=== PATIENT | male | born 1960 | race Caucasian/White ===

== ENCOUNTER 2017-02-04 16:56 | Emergency (ER) | payer MEDICARE ==
[~2017-02-04] VITALS: Ht 180.3 cm; Wt 122.5 kg
[~2017-02-04 16:56] MED LIST: ASPIRIN325 MG PO; AZITHROMYCIN250 MG PO; BENTYL10 MG PO; LISINOPRIL20 MG PO; LORAZEPAM0.5 MG PO; METOPROLOL TART50 MG PO; NORCO 5-325 TA1 EACH PO; TRAMADOL HCL50 MG PO
[2017-02-04] MEDS ORDERED: DICYCLOMINE HCL10 MG PO (17:18)
[2017-02-04] MEDS ORDERED: CIPRO500 MG PO (21:27)
--- NOTE | 2017-02-05 13:02 | EKG ---
[facility] [address] [facility] [place] [address] Signed Normal sinus rhythm Possible Left atrial enlargement Left axis deviation Abnormal QRS-T angle, consider primary T wave abnormality Abnormal ECG When compared with ECG of 05-OCT-2016 12:50, No significant change was found Confirmed by IRLANDA SALINAS MD ([id number]) on 02/05/2017 1:02:06 PM Electronically Signed By: IRLANDA SALINAS MD 02/05/17 1302 PATIENT NAME: JENNADARIO CHOI Electrocardiogram DATE OF : 64 PHYSICIAN: IRLANDA SALINAS MD REPORT #: [id number] REPORT IS CONFIDENTIAL AND NOT TO BE RELEASED WITHOUT AUTHORIZATION
== END 2017-02-04 21:41 | disposition home or self-care (01) ==
LOC: ED 16:56
DX: N39.0 Urinary tract infection, site not specified (principal); H53.9 Unspecified visual disturbance; I10 Essential (primary) hypertension; I25.2 Old myocardial infarction; F17.200 Nicotine dependence, unspecified, uncomplicated; Z88.0 Allergy status to penicillin; Z79.899 Other long term (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 therapy; Z87.01 Personal history of pneumonia (recurrent); Z79.82 Long term (current) use of aspirin; Z79.891 Long term (current) use of opiate analgesic
CPT/HCPCS: 80053; 81001; 84484; 85025; 87088; 93005; 93010; 99284

== ENCOUNTER 2017-02-16 05:55 | Emergency (ER) | payer MEDICARE ==
[~2017-02-16] VITALS: Ht 180.3 cm; Wt 122.5 kg
[~2017-02-16 05:55] MED LIST changes: +CIPRO500 MG PO; +DICYCLOMINE HCL10 MG PO
[2017-02-16] MEDS ORDERED: OMEPRAZOLE20 MG PO (10:27)
--- NOTE | 2017-02-16 17:17 | EKG ---
[facility] [address] [facility] [place] [address] Signed Normal sinus rhythm Possible Left atrial enlargement Left ventricular hypertrophy T wave abnormality, consider lateral ischemia Abnormal ECG When compared with ECG of 04-FEB-2017 17:10, No significant change was found Confirmed by IRLANDA SALINAS MD ([id number]) on 02/16/2017 5:17:03 PM Electronically Signed By: IRLANDA SALINAS MD 02/16/17 1717 PATIENT NAME: JENNADARIO CHOI Electrocardiogram DATE OF : 64 PHYSICIAN: IRLANDA SALINAS MD REPORT #: [id number] REPORT IS CONFIDENTIAL AND NOT TO BE RELEASED WITHOUT AUTHORIZATION
== END 2017-02-16 10:40 | disposition home or self-care (01) ==
LOC: ED 05:55
DX: R07.2 Precordial pain (principal); R10.13 Epigastric pain; I10 Essential (primary) hypertension; I25.2 Old myocardial infarction; F17.200 Nicotine dependence, unspecified, uncomplicated; Z88.0 Allergy status to penicillin; Z79.2 Long term (current) use of antibiotics; Z79.82 Long term (current) use of aspirin; Z79.891 Long term (current) use of opiate analgesic; Z79.899 Other long term (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 therapy
CPT/HCPCS: 36415; 71010; 80053; 83690; 84484; 85025; 93005; 93010; 96374; 96375; 99284; J2270; J2405

== ENCOUNTER 2017-02-17 21:09 | Emergency (ER) | payer MEDICARE ==
[~2017-02-17] VITALS: Ht 180.3 cm; Wt 122.5 kg
[~2017-02-17 21:09] MED LIST changes: +OMEPRAZOLE20 MG PO
== END 2017-02-18 01:38 | disposition home or self-care (01) ==
LOC: ED 21:09
DX: R10.13 Epigastric pain (principal); I25.2 Old myocardial infarction; I10 Essential (primary) hypertension; G62.9 Polyneuropathy, unspecified; F17.200 Nicotine dependence, unspecified, uncomplicated; M79.7 Fibromyalgia; Z88.0 Allergy status to penicillin; Z79.899 Other long term (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 therapy; Z79.82 Long term (current) use of aspirin
CPT/HCPCS: 80053; 83690; 84484; 85025; 96361; 96374; 96375; 99284; J1170; J2405; J7030

== ENCOUNTER 2017-02-21 17:29 | Inpatient (IN) | payer MEDICARE ==
[~2017-02-21] VITALS: Ht 180.3 cm; Wt 119.0 kg
--- NOTE | 2017-02-21 21:00 | NUR ---
PT ARRIVED TO THE FLOOR VIA STRETCHER, ABLE TO AMBULATE INDEPENDANLTY FROM STRETCHER TO BED, APPEARS STABLE OF FEET. PT ALERT AND ORIENTED X4, PLEASENT, VERY TALKATIVE.
--- NOTE | 2017-02-21 21:26 | NUR ---
DR SALINAS IN ROOM WITH PT.
--- NOTE | 2017-02-21 22:40 | NUR ---
PT COMPLAINED OF 6/10 PAIN IN HIS "UPPER" ABD, GAVE MORPHINE FOR PAIN. PT DENIES NAUSEA. ALL DR FLOOD'S ORDERS IN PLACE. ORIENTED PT TO ROOM AND CALL LIGHT. PT SITTING UP IN BED, WATCHING TV. LIGHTS ON, ROOM DOOR OPEN AND CURTAINS OPEN, PER PT REQUEST. CALL LIGHT IN REACH. PT HAS NO FURTHER NEEDS.
--- NOTE | 2017-02-22 00:08 | NUR ---
pt complained of 6/10 pain in abd and nausea, gave morphine for pain. no emesis so far. pt is laying in bed, watching tv, lights on in room, no apparent distress. pleasent and talkative. call light in reach. no further needs.
--- NOTE | 2017-02-22 01:26 | NUR ---
pt appears to be sleeping. rr wnl and unlabored.
--- NOTE | 2017-02-22 02:32 | NUR ---
HAND SLITTER WOKE PT WHEN TAKING 0200 VITALS. PT CALLED RN AND REQUESTED "SOMETHING FOR PAIN," PT RATES PAIN AT 6/10, GAVE MORPHINE IV FOR PAIN. PT UP TO BATHROOM TO VOID. TOLERATED STANDBY ASSIST WELL TO AND FROM BATHROOM. URINE IS DARK KAVITA IN COLOR. CALL LIGHT IN REACH. NO FURTHER NEEDS.
--- NOTE | 2017-02-22 03:24 | NUR ---
pt appears to be sleeping. rr wnl and unlabored.
--- NOTE | 2017-02-22 05:31 | NUR ---
ADMITTED LAST NIGHT EARLY IN SHIFT. PT ALERT AND ORIENTED X4. PAIN WELL CONTROLLED WITH MORPHINE IV. NAUSEA WELL CONTROLLED WITH ZOFRAN IV. IV ANTIBIOTICS. PT USES CALL LIGHT APPROPRIATLY. STANDBY ASSIST.
--- NOTE | 2017-02-22 06:10 | NUR ---
PT COMPLAINS OF 6/10 PAIN, GAVE MORPHINE IV. PT COMPLAINS OF NAUSEA, GAVE ZOFRAN. PT SITTING UP IN BED, WATCHING TV. NO APPARENT DISTRESS. CALL LIGHT IN REACH. NO FURTHER NEEDS.
--- NOTE | 2017-02-22 07:20 | NUR ---
BEDSIDE HANDOFF REPORT RECIEVED FROM STRAWBERRY GROWER RN. PT RESTING IN BED. PT NPO. PT DENIES NEEDS AT THIS TIME.
--- NOTE | 2017-02-22 08:07 | NUR ---
PT RESTING IN BED. PT COMPLAINT OF PAIN, REQUESTING PAIN MEDICATION, RATING PAIN 6-7/10, GIVEN 5 MG IV MORPHINE. PT BLOOD PRESSURE 114/76, HR 66, LISINOPRIL AND HYDRAZALINE HELD PER ORDER. PT DENIES SOB, ON 2L NC, LUNG SOUNDS CLEAR. PT BOWEL TONES HYPOACTIVE, DENIES NAUSEA. PT PULSES PALPABLE, HX NEUROPATHY. PT NPO AT THIS TIME. SALINE LOCKED FOR SHOWER, PROVIDED HEBICLEANSE. PT DENIES OTHER NEEDS AT THIS TIME.
--- NOTE | 2017-02-22 09:45 | NUR ---
MD TO BEDSIDE, DISCUSSED PLAN OF CARE. TO GIVE FLUID BOLUS AND CONTINUE TO MONITOR, REEVALUATE THIS AFTERNOON.
--- NOTE | 2017-02-22 10:34 | NUR ---
PT REQUESTING ANTIEMETIC AND PAIN MEDICATION. PT GIVEN 12.5 MG PROMETHAZINE AND 5 MG IV MORPHINE. PT ACCEPTING FLU VACCINE, ADMINISTERED TO RIGHT SHOULDER. PT DENIES OTHER NEEDS AT THIS TIME.
--- NOTE | 2017-02-22 10:53 | NUR ---
PATIENT RESTING IN BED WITH EYES CLOSED SNORING. CALL BUTTON IN REACH.
--- NOTE | 2017-02-22 12:53 | NUR ---
PT RESTING IN PAIN. PT RATING PAIN AT 5/10. PT LUNG SOUNDS CLEAR. PT DENIES NAUSEA, BOWEL TONES HYPOACTIVE. NO ACUTE CHANGES. PT DENIES NEEDS AT THIS TIME.
--- NOTE | 2017-02-22 13:59 | NUR ---
PATIENT LAYING IN BED RESTIN WITH EYES CLOSED. REPORTED JULIO BP TO NURSE. NO OTHER NEEDS AT THIS TIME.
--- NOTE | 2017-02-22 14:10 | NUR ---
PT RESTING IN BED. PT DENIES NAUSEA. IV ABX INFUSING. PT DENIES NEEDS AT THIS TIME.
--- NOTE | 2017-02-22 16:43 | NUR ---
PT RESTING IN BED, SLEEPING.
--- NOTE | 2017-02-22 16:58 | NUR ---
MD TO BEDSIDE. PLAN FOR OR TOMORROW. PT ALLOWED CLEAR LIQUID UNTIL MIDNIGHT, PROVIDED JUICE, WATER AND JELLO. PT DENIES OTHER NEEDS AT THIS TIME.
[2017-02-22] MEDS ORDERED: CHLORTHALIDONE25 MG PO (18:13)
[2017-02-22] MEDS ORDERED: VITAMIN E400 UNI1 PO (18:14)
[2017-02-22] MEDS ORDERED: VITAMIN B-121000 MCG PO (18:14)
[2017-02-22] MEDS ORDERED: VITAMIN D2000 UNI1 PO (18:14)
[2017-02-22] MEDS ORDERED: PRENATAL PLUS1 EAC4 PO (18:18)
--- NOTE | 2017-02-22 18:19 | NUR ---
MED REC COMPLETE
--- NOTE | 2017-02-22 18:26 | NUR ---
PT ALERT/ORIETNED, SLEEPY AFTER PHENERGAN. PT ON 2L NC, LUNG SOUNDS CLEAR. PAIN WELL CONTROLLED WITH 5MG IV MORPHINE. IV FLUIDS INFUSING D5LR AT 125 ML/HR. BOWEL TONES HYPOACTIVE, TOLERATING CLEAR LIQUID DIET, NPO AT MIDNIGHT FOR SURGERY. CONSENT SIGNED. PT INDEPENDENT IN ROOM. VOIDING QS.
--- NOTE | 2017-02-22 19:28 | NUR ---
RECEIVED REPORT FROM RN. PATIENT HAS NO NEEDS AT THIS TIME.
--- NOTE | 2017-02-22 22:13 | NUR ---
PATIENT REPORTS 5/10 EPIGASTRIC PAIN. NOT REQUESTING MORE PAIN MEDICATION AT THIS TIME.
--- NOTE | 2017-02-23 01:31 | NUR ---
PATIENT REPORTED 6/10 EPIGASTRIC PAIN. PAIN MEDICATION ADMINISTERED PER EMAR. NO OTHER NEEDS AT THIS TIME.
--- NOTE | 2017-02-23 02:23 | NUR ---
PATIENT IS IN BED SLEEPING.
--- NOTE | 2017-02-23 03:40 | NUR ---
PATIENT REPORTS 4/10 EPIGASTRIC PAIN AND DENIES NEED FOR PAIN MEDICATION. ASSESSMENT DONE. PATIENT HAS NO NEEDS AT THIS TIME.
--- NOTE | 2017-02-23 05:15 | NUR ---
PATIENT HAS BEEN SLEEPING THROUGHOUT SHIFT. VSS, NO COMPALINTS OF NAUSEA. PAIN HAS BEEN WELL CONTROLLED WITH PRN MORPHINE. NO ACUTE CHANGES FROM BEGINNING OF SHIFT ASSESSMENT. INTENTIONAL ROUNDING DONE WITH ALL PATIENT'S NEEDS MET.
--- NOTE | 2017-02-23 06:14 | NUR ---
pt up and ambulated in [place] with standby assist. tolerated one time around nurses station well. pt back in bed, watching tv. pleasent and talkative. complained of 6/10 pain, gave morphine iv for pain. complained of feeling nauseous, "i can feel it coming on now." gave zofran iv for nausea. call light in reach. no further needs.
--- NOTE | 2017-02-23 06:33 | NUR ---
PATIENT IS SITTING UP IN BED WATCHING TV. PATIENT HAS NO NEEDS AT THIS TIME.
--- NOTE | 2017-02-23 07:10 | NUR ---
BEDSIDE HANDOFF REPORT RECEIVED FROM BUILDING PRINCIPAL RN. PT RESTING IN BED. PT DENIES NEEDS AT THIS TIME. NPO. IV FLUIDS INFUSING D5LR AT 125 ML/HR.
--- NOTE | 2017-02-23 08:00 | NUR ---
PT RESTING IN BED. PT STATES PAIN TOLERABLE AT THIS TIME, RATING PAIN 5/10. PT ON 2L NC, LUNG SOUNDS CLEAR. PT NPO FOR SURGERY, BOWEL TONES HYPOACTIVE, COMPLAINT OF MILD NAUSEA, DENIES NEED FOR MEDICATION. PT INDEPENDENT IN ROOM. PT DENIES NEEDS AT THIS TIME. IV FLUIDS INFUSING AT 125 ML/HR.
--- NOTE | 2017-02-23 10:51 | NUR ---
PT TO OR WITH DAYSURGERY NURSE.
--- NOTE | 2017-02-23 11:08 | EKG ---
[facility] [address] [facility] [place] [address] Signed Normal sinus rhythm Nonspecific T wave abnormality Abnormal ECG When compared with ECG of 16-FEB-2017 06:01, No significant change was found Confirmed by IRLANDA SALINAS MD ([id number]) on 02/23/2017 11:08:07 AM Electronically Signed By: IRLANDA SALINAS MD 02/23/17 1108 PATIENT NAME: DARIO WEST Electrocardiogram DATE OF : 64 PHYSICIAN: IRLANDA SALINAS MD REPORT #: [id number] REPORT IS CONFIDENTIAL AND NOT TO BE RELEASED WITHOUT AUTHORIZATION
--- NOTE | 2017-02-23 11:50 | NUR ---
PT OFF FLOOR, AT OR.
--- NOTE | 2017-02-23 14:31 | NUR ---
PT CONTINUES TO BE OFF THE FLOOR, AT OR.
--- NOTE | 2017-02-23 14:40 | NUR ---
02/23/17 1440 Stephanie Pinon 1426-PATIENT ARRIVED TO PACU ON 8L MASK PATIENT REACHING FOR FACE AND REMOVING MASK. RA O2 SAT DECREASES TO 90% HAS SLEEP APNEA NONCOMPLIANT WITH AT HOME. PATIENT REPOSITIONING SELF IN BED LAYING ON SIDE. 1434-RT AT BEDSIDE FOR 12 LEAD EKG SR WITH T WAVE INVERSION NOTED. ORDER RECEIVED FROM KAVITA CAMERON. 5 LAP SITES TO ABDOMEN RIGHT SIDE WITH ROSCOE DRAIN SATURATED 4X4'S SEROUSANGUINOUS DRAINAGE. ROSCOE TO BE EMPTIED. DRESSING REINFORCED TO RIGHT SIDE WITH 4X4 FLUFFS TO ROSCOE DRAIN SITE. 1438-O2 SAT DECREASED TO 75% PATIENT ENCOURAGED TO TAKE DEEP BREATHES. MASK PLACED 12L O2 SAT INCREASED TO LOW 90'S.
--- NOTE | 2017-02-23 16:00 | NUR ---
DR. FLOOD CALLED FOR HYPERTENSION, VERBAL ORDER FOR 5 MG IV HYDRALAZINE TO BE GIVEN ONCE, GIVEN.
--- NOTE | 2017-02-23 17:56 | HP ---
[facility] [address] [place], [place] [address] Signed DATE AND TIME OF ADMISSION: 02/21/17 at 2035 PROBLEM: Acute cholecystitis with gallstones. HISTORY This 56-year-old white man is in the [place] area for the past 1 year [place], [place] originally. He is accompanied today by his daughter and her 2 children. Yesterday, he began having upper abdominal pain, which was rather significant and severe and worsening. This included some back pain and some nausea and vomiting. He presented to the emergency room where he has been evaluated and found on ultrasound to have gallstones, a tender gallbladder and findings consistent with acute cholecystitis. He is admitted on that basis. He does have a significant past medical history, which includes recurrent bouts of Legionella pneumonia. He said he was afflicted with this while working on oil [employer] in [place]. Additionally, he is said to have somewhat unresponsive hypertension. Mention has been made of possible renal artery stenosis, though he has had no imaging or anything to confirm such a finding. He was advised by a primary care provider to seek the assistance of an test pilot for further evaluation of this. Additionally, the patient is disabled for reasons that are somewhat unclear, but include an inability to concentrate. MEDICATIONS His medicines at admission include Aspirin, Lisinopril, Lorazepam, Metoprolol, Omeprazole, Tramadol, Bentyl. ALLERGIES: He has allergy to Penicillin. REVIEW OF SYSTEMS His pain is mostly in the right upper abdomen. Denies substernal pain or lower abdominal pain. He complains of no chest pain. Notably, the patient describes a "stress test" performed a few years ago, which was said to be normal. SOCIAL HISTORY He lives in [place]. He is not . He has his daughter and his 2 young Electronically Signed By: ZAYDA FLOOD MD 02/23/17 1756 PATIENT NAME: DARIO WEST HISTORY AND PHYSICAL DATE OF : 64 PHYSICIAN: ZAYDA FLOOD MD REPORT #: [id number] REPORT IS CONFIDENTIAL AND NOT TO BE RELEASED WITHOUT AUTHORIZATION [facility] [address] [place], [place] [address] Signed granddaughters who attend to him at this time. He is previously from [place]. 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 He is now on a disability compensation for some uncertain reasons. PHYSICAL EXAMINATION GENERAL: A nontoxic-appearing white male, with a britton del toro and somewhat obese countenance. NECK: Trachea is midline. He has no hoarseness. There is no carotid bruit. CHEST: Clear. HEART: Regular. I detect no murmur. ABDOMEN: Obese but soft. There is mild tenderness in the right subcostal area. There is no mass. No ascites. EXTREMITIES: Show no clubbing, cyanosis, or edema. LABORATORY STUDIES Show white count of 12.7, hematocrit 48.5, and platelets of 272,000. Chem profile shows normal electrolytes. Creatinine is 1.11, bilirubin 0.9, AST 184, ALT 293, alk phos 154, albumin normal at 4.1, amylase 25, and lipase 23. Urinalysis pending. Ultrasound was reviewed showing what appeared to me to be a distended gallbladder. Interpretation includes findings of diffusely echogenic liver suggestive of fatty infiltration. There is no sign of bile duct dilatation. Common duct is 5 mm. Multiple small gallstones are noted in the gallbladder. There is no pericholecystic fluid or gallbladder wall thickening. Right kidney is 10.6 cm in length. The renal cortex is normal. No right hydronephrosis. ASSESSMENT AND PLAN The patient has acute calculous cholecystitis. He has somewhat mysterious underlying medical problems apparently of variable control. His blood pressure in the emergency room was 180/89, though uncertain if he has been compliant with his usual medications. He will be admitted with bowel rest, intravenous antibiotics, parenteral pain medication, ulcer prophylaxis, DVT prophylaxis and plans for a consideration of hospitalist consult regarding control of his blood pressure. He will be given his or al antihypertensives with a sip of water in the meantime. MD PERFECTO Edwards/Binh Electronically Signed By: ZAYDA FLOOD MD 02/23/17 1756 PATIENT NAME: DARIO WEST HISTORY AND PHYSICAL DATE OF : 64 PHYSICIAN: ZAYDA FLOOD MD REPORT #: [id number] REPORT IS CONFIDENTIAL AND NOT TO BE RELEASED WITHOUT AUTHORIZATION [facility] [address] [facility] [place], [place] [address] Signed /[id number] cc: JOSSELYN Mujica Electronically Signed By: ZAYDA FLOOD MD 02/23/17 1756 PATIENT NAME: DARIO WEST HISTORY AND PHYSICAL DATE OF : 64 PHYSICIAN: ZAYDA FLOOD MD REPORT #: [id number] REPORT IS CONFIDENTIAL AND NOT TO BE RELEASED WITHOUT AUTHORIZATION
--- NOTE | 2017-02-23 18:13 | NUR ---
PT IS SITTING UP IN BED EATING HIS DINNER. PT IS COMPLAING OF PAIN AND JUST GENERAL DISCOMFORT. PT DID NOT NEED ANYTHING ELSE AT THE MOMENT
--- NOTE | 2017-02-23 18:42 | NUR ---
PT CONTINUES TO BE HYPERTENISVE DESPITE HYDRALAZINE AND PAIN MEDICATION. DR. FLOOD CALLED, ORDERED TO CALL HOSPITALIST. DR. KING CALLED, ORDER TO CONTINUE TO MONITOR, AND ENSURE NIGHT BP MEDS GIVEN.
--- NOTE | 2017-02-23 18:46 | NUR ---
PT TO OR TODAY FOR LAP MERLINE. BACK TO FLOOR AT 1530. PT PAIN MANAGED WITH IV MORPHINE, TRANSITIONED TO ORL NORCO. PT BOWEL TONES HYPOACTIVE, ADAVCNED TO REGULAR DIET, DENIES NAUSEA. PT HYPERTENSIVE SINCE ARRIVING, 5MG IV HYDRALAZINE GIVEN X1, MD AWARE. PT WITH LPA SITES X5, ROSCOE DRAIN, MODERATE DRAINAGE FOR ROSCOE SITE, DRESSING CHANGED. UP WITH ASSISTANCE. IV FLUIDS D5LR AT 125 ML/HR. VOIDING QS.
--- NOTE | 2017-02-23 19:15 | NUR ---
SHIFT REPORT RECIEVED. PATIENT RESTING IN BED. FAMILY IN ROOM. NO REQUEST AT THIS TIME. CALL LIGHT IN REACH.
--- NOTE | 2017-02-23 20:35 | NUR ---
PATIENT RESTING IN BED. PATIENT REPORTS PAIN AT 7/10 IN HIS ABD. PRN PAIN MED GIVEN PER ORDERS. EVENING MEDS GIVEN PER ORDER. ROSCOE DRAIN IN RLQ DRAINING SEROSANGUINOUS. MODERATE AMOUNT OF DRAINAGE AROUND ROSCOE SITE ALSO APPEARS SEROSANGUINOUS. PATIENT REQUEST THAT WE WAIT UNTIL THE PAIN MEDICATION HAS TAKEN EFFECT TO CHANGE DRESSING. ABD IS MODERATLEY DISTENED AND TENDER. UMBILICAL SURGICAL SITE HAS SCANT DRAINAGE. STERI STRIPS ON OTHER LAP SITES ARE C/D/I. PATIENT DENIES FEELING NAUSEOUS AT THIS TIME. TOLERATING DIET WELL. SCDS IN PLACE. PLUSE OX IN PLACE. 1L O2 NC. PATIENT REFUSED CPAP. PATIENT HAS NO FURTHER REQUEST AT THIS TIME. CALL LIGHT IN REACH.
--- NOTE | 2017-02-23 21:50 | NUR ---
PATIENT RESTING IN BED. PATIENT REQUESTED TO NOT HAVE HIS DRESSING CHANGED AT THIS TIME. HE FEELS COMFORTABLE AND WOULD LIKE TO REST. AGREED TO ALERT STAFF WHEN HE IS READY TO HAVE THE DRESSING CHANGED. CALL LIGHT IN REACH.
--- NOTE | 2017-02-23 23:51 | NUR ---
PATIENT RESTING. EYES CLOSED. RR 16. CALL LIGHT IN REACH.
--- NOTE | 2017-02-24 00:59 | NUR ---
PATIENT UP TO THE SIDE OF THE BED TO USE URNAL. PATIENT REPORTED 9/10 PAIN. PRN PAIN MEDICATIONS GIVEN AND WARM BLANKET PLACED ON ABD. PATIENT ALLOWED FULL ASSESSMENT TO BE DONE. BOWEL SOUNDS ARE ACTIVE, ABD SOFT, MODERATELY DISTENDED, DRESSING CHANGED. OLD DRESSING HAD MODERATE AMOUNT OF SEROSANGINOUS DRAINAGE. LUNG SOUNDS ARE CLEAR THROUGHOUT, DIMINISHED IN BASES. PATIENT REPORTED DIFFICULTY TAKING DEEP BREATHS DUE TO ABD PAIN. PATIENT ON 2L NC, O2 96%. TITRATED TO 1L NC, WILL CONTINUE TO MONITOR. PATIENT DENIES NAUSEA AT THIS TIME. HE IS CONCERNED ABOUT HAVING A BOWEL MOVEMENT DUE TO THE NARCOTICS AND HIS ABD PAIN. EDUCATED PATIENT ON IMPORTANCE OF AMBULATION AND PROPHYLACTIC BOWEL CARE. SCDS IN PLACE. ROSCOE DRAIN IN PLACE, DRAINED 50ML SEROSANGUINOUS FLUID. PATIENT POSITIONED IN BED FOR COMFORT. IVF RUNNING AT 125ML/HR. PATIENT REQUESTED A VARIETY OF SNACKS. SOFT SNACK OPTIONS WERE PROVIDED. PATIENT HAS NO FURTHER NEEDS AT THIS TIME. CALL LIGHT IN REACH.
--- NOTE | 2017-02-24 01:57 | NUR ---
PATIENT RESTING. EYES CLOSED. RR 14. CALL LIGHT WITHIN REACH.
--- NOTE | 2017-02-24 02:17 | NUR ---
PATIENT ALERTED STAFF TO NEED FOR PRN PAIN MEDICATION FOR 9/10 PAIN. UPON RETURNING TO THE PATIENT ROOM. PATIENT WAS RESTING WITH EYES CLOSED. RN WOKE THE PATIENT TO ASSESS HIS NEED FOR THE PRN PAIN MEDICATION. PATIENT STATED HE WAS EXPERIENCING 9/10 PAIN IN HIS ABD. PRN PAIN MED GIVEN PER ORDER.
--- NOTE | 2017-02-24 03:09 | NUR ---
PATIENT RESTING IN BED. EYES CLOSED. RR 16.
--- NOTE | 2017-02-24 04:02 | NUR ---
PATIENT RESTING IN BED. EYES CLOSED. RR 16. HOB ELEVATED >45 DEGREES. PULSE OX 94%. 1L NC. CALL LIGHT IN REACH.
--- NOTE | 2017-02-24 05:44 | NUR ---
PATIENT RESTED THROUGHOUT SHIFT. ROSCOE DRESSING RLQ, SEROSANGUINOUS DRAINAGE AT ROSCOE SITE. DRESSING CHANGED X2. BOWEL SOUNDS ACTIVE. PATIENT FEELS BLOATED. ABD TENDER, SOFT, AND SLIGHTLY DISTENDED. UMBILICAL INSICION SCANT DRAINAGE. PRN PAIN MEDS GIVEN X4. D5LR @ 125ML/HR. SCDS. PULSE OX WLN, TITRATE O2 DOWN TO RA. PATIENT AMBULATED WITH SBA W/FWW.
--- NOTE | 2017-02-24 05:48 | NUR ---
PATIENT AMBULATED IN HALLWAY WITH 1PA W/FWW. GAIT STEADY. PATIENT REPORTS FEELING "GAS INSIDE" HIS STOMACH AND IS HOPEFUL AMBULATING WITH RELEIVE GAS PRESSURE. PATIENT ASSISTED BACK TO BED. ROSCOE DRESSING CHANGED, SATURATED IN SEROSANGINOUS DRAINAGE. PATIENT DENIES NAUSEA OR NEED FOR PRN PAIN MEDS AT THIS TIME. CALL LIGHT WITHIN REACH.
--- NOTE | 2017-02-24 06:34 | NUR ---
PATIENT REQUESTED PRN PAIN MEDICATION AND NAUSEA MEDICATION. GIVEN PER ORDERS. SNACK GIVEN PER REQUEST. SCDS IN PLACE. PULSE OX, 88% ON RA. PLACED NC 1L. PATIENT LUNG SOUNDS CLEAR, DIMINISHED IN BASES. BOWEL SOUNDS ACTIVE, ABD TENDER, SOFT, AND MODERATLEY DISTENDED. PATIENT REPORTS FEELING "GAS" PRESSURE IN ABD. ROSCOE IN PLACE. DRESSINGS C/D/I. PATIENT RESTING IN BED. NO FURTHER NEEDS AT THIS TIME. CALL LIGHT IN REACH.
--- NOTE | 2017-02-24 06:47 | NUR ---
PATIENTS BLOOD PRESSURE REASSESED AND RECORDED. PATIENT REPOSTIIONED IN BED. PATEINT RATES PAIN AT A 4/10 AND STATES "IT IS IMPROVING" PATIENT DENIES ANY FURTHER NEEDS CALL LIGHT IN REACH.
--- NOTE | 2017-02-24 06:50 | EKG ---
[facility] [address] [facility] [place] [address] Signed Normal sinus rhythm T wave abnormality, consider lateral ischemia Prolonged QT Abnormal ECG When compared with ECG of 22-FEB-2017 19:00, T wave inversion now evident in Lateral leads Confirmed by ASIF KING MD ([id number]) on 02/24/2017 6:50:53 AM Electronically Signed By: ASIF KING MD 02/24/17 0650 PATIENT NAME: DARIO WEST Electrocardiogram DATE OF : 64 PHYSICIAN: ASIF KING MD REPORT #: [id number] REPORT IS CONFIDENTIAL AND NOT TO BE RELEASED WITHOUT AUTHORIZATION
--- NOTE | 2017-02-24 07:51 | NUR ---
RECIEVED BEDSIDE REPORT FROM LYN MILLER AND LYN LANCE. PT AWAKE IN BED, PLEASANT AND COOPERATIVE. REQUESTING ADDITIONAL PAIN PILL.
--- NOTE | 2017-02-24 10:10 | NUR ---
PT IS LYING IN BED RESTING WITH EYES CLOSED RESPERATIONS EVEN. PT WOKE UP FOR VITALS AND TO URINATE. PT IS FEELING NAUSEOUS. PT ASKED FOR ICE WATER.
--- NOTE | 2017-02-24 14:13 | NUR ---
PT IS RESTING IN BED WITH CALL LIGHT IN REACH. PT IS FEELING NAUSEOUS AND UNCOMFORTABLE. PT ASKED ICE WATER.
--- NOTE | 2017-02-24 17:27 | NUR ---
PT TOLERATING REG DIET WELL. HE C/O MILD NAUSEA THIS MORNING AFTER EATING, DECLINED PRN MEDS. PT TOLERATING REG DIET WELL, DECLINES TO HAVE TRAYS REMOVED AFTER MEALS. PRN HYDRALIZINE X1 FOR BP 169/102, EFFECTIVE. SURGICAL SITES C/D/I.
--- NOTE | 2017-02-24 17:49 | NUR ---
PT IS RESTING IN BED WITH CALL LIGHT IN REACH. PT ASKED FOR URINAL TO BE EMPTIED SO HE COULD GO AGAIN.
--- NOTE | 2017-02-24 19:15 | NUR ---
SHIFT REPORT RECIEVED FROM DAY SHIFT. PATIENT RESTING IN BED. NO REQUEST AT THIS TIME. SCDS IN PLACE. DRESSING AT ROSCOE SITE HAS MODERATE AMOUNT OF SEROSANGUENOUS DRAINAGE. WILL CHANGE DRESSINGS. CALL LIGHT WITHIN REACH.
--- NOTE | 2017-02-24 19:45 | NUR ---
PATIENTS BP IS HIGHER THAN NORMAL LIMITS. PLACED CALL TO HOSPITALIST. RECEIVED VERBAL ORDER TO GIVEN NIGHT BP MEDICATION NOW. PLACED CALL TO DR. FLOOD AND LEFT A MESSAGE. WILL CONTINUE TO MONITOR. PATIENT IS ASYMPTOOMATIC AND DOES NOT APPEAR TO BE IN ANY DISTRESS.
--- NOTE | 2017-02-24 20:05 | NUR ---
SHIFT ASSESSMENT COMPLETED AND DOCUMENTED. PATIENT COMPLAINS OF MILD NAUSEA, WOULD LIKE TO WAIT AND SEE IF IT PASSES. DENIES NEED FOR PRN NAUSEA MEDS. WILL REASSESS. PATIENT STATES THAT HIS PAIN IS 5/10, DOES NOT WANT ANY NARCOTIC PAIN MEDS. STATES HE "DOES NOT WANT TO GET HIGH ON PAIN MEDS". EDUCATION PROVIDED. PRN NONNARCOTIC PAIN MEDS GIVEN PER ORDERS. IV IN LEFT FOREARM INFILTRATED, DC'ED. IV IN LEFT AC FLUSHES WELL, NO PAIN OR REDNESS. PJ IN RLQ INPLACE, MODERATE AMOUNT OF DRAINAGE AT SITE. DRESSING CHANGED. UMBILICAL DRESSING C/D/I. LAP SITES HAVE NO NEW DRAINAGE. ABD IS SOFT, TENDER, AND HAS MODERATE DISTENSION. BOWEL SOUNDS ACTIVE. PATIENT REPORTS HE PASSED SMALL AMOUNT OF GAS EARLIER TODAY. SCDS IN PLACE. NO FURTHER REQUEST AT THIS TIME. CALL LIGHT IN REACH. EVENING MEDS GIVEN PER ORDERS.
--- NOTE | 2017-02-24 20:20 | NUR ---
SPOKE WITH DR FLOOD ABOUT PATIENTS INCREASED BLOOD PRESSURE. X2 NEW VERBAL ORDERS RECIEVED. VERIFIED NEW ORDERS USING THE READBACK METHOD. WILL PUT ORDERS INTO PLACE.
--- NOTE | 2017-02-24 21:00 | NUR ---
PATIENT IS NOW SL PER ORDER. PATIENT ALSO GIVEN A ONE TIME DOSE ORDER OF LASIX. PATIENT DENIES ANY NEEDS AT THIS TIME. CALL LIGHT IN REACH.
--- NOTE | 2017-02-24 22:41 | NUR ---
PATIENT REPORTED 9/10 PAIN IN HIS ABD AND CONTINUES TO FEEL NAUSEOUS, WITHOUT FEELING THE NEED TO VOMIT. PATIENT REQUESTED PRN PAIN MEDICATION AND PRN NAUSEA MEDICATION. MEDS GIVEN PER ORDERS. PATIENT CONSERNED ABOUT EFFECTS OF NARCOTICS ON HIS BOWEL MOTILITY AND RESPIRTORY DRIVE. EDUCATION PROVIDED. PATIENT ON CONTINUOUS PULSE OX AND 2L NC, O2 SAT 96%. BOWEL SOUNDS ACTIVE. PATIENT SATISFIED WITH EDUCATION PROVIDED AND REQUESTED PRN NARCOTIC PAIN MEDS. WILL REASSES. CALL LIGHT IN REACH. NO FURTHER REQUEST AT THIS TIME.
--- NOTE | 2017-02-25 00:50 | NUR ---
PATIENT RESTING IN BED. ASSESSMENT COMPLETED AND DOCUMENTED. PATIENT REPORTS "FEELING BETTER" AFTER LAST DOSE OF PRN PAIN MEDICATION. PATIENT HAS NO NEEDS AT THIS TIME. REPORTS NAUSEA HAS IMPROVED. CALL LIGHT IN REACH. 1L NC, 96% ON PULSE OX. SCDS IN PLACE. PATIENT HAVING QS OUTPUT, PALE YELLOW URINE.
--- NOTE | 2017-02-25 03:26 | NUR ---
PATIENT RESTING IN BED. STATES THAT PAIN IS "OKAY" RIGHT NOW. RATED 5/10. PATIENT REQUEST DECAF COFFEE. WILL PROVIDE PATIENT WITH COFFEE. NO FURTHER REQUEST. CALL LIGHT IN REACH.
--- NOTE | 2017-02-25 04:01 | NUR ---
PATIENT SAT UP ON EDGE OF BED TO DRINK SOME COFFEE. PATIENT COMPLAINED OF FEELING DIZZY, SYMPTOMS RESOLVED AFTER A FEW MINS OF SITTING UP. PATIENT REPORTED INCREASING PAIN RATED AT 5/10 IN HIS ABD. PRN PAIN MEDS GIVEN PER ORDER. PATIENT CONSERNED ABOUT BECOMING CONSTIPATED, BUT STATES THAT HE DOES NOT FEEL CONSTIPATED RIGHT NOW. BOWEL SOUNDS ARE ACTIVE, PATIENT REPORTS PASSING GAS, PATIENT TOLERATING REGULAR DIET WITH ADEQUATE INTAKE. EDUCATION PROVIDED AND WILL CONTINUE TO MONITOR. PATIENT REPOSITIONED IN BED ON LEFT SIDE WITH PILLOWS. O2 SAT 94% ON 1L NC. ROSCOE DRAIN IN PLACE. DRESSING AT ROSCOE SITE SHOWS MODERATE DRAINAGE. SCDS ON. CALL LIGHT IN REACH.
--- NOTE | 2017-02-25 05:18 | NUR ---
PATIENT RESTED OFF AND ON. B/P OUTSIDE NORMAL PERAMITERS, IV LASIX X1 GIVEN. OUTPUT QS. BP TRENDING DOWN. ROSCOE DRAIN ON RLQ, MODERATE AMOUNT OF SEROSANGUINOUS DRAINAGE AROUND SITE. ABD MODERATELY DISTENDED, SOFT, TENDER, BOWEL SOUNDS ACTIVE, PASSING GAS. REGULAR DIET, TOLERATING WELL. PATIENT SLIGHTLY NAUSEOUS, PRN MED GIVEN X1. ABD PAIN CONSTANT, PRN PAIN MED X3. IV IN LEFT AC SL. 1L NC WHEN SLEEPING, PULSE OX O2 WNL, REFUSED CPAP. 1PS W/FWW.
--- NOTE | 2017-02-25 06:51 | NUR ---
MORNING MEDS GIVEN PER ORDER. PATIENT REPORTED PAIN CONTROLED AT 4/10. NAUSEA IS REDUCED. LUNG SOUNDS CLEAR, DIMINISHED SLIGHTLY IN BASES. ROSCOE SITE DRESSING CHANGED, MODERATE AMOUNT OF SEROSANGUENOUS DRAINAGE. SKIN BREAK DOWN IN RLQ FROM TAPE. OINTMENT APPLIED TO AREA AND DRESSING REPOSITIONED TO COVER AREA OF BREAK DOWN. ABD MODERATELY DISTENDED. PATIENT PASSING GAS. BOWEL SOUNDS ACTIVE. OUTPUT QS. SCDS IN PLACE. NO FURTHER REQUEST AT THIS TIME. CALL LIGHT IN REACH.
--- NOTE | 2017-02-25 08:14 | NUR ---
PT CARE ASSUMED. PT RESTING IN BED. ABLE TO MOVE SELF FROM EDGE OF BE TO LAYING DOWN FOR ASSESSMENT. PT RATES PAIN 7/10, MEDICATED WITH 1 PERCOCET
--- NOTE | 2017-02-25 09:45 | NUR ---
PT RESTING, APPEARS TO BE SLEEPING
--- NOTE | 2017-02-25 09:51 | NUR ---
PT IS RESTING IN BED WITH CALL LIGHT IN REACH. PT IS COMPLAINING OF NAUSEA AND DISCOMFORT. WILL NOTIFY NURSE. PT ASKED FOR A 7-UP
--- NOTE | 2017-02-25 11:45 | NUR ---
PT SLEEPING. WAKES EASILY TO NURSE. CURTAINS IN ROOM OPEN. PT REQUESTS NOT TO TAKE PRN BISSOCODYL UNTIL LATER TONIGHT.
--- NOTE | 2017-02-25 14:09 | NUR ---
PT IS SITTING UP IN BED FINISHING LUNCH WITH CALLO LIGHT IN REACH. PT WOULD LIKE TO SHOWER LATER ON. PT DID NOT NEED ANYTHING ELSE AT THE MOMENT
--- NOTE | 2017-02-25 14:57 | NUR ---
PT GIVEN AFTERNOON MEDS, UP FOR WALK WITH NURSE. PT REQUESTS TO SIT UP IN BATHROOM FOLLOWING WALK
--- NOTE | 2017-02-25 17:28 | NUR ---
PT BEGAN SHIFT PAINFUL AND NEEDING MEDICATION. AFTER ONE DOSE, PT HAS NOT NEEDED ANY MORE PAIN MEDICATION FOR SHIFT. HAS BEEN AMBULATING IN HALLWAY WITH STAFF, UP TO THE SHOWER WITH NUTRITION THERAPIST, AND ABLE TO HAVE A LARGE BOWEL MOVEMENT. PT STATES ABD IS FEELING MUCH BETTER THIS EVENING.
--- NOTE | 2017-02-25 18:59 | NUR ---
PT USED BATHROOM AND RETURNED TO BED, CALL LIGHT IN REACH. PT ASKED FOR A WARM BLANKET
--- NOTE | 2017-02-25 19:00 | NUR ---
REPORT TO FIOR BEARD
--- NOTE | 2017-02-25 20:05 | NUR ---
PATIENT ASSESSMENT COMPLETED AND DOCUMENTED. PATIENT REPORTS PAIN AT 8/10 AT HIS ABD SITES, ABD SOFT, TENDER, BOWEL SOUND ACTIVE. PATIENT 1PA W/FWW. STEADY ON HIS FEET, APPEARS SORE BUT NOT WEAK. LUNG SOUNDS CLEAR, SLIGHTLY DIMINISHED IN BASES. PULSE OX IN PLACE FOR NIGHT, O2 97% 2L NC. SCDS IN PLACE. PATIENT STATES THAT HE IS "BETTER THAN YESTERDAY". NO REQUEST AT THIS TIME. CALL LIGHT IN REACH.
--- NOTE | 2017-02-25 22:25 | NUR ---
PATIENT REPORTED LEAKAGE AT DRESSING SITE. ROSCOE DRAIN REMOVED TODAY, SITE LEAKING SEROSANGUENOUS FLUID. STERI STRIPS APPLIED AND FOAM DRESSING APPLIED. WILL REASSESS. PULSE OX, O2 95% ON 1L NC. PATIENT REPORTS PAIN AT 5/10, DENIES NEED FOR PRN PAIN MED AT THIS TIME. PATIENT S.L. SCDS IN PLACE. CALL LIGHT IN REACH.
--- NOTE | 2017-02-25 23:04 | NUR ---
PATIENT REQUEST PRN PAIN MEDS FOR ADB PAIN AT 5/10. PRN PAIN MEDS GIVEN PER ORDER.
--- NOTE | 2017-02-26 00:40 | NUR ---
PATIENT RESTING IN BED. EYES CLOSED. RR 16. PULSE OX, O2 96% 1L NC.
--- NOTE | 2017-02-26 02:12 | NUR ---
PATIENT RESTING IN BED. STATES PAIN IS CONSTANT BUT TOLERABLE, 5/10. DRESSING OVER LEP SITE WHERE ROSCOE WAS REMOVED IS INTACT WITH SMALL AMOUNT OF NEW DRAINAGE VISIBLE. WILL CONTINUE TO MONITOR. OTHER LAP SITES COVERED WITH STERI STRIPS, HAVE NO NEW DRAINAGE. PULSE OX, O2 98%, 1L NC. TITRATED TO RA. WILL CONTINUE TO MONITOR. NO REQUEST AT THIS TIME. CALL LIGHT IN REACH.
--- NOTE | 2017-02-26 03:20 | NUR ---
PATIENT RESTING IN BED. PULSE OX, O2 88% ON RA. TITRATED TO 1L NC. FEW MINS LATER O2 97%.
--- NOTE | 2017-02-26 04:50 | NUR ---
PATIENT RESTING IN BED. LAP SITE WHERE ROSCOE SITE WAS REMOVED HAD MODERATE AMOUNT OF DRAINAGE. 2X2 FOAM DRESSING PLACED AROUND 2300 HAD MODERATE AMOUNT OF SEROSANGINOUS DRAINAGE. NEW FOAM DRESSING APPLIED. STERI STRIPS PLACED EARLIER IN SHIFT LEFT IN PLACE. OF LAP SITES HAVE NO NEW DRAINAGE. PATIENT REPORTS MILD NAUSEA AND PAIN AT 6/10. PRN NAUSEA AND PAIN MEDS GIVEN PER ORDER. WARM BLANKET GIVEN FOR COMFORT. PATIENT UP TO BATHROOM INDEPENDENTLY WITHOUT WALKER. PATIENT APPEARS STEADY ON HIS FEET, MOVES SLOW WITH CORRDINATED MOVEMENTS. PATIENT BACK TO BED. SCDS TAKEN OFF PER PATIENT REQUEST. PULSE OX, O2 97% 2L NC. CALL LIGHT IN REACH. NO FURTHER REQUEST.
--- NOTE | 2017-02-26 06:14 | NUR ---
PATIENT RESTED THROUGHOUT SHIFT. PULSE OX AND 1L NC WHILE ASLEEP, O2 WNL. PRN PAIN MEDS GIVEN X2, PRN NAUSEA MEDS GIVEN X1. ROSCOE DRAIN OUT YESTERDAY, SITE CONTINUES TO HAVE MODERATE AMOUNT OF DRAINAGE. DRESSING CHANGED X2, STERI STRIPS AND 2X2 FOAM DRESSING IN PLACE. PATIENT AMBULATING W/SBA. STEADY ON HIS FEET. TOLERATING REGULAR DIET. SCDS.
--- NOTE | 2017-02-26 06:51 | NUR ---
ALL NOTES, ASSESSMENTS, AND CARE PLAN REVIEWED BY THIS RN.
--- NOTE | 2017-02-26 08:40 | NUR ---
PT ALERT AND ORIENTED X4, PT C/O 6/10 ABD PAIN, GIVEN 600 MG TAB IBUPROFEN AND 0.5 TAB OF 7.5/325 NORCO. PT COOPERATIVE AND POLITE, LAP SITES INTACT, NO REDNESS OR SWELLING NOTED. AT ROSCOE DRAIN SITE SLIGHT DRAINAGE NOTED, COVERED WITH ALEVENT DRESSING. PT INDEPENDENT AND AMBULATORY IN THE ROOM. PT HAS HAD A BM. PT TAKING 100% OF MEALS.
[2017-02-26] MEDS ORDERED: PERCOCET 5-3251 EACH PO (09:45)
[2017-02-26] MEDS ORDERED: NICOTINE PATCH1 EAC1 TD (09:58)
--- NOTE | 2017-02-26 11:34 | NUR ---
PT GIVEN RX FOR PO ZOFRAN FROM FOR HOME USE. PHYSICAL PERSCRIPTION GIVEN TO PT.
--- NOTE | 2017-02-26 12:15 | OR ---
[facility] [place] [facility] [address], [place] [address] Signed DATE OF PROCEDURE: 02/23/17 PREOPERATIVE DIAGNOSES Acute calculous cholecystitis. Multiple medical problems including sleep apnea, hypertension, and history of recurrent pneumonia. Obesity. POSTOPERATIVE DIAGNOSES Acute calculous cholecystitis. Multiple medical problems including sleep apnea, hypertension, and history of recurrent pneumonia. Obesity. Choledocholithiasis. PROCEDURE Laparoscopic cholecystectomy with cholangiogram. Laparoscopic common bile duct exploration with removal of common bile duct stones and completion cholangiogram. Surgeon directed fluoroscopy (prolonged, complicated, difficult). SURGEON: Zayda Flood MD. ANESTHESIA: General endotracheal (Iva Sears CRNA). INDICATION This 56-year-old obese white man is from [place], [place] and more recently living in [place]. He has seen primary provider Sharifa Vizcarra. He is said to have poorly controlled hypertension. He presented to the emergency room on February 21, 2017, with upper abdominal pain and evaluation showed slight elevation of liver enzymes and gallbladder ultrasound showing stones and a positive sonographic Cabrera's sign. The patient was admitted and given fluid resuscitation, intravenous antibiotics, and parenteral pain control and consultation undertaken with Dr. Vi Quintero regarding his hypertension. His hypertension problem has been controlled, it is suspected that he has poor compliance with medications. He has a rather complex past medical history as well including recurrent bouts of pneumonia with Legionella. He unfortunately does smoke. He is admitted at this time to undergo cholecystectomy, having been fluid resuscitated and optimized as best can be for operation. He remains tender in the right upper abdomen and his liver enzymes are reasonably normal at this time. He understands the risks of bleeding, infection, bile Electronically Signed By: ZAYDA FLOOD MD 02/26/17 1215 PATIENT NAME: DARIO WEST OPERATIVE REPORT DATE OF : 64 PHYSICIAN: ZAYDA FLOOD MD REPORT #: [id number] REPORT IS CONFIDENTIAL AND NOT TO BE RELEASED WITHOUT AUTHORIZATION [facility] [place] [facility] [address], [place] [address] Signed duct injury, need for open procedure, need for other indicated procedures and wished to proceed. FINDINGS The patient is rather obese. A fan retractor is needed for good exposure. The gallbladder was acutely inflamed and ultimately found to be packed completely with gallstones. Initial cholangiogram demonstrated 2 common bile duct stones in the distal duct without obstructing the duct fully. Laparoscopic common duct exploration from a transcystic approach was undertaken, both stones have been removed. Completion cholangiogram was normal. Liver had fatty infiltration, there were no other findings of concern. DESCRIPTION OF PROCEDURE The patient was brought to the operating room, given a general endotracheal anesthetic. Preoperative antibiotic clindamycin had been given based on his allergy profile. Sequential compression device stockings were used and heparin subcutaneously administered. After satisfactory anesthesia, the abdomen was clipped and prepared with Chlorhexidine solution and draped sterilely. An infraumbilical incision was made and using an open Wang cannula technique. Pneumoperitoneum was achieved at level 14 mmHg with carbon dioxide gas. Intraabdominal inspection showed no sign of ascites or carcinomatosis. The liver had fatty infiltration as manifest by a blunted liver edge. The gallbladder was tensed and distended and inflamed. Three additional trocars were placed in usual configuration. The subxiphoid, right midclavicular, and right anterior axillary line. Gallbladder was elevated cephalad and found to be elongated, and dilated, and inflamed enough that given his obesity with redundant omentum, visualization was poor. On that basis an epigastric 5-mm port was placed and a fan retractor placed. This allowed for much better visualization of the gallbladder. The infundibulum of gallbladder was grasped and retracted and using blunt and electrocautery dissection the triangle of Calot was dissected free. A few clips were a p plied to the cystic arterial branches. The cystic duct took a fair amount of time to dissect out safely, but was well identified. A clip applied across gallbladder cystic duct junction and a transverse choledochotomy made with thick cystic duct. Egress of clear bile was noted. Using the Garces type cholangiocatheter intraoperative cholangiography was undertaken. Free flow of contrast was noted into the biliary tree with some emptying into the duodenum, but there were two distinct filling defects in the dist al common duct. These were clearly stones. There is no sign of more proximal filling defect of concern. It was deemed advisable to perform laparoscopic common duct exploration. Electronically Signed By: ZAYDA FLOOD MD 02/26/17 1215 PATIENT NAME: DARIO WEST OPERATIVE REPORT DATE OF : 64 PHYSICIAN: ZAYDA FLOOD MD REPORT #: [id number] REPORT IS CONFIDENTIAL AND NOT TO BE RELEASED WITHOUT AUTHORIZATION [facility] [place] [facility] [address] [facility] [place] [address] Signed On that basis, the TauT catheter kit was obtained and a 5-mm trocar placed i n alignment with the cystic duct. The flexible tipped wire was passed down the trocar into the cystic duct and fed without problem into the biliary tree. Fluoroscopy was then undertaken showing the wire to be down the common duct into the duodenum. The Ta u T catheter with the balloon and so forth were carefully passed over the wire under direct visualization into the common duct and positioned across the ampulla. Not mentioned previously was the infusion of 1 amp of glucagon by the tracer lathe set up operator prior to cannulation of the duct. Once the catheter was positioned over the ampulla itself, it was dilated with contrast in the balloon itself. This initially showed a "waist" in the region of the ampulla, which eventually showed no sign of constriction. The TauT catheter was deflated in its balloon portion and withdrawn under fluoroscopy in position across the cystic duct itself. It was then dilated more fully. Examination showed upon withdrawal of the catheter that two small gallstones had been withdrawn upon withdrawal of the balloon itself. Likely those were the stones that were seen on the initial cholangiogram. The common duct was then flushed with sterile saline after positioning the catheter in the cystic duct itself. Cholangiography was then undertaken with contrast which showed no sign of residual filling defect, and emptying of contrast into the duodenum. At this point, clearance of the common duct was considered complete. The TauT catheter and wire were removed and the cystic duct was triply clipped and divided and the gallbladder dissected free in a retrograde fashion using electrocautery. The two stray stones that had been withdrawn from the cystic duct were gathered and removed. The gallbladder once excised from the hepatic bed was placed in an Endobag a n d extracted through the infraumbilical port site. The infraumbilical port site was inadequate in size to accommodate the large and distended gallbladder, which ultimately was found to be packed with stones. On that basis, the fascia was incised superiorly and inferiorly allowing for egress of the gallbladder within the Endobag. The gallbladder was opened on the back table and found to have innumerable yellow multifaceted gallstones, both small and large. The mucosa of the gallbladder was chronically inflame d with no sign of neoplasm. Reinspection of subhepatic space showed no sign of bile leak, bleeding, or other problem. The right-sided trocar 5-mm Ramon drain was placed in the subhepatic space and secured to the skin with nylon suture. The trocars were removed under direct visualization showing no sign of bleeding. The infraumbilical fascial incision was reapproximated with multiple 0 Vicryl sutures carefully placed given the increased size of the incision and his body habitus. The skin was closed with interrupted 3-0 Vicryl after application of a 20 mL of 0.25% Marcaine with epinephrine. Steri-Strips were applied. The patient was extubated and although was a bit active and coughing and so forth, Electronically Signed By: ZAYDA FLOOD MD 02/26/17 1215 PATIENT NAME: DARIO WEST OPERATIVE REPORT DATE OF : 64 PHYSICIAN: ZAYDA FLOOD MD REPORT #: [id number] REPORT IS CONFIDENTIAL AND NOT TO BE RELEASED WITHOUT AUTHORIZATION [address] [address] Signed tolerated this well and was taken recovery room in good condition having suffered no known complications. Sponge, needle, and instrument counts reported as correct x3. The operation was prolonged, complicated, and difficult on the basis of a common duct exploration, but was accomplished safely. It lasted 3 times longer than usual. MD PERFECTO Edwards/Modl /[id number] cc: JOSSELYN Mujica MD Electronically Signed By: ZAYDA FLOOD MD 02/26/17 1215 PATIENT NAME: WESTDARIOEDMUNDO CHOI OPERATIVE REPORT DATE OF : 64 PHYSICIAN: ZAYDA FLOOD MD REPORT #: [id number] REPORT IS CONFIDENTIAL AND NOT TO BE RELEASED WITHOUT AUTHORIZATION
--- NOTE | 2017-02-28 15:15 | DS ---
[facility] [address], [place] [address] Signed DATE OF DISCHARGE: 02/26/17 REASON FOR ADMISSION This 56-year-old white man has moved to the [facility] a year ago from [place], [place]. He presented to the emergency room with upper abdominal pain and found on gallbladder ultrasound to have multiple gallstones. Clinical examination shows acute cholecystitis. He is admitted for further evaluation and care. PHYSICAL EXAMINATION GENERAL: Obese white man who appeared nontoxic. HEENT: Trachea is midline. CHEST: Clear. HEART: Regular without murmur. ABDOMEN: Obese, but soft. There is tenderness in the right subcostal area, but there is no palpable mass. No ascites. LAB STUDIES Showed a white count 12.7, hematocrit 48.5, platelets 272,000. Chem profile showed normal electrolytes, creatinine 1.11, bilirubin 0.9, AST 184, ALT 293, alkaline phosphatase 154. Lipase and amylase were normal. An ultrasound showed a distended gallbladder with gallstones. HOSPITAL COURSE He was fluid resuscitated, given intravenous antibiotics and consultation undertaken with Dr. Quintero on the basis of his underlying significant hypertension issues. He was considered to have resistant hypertension by his primary provider, JOSSELYN Mujica, and plans were made for referral to an leather coverer. Evaluation by Dr. Quintero showed that his uncontrolled essential hypertension and resultant hypertensive heart disease may have been related to poor cognition generally speaking and compliance with his medical regimen. He was suggested to increase his dose of Metoprolol to 50 mg twice a day, Lisinopril 20 mg twice a day. On short-term, he was given Hydralazine intravenously. It is noted that he had an episode of respiratory failure and multi organ dysfunction at least 9 years ago and has had recurrent episodes of pneumonia since that time. He describes his original pneumonia is related to Legionella. His persistent smoking may have something to do with his recurrent pulmonary problems. It is acknowledged. He was optimized for operation medically speaking and on February 23, 2017, underwent Electronically Signed By: ZAYAD FLOOD MD 02/28/17 1515 PATIENT NAME: DARIO WEST DISCHARGE SUMMARY DATE OF : 64 PHYSICIAN: ZAYDA FLOOD MD REPORT #: [id number] REPORT IS CONFIDENTIAL AND NOT TO BE RELEASED WITHOUT AUTHORIZATION [facility] [address], [place] [address] Signed operation. Laparoscopic cholecystectomy with cholangiogram was performed showing 2 distal common bile duct stones. A laparoscopic transcystic duct removal of the stones was accomplished successfully avoiding the need for an ERCP or open common duct exploration. A drain was placed. Postoperatively, he had progressive improvement. The drain that had been placed showed no bile leak or other particular problems. Oral intake was begun promptly and antihypertensive medications given as needed. He was relatively hypoxemic and was given Lasix 1 dose, which offloaded fair amount of fluid and improved his oxygenation, no longer requiring supplemental oxygen. By day of-discharge, he is ambulating well. The drain that had been placed has been removed. Incisions are healing well. He is tolerating oral intake well. We reviewed carefully that he will need to maintain his antihypertensive medications quite carefully. He will see me back in approximately a month in follow-up. Arrangements should be made for him to see his primary care provider as well for follow-up of his hypertension of course. DISCHARGE MEDICATIONS Metoprolol 50 mg p.o. b.i.d. Lisinopril 20 mg p.o. daily. Lorazepam 0.5 mg p.o. as needed for anxiety (previous prescription). Aspirin 325 mg p.o. daily. Tramadol 50 mg p.o. b.i.d. as needed. Dicyclomine 10 mg q.6 hours as needed for pain (unlikely to need in the future). Omeprazole 20 mg p.o. daily. Chlorthalidone 25 mg p.o. q.a.m. Vitamin E capsule 400 units daily. Vitamin B12 1000 mcg p.o. daily. Vitamin D 2000 units p.o. daily and calcium iron supplement 1 tab p.o. daily. A nicotine patch replacement for smoking will be given at time of discharge as well. DISCHARGE DIAGNOSES Acute calculus cholecystitis with Choledocholithiasis. Status post laparoscopic cholecystectomy with laparoscopic common duct exploration, placement of drain, February 23, 2017. Obesity. Variably resistant essential hypertension (compliance with medication an issue). 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 Impaired memory and generalized disability. Electronically Signed By: ZAYDA FLOOD MD 02/28/17 7540 PATIENT NAME: DARIO WEST DISCHARGE SUMMARY DATE OF : 64 PHYSICIAN: ZAYDA FLOOD MD REPORT #: [id number] REPORT IS CONFIDENTIAL AND NOT TO BE RELEASED WITHOUT AUTHORIZATION [address] [address] Signed Obesity. MD PERFECTO Edwards/Modl /[id number] cc: MD Sharifa Ashby FNP Electronically Signed By: ZAYDA FLOOD MD 02/28/17 1515 PATIENT NAME: DARIO WEST DISCHARGE SUMMARY DATE OF : 64 PHYSICIAN: ZAYDA FLOOD MD REPORT #: [id number] REPORT IS CONFIDENTIAL AND NOT TO BE RELEASED WITHOUT AUTHORIZATION
== END 2017-02-26 12:18 | disposition home or self-care (01) | DRG 418 ==
LOC: ED 17:29 → MS 20:34
PROVIDERS: ADMIT Surgery
PROC: 3E0234Z Introduction of Serum, Toxoid and Vaccine into Muscle, Percutaneous Approach (ICD-10-PCS; 2017-02-22)
PROC: BF101ZZ Fluoroscopy of Bile Ducts using Low Osmolar Contrast (ICD-10-PCS; 2017-02-23)
PROC: 0FT44ZZ Resection of Gallbladder, Percutaneous Endoscopic Approach (ICD-10-PCS; principal; 2017-02-23 13:15)
PROC: 0FC94ZZ Extirpation of Matter from Common Bile Duct, Percutaneous Endoscopic Approach (ICD-10-PCS; 2017-02-23 13:15)
DX: K80.00 Calculus of gallbladder with acute cholecystitis without obstruction (principal); J98.11 Atelectasis; G47.33 Obstructive sleep apnea (adult) (pediatric); E66.9 Obesity, unspecified; Z88.0 Allergy status to penicillin; Z23 Encounter for immunization; R09.02 Hypoxemia; I11.0 Hypertensive heart disease with heart failure; M79.7 Fibromyalgia; F17.210 Nicotine dependence, cigarettes, uncomplicated; Z79.82 Long term (current) use of aspirin; K76.0 Fatty (change of) liver, not elsewhere classified; I16.0 Hypertensive urgency
CPT/HCPCS: 00790; 36415; 74300; 76705; 80053; 82150; 82247; 82465; 83615; 83690; 84100; 84478; 84550; 85025; 90674; 93005; 93010; 94762; 99406; C1894; G0008; J0330; J0360; J1170; J1610; J1644; J1885; J2270; J2405; J2550; J2704; J2765; J3010; J7120; Q9967

== ENCOUNTER 2017-04-02 20:31 | Emergency (ER) | payer MEDICARE ==
[~2017-04-02] VITALS: Ht 180.3 cm; Wt 117.9 kg
[~2017-04-02 20:31] MED LIST changes: +CHLORTHALIDONE25 MG PO; +NICOTINE PATCH1 EAC1 TD; +PERCOCET 5-3251 EACH PO; +PRENATAL PLUS1 EAC4 PO; +VITAMIN B-121000 MCG PO; +VITAMIN D2000 UNI1 PO; +VITAMIN E400 UNI1 PO
--- NOTE | 2017-04-03 20:30 | EKG ---
[facility] [address] [facility] [place] [address] Signed Sinus tachycardia Possible Left atrial enlargement Left axis deviation Left ventricular hypertrophy Nonspecific T wave abnormality Abnormal ECG When compared with ECG of 23-FEB-2017 14:37, T wave inversion less evident in Lateral leads Confirmed by IRLANDA SALINAS MD ([id number]) on 04/03/2017 8:30:32 PM Electronically Signed By: IRLANDA SALINAS MD 04/03/17 2030 PATIENT NAME: JENNADARIO CHOI Electrocardiogram DATE OF : 64 PHYSICIAN: IRLANDA SALINAS MD REPORT #: [id number] REPORT IS CONFIDENTIAL AND NOT TO BE RELEASED WITHOUT AUTHORIZATION
== END 2017-04-02 22:59 | disposition home or self-care (01) ==
LOC: ED 20:31
DX: I10 Essential (primary) hypertension (principal); I25.2 Old myocardial infarction; E11.40 Type 2 diabetes mellitus with diabetic neuropathy, unspecified; F17.200 Nicotine dependence, unspecified, uncomplicated; Z88.0 Allergy status to penicillin; Z79.899 Other long term (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 therapy; Z79.82 Long term (current) use of aspirin; Z87.01 Personal history of pneumonia (recurrent)
CPT/HCPCS: 80053; 84484; 85025; 93005; 93010; 96374; 96375; 99284; J1200; J1885; J2405; J2765

== ENCOUNTER 2017-04-04 19:18 | Emergency (ER) | payer MEDICARE ==
[~2017-04-04] VITALS: Ht 180.3 cm; Wt 117.9 kg
== END 2017-04-05 00:11 | disposition home or self-care (01) ==
LOC: ED 19:18
DX: I10 Essential (primary) hypertension (principal); G44.209 Tension-type headache, unspecified, not intractable; I25.2 Old myocardial infarction; E11.40 Type 2 diabetes mellitus with diabetic neuropathy, unspecified; F17.200 Nicotine dependence, unspecified, uncomplicated; Z88.0 Allergy status to penicillin; Z79.899 Other long term (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 therapy; Z79.82 Long term (current) use of aspirin
CPT/HCPCS: 96374; 96375; 99284; J0780; J1885

== ENCOUNTER 2017-04-20 14:41 | Emergency (ER) | payer MEDICARE ==
[~2017-04-20] VITALS: Ht 180.3 cm; Wt 118.4 kg
--- OUTSIDE RECORDS SUMMARY | ~2017-04-20 | XMS | Clinical Summary ---
Demographics + + + | Address | [address] | | | [place] [address] | + + + | Home Phone | | + + + | Preferred Language | Unknown | + + + | Marital Status | Single | + + + | Buddhism Affiliation | Unknown | + + + | Race | Unknown | + + + | Ethnic Group | Other Race | + + + Author + + + | Author | [facility] | + + + | Organization | [facility] | + + + | Address | Unknown | + + + | Phone | Unavailable | + + + Care Team Providers + +------+-------+ | Care Hand Wrapper Operator Name | Role | Phone | + +------+-------+ | Devon Vale MD | PP | tel | + +------+-------+ Source Comments LATOSHA is fully live on both [facility] Allergies No Known Allergies Current Medications [...]
--- OUTSIDE RECORDS SUMMARY | ~2017-04-20 | XMS | Clinical Summary ---
Demographics + + + | Address | [address] | | | [place] [address] | + + + | Home Phone | | + + + | Preferred Language | Unknown | + + + | Marital Status | Single | + + + | Hindu Affiliation | Unknown | + + + | Race | Unknown | + + + | Ethnic Group | Other Race | + + + Author + + + | Author | [facility] | + + + | Organization | [facility] | + + + | Address | Unknown | + + + | Phone | Unavailable | + + + Care Team Providers + +------+-------+ | Care Electron Tube Assembler Name | Role | Phone | + +------+-------+ | Devon Vale MD | PP | tel | + +------+-------+ Source Comments LATOSHA is fully live on both [facility] and [facility] InPatient.[facility] Allergies No Known Allergies Current [...]
[2017-04-20] MEDS ORDERED: CHLORTHALIDONE25 MG PO (18:53)
[2017-04-20] MEDS ORDERED: LISINOPRIL20 MG PO (18:53)
[2017-04-20] MEDS ORDERED: ULTRAM50 MG PO (18:56)
--- NOTE | 2017-04-20 19:17 | EKG ---
[facility] [address] [facility] [place] [address] Signed Sinus tachycardia Possible Left atrial enlargement Left axis deviation Left ventricular hypertrophy Abnormal ECG When compared with ECG of 02-APR-2017 21:18, No significant change was found Confirmed by IRLANDA SALINAS MD ([id number]) on 04/20/2017 7:17:47 PM Electronically Signed By: IRLANDA SALINAS MD 04/20/171916 PATIENT NAME: DARIO WEST Electrocardiogram DATE OF : 64 PHYSICIAN: IRLANDA SALINAS MD REPORT #: [id number] REPORT IS CONFIDENTIAL AND NOT TO BE RELEASED WITHOUT AUTHORIZATION
== END 2017-04-20 19:12 | disposition home or self-care (01) ==
LOC: ED 14:41
DX: I16.0 Hypertensive urgency (principal); R51 Headache; I25.2 Old myocardial infarction; E11.40 Type 2 diabetes mellitus with diabetic neuropathy, unspecified; F17.200 Nicotine dependence, unspecified, uncomplicated; Z90.49 Acquired absence of other specified parts of digestive tract; Z88.0 Allergy status to penicillin; Z79.899 Other long term (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 therapy; Z79.82 Long term (current) use of aspirin
CPT/HCPCS: 70450; 80053; 84484; 85025; 93005; 93010; 96374; 96375; 99284; J1170; J1200; J1885

== ENCOUNTER 2017-06-03 19:31 | Emergency (ER) | payer MEDICARE ==
[~2017-06-03] VITALS: Ht 180.3 cm; Wt 117.9 kg
[~2017-06-03 19:31] MED LIST changes: +ULTRAM50 MG PO
--- NOTE | 2017-06-04 13:22 | EKG ---
[facility] [address] [place] [address] Signed Normal sinus rhythm Possible Left atrial enlargement Left axis deviation Left ventricular hypertrophy T wave abnormality, consider lateral ischemia Prolonged QT Abnormal ECG When compared with ECG of 20-APR-2017 14:47, No significant change was found Confirmed by IRLANDA SALINAS MD ([id number]) on 06/04/2017 1:22:26 PM Electronically Signed By: IRLANDA SALINAS MD 06/04/17 1322 PATIENT NAME: JENNADARIO CHOI Electrocardiogram DATE OF : 64 PHYSICIAN: IRLANDA SALINAS MD REPORT #: [id number] REPORT IS CONFIDENTIAL AND NOT TO BE RELEASED WITHOUT AUTHORIZATION
== END 2017-06-04 01:30 | disposition home or self-care (01) ==
LOC: ED 19:31
DX: I10 Essential (primary) hypertension (principal); R51 Headache; I25.2 Old myocardial infarction; F17.200 Nicotine dependence, unspecified, uncomplicated; Z87.01 Personal history of pneumonia (recurrent); Z90.49 Acquired absence of other specified parts of digestive tract; Z88.0 Allergy status to penicillin; Z79.899 Other long term (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 therapy; Z79.82 Long term (current) use of aspirin
CPT/HCPCS: 93005; 93010; 96374; 96375; 99283; J0131; J2270; J2405

== ENCOUNTER 2017-09-05 22:29 | Emergency (ER) | payer MEDICARE ==
[~2017-09-05] VITALS: Ht 180.3 cm; Wt 122.9 kg
--- OUTSIDE RECORDS SUMMARY | 2017-09-06 07:23 | XMS | Clinical Summary ---
Demographics + + + | Address | [address] | | | [place] [address] | + + + | Home Phone | | + + + | Preferred Language | Unknown | + + + | Marital Status | Single | + + + | Temple Affiliation | Unknown | + + + | Race | Unknown | + + + | Ethnic Group | Other Race | + + + Author + + + | Author | [facility] | + + + | Organization | [facility] | + + + | Address | Unknown | + + + | Phone | Unavailable | + + + Care Team Providers + +------+ + | Care Clerical Stock Inspector Name | Role | Phone | + +------+ + | Devon Vale MD | PP | | + +------+ + Source Comments LATOSHA is fully live on both [facility] Ambulatory and [facility] InPatient.[facility] Allergies No Known Allergies Current Medications No known medications Active Problems + + + | Problem | Noted Date | + + + | Dyspnea and respiratory abnormality | 12/29/2008 | + + + + + | Overview: ICD10 | + + + + + | Myopathy | 12/29/2008 | + + + | Neuropathy (HCC) | 12/29/2008 | + + + | HTN (hypertension) | 12/29/2008 | + + + + + | Overview: ICD10 | + + + + + | ANITA (obstructive sleep apnea) | 12/29/2008 | + + + Social History + +-------+ +--------+------+ | Tobacco Use | Types | Packs/Day | Years | Date | | | | | Used | | + +-------+ +--------+------+ | Former Smoker | | | | | + +-------+ +--------+------+ + + +---------+ + | Alcohol Use | Drinks/We | oz/Week | Comments | | | ek | | | + + +---------+ + | Yes | | | | + + +---------+ + + + + | Sex Assigned at | Date Recorded | | | | + + + | Not on file | | + + + Last Filed Vital Signs + + + + | Vital Sign | Reading | Time Taken | + + + + | Blood Pressure | 146/102 | 12/29/2008 2:20 PM PDT | + + + + | Pulse | 72 | 12/29/2008 2:20 PM PDT | + + + + | Temperature | - | - | + + + + | Respiratory Rate | - | - | + + + + | Oxygen Saturation | - | - | + + + + | Inhaled Oxygen | - | - | | Concentration | | | + + + + | Weight | 117 kg (258 lb) | 12/29/2008 2:20 PM PDT | + + + + | Height | 180.3 cm (5' 11") | 12/29/2008 2:20 PM PDT | + + + + | Body Mass Index | 35.98 | 12/29/2008 2:20 PM PDT | + + + + Plan of Treatment + + + + + | Health Maintenance | Due Date | Last Done | Comments | + + + + + | INFLUENZA VACCINE | | | | | (FLU SHOT) | 7 | | | + + + + + Results Not on filefrom Last 3 Months
--- OUTSIDE RECORDS SUMMARY | 2017-09-06 07:23 | XMS | Clinical Summary ---
Demographics + + + | Address | [address] | | | [place] [address] | + + + | Home Phone | | + + + | Preferred Language | Unknown | + + + | Marital Status | Single | + + + | Baptist Affiliation | Unknown | + + + [...] Team Providers + +------+ + | Care Prints And Drawings Curator Name | Role | Phone | + +------+ + | Devon Vale MD | PP | | + +------+ + Source Comments LATOSHA is fully live on both [facility] Ambulatory and [facility] InPatient.[facility] Allergies No Known Allergies Current Medications No [...]
--- NOTE | 2017-09-06 08:27 | EKG ---
[facility] [address] [place] [address] Signed Normal sinus rhythm Left ventricular hypertrophy with repolarization abnormality Abnormal ECG When compared with ECG of 03-JUN-2017 22:44, No significant change was found Confirmed by IRLANDA SALINAS MD ([id number]) on 09/06/2017 8:27:01 AM Electronically Signed By: IRLANDA SALINAS MD 09/06/17 0827 PATIENT NAME: DARIO WEST Electrocardiogram DATE OF : 64 PHYSICIAN: IRLANDA SALINAS MD REPORT #: [id number] REPORT IS CONFIDENTIAL AND NOT TO BE RELEASED WITHOUT AUTHORIZATION
[2017-09-07] MEDS ORDERED: METOPROLOL SUC200 MG PO (19:50)
[2017-09-07] MEDS ORDERED: PLAVIX75 MG PO (19:51)
[2017-09-07] MEDS ORDERED: ASPIRIN81 MG PO (21:04)
[2017-09-07] MEDS ORDERED: NITROSTAT0.4 MG SL (21:07)
[2017-09-07] MEDS ORDERED: ISOSORBIDE MONO30 MG PO (22:36)
[2017-09-07] MEDS ORDERED: COREG12.5 MG PO (22:36)
== END 2017-09-06 12:51 | disposition home or self-care (01) ==
LOC: ED 22:29
DX: R07.89 Other chest pain (principal); I25.10 Atherosclerotic heart disease of native coronary artery without angina pectoris; Z95.5 Presence of coronary angioplasty implant and graft; I10 Essential (primary) hypertension; I25.2 Old myocardial infarction; F17.200 Nicotine dependence, unspecified, uncomplicated; Z88.0 Allergy status to penicillin; Z79.899 Other long term (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 therapy; Z79.82 Long term (current) use of aspirin
CPT/HCPCS: 36415; 71045; 80053; 82550; 82553; 84484; 85025; 93005; 93010; 93306; 99285

== ENCOUNTER 2017-09-07 19:35 | Emergency (ER) | payer MEDICARE ==
[~2017-09-07] VITALS: Ht 180.3 cm; Wt 122.9 kg
--- OUTSIDE RECORDS SUMMARY | ~2017-09-07 | XMS | Clinical Summary ---
Demographics + + + | Address | [address] | | | [place] [address] | + + + | Home Phone | | + + + | Preferred Language | Unknown | + + + | Marital Status | Single | + + + | Baptism Affiliation | Unknown | + + + [...] Team Providers + +------+ + | Care Architectural Inspector Name | Role | Phone | + +------+ + | Devon Vale MD | PP | | + +------+ + Source Comments LATOSHA is fully live on both [facility] Amb[facility] and [facility] InPatient.[facility] Allergies No Known Allergies Current [...]
--- OUTSIDE RECORDS SUMMARY | ~2017-09-07 | XMS | Clinical Summary ---
Demographics + + + | Address | [address] | | | [place] [address] | + + + | Home Phone | | + + + | Preferred Language | Unknown | + + + | Marital Status | Single | + + + | Synagogue Affiliation | Unknown | + + + [...] Team Providers + +------+ + | Care Station Examiner Name | Role | Phone | + +------+ + | Devon Vale MD | PP | | + +------+ + Source Comments LATOSHA is fully live on both [facility] Ambulatory and [facility] InPatient.[facility] Allergies No Known Allergies Current Medications No [...]
[2017-09-07] MEDS ORDERED: METOPROLOL SUC200 MG PO (19:50)
[2017-09-07] MEDS ORDERED: PLAVIX75 MG PO (19:51)
[2017-09-07] MEDS ORDERED: ASPIRIN81 MG PO (21:04)
[2017-09-07] MEDS ORDERED: NITROSTAT0.4 MG SL (21:07)
[2017-09-07] MEDS ORDERED: COREG12.5 MG PO (22:36)
[2017-09-07] MEDS ORDERED: ISOSORBIDE MONO30 MG PO (22:36)
--- NOTE | 2017-09-08 07:06 | EKG ---
[facility] [address] [facility] [place] [address] Signed Normal sinus rhythm Possible Left atrial enlargement Left ventricular hypertrophy with repolarization abnormality Abnormal ECG When compared with ECG of 05-SEP-2017 22:35, No significant change was found Confirmed by ASIF KING MD ([id number]) on 09/08/2017 7:06:41 AM Electronically Signed By: ASIF KING MD 09/08/17 0706 PATIENT NAME: DARIO WEST Electrocardiogram DATE OF : 64 PHYSICIAN: ASIF KING MD REPORT #: [id number] REPORT IS CONFIDENTIAL AND NOT TO BE RELEASED WITHOUT AUTHORIZATION
== END 2017-09-07 22:48 | disposition home or self-care (01) ==
LOC: ED 19:35
DX: R07.9 Chest pain, unspecified (principal); I10 Essential (primary) hypertension; I25.10 Atherosclerotic heart disease of native coronary artery without angina pectoris; F17.200 Nicotine dependence, unspecified, uncomplicated; Z88.0 Allergy status to penicillin; Z79.899 Other long term (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 therapy; Z79.82 Long term (current) use of aspirin; Z95.5 Presence of coronary angioplasty implant and graft
CPT/HCPCS: 71045; 80053; 84484; 85025; 85610; 85730; 93005; 93010; 99284

== ENCOUNTER 2017-09-26 15:55 | Emergency (ER) | payer MEDICARE ==
[~2017-09-26] VITALS: Ht 182.9 cm; Wt 122.5 kg
--- OUTSIDE RECORDS SUMMARY | ~2017-09-26 | XMS | Clinical Summary ---
Demographics + + + | Address | [address] | | | [place] [address] | + + + | Home Phone | | + + + | Preferred Language | Unknown | + + + | Marital Status | Single | + + + | Taoist Affiliation | Unknown | + + + [...] Team Providers + +------+ + | Care Gun Welder Name | Role | Phone | + +------+ + | Devon Vale MD | PP | | + +------+ + Source Comments LATOSHA is fully live on both [facility] Ambulatory and [facility] InPatient.[facility] Allergies No Known Allergies Current Medications No [...] | | | | (FLU SHOT) | 8 | | | + + + + + Results Not on filefrom Last 3 Months
--- OUTSIDE RECORDS SUMMARY | ~2017-09-26 | XMS | Encounter Summary ---
Demographics + + + | Address | [address] | | | [place] [address] | + + + | Home Phone | | + + + | Preferred Language | Unknown | + + + | Marital Status | Single | + + + | Scientologist Affiliation | Unknown | + + + | Race | Unknown | + + + | Ethnic Group | Unknown | + + + Author + + + | Author | [facility] | + + + | Organization | [facility] | + + + | Address | Unknown | + + + | Phone | Unavailable | + + + Support + + +---------+ + | Name | Relationship | Address | Phone | + + +---------+ + | Thi Garcia | ECON | Unknown | | + + +---------+ + Care Team Providers + +------+ + | Care Clinical Nurse Leader Name | Role | Phone | + +------+ + | Mickey Vega MD | PCP | | + +------+ + Encounter Details +--------+ + + + + | Date | Type | Department | Care Team | Description | +--------+ + + + + | 09/20/ | Telephone | [facility] | Mariann Hernadez | | | 2017 | | Celio Joel CMA | | | | | [address] | | | | | | [address] [facility] [address] | | | | | | [place] [address] | | | | | | [phone] | | | +--------+ + + + + Social History + +-------+ +--------+------+ | Tobacco Use | Types | Packs/Day | Years | Date | | | | | Used | | + +-------+ +--------+------+ | Never Assessed | | | | | + +-------+ +--------+------+ + + + | Sex Assigned at | Date Recorded | | | | + + + | Not on file | | + + + as of this encounter Plan of Treatment +--------+---------+ + + + | Date | Type | Specialty | Care Team | Description | +--------+---------+ + + + | 09/27/ | Office | Cardiology | Celestina Delgado, | | | 2017 | Visit | | MD [address] | | | | | | [address] [place], | | | | | | [place] [address] | | | | | | [phone] | | | | | | | | +--------+---------+ + + + as of this encounter Visit Diagnoses Not on filein this encounter"
--- OUTSIDE RECORDS SUMMARY | ~2017-09-26 | XMS | Encounter Summary ---
Demographics + + + | Address | [address] | | | [place] [address] | + + + | Home Phone [...] + + + | Author | [facility] | + + + | Organization | [facility] | + + + | Address | Unknown | + + + | Phone | Unavailable | + + + Support + + +---------+ + | Name | Relationship | Address | Phone | + + +---------+ + | Thi Garcia | ECON | Unknown | | + + +---------+ + Care Team Providers + +------+ + | Care Tool Straightener Name | Role | Phone | + +------+ + | Mickye Vega MD | PCP | | + +------+ + Encounter Details +--------+ + + + + | Date | Type | Department | Care Team | Description | +--------+ + + + + | 09/20/ | Telephone | [facility] | Mariann Hernadez | | | 2017 | | Celio Joel CMA | | | | | [address] | | | | | | [address] [facility] [address] | | | | | | [place] [address] | | | | | | [phone] | | | +--------+ + + + [...] [place], | | | | | | [place] [address] | | | | | | [phone] | | | | | | | | +--------+---------+ + + + as of this encounter Visit Diagnoses Not on filein this encounter"
--- OUTSIDE RECORDS SUMMARY | ~2017-09-26 | XMS | Encounter Summary ---
Demographics + + + | Address | [address] | | | [place] [address] | + + + | Home Phone | | + + + | Preferred Language | Unknown | + + + | Marital Status | Single | + + + | Jewish Affiliation | Unknown | + + + | Race | Unknown | + + + | Ethnic Group | Unknown | + + + Author + + + | Author | [facility] | + + + | Organization | [facility] | + + + | Address | Unknown | + + + | Phone | Unavailable | + + + Support + + +---------+ + | Name | Relationship | Address | Phone | + + +---------+ + | Thi Garcia | ECON | Unknown | | + + +---------+ + Care Team Providers + +------+ + | Care Homicide Squad Lieutenant Name | Role | Phone | + +------+ + | Mickey Vega MD | PCP | | + +------+ + Reason for Visit + + + | Reason | Comments | + + + | Labs Only | | + + + Encounter Details +--------+ + + + + | Date | Type | Department | Care Team | Description | +--------+ + + + + | 09/25/ | Documentati | [facility] | Tien, | Labs Only | | 2018 | on Only | Cardiology Chrissy | LYN [facility]as | | | | | [address] | | | | | | [place] | | | | | | [address] | | | | | | [phone] | | | +--------+ + + + [...] [place], | | | | | | [place] [address] | | | | | | [phone] | | | | | | | | +--------+---------+ + + + as of this encounter Visit Diagnoses Not on filein this encounter"
--- OUTSIDE RECORDS SUMMARY | ~2017-09-26 | XMS | Clinical Summary ---
Demographics + + + | Address | [address] | | | [place] [address] | + + + | Home Phone | | + + + | Preferred Language | Unknown | + + + | Marital Status | Single | + + + | Baptist Affiliation | 1009 | + + + | Race | Unknown | + + + | Ethnic Group | Unknown | + + + Author + + + | Author | [facility] | | | and [place] | + + + | Organization | [facility] | | | and [place] | + + + | Address | Unknown | + + + | Phone | Unavailable | + + + Support + + +---------+ + | Name | Relationship | Address | Phone | + + +---------+ + | Pieter Garcia | ECON | Unknown | | + + +---------+ + Care Team Providers + +------+ + | Care Agricultural Agent Name | Role | Phone | + +------+ + | Sharifa Vizcarra | PP | | + +------+ + Allergies + + + + + + | Active Allergy | Reactions | Severity | Noted | Comments | | | | | Date | | + + + + + + | Penicillins | Anaphylaxis | High | 03/02/20 | | | | | | 16 | | + + + + + + Current Medications + + +---------+---------+------+------+-------+ | Prescription | Sig. | Disp. | Refills | Star | End | Statu | | | | | | t | Date | s | | | | | | Date | | | + + +---------+---------+------+------+-------+ | | | | | 01/3 | | Activ | | fluticasone-salmeter | | | | 0/20 | | e | | ol (ADVAIR) 100-50 | | | | 15 | | | | mcg/puff diskus | | | | | | | | inhaler | | | | | | | + + +---------+---------+------+------+-------+ | TRAMADOL & DIETARY | Take 50 mg by mouth. | | | 01/0 | | Activ | | MANAGE PROD PO | | | | 8/20 | | e | | | | | | 16 | | | + + +---------+---------+------+------+-------+ | cloNIDine | Take 1 tablet by | 30 | 1 | 09/1 | | Activ | | (CATAPRES) 0.1 mg | mouth nightly. | tablet | | 4/20 | | e | | tablet | | | | 16 | | | + + +---------+---------+------+------+-------+ | chlorthalidone 25 | Take 1 tablet by | 30 | 1 | 09 | | Activ | | mg tablet | mouth every morning. | tablet | | 4/20 | | e | | | | | | 16 | | | + + +---------+---------+------+------+-------+ | metoprolol | Take 1 tablet by | 30 | 1 | 1 | | Activ | | succinate | mouth nightly. | tablet | | 4/20 | | e | | (TOPROL-XL) 50 mg 24 | | | | 16 | | | | hr tablet | | | | | | | + + +---------+---------+------+------+-------+ | lisinopril | Take 1 tablet by | 30 | 1 | 091 | | Activ | | (PRINIVIL, ZESTRIL) | mouth every morning. | tablet | | 4/20 | | e | | 20 mg tablet | | | | 16 | | | + + +---------+---------+------+------+-------+ | sertraline | Take 0.5 tablets by | 15 | 1 | 09/1 | | Activ | | (ZOLOFT) 50 mg | mouth Daily. | tablet | | 4/20 | | e | | tablet | | | | 16 | | | + + +---------+---------+------+------+-------+ | albuterol (PROAIR | Inhale 2 puffs into | 1 | 1 | 09/1 | | Activ | | HFA) 90 mcg/puff | the lungs every 6 | Inhaler | | 4/20 | | e | | inhaler | hours as needed for | | | 16 | | | | | Wheezing. | | | | | | + + +---------+---------+------+------+-------+ | traMADol (ULTRAM) | Take 1 tablet by | 90 | 0 | 09/1 | | Activ | | 50 mg tablet | mouth every 8 hours | tablet | | 4/20 | | e | | | as needed for Pain. 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 | + + + + + | Depression | 03/03/2016 | + + + | Chronic nonintractable headache | 09/22/2015 | + + + | Sleep apnea | 01/14/2015 | + + + + + | Last Assessment & Plan: Cpap 14 cm H20 | + + + + + | Transient cerebral ischemia | 08/27/2014 | + + + + + | Overview: CTA w/o hemodynamic sig stenosis | + + + + + | Benign essential hypertension | 07/20/2012 | + + + | Polyneuropathy associated with critical illness (HCC) | | + + + + + | Overview: After multisystem failure from Legionella pneumonia | + + Immunizations + + + + | Name | Dates Previously Given | Next Due | + + + + | TDAP, (ADOL/ADULT) | 03/30/2012 | | + + + + Social History + +-------+ +--------+------+ | Tobacco Use | Types | Packs/Day | Years | Date | | | | | Used | | + +-------+ +--------+------+ | Current Some Day | | | | | | Smoker | | | | | + +-------+ +--------+------+ + + | Tobacco Cessation: Ready to Quit: No; Counseling Given: Yes | + + + + + | Sex Assigned at | Date Recorded | | | | + + + | Not on file | | + + + Last Filed Vital Signs + + + + | Vital Sign | Reading | Time Taken | + + + + | Blood Pressure | 190/110 | 03/02/20161556 PDT | + + + + | Pulse | 112 | 03/02/20161556 PDT | + + + + | Temperature | - | - | + + + + | Respiratory Rate | 18 | 03/02/20161556 PDT | + + + + | Oxygen Saturation | - | - | + + + + | Inhaled Oxygen | - | - | | Concentration | | | + + + + | Weight | 113.2 kg (249 lb 9.6 | 03/02/20161556 PDT | | | oz) | | + + + + | Height | 181.6 cm (5' 11.5") | 03/02/20161556 PDT | + + + + | Body Mass Index | 34.33 | 03/02/2016 1557 PDT | + + + + Plan of Treatment + + + + + | Health Maintenance | Due Date | Last Done | Comments | + + + + + | Hepatitis C | | | | | Screening | 3 | | | + + + + + | Vaccine: | | | | | Pneumococcal 19-64 | 2 | | | | (PPSV23 only) Medium | | | | | Risk (1 of 1 - | | | | | PPSV23) | | | | + + + + + | COLON CANCER | | | | | SCREENING | 3 | | | | (COLONOSCOPY EVERY | | | | | 10 YEARS 50-75) | | | | + + + + + | Vaccine: Influenza | | | | | (Season Ended) | 8 | | | + + + + + | Vaccine: | | 03/30/2012 | | | Dtap/Tdap/Td (2 - | 2 | | | | Td) | | | | + + + + + Results Not on filefrom Last 3 Months Insurance + +--------+ +--------+ +---------+ | Payer | Benefi | Subscriber | Type | Phone | Address | | | t Plan | ID | | | | | | / | | | | | | | Group | | | | | + +--------+ +--------+ +---------+ | [employer] | [employer]OADS | xxxxxxxxx | Indemn | [phone] | | | PIRE | | ity | [phone] | | | | SVCS | | | | | | | WC | | | | | + +--------+ +--------+ +---------+ | MEDICARE | MEDICA | xxxxxxxxxx | Medica | [phone] | | | | RE | | re | [phone] | | | | PART A | | | | | | | AND B | | | | | + +--------+ +--------+ +---------+ | MEDICARE | MEDICA | xxxxxxxxxx | Medica | [phone] | | | | RE | | re | [phone] | | | | PART A | | | | | | | AND B | | | | | + +--------+ +--------+ +---------+ + +--------+ +--------+ + + | Guarantor Name | Accoun | Relation to | Date | Phone | Billing Address | | | t Type | Patient | of | | | | | | | | | | + +--------+ +--------+ + + | DARIO WEST | Person | Self [birth year] Home: | [address] [place] [address] | | | al/Tono | | 1953 | [phone] | [place] | | | [place] | | | [phone] | [address] | + +--------+ +--------+ + + | DARIO WEST | Person | Self [birth year] | Home: | [address] | | | al/Fam | | 1960 | [phone] | [place], | | | [place] | | | [phone] | [place] [address] | + +--------+ +--------+ + + | [id number] | Worker | Self | [birth year] | Work: | [address] | | | s Comp | | 1960 | +- | [place] [address] | | | | | | [phone]: | | | | | | | | | | | | | | +- | | | | | | | [phone] | | + +--------+ +--------+ + +
--- OUTSIDE RECORDS SUMMARY | ~2017-09-26 | XMS | Encounter Summary ---
Demographics + + + | Address | [address] | | | [place] [address] | + + + | Home Phone | | + + + | Preferred Language | Unknown | + + + | Marital Status | Single | + + + | Holiness Affiliation | Unknown | + + + | Race | Unknown | + + + | Ethnic Group | Unknown | + + + Author + + + | Author | [facility] | + + + | Organization | [facility] | + + + | Address | Unknown | + + + | Phone | Unavailable | + + + Support + + +---------+ + | Name | Relationship | Address | Phone | + + +---------+ + | Thi Garcia | ECON | Unknown | | + + +---------+ + Care Team Providers + +------+ + | Care Tanning Drum Operator Name | Role | Phone | [...] [place] | | | | | | [address] | | | | | | [phone] | | | +--------+ + + + [...] [place], | | | | | | [place] [address] | | | | | | [phone] | | | | | | | | +--------+---------+ + + + as of this encounter Visit Diagnoses Not on filein this encounter"
--- OUTSIDE RECORDS SUMMARY | ~2017-09-26 | XMS | Clinical Summary ---
Demographics + + + | Address | [address] | | | [place] [address] | + + + | Home Phone | | + + + | Preferred Language | Unknown | + + + | Marital Status | Single | + + + | Islam Affiliation | Unknown | + + + | Race | Unknown | + + + | Ethnic Group | Unknown | + + + Author + + + | Author | [facility] | + + + | Organization | [facility] | + + + | Address | Unknown | + + + | Phone | Unavailable | + + + Support + + +---------+ + | Name | Relationship | Address | Phone | + + +---------+ + | Thi Garcia | ECON | Unknown | | + + +---------+ + Care Team Providers + +------+ + | Care Line Dancer Name | Role | Phone | + +------+ + | Mickey Vega MD | PP | | + +------+ + Allergies Not on File Current Medications Not on file Active Problems Not on file Encounters +--------+ + + + + | Date | Type | Specialty | Care Team | Description | +--------+ + + + + | 09/25/ | Documentati | | Tien | Labs Only | | 2017 | on Only | | LYN Arias | | +--------+ + + + + | 09/25/ | Documentati | | Melisa Chauhan Labs Only | | 2017 | on Only | | LYN Arias | | +--------+ + + + + | 09/20/ | Telephone | | Mariann Hernadez | | | 2017 | | | NOVA Joel | | +--------+ + + + + | 09/06/ | Ancillary | | Nigel, | S/P PTCA | | 2017 | Procedure | | [facility]uz | (percutaneous | | | | | | transluminal | | | | | | coronary | | | | | | angioplasty); Chest | | | | | | pain, unspecified | | | | | | type | +--------+ + + + + | 09/06/ | Ancillary | | Nigel, | S/P PTCA | | 2017 | Orders | | SHARON Arauz | (percutaneous | | | | | | transluminal | | | | | | coronary | | | | | | angioplasty); Chest | | | | | | pain, unspecified | | | | | | type | +--------+ + + + + from Last 3 Months Social History + +-------+ +--------+------+ | Tobacco [...] on file | | + + + Plan of Treatment +--------+---------+ + + + | Date | Type | Specialty | Care Team | Description | +--------+---------+ + + + | 09/27/ | Office | | Celestina Delgado, | | | 2017 | Visit | | [address] | | | | | | [address] [place], | | | | | | [place] [address] | | | | | | [phone] | | | | | | | [...] | | + + + + + Procedures + +--------+ + + + | Procedure Name | Priori | Date/Time | Associated Diagnosis | Comments | | | ty | | | | + +--------+ + + + | ECHO OUTSIDE | Routin | 09/06/2017 | S/P PTCA | Results for this | | INTERPRETATION | e | 10:12 AM | (percutaneous | procedure are in the | | STANDARD | | PDT | transluminal | results section. | | | | | coronary | | | | | | angioplasty) Chest | | | | | | pain, unspecified | | | | | | type | | + +--------+ + + + from Last 3 Months Results ECHO outside interpretation standard (09/06/2017 10:12 AM) + + + | Specimen | Performing Laboratory | + + + | | [facility] [place] [address] | + + + + + | Impressions | + + | 1. The left ventricle is normal in size, moderate concentric hypertrophy and mildly | | impaired systolic function EF 45-50%. Akinetic inferior and inferolateral segments. 2. | | The right ventricle is normal in size and function. 3. Mild mitral regurgitation and | | normal left atrial size. 4. There is no pericardial effusion. | + + + + | Narrative | + + | Patient Name: Dario West Date of : 1960 | | Performing Physician: Celestina Delgado | | ------REPORT | | ADDENDED------ INDICATIONS s/p ptca w/stent 09/05, CONCLUSIONS | | 1. The left ventricle is normal in size, moderate concentric hypertrophy | | and mildly impaired systolic function EF 45-50%. Akinetic inferior and inferolateral | | segments. 2. The right ventricle is normal in size and function. 3. Mild mitral | | regurgitation and normal left atrial size. 4. There is no pericardial effusion. | | FINDINGS -------- ECG rhythm: Sinus rhythm. Study: A 2-dimensional transthoracic | | echocardiogram with m-mode, spectral and color flow Doppler was perfomed. Study: This | | was a technically adequate study. Left Ventricle: Overall left ventricular systolic | | function is mildly impaired with, an EF between 45 - 50 %. Left Ventricle: The left | | ventricle cavity size is normal. Left Ventricle: There is moderate concentric left | | ventricular hypertrophy. Right Ventricle: The right ventricle is normal in size and | | function. Left Atrium: The left atrium is normal in size. Right Atrium: The right | | atrium is normal in size. Aortic Valve: The aortic valve appears to be trileaflet. | | Aortic Valve: There is no evidence of aortic regurgitation. Aortic Valve: There is no | | evidence of aortic stenosis. Mitral Valve: The mitral valve is normal. Mitral Valve: | | Mild mitral regurgitation is present. Tricuspid Valve: The tricuspid valve appears | | structurally normal. Tricuspid Valve: No regurgitation noted Pulmonic Valve: The | | pulmonic valve was not well visualized. Pulmonic Valve: Trace pulmonic | | regurgitation. Pericardium: There is no pericardial effusion. Pericardium: No pleural | | effusion seen. IVC/Hepatic Veins: The inferior vena cava is normal in size and | | collapses > 50 % with sniff, indicating normal central venous pressures. Aorta: The | | aortic root, ascending aorta and aortic arch are normal in size. MEASUREMENTS | | Ao asc: 3.16 cm Ao sinus: 3.[address] junct: 2.61 cm LA | | Major: 5.25 cm EDV(Teich): 128.82 ml IVSd: 1.46 cm LVIDd: 5.18 cm | | LVPWd: 1.51 cm LVOT Area: 3.87 cm2 LVOT Diam: 2.22 cm %FS: 25.21 % | | EF(Teich): 49.46 % ESV(Teich): 65.09 ml LVIDs: 3.87 cm SV(Teich): | | 63.72 ml LVEF MOD A2C: 41.32 % SV MOD A2C: 51.05 ml LVEF MOD A4C: 46.58 % | | SV MOD A4C: 74.13 ml EF Biplane: 44.34 % LVEDV MOD BP: 141.83 ml LVESV | | MOD BP: 78.93 ml LVEDV MOD A2C: 123.54 ml LVLd A2C: 9.60 cm LVEDV MOD | | A4C: 159.12 ml LVLd A4C: 9.33 cm LVESV MOD A2C: 72.48 ml LVLs A2C: | | 8.18 cm LVESV MOD A4C: 84.98 ml LVLs A4C: 8.37 cm LAESV(A-L): 61.27 ml | | LAESV Index (A-L): 25.53 ml/m2 LAAs A2C: 13.03 cm2 LAESV A-L A2C: 32.32 ml | | LALs A2C: 4.45 cm LAAs A4C: 24.70 cm2 LAESV A-L A4C: 100.10 ml LALs | | A4C: 5.17 cm RAAs: 14.32 cm2 RAESV A-L: 40.17 ml RAESV MOD: 35.25 ml | | RALs: 4.33 cm AV maxP.40 mmHg AV meanP.56 mmHg AV Vmax: 1.26 | | m/s AV Vmean: 0.89 m/s AV VTI: 19.16 cm GRECIA Vmax: 2.91 cm2 GRECIA | | (VTI): 3.83 cm2 AVAI Vmax: 0.00 cm2/m2 AVAI (VTI): 0.00 cm2/m2 LVOT | | maxP.63 mmHg LVOT meanP.42 mmHg LVSI Dopp: 30.64 ml/m2 LVSV | | Dopp: 73.54 ml LVOT Vmax: 0.95 m/s LVOT Vmean: 0.76 m/s LVOT VTI: | | 18.99 cm MV A Bc: 0.60 m/s MV DecT: 86.22 ms MV E Bc: 1.11 m/s MV E/A | | Ratio: 1.84 MV PHT: 25.00 ms MVA By PHT: 8.79 cm2 Septal e': 0.05 | | m/s Septal E/e': 19.96 Lateral e': 0.05 m/s Lateral E/e': 19.59 | | Waxer Operator: Authenticated by: Celestina Delgado Report Date/Time: 09-06-2017 20:21:17 | | | + + + + | Procedure Note | + + | Wilberto Blackmon In - 09/06/2017 8:21 PM PDT Patient Name: Ally West of | | : 1960Accession: [id number] Physician: Celestina | | [place]amara ------REPORT | | ADDENDED------INDICATIONS s/p ptca w/stent 09/05, cpCONCLUSIONS 1. | | The left ventricle is normal in size, moderate concentric hypertrophy and mildly | | impaired systolic function EF 45-50%. Akinetic inferior and inferolateral segments. 2. | | The right ventricle is normal in size and function.3. Mild mitral regurgitation and | | normal left atrial size.4. There is no pericardial effusion.FINDINGS--------ECG rhythm: | | Sinus rhythm.Study: A 2-dimensional transthoracic echocardiogram with m-mode, spectral | | and color flow Doppler was perfomed. Study: This was a technically adequate study.Left | | Ventricle: Overall left ventricular systolic function is mildly impaired with, an EF | | between 45 - 50 %. Left Ventricle: The left ventricle cavity size is normal. Left | | Ventricle: There is moderate concentric left ventricular hypertrophy.Right Ventricle: | | The right ventricle is normal in size and function.Left Atrium: The left atrium is | | normal in size.Right Atrium: The right atrium is normal in size. Aortic Valve: The | | aortic valve appears to be trileaflet. Aortic Valve: There is no evidence of aortic | | regurgitation. Aortic Valve: There is no evidence of aortic stenosis.Mitral Valve: The | | mitral valve is normal. Mitral Valve: Mild mitral regurgitation is present.Tricuspid | | Valve: The tricuspid valve appears structurally normal. Tricuspid Valve: No | | regurgitation notedPulmonic Valve: The pulmonic valve was not well visualized. Pulmonic | | Valve: Trace pulmonic regurgitation.Pericardium: There is no pericardial effusion. | | Pericardium: No pleural effusion seen.IVC/Hepatic Veins: The inferior vena cava is | | normal in size and collapses > 50 % with sniff, indicating normal central venous | | pressures.Aorta: The aortic root, ascending aorta and aortic arch are normal in | | size.MEASUREMENTS Ao asc: 3.16 cmAo sinus: 3.[address] junct: 2.61 | | cmLA Major: 5.25 cmEDV(Teich): 128.82 mlIVSd: 1.46 cmLVIDd: 5.18 cmLVPWd: 1.51 | | cmLVOT Area: 3.87 ob2BUGA Diam: 2.22 cm%FS: 25.21 %EF(Teich): 49.46 | | %ESV(Teich): 65.09 mlLVIDs: 3.87 cmSV(Teich): 63.72 mlLVEF MOD A2C: 41.32 %SV | | MOD A2C: 51.05 mlLVEF MOD A4C: 46.58 %SV MOD A4C: 74.13 mlEF Biplane: 44.34 | | %LVEDV MOD BP: 141.83 mlLVESV MOD BP: 78.93 mlLVEDV MOD A2C: 123.54 mlLVLd A2C: | | 9.60 cmLVEDV MOD A4C: 159.12 mlLVLd A4C: 9.33 cmLVESV MOD A2C: 72.48 mlLVLs A2C: | | 8.18 cmLVESV MOD A4C: 84.98 mlLVLs A4C: 8.37 cmLAESV(A-L): 61.27 mlLAESV Index | | (A-L): 25.53 ml/m2LAAs A2C: 13.03 [id number] A-L A2C: 32.32 mlLALs A2C: 4.45 | | cmLAAs A4C: 24.70 gy9NTCQJ A-L A4C: 100.10 mlLALs A4C: 5.17 cmRAAs: 14.32 | | vk6FCSNH A-L: 40.17 mlRAESV MOD: 35.25 mlRALs: 4.33 cmAV maxP.40 mmHgAV | | meanP.56 mmHgAV Vmax: 1.26 m/Fawad Vmean: 0.89 m/Fawad VTI: 19.16 cmAVA Vmax: | | 2.91 cm2AVA (VTI): 3.83 eh5QUNY Vmax: 0.00 cm2/m2AVAI (VTI): 0.00 cm2/m2LVOT | | maxP.63 mmHgLVOT meanP.42 mmHgLVSI Dopp: 30.64 ml/m2LVSV Dopp: 73.54 | | mlLVOT Vmax: 0.95 m/sLVOT Vmean: 0.76 m/sLVOT VTI: 18.99 cmMV A Bc: 0.60 m/sMV | | DecT: 86.22 msMV E Bc: 1.11 m/sMV E/A Ratio: 1.84 MV PHT: 25.00 msMVA By PHT: | | 8.79 zo6Yfiyio e': 0.05 m/sSeptal E/e': 19.96 Lateral e': 0.05 m/sLateral E/e': | | 19.59 Waxer Operator: Authenticated by: Celestina Breaux Date/Time: 09-06-2017 | | 20:21:17IMPRESSION:1. The left ventricle is normal in size, moderate concentric | | hypertrophy and mildly impaired systolic function EF 45-50%. Akinetic inferior and | | inferolateral segments. 2. The right ventricle is normal in size and function.3. Mild | | mitral regurgitation and normal left atrial size.4. There is no pericardial effusion. | |MEASUREMENTS | | | |Ao asc: 3.16 cm | |Ao sinus: 3.12 cm | |Ao st junct: 2.61 cm | |LA Major: 5.25 cm | |EDV(Teich): 128.82 ml | |IVSd: 1.46 cm | |LVIDd: 5.18 cm | |LVPWd: 1.51 cm | |LVOT Area: 3.87 cm2 | |LVOT Diam: 2.22 cm | |%FS: 25.21 % | |EF(Teich): 49.46 % | |ESV(Teich): 65.09 ml | |LVIDs: 3.87 cm | |SV(Teich): 63.72 ml | |LVEF MOD A2C: 41.32 % | |SV MOD A2C: 51.05 ml | |LVEF MOD A4C: 46.58 % | |SV MOD A4C: 74.13 ml | |EF Biplane: 44.34 % | |LVEDV MOD BP: 141.83 ml | |LVESV MOD BP: 78.93 ml | |LVEDV MOD A2C: 123.54 ml | |LVLd A2C: 9.60 cm | |LVEDV MOD A4C: 159.12 ml | |LVLd A4C: 9.33 cm | |LVESV MOD A2C: 72.48 ml | |LVLs A2C: 8.18 cm | |LVESV MOD A4C: 84.98 ml | |LVLs A4C: 8.37 cm | |LAESV(A-L): 61.27 ml | |LAESV Index (A-L): 25.53 ml/m2 | |LAAs A2C: 13.03 cm2 | |LAESV A-L A2C: 32.32 ml | |LALs A2C: 4.45 cm | |LAAs A4C: 24.70 cm2 | |LAESV A-L A4C: 100.10 ml | |LALs A4C: 5.17 cm | |RAAs: 14.32 cm2 | |RAESV A-L: 40.17 ml | |RAESV MOD: 35.25 ml | |RALs: 4.33 cm | |AV maxP.40 mmHg | |AV meanP.56 mmHg | |AV Vmax: 1.26 m/s | |AV Vmean: 0.89 m/s | |AV VTI: 19.16 cm | |GRECIA Vmax: 2.91 cm2 | |GRECIA (VTI): 3.83 cm2 | |AVAI Vmax: 0.00 cm2/m2 | |AVAI (VTI): 0.00 cm2/m2 | |LVOT maxP.63 mmHg | |LVOT meanP.42 mmHg | |LVSI Dopp: 30.64 ml/m2 | |LVSV Dopp: 73.54 ml | |LVOT Vmax: 0.95 m/s | |LVOT Vmean: 0.76 m/s | |LVOT VTI: 18.99 cm | |MV A Bc: 0.60 m/s | |MV DecT: 86.22 ms | |MV E Bc: 1.11 m/s | |MV E/A Ratio: 1.84 | |MV PHT: 25.00 ms | |MVA By PHT: 8.79 cm2 | |Septal e': 0.05 m/s | |Septal E/e': 19.96 | |Lateral e': 0.05 m/s | |Lateral E/e': 19.59 | | | |Waxer Operator: | |Authenticated by: Celestina Delgado | |Report Date/Time: 09-06-2017 20:21:17 | | | |IMPRESSION: | |1. The left ventricle is normal in size, moderate concentric hypertrophy and mildly impaire d systolic function EF 45-50%. Akinetic inferior and inferolateral segments. | |2. The right ventricle is normal in size and function. | |3. Mild mitral regurgitation and normal left atrial size. | |4. There is no pericardial effusion. | + + from Last 3 Months Insurance + +--------+ +------+-------+ + | Payer | Benefi | Subscriber | Type | Phone | Address | | | t Plan | ID | | | | | | / | | | | | | | Group | | | | | + +--------+ +------+-------+ + | MEDICARE | MEDICA | xxxxxxxxxx | | | [address] | | | RE | | | | [place] [address] | | | IP-OP | | | [...] | | al/Fam | | 1961 | [phone] | [place] [address] | | | cesar | | | [phone] | | + +--------+ +--------+ + +"
--- OUTSIDE RECORDS SUMMARY | ~2017-09-26 | XMS | Encounter Summary ---
Demographics + + + | Address | [address] | | | [place] [address] | + + + | Home Phone | | + + + | Preferred Language | Unknown | + + + | Marital Status | Single | + + + | Mandaeism Affiliation | Unknown | + + + | Race | Unknown | + + + | Ethnic Group | Unknown | + + + Author + + + | Author | [facility] | + + + | Organization | [facility] | + + + | Address | Unknown | + + + | Phone | Unavailable | + + + Support + + +---------+ + | Name | Relationship | Address | Phone | + + +---------+ + | Thi Garcia | ECON | Unknown | | + + +---------+ + Care Team Providers + +------+ + | Care Credit Collection Associate Name | Role | Phone | + [...] [place] | | | | | | [address] | | | | | | [phone] | | | +--------+ + + + [...] [place], | | | | | | [place] [address] | | | | | | [phone] | | | | | | | | +--------+---------+ + + + as of this encounter Visit Diagnoses Not on filein this encounter"
--- OUTSIDE RECORDS SUMMARY | ~2017-09-26 | XMS | Encounter Summary ---
Demographics + + + | Address | [address] | | | [place] [address] | + + + | Home Phone [...] + + + | Author | [facility] | + + + | Organization | [facility] | + + + | Address | Unknown | + + + | Phone | Unavailable | + + + Support + + +---------+ + | Name | Relationship | Address | Phone | + + +---------+ + | Thi Garcia | ECON | Unknown | | + + +---------+ + Care Team Providers + +------+ + | Care City Editor Name | Role | Phone | + +------+ + | Clinic, [facility] | PCP | Unavailable | | Community | | | + +------+ + Encounter Details +--------+ + + + + | Date | Type | Department | Care Team | Description | +--------+ + + + + | 09/06/ | Ancillary | [facility] | Nigel, | S/P PTCA | | 2017 | Procedure | ECHO | SHARON Arauz [address] | (percutaneous | | | | | [facility] | transluminal | | | | | [place] [address] | coronary | | | | | | angioplasty); Chest | | | | | (Fax) | pain, unspecified | | | | | | type | +--------+ + + + + Social [...] | | | | | | [place] [address] | | | | | | [phone] | | | | | | | | +--------+---------+ + + + as of this encounter Procedures + +--------+ + + + | [...] | | + +--------+ + + + in this encounter Results ECHO outside interpretation standard (09/06/2017 10:12 AM) + + + | Specimen | Performing Laboratory | + + + | | [address] [address] | + + + + + | [...] Narrative | + + | Patient Name: Harjinder Ruiz Date of : 1960 | | Performing Physician: Celestina Delgado | | ------REPORT | | ADDENDED------ INDICATIONS s/p ptca w/stent 09/05, cp CONCLUSIONS | | 1. The left ventricle [...] 0.05 m/s Lateral E/e': 19.59 | | Steward/Stewardess Club Car: Authenticated by: Celestina Merrill Report Date/Time: 09-06-2017 20:21:17 | | | + + + + | Procedure Note | + + | Neymar, Wilberto Results In - 09/06/2017 8:21 PM PDT Patient Name: Ally Ruiz of | | : 1960Accession: [id number] Physician: Celestina | | [facility] ------REPORT | | ADDENDED------INDICATIONS s/p ptca w/stent [...] cmLVPWd: 1.51 | | cmLVOT Area: 3.87 hi8EXFD Diam: 2.22 cm%FS: 25.21 %EF(Teich): 49.46 | [...] | | (A-L): 25.53 ml/m2LAAs A2C: 13.03 fe3ARDFI A-L A2C: 32.32 mlLALs A2C: 4.45 | | cmLAAs A4C: 24.70 cq9GLGGI A-L A4C: 100.10 mlLALs A4C: 5.17 cmRAAs: 14.32 | | jl6FLDAX A-L: 40.17 mlRAESV MOD: 35.25 mlRALs: 4.33 cmAV maxP.40 mmHgAV | | meanP.56 mmHgAV Vmax: 1.26 m/Fawad Vmean: 0.89 m/Fawad VTI: 19.16 cmAVA Vmax: | | 2.91 cm2AVA (VTI): 3.83 mq5XANL Vmax: 0.00 cm2/m2AVAI (VTI): 0.00 cm2/m2LVOT | | maxP.63 mmHgLVOT meanP.42 mmHgLVSI Dopp: 30.64 ml/m2LVSV Dopp: 73.54 | | mlLVOT Vmax: 0.95 m/sLVOT Vmean: 0.76 m/sLVOT VTI: 18.99 cmMV A Bc: 0.60 m/sMV | | DecT: 86.22 msMV E Bc: 1.11 m/sMV E/A Ratio: 1.84 MV PHT: 25.00 msMVA By PHT: | | 8.79 ft8Kpvpzq e': 0.05 m/sSeptal E/e': 19.96 Lateral e': 0.05 m/sLateral E/e': | | 19.59 Steward/Stewardess Club Car: Authenticated by: [facility] Date/Time: 09-06-2017 | | 20:21:17IMPRESSION:1. The left [...] | |Lateral E/e': 19.59 | | | |Steward/Stewardess Club Car: | |Authenticated by: Celestina Delgado | |Report [...] is no pericardial effusion. | + + in this encounter Visit Diagnoses + + | Diagnosis | + + | S/P PTCA (percutaneous transluminal coronary angioplasty) | + + | Postsurgical percutaneous transluminal coronary angioplasty status | + + | Chest pain, unspecified type | + +"
--- OUTSIDE RECORDS SUMMARY | ~2017-09-26 | XMS | Encounter Summary ---
Demographics + + + | Address | [address] | | | [place] [address] | + + + | Home Phone [...] + + + | Author | [facility] | + + + | Organization | [facility] | + + + | Address | Unknown | + + + | Phone | Unavailable | + + + Support + + +---------+ + | Name | Relationship | Address | Phone | + + +---------+ + | Thi Garcia | ECON | Unknown | | + + +---------+ + Care Team Providers + +------+ + | Care Bone Tender Name | Role | Phone | + +------+ + | Mickey Vega MD | PCP | | + +------+ + Encounter Details +--------+ + + + + | Date | Type | Department | Care Team | Description | +--------+ + + + + | 09/06/ | Ancillary | [facility] | iNgel, | S/P PTCA | | 2017 | Orders | ECHO | SHARON Arauz [address] | (percutaneous | | | | | [address] | transluminal | | | | | [place] [address] | coronary | | | | | [phone] | angioplasty); Chest | | | | [...] Description | +--------+---------+ + + + | 04/11/ | Office | Cardiology | Celestina Delgado, | | | 2017 | Visit | | MD [facility] | | | | | | Dr [place], | | | | | | [place] [address] | | | | | | [phone] | | | | | | | | +--------+---------+ + + + as of this encounter Results ECHO outside interpretation standard (09/06/2017 10:12 AM) + + + | Specimen | Performing Laboratory | + + + | | [place] [address] | + + + + + | [...] Ruiz Date of : 1960 | | Emily Physician: Celestina Delgado | | ------REPORT | [...] 0.05 m/s Lateral E/e': 19.59 | | Door Closer: Authenticated by: Celestina Delgado Report Date/Time: 09-06-2017 20:21:17 | | | + + + + | Procedure Note | + + | Neymar, Rad Results In - 09/06/2017 8:21 PM PDT Patient Name: Ally Ruiz of | | : 1960Accession: [id number] Physician: Celestina | | [facility] ------REPORT | | ADDENDED------INDICATIONS s/p ptca w/stent [...] cmLVPWd: 1.51 | | cmLVOT Area: 3.87 ne8SSZY Diam: 2.22 cm%FS: 25.21 %EF(Teich): 49.46 | [...] | | (A-L): 25.53 ml/m2LAAs A2C: 13.03 [id number] A-L A2C: 32.32 mlLALs A2C: 4.45 | | cmLAAs A4C: 24.70 iy0UCCPG A-L A4C: 100.10 mlLALs A4C: 5.17 cmRAAs: 14.32 | | rd0ASNIT A-L: 40.17 mlRAESV MOD: 35.25 mlRALs: 4.33 cmAV maxP.40 mmHgAV | | meanP.56 mmHgAV Vmax: 1.26 m/Fawad Vmean: 0.89 m/Fawad VTI: 19.16 cmAVA Vmax: | | 2.91 cm2AVA (VTI): 3.83 hc3IRBK Vmax: 0.00 cm2/m2AVAI (VTI): 0.00 cm2/m2LVOT | | maxP.63 mmHgLVOT meanP.42 mmHgLVSI Dopp: 30.64 ml/m2LVSV Dopp: 73.54 | | mlLVOT Vmax: 0.95 m/sLVOT Vmean: 0.76 m/sLVOT VTI: 18.99 cmMV A Bc: 0.60 m/sMV | | DecT: 86.22 msMV E Bc: 1.11 m/sMV E/A Ratio: 1.84 MV PHT: 25.00 msMVA By PHT: | | 8.79 ym4Anefzf e': 0.05 m/sSeptal E/e': 19.96 Lateral e': 0.05 m/sLateral E/e': | | 19.59 Door Closer: Authenticated by: Celestina [facility] Date/Time: 09-06-2017 | | 20:21:17IMPRESSION:1. The left [...] | |Lateral E/e': 19.59 | | | |Door Closer: | |Authenticated by: Celestina Delgado | |Report [...]
--- OUTSIDE RECORDS SUMMARY | ~2017-09-26 | XMS | Encounter Summary ---
Demographics + + + | Address | [address] | | | [place] [address] | + + + | Home Phone [...] + + + | Author | [facility] | + + + | Organization | [facility] | + + + | Address | Unknown | + + + | Phone | Unavailable | + + + Support + + +---------+ + | Name | Relationship | Address | Phone | + + +---------+ + | Thi Garcia | ECON | Unknown | | + + +---------+ + Care Team Providers + +------+ + | Care Exhaust Tender Name | Role | Phone | [...] | Orders | ECHO | SHARON Arauz [address] | (percutaneous | | | | | [address] | transluminal | | | | | [place] [address] | coronary | | | | | [phone] | angioplasty); Chest | | | | [...] | | | | | | [place] [address] | | | | | | [phone] | | | | | | | | +--------+---------+ + + + as of this encounter Results ECHO outside interpretation standard (09/06/2017 10:12 AM) + + + | Specimen | Performing Laboratory | + + + | | [place] [address] | + + + + + | [...] 0.05 m/s Lateral E/e': 19.59 | | Recruiting Specialist: Authenticated by: Celestina Delgado Report Date/Time: 09-06-2017 20:21:17 | | | + + + + | Procedure Note | + + | Neymar, Rad Results In - 09/06/2017 8:21 PM PDT Patient Name: Ally Ruiz of | | : 1960Accession: [id number] Physician: Celestina | | [facility] ------REPORT | [...] cmLVPWd: 1.51 | | cmLVOT Area: 3.87 oi3IOYL Diam: 2.22 cm%FS: 25.21 %EF(Teich): 49.46 | [...] | | (A-L): 25.53 ml/m2LAAs A2C: 13.03 vy6IWOOC A-L A2C: 32.32 mlLALs A2C: 4.45 | | cmLAAs A4C: 24.70 zf0YYFUG A-L A4C: 100.10 mlLALs A4C: 5.17 cmRAAs: 14.32 | | [id number] A-L: 40.17 mlRAESV MOD: 35.25 mlRALs: 4.33 cmAV maxP.40 mmHgAV | | meanP.56 mmHgAV Vmax: 1.26 m/Fawad Vmean: 0.89 m/Fawad VTI: 19.16 cmAVA Vmax: | | 2.91 cm2AVA (VTI): 3.83 [id number] Vmax: 0.00 cm2/m2AVAI (VTI): 0.00 cm2/m2LVOT | | maxP.63 mmHgLVOT meanP.42 mmHgLVSI Dopp: 30.64 ml/m2LVSV Dopp: 73.54 | | mlLVOT Vmax: 0.95 m/sLVOT Vmean: 0.76 m/sLVOT VTI: 18.99 cmMV A Bc: 0.60 m/sMV | | DecT: 86.22 msMV E Bc: 1.11 m/sMV E/A Ratio: 1.84 MV PHT: 25.00 msMVA By PHT: | | 8.79 [id number] e': 0.05 m/sSeptal E/e': 19.96 Lateral e': 0.05 m/sLateral E/e': | | 19.59 Recruiting Specialist: Authenticated by: Celestina [facility] Date/Time: 09-06-2017 | | 20:21:17IMPRESSION:1. The left [...] | |Lateral E/e': 19.59 | | | |Recruiting Specialist: | |Authenticated by: Celestina Delgado | |Report [...]
--- OUTSIDE RECORDS SUMMARY | ~2017-09-26 | XMS | Encounter Summary ---
Demographics + + + | Address | [address] | | | [place] [address] | + + + | Home Phone | | + + + | Preferred Language | Unknown | + + + | Marital Status | Single | + + + | Lutheran Affiliation | Unknown | + + + | Race | Unknown | + + + | Ethnic Group | Unknown | + + + Author + + + | Author | [facility] | + + + | Organization | [facility] | + + + | Address | Unknown | + + + | Phone | Unavailable | + + + Support + + +---------+ + | Name | Relationship | Address | Phone | + + +---------+ + | Thi Garcia | ECON | Unknown | | + + +---------+ + Care Team Providers + +------+ + | Care Physical Therapy Nurse Name | Role | Phone | + [...] [place] | | | | | | [address] | | | | | | [phone] | | | +--------+ + + + [...] [place], | | | | | | [place] [address] | | | | | | [phone] | | | | | | | | +--------+---------+ + + + as of this encounter Visit Diagnoses Not on filein this encounter"
--- OUTSIDE RECORDS SUMMARY | ~2017-09-26 | XMS | Encounter Summary ---
Demographics + + + | Address | [address] | | | [place] [address] | + + + | Home Phone [...] + + + | Author | [facility] | + + + | Organization | [facility] | + + + | Address | Unknown | + + + | Phone | Unavailable | + + + Support + + +---------+ + | Name | Relationship | Address | Phone | + + +---------+ + | Thi Garcia | ECON | Unknown | | + + +---------+ + Care Team Providers + +------+ + | Care Wet Machine Operator Name | Role | Phone | + +------+ + | Clinic, [facility] | PCP | Unavailable | | Community | | | + +------+ + Encounter Details +--------+ + + + + | Date | Type | Department | Care Team | Description | +--------+ + + + + | 09/06/ | Ancillary | [facility] | Nigel, | S/P PTCA | | 2017 | Procedure | ECHO | SHARON Arauz [address] | (percutaneous | | | | | [facility] | transluminal | | | | | [place] [address] | coronary | | | | | [...] | | | | | | [place] [address] | | | | | | [phone] | | | | | | | [...] Laboratory | + + + | | [address] [address] | + + + + + | [...] 0.05 m/s Lateral E/e': 19.59 | | Medical Assistant: Authenticated by: Celestina Merrill Report Date/Time: 09-06-2017 20:21:17 | | | + + + + | Procedure Note | + + | Neymar, Wilberto Results In - 09/06/2017 8:21 PM PDT Patient Name: Ally Ruiz of | | : 1960Accession: [id number] Physician: Celestina | | [facility] ------REPORT | | ADDENDED------INDICATIONS s/p ptca w/stent [...] cmLVPWd: 1.51 | | cmLVOT Area: 3.87 [id number] Diam: 2.22 cm%FS: 25.21 %EF(Teich): 49.46 | [...] | | (A-L): 25.53 ml/m2LAAs A2C: 13.03 [id number] A-L A2C: 32.32 mlLALs A2C: 4.45 | | cmLAAs A4C: 24.70 by1TOLGY A-L A4C: 100.10 mlLALs A4C: 5.17 cmRAAs: 14.32 | | wi5QCKQK A-L: 40.17 mlRAESV MOD: 35.25 mlRALs: 4.33 cmAV maxP.40 mmHgAV | | meanP.56 mmHgAV Vmax: 1.26 m/Fawad Vmean: 0.89 m/Fawad VTI: 19.16 cmAVA Vmax: | | 2.91 cm2AVA (VTI): 3.83 wo8GLNW Vmax: 0.00 cm2/m2AVAI (VTI): 0.00 cm2/m2LVOT | | maxP.63 mmHgLVOT meanP.42 mmHgLVSI Dopp: 30.64 ml/m2LVSV Dopp: 73.54 | | mlLVOT Vmax: 0.95 m/sLVOT Vmean: 0.76 m/sLVOT VTI: 18.99 cmMV A Bc: 0.60 m/sMV | | DecT: 86.22 msMV E Bc: 1.11 m/sMV E/A Ratio: 1.84 MV PHT: 25.00 msMVA By PHT: | | 8.79 [id number] e': 0.05 m/sSeptal E/e': 19.96 Lateral e': 0.05 m/sLateral E/e': | | 19.59 Medical Assistant: Authenticated by: [facility] Date/Time: 09-06-2017 | | 20:21:17IMPRESSION:1. The left [...] | |Lateral E/e': 19.59 | | | |Medical Assistant: | |Authenticated by: Celestina Delgado | |Report [...]
--- OUTSIDE RECORDS SUMMARY | ~2017-09-26 | XMS | Clinical Summary ---
Demographics + + + | Address | [address] | | | [place] [address] | + + + | Home Phone | | + + + | Preferred Language | Unknown | + + + | Marital Status | Single | + + + | Buddhist Affiliation | 1009 | + + + | Race | Unknown | + + + | Ethnic Group | Unknown | + + + Author + + + | Author | [facility] | | | and [place] | + + + | Organization | [facility] | | | [...] Team Providers + +------+ + | Care Warp Yarn Sorter Name | Role | Phone | + [...] | Self | [birth year] | Home: | [address] [place] [address] | | | al/Tono | | 1953 | [phone] | [place] | | | [place] | | | [phone] | [address] | + +--------+ +--------+ + + | DARIO WEST | Person | Self | [birth year] | Home: | [address] | | | al/Fam | | 1960 | [phone] | [place], | | | [place] | | | [phone] | [place] [address] | + +--------+ +--------+ + + | [id number] | Worker | 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
--- OUTSIDE RECORDS SUMMARY | ~2017-09-26 | XMS | Clinical Summary ---
Demographics + + + | Address | [address] | | | [place] [address] | + + + | Home Phone [...] + + + | Author | [facility] | + + + | Organization | [facility] | + + + | Address | Unknown | + + + | Phone | Unavailable | + + + Support + + +---------+ + | Name | Relationship | Address | Phone | + + +---------+ + | Thi Garcia | ECON | Unknown | | + + +---------+ + Care Team Providers + +------+ + | Care Rear Load Truck Driver Name | Role | Phone | + [...] | | | | | | [place] [address] | | | | | | [phone] | | | | | | | [...] Laboratory | + + + | | [facility] [place] [address] | + + + + + | [...] 0.05 m/s Lateral E/e': 19.59 | | Palliative Care Nurse Practitioner: Authenticated by: Celestina Delgado Report Date/Time: 09-06-2017 20:21:17 | | | + + + + | Procedure Note | + + | Wilberto Blackmon In - 09/06/2017 8:21 PM PDT Patient Name: Ally West of | | : 1960Accession: [id number] Physician: Celestina | | [facility] ------REPORT | [...] cmLVPWd: 1.51 | | cmLVOT Area: 3.87 [id number] Diam: 2.22 cm%FS: 25.21 %EF(Teich): 49.46 | [...] | | (A-L): 25.53 ml/m2LAAs A2C: 13.03 [id number] A-L A2C: 32.32 mlLALs A2C: 4.45 | | cmLAAs A4C: 24.70 qr7YWXSI A-L A4C: 100.10 mlLALs A4C: 5.17 cmRAAs: 14.32 | | bc3CREZO A-L: 40.17 mlRAESV MOD: 35.25 mlRALs: 4.33 cmAV maxP.40 mmHgAV | | meanP.56 mmHgAV Vmax: 1.26 m/Fawad Vmean: 0.89 m/Fawad VTI: 19.16 cmAVA Vmax: | | 2.91 cm2AVA (VTI): 3.83 rp2LRSN Vmax: 0.00 cm2/m2AVAI (VTI): 0.00 cm2/m2LVOT | | maxP.63 mmHgLVOT meanP.42 mmHgLVSI Dopp: 30.64 ml/m2LVSV Dopp: 73.54 | | mlLVOT Vmax: 0.95 m/sLVOT Vmean: 0.76 m/sLVOT VTI: 18.99 cmMV A Bc: 0.60 m/sMV | | DecT: 86.22 msMV E Bc: 1.11 m/sMV E/A Ratio: 1.84 MV PHT: 25.00 msMVA By PHT: | | 8.79 [id number] e': 0.05 m/sSeptal E/e': 19.96 Lateral e': 0.05 m/sLateral E/e': | | 19.59 Palliative Care Nurse Practitioner: Authenticated by: Celestina Breaux Date/Time: 09-06-2017 | [...] | |Lateral E/e': 19.59 | | | |Palliative Care Nurse Practitioner: | |Authenticated by: Celestina Delgado | |Report [...] | xxxxxxxxxx | | | [address] | | | RE | | | | [place] [address] | | | IP-OP | | | [...] | | al/Fam | | 1961 | [phone] | [place] [address] | | | cesar | | | 1543 | | + +--------+ +--------+ + +"
--- OUTSIDE RECORDS SUMMARY | ~2017-09-26 | XMS | Clinical Summary ---
Demographics + + + | Address | [address] | | | [place] [address] | + + + | Home Phone | | + + + | Preferred Language | Unknown | + + + | Marital Status | Single | + + + | Cheondoism Affiliation | Unknown | + + + [...] Team Providers + +------+ + | Care Drier Helper Name | Role | Phone | + +------+ + | Devon Vale MD | PP | | + +------+ + Source Comments LATOSHA is fully live on both [facility] Amb[facility] and [facility] InPatient.[facility] Allergies No Known [...]
[~2017-09-26 15:55] MED LIST changes: +ASPIRIN81 MG PO; +COREG12.5 MG PO; +ISOSORBIDE MONO30 MG PO; +METOPROLOL SUC200 MG PO; +NITROSTAT0.4 MG SL; +PLAVIX75 MG PO
--- NOTE | 2017-09-27 06:38 | EKG ---
[facility] [address] [facility] [place], [place] [address] Signed Normal sinus rhythm Normal ECG When compared with ECG of 07-SEP-2017 19:45, No significant change was found Confirmed by ASIF KING MD ([id number]) on 09/27/2017 6:37:52 AM Electronically Signed By: ASIF KING MD 09/27/17 0638 PATIENT NAME: WESTDARIO JIMBO Electrocardiogram DATE OF : 64 PHYSICIAN: ASIF KING MD REPORT #: [id number] REPORT IS CONFIDENTIAL AND NOT TO BE RELEASED WITHOUT AUTHORIZATION
== END 2017-09-26 17:00 | disposition home or self-care (01) ==
LOC: ED 15:55
DX: R07.9 Chest pain, unspecified (principal); I25.2 Old myocardial infarction; I10 Essential (primary) hypertension; F17.200 Nicotine dependence, unspecified, uncomplicated; Z88.0 Allergy status to penicillin; Z79.899 Other long term (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 therapy; Z79.82 Long term (current) use of aspirin
CPT/HCPCS: 71045; 80053; 84484; 85025; 93005; 93010; 99284

== ENCOUNTER 2018-02-01 17:38 | Emergency (ER) | payer MEDICARE ==
[~2018-02-01] VITALS: Ht 182.9 cm; Wt 122.5 kg
--- OUTSIDE RECORDS SUMMARY | ~2018-02-01 | XMS | Clinical Summary ---
Demographics + + + | Address | [address] | | | [place] [address] | + + + | Home Phone | | + + + | Preferred Language | Unknown | + + + | Marital Status | Single | + + + | Gnosticist Affiliation | Unknown | + + + | Race | Unknown | + + + | Ethnic Group | Unknown | + + + Author + + + | Author | [facility] | + + + | Organization | [facility] | + + + | Address | Unknown | + + + | Phone | Unavailable | + + + Support + + +---------+ + | Name | Relationship | Address | Phone | + + +---------+ + | Thi Garcia | ECON | Unknown | | + + +---------+ + Care Team Providers + +------+ + | Care Sap Functional Analyst Name | Role | Phone | + [...] + + | Coronary artery disease involving [place] coronary artery of | 09/27/2017 | | [place] heart without angina pectoris | | + [...] | | | | | | involving [place] | | | | | | coronary artery of | | | | | | [place] heart without | | | | | [...] | | | | | | [place] [address] | | | | | | [phone] | | | | | | | [...] +------+-------+ + | MEDICARE | MEDICA | [id number] | | | [address] | | | RE | | | | [place] [address] | | | IP-OP | | | [...] | | al/Fam | | 1961 | [phone] | [place], [place] [address] | | | [place] | | | [phone] | | + +--------+ +--------+ + +
--- OUTSIDE RECORDS SUMMARY | ~2018-02-01 | XMS | Clinical Summary ---
Demographics + + + | Address | [address] | | | [place] [address] | + + + | Home Phone | | + + + | Preferred Language | Unknown | + + + | Marital Status | Single | + + + | Oriental Orthodox Affiliation | Unknown | + + + [...] Team Providers + +------+ + | Care Yarn Bleaching Machine Operator Name | Role | Phone | + +------+ + | Devon Vale MD | PP | | + +------+ + Source Comments LATOSHA is fully live on both [facility] and [facility] InPatient.[facility] Allergies No Known Allergies Current Medications No [...] Not on filefrom Last 3 Months Insurance +-------+--------+ +--------+-------+---------+ | Payer | Benefi | Subscriber | Type | Phone | Address | | | t Plan | ID | | | | | | / | | | | | | | Group | | | | | +-------+--------+ +--------+-------+---------+ | MICHAEL | MICHAEL | xxxxxxxxxxx | Worker | | | | | | | s Comp | | | +-------+--------+ +--------+-------+---------+ + +--------+ +--------+ + + | Guarantor Name | Accoun | Relation to | Date | Phone | Billing Address | | | t Type | Patient | of | | | | | | | | | | + +--------+ +--------+ + + | JOSUÉ RUIZ | Person | Self [birth year] | Home: | [address] | | | al/Fam | | 1961 | [phone] | [place] [address] | | | [place] | | | [address] | | + +--------+ +--------+ + + | 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
--- OUTSIDE RECORDS SUMMARY | ~2018-02-01 | XMS | Encounter Summary ---
Demographics + + + | Address | [address] | | | [place] [address] | + + + | Home Phone | | + + + | Preferred Language | Unknown | + + + | Marital Status | Single | + + + | Spiritism Affiliation | Unknown | + + + | Race | Unknown | + + + | Ethnic Group | Unknown | + + + Author + + + | Author | [facility] | + + + | Organization | [facility] | + + + | Address | Unknown | + + + | Phone | Unavailable | + + + Support + + +---------+ + | Name | Relationship | Address | Phone | + + +---------+ + | Thi Garcia | ECON | Unknown | | + + +---------+ + Care Team Providers + +------+ + | Care Blood Collector Name | Role | Phone | + [...] [place] | | | | | | [address] | | | | | | [phone] | | | +--------+ + + + [...] | | | | | | [place] [address] | | | | | | [phone] | | | | | | | | +--------+---------+ + + + as of this encounter Visit Diagnoses Not on filein this encounter"
--- OUTSIDE RECORDS SUMMARY | ~2018-02-01 | XMS | Clinical Summary ---
Demographics + + + | Address | [address] | | | [place] [address] | + + + | Home Phone [...] + + + | Author | [facility] | + + + | Organization | [facility] | + + + | Address | Unknown | + + + | Phone | Unavailable | + + + Support + + +---------+ + | Name | Relationship | Address | Phone | + + +---------+ + | Thi Garcia | ECON | Unknown | | + + +---------+ + Care Team Providers + +------+ + | Care Automatic Lathe Setter Name | Role | Phone | + [...] + + | Coronary artery disease involving [place] coronary artery of | 09/27/2017 | | [place] heart without angina pectoris | | + [...] | | | | | | involving [place] | | | | | | coronary artery of | | | | | | [place] heart without | | | | | [...] | | | | | | [place] [address] | | | | | | [phone] | | | | | | | [...] +------+-------+ + | MEDICARE | MEDICA | [id number] | | | [address] | | | RE | | | | [place] [address] | | | IP-OP | | | [...] | | al/Fam | | 1961 | [phone] | [place], [place] [address] | | | [place] | | | [address] | | + +--------+ +--------+ + +
--- OUTSIDE RECORDS SUMMARY | ~2018-02-01 | XMS | Encounter Summary ---
Demographics + + + | Address | [address] | | | [place] [address] | + + + | Home Phone | | + + + | Preferred Language | Unknown | + + + | Marital Status | Single | + + + | Restorationism Affiliation | Unknown | + + + | Race | Unknown | + + + | Ethnic Group | Unknown | + + + Author + + + | Author | [facility] | + + + | Organization | [facility] | + + + | Address | Unknown | + + + | Phone | Unavailable | + + + Support + + +---------+ + | Name | Relationship | Address | Phone | + + +---------+ + | Thi Garcia | ECON | Unknown | | + + +---------+ + Care Team Providers + +------+ + | Care Incinerator Operator Name | Role | Phone | [...] + | 01/17/ | Office | [facility] [place] | Celestina Zamudio, | Benign essential | | 2018 | Visit | Cardiology [place] | [address] | hypertension | | | | [address] | [address], | (Primary Dx); [place] | | | | [address] | [place] [address] | (obstructive sleep | | | | [place] [address] | [phone] | apnea); Coronary | | | | [phone] | | artery disease | | | | | | involving [place] | | | | | | coronary artery of | | | | | | [place] heart without | | | | | [...] uncontrolled. Previously in August 2017 hospitalized in [facility] for non-ST elevation [place], that debora e patient felt neck and [...] accident (CVA) (HCC) Coronary artery disease involving [place] coronary artery of [place] heart without angina pectoris 09/27/2017 Hypertension Old [...] LDL, GLUF, HGBA1C, TSH EK From [facility] showed normal sinus rhythm, left axis deviation, left ventricular hypertrophy by CRITERIA. Last Echo: 09/03/2017 Reported from [place], Dilated LV with normal systolic function, [...] | | | | | | [place] [address] | | | | | | [phone] | | | | | | | | +--------+---------+ + + + as of this encounter Visit Diagnoses + + | Diagnosis | + + | Benign essential hypertension - Primary | + + | Essential hypertension, benign | + + | ANITA (obstructive sleep apnea) | + + | Obstructive sleep apnea (adult) (pediatric) | + + | Coronary artery disease involving [place] coronary artery of [place] heart without angina | | pectoris | + +
--- OUTSIDE RECORDS SUMMARY | ~2018-02-01 | XMS | Encounter Summary ---
Demographics + + + | Address | [address] | | | [place] [address] | + + + | Home Phone [...] + + + | Author | [facility] | + + + | Organization | [facility] | + + + | Address | Unknown | + + + | Phone | Unavailable | + + + Support + + +---------+ + | Name | Relationship | Address | Phone | + + +---------+ + | Thi Garcia | ECON | Unknown | | + + +---------+ + Care Team Providers + +------+ + | Care Deck Engine Operator Name | Role | Phone | [...] [place] | | | | | | [address] | | | | | | [phone] | | | +--------+ + + + [...] | | | | | | [place] [address] | | | | | | [phone] | | | | | | | | +--------+---------+ + + + as of this encounter Visit Diagnoses Not on filein this encounter"
--- OUTSIDE RECORDS SUMMARY | ~2018-02-01 | XMS | Encounter Summary ---
Demographics + + + | Address | [address] | | | [place] [address] | + + + | Home Phone | | + + + | Preferred Language | Unknown | + + + | Marital Status | Single | + + + | Druze Affiliation | Unknown | + + + | Race | Unknown | + + + | Ethnic Group | Unknown | + + + Author + + + | Author | [facility] | + + + | Organization | [facility] | + + + | Address | Unknown | + + + | Phone | Unavailable | + + + Support + + +---------+ + | Name | Relationship | Address | Phone | + + +---------+ + | Thi Garcia | ECON | Unknown | | + + +---------+ + Care Team Providers + +------+ + | Care Outside Machinist Apprentice Name | Role | Phone | + [...] [place] | | | | | | [address] | | | | | | [phone] | | | +--------+ + + + [...] | | | | | | [place] [address] | | | | | | [phone] | | | | | | | | +--------+---------+ + + + as of this encounter Visit Diagnoses Not on filein this encounter"
--- OUTSIDE RECORDS SUMMARY | ~2018-02-01 | XMS | Clinical Summary ---
Demographics + + + | Address | [address] | | | [place] [address] | + + + | Home Phone | | + + + | Preferred Language | Unknown | + + + | Marital Status | Single | + + + | Evangelical Affiliation | 1009 | + + + | Race | Unknown | + + + | Ethnic Group | Unknown | + + + Author + + + | Author | [facility] | | | and [place] | + + + | Organization | [facility] | | | and [...] Team Providers + +------+ + | Care High School Coordinator Name | Role | Phone | + +------+ + PP | Unavailable | + +------+ + Allergies + + [...] tablet by | 30 | 1 | 09/ | | Activ | | (CATAPRES) 0.1 mg | mouth nightly. | tablet | | 4/20 | | e | | tablet | | | | 16 | | | + + +---------+---------+------+------+-------+ | chlorthalidone 25 | Take 1 tablet by | 30 | 1 | 09/1 | | Activ | | mg tablet | mouth every morning. | tablet | | 4/20 | | e | | | | | | 16 | | | + + +---------+---------+------+------+-------+ | metoprolol | Take 1 tablet by | 30 | 1 | 09/1 | | Activ | | succinate | mouth nightly. | tablet | | 4/20 | | e | | (TOPROL-XL) 50 mg 24 | | | | 16 | | | | hr tablet | | | | | | | + + +---------+---------+------+------+-------+ | lisinopril | Take 1 tablet by | 30 | 1 | 09/1 | | Activ | | (PRINIVIL, ZESTRIL) [...] + | Blood Pressure | 190/110 | 03/02/20167 PDT | + + + + | Pulse | 112 | 03/02/20167 PDT | + + + + | [...] | Body Mass Index | 34.33 | 03/02/20161556 PDT | + + + + Plan [...] | + + + + + | Colorectal Cancer | | | | | Screening [...] +--------+ +---------+ | BROADSPIRE | BROADS | [id number] | Khushi | [phone] | | | | PIRE | | ity | 2110 | | | | SVCS | | | | | | | WC | | | | | + +--------+ +--------+ +---------+ | MEDICARE | MEDICA | [id number] | Medica | [phone] | | | | RE | | re | [phone] | | | | PART A | | | | | | | AND B | | | | | + +--------+ +--------+ +---------+ | MEDICARE | MEDICA | [id number] | Medica | [phone] | | | | RE | | [...] | Self | [birth year] | Home: | [address] | | | al/Fam | | 1953 | [phone] | [place] | | | [place] | | | [phone] | [address] | + +--------+ +--------+ + + | DARIO WEST | Person | Self | [birth year] | Home: | [address] | | | al/Fam | | 1961 | [phone] | [place], | | | [place] | | | [address] | [place] [address] | + +--------+ +--------+ + + | [id number] | 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
--- OUTSIDE RECORDS SUMMARY | ~2018-02-01 | XMS | Clinical Summary ---
Demographics + + + | Address | [address] | | | [place] [address] | + + + | Home Phone [...] Team Providers + +------+ + | Care Epic [employer] Name | Role | Phone | + +------+ + | Devon Vale MD | PP | | + +------+ + Source Comments LATOSHA is fully live on both [facility] Ambulatory and [facility] InPatient.[facility] Allergies No Known Allergies Current Medications [...] al/Fam | | 1961 | [phone] | [place] [address] | | | [place] | | | [address] | | + +--------+ +--------+ + + | JOSUÉ RUIZ | Worker | 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
--- OUTSIDE RECORDS SUMMARY | ~2018-02-01 | XMS | Encounter Summary ---
Demographics + + + | Address | [address] | | | [place] [address] | + + + | Home Phone | | + + + | Preferred Language | Unknown | + + + | Marital Status | Single | + + + | Anabaptist Affiliation | Unknown | + + + | Race | Unknown | + + + | Ethnic Group | Unknown | + + + Author + + + | Author | [facility] | + + + | Organization | [facility] | + + + | Address | Unknown | + + + | Phone | Unavailable | + + + Support + + +---------+ + | Name | Relationship | Address | Phone | + + +---------+ + | Thi Garcia | ECON | Unknown | | + + +---------+ + Care Team Providers + +------+ + | Care Chicken And Fish Butcher Name | Role | Phone | + [...] + | 01/17/ | Office | [facility] [place] | Celestina Zamudio, | Benign essential | | 2018 | Visit | Cardiology [place] | [address] | hypertension | | | | [address] | [address], | (Primary Dx); [place] | | | | [address] | [place] [address] | (obstructive sleep | | | | [place] [address] | [phone] | apnea); Coronary | | | | [phone] | | artery disease | | | | | | involving [place] | | | | | | coronary artery of | | | | | | [place] heart without | | | | | [...] in August 2017 hospitalized in [facility] for non-ST elevation [place], that debora e patient felt neck and [...] accident (CVA) (HCC) Coronary artery disease involving [place] coronary artery of [place] heart without angina pectoris 09/27/2017 Hypertension Old [...] LDL, LDL, GLUF, HGBA1C, TSH EK From [facility] showed normal sinus rhythm, left axis deviation, left ventricular hypertrophy by CRITERIA. Last Echo: 09/03/2017 Reported from [place], Dilated LV with normal systolic function, [...] | | | | | | [place] [address] | | | | | | [phone] | | | | | | | | +--------+---------+ + + + as of this encounter Visit Diagnoses + + | Diagnosis | + + | Benign essential hypertension - Primary | + + | Essential hypertension, benign | + + | ANITA (obstructive sleep apnea) | + + | Obstructive sleep apnea (adult) (pediatric) | + + | Coronary artery disease involving [place] coronary artery of [place] heart without angina | | pectoris | + +
--- OUTSIDE RECORDS SUMMARY | ~2018-02-01 | XMS | Clinical Summary ---
Demographics + + + | Address | [address] | | | [place] [address] | + + + | Home Phone | | + + + | Preferred Language | Unknown | + + + | Marital Status | Single | + + + | Pentecostal Affiliation | 1009 | + + + | Race | Unknown | + + + | Ethnic Group | Unknown | + + + Author + + + | Author | [facility] | | | and [place] | + + + | Organization | [facility] | | | and [...] Team Providers + +------+ + | Care Counseling Services Director Name | Role | Phone [...] +--------+ +---------+ | BROADSPIRE | BROADS | [id number] | Khushi | [phone] | | | | PIRE | | ity | [phone] | | | | SVCS | | | | | | | WC | | | | | + +--------+ +--------+ +---------+ | MEDICARE | MEDICA | [id number] | Medica | [phone] | | | RE | | re | [phone] | | | | PART A | | | | | | | AND B | | | | | + +--------+ +--------+ +---------+ | MEDICARE | MEDICA | [id number] | Medica | [phone] | | [...] | Self [birth year] Home: | [address] | | | al/Fam | | 1953 | [phone] | [place] | | | [place] | | | [phone] | [phone] | + +--------+ +--------+ + + | DARIO WEST | Person | Self | [birth year] | Home: | [address] | | | al/Fam | | 1961 | [phone] | [place], | | | [place] | | | [phone] | [place] [address] | + +--------+ +--------+ + + | [id number] | 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
--- OUTSIDE RECORDS SUMMARY | ~2018-02-01 | XMS | Encounter Summary ---
Demographics + + + | Address | [address] | | | [place] [address] | + + + | Home Phone | | + + + | Preferred Language | Unknown | + + + | Marital Status | Single | + + + | Jehovah'S Witness Affiliation | Unknown | + + + | Race | Unknown | + + + | Ethnic Group | Unknown | + + + Author + + + | Author | [facility] | + + + | Organization | [facility] | + + + | Address | Unknown | + + + | Phone | Unavailable | + + + Support + + +---------+ + | Name | Relationship | Address | Phone | + + +---------+ + | Thi Garcia | ECON | Unknown | | + + +---------+ + Care Team Providers + +------+ + | Care Shank Cutter Name | Role | Phone | + [...] [place] | | | | | | [address] | | | | | | [phone] | | | +--------+ + + + [...] | | | | | | [place] [address] | | | | | | [phone] | | | | | | | | +--------+---------+ + + + as of this encounter Visit Diagnoses Not on filein this encounter"
[~2018-02-01 17:38] MED LIST changes: +CELECOXIB50 MG PO; +COREG25 MG PO; +HYDRALAZINE HCL25 MG PO; +HYDROCHLOROTHIA25 MG PO; +LIPITOR80 MG PO
[2018-02-01] MEDS ORDERED: DIAZEPAM5 MG PO (17:56)
== END 2018-02-01 19:04 | disposition home or self-care (01) ==
LOC: ED 17:38
DX: I10 Essential (primary) hypertension (principal); F06.4 Anxiety disorder due to known physiological condition; I25.2 Old myocardial infarction; F17.200 Nicotine dependence, unspecified, uncomplicated; Z88.0 Allergy status to penicillin; Z79.82 Long term (current) use of aspirin; Z79.899 Other long term (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 therapy
CPT/HCPCS: 99283

== ENCOUNTER 2018-02-12 15:31 | Emergency (ER) | payer MEDICARE ==
[~2018-02-12] VITALS: Ht 182.9 cm; Wt 122.5 kg
[~2018-02-12 15:31] MED LIST changes: +DIAZEPAM5 MG PO
--- OUTSIDE RECORDS SUMMARY | 2018-02-12 16:11 | XMS | Encounter Summary ---
Demographics + + + | Address | [address] | | | [place] [address] | + + + | Home Phone | | + + + | Preferred Language | Unknown | + + + | Marital Status | Single | + + + | Sikh Affiliation | Unknown | + + + | Race | Unknown | + + + | Ethnic Group | Unknown | + + + Author + + + | Author | [facility] | + + + | Organization | [facility] | + + + | Address | Unknown | + + + | Phone | Unavailable | + + + Support + + +---------+ + | Name | Relationship | Address | Phone | + + +---------+ + | Thi Garcia | ECON | Unknown | | + + +---------+ + Care Team Providers + +------+ + | Care Environmental Laboratory Technician Name | Role | Phone | + +------+ + | Mickey Vega MD | PCP | | + +------+ + Encounter Details +--------+ + + + + | Date | Type | Department | Care Team | Description | +--------+ + + + + | 12/19/ | Telephone | [facility] | Mariann Hernadez | | | 2017 | | Celio Joel CMA | | | | | [address] | | | | | | [place] | | | | | | [address] | | | | | | [phone] | | | +--------+ + + + + Social History + +-------+ +--------+------+ | Tobacco Use | Types | Packs/Day | Years | Date | | | | | Used | | + +-------+ +--------+------+ | Current Some Day | | | | | | Smoker | | | | | + +-------+ +--------+------+ + +---+---+---+ | Smokeless Tobacco: | | | | | Never Used | | | | + +---+---+---+ + + | Comments: states he took the last one with coffee this morning | + + + + +---------+ + | Alcohol Use | Drinks/We | oz/Week | Comments | | | ek | | | + + +---------+ + | No | | | former use, 20 years ago | + + +---------+ + + + + | Sex Assigned at | Date Recorded | | | | + + + | Not on file | | + + + as of this encounter Plan of Treatment +--------+---------+ + + + | Date | Type | Specialty | Care Team | Description | +--------+---------+ + + + | 07/25/ | Office | Cardiology | Celestina Delgado, | | | 2019 | Visit | | MD Martin Roberts | | | | | | Dr [address], | | | | | | [place] [address] | | | | | | [phone] | | | | | | | | +--------+---------+ + + + as of this encounter Visit Diagnoses Not on filein this encounter"
--- OUTSIDE RECORDS SUMMARY | 2018-02-12 16:11 | XMS | Clinical Summary ---
Demographics + + + | Address | [address] | | | [place] [address] | + + + | Home Phone | | + + + | Preferred Language | Unknown | + + + | Marital Status | Single | + + + | Congregation Affiliation | Unknown | + + + | Race | Unknown | + + + | Ethnic Group | Unknown | + + + Author + + + | Author | [facility] | + + + | Organization | [facility] | + + + | Address | Unknown | + + + | Phone | Unavailable | + + + Support + + +---------+ + | Name | Relationship | Address | Phone | + + +---------+ + | Thi Garcia | ECON | Unknown | | + + +---------+ + Care Team Providers + +------+ + | Care Boat Puller Name | Role | Phone | + +------+ + | Mickey Vega MD | PP | | + +------+ + Allergies + + + + + + | Active Allergy | Reactions | Severity | Noted | Comments | | | | | Date | | + + + + + + | Penicillins | Anaphylaxis | High | 09/28/19 | | | | | | 18 | | + + + + + + Current Medications + + +--------+---------+------+------+-------+ | Prescription | Sig. | Disp. | Refills | Star | End | Statu | | | | | | t | Date | s | | | | | | Date | | | + + +--------+---------+------+------+-------+ | aspirin 81 MG | Take 81 mg by mouth | | | | | Activ | | tablet | daily. | | | | | e | + + +--------+---------+------+------+-------+ | carvedilol (COREG) | Take 1 tablet by | | | 04/1 | | Activ | | 25 MG tablet | mouth 2 (two) times | | | 1/20 | | e | | | daily with meals. | | | 18 | | | + + +--------+---------+------+------+-------+ | lisinopril | Take 1 tablet by | 30 | 3 | 04/1 | 04/1 | Activ | | (ZESTRIL) 40 MG | mouth daily. | tablet | | 1/20 | 1/20 | e | | tablet | | | | 18 | 19 | | + + +--------+---------+------+------+-------+ | | Take 1 tablet by | 30 | 3 | 04/1 | 04/1 | Activ | | hydrochlorothiazide | mouth daily. | tablet | | 1/20 | 1/20 | e | | (HYDRODIURIL) 25 MG | | | | 18 | 19 | | | tablet | | | | | | | + + +--------+---------+------+------+-------+ | clopidogrel | Take 1 tablet by | 90 | 3 | 04/1 | | Activ | | (PLAVIX) 75 MG | mouth daily. | tablet | | 1/20 | | e | | tablet | | | | 18 | | | + + +--------+---------+------+------+-------+ | atorvastatin | Take 1 tablet by | 90 | 3 | 04/1 | | Activ | | (LIPITOR) 80 MG | mouth nightly. | tablet | | 1/20 | | e | | tablet | | | | 18 | | | + + +--------+---------+------+------+-------+ | traMADol (ULTRAM) | Take 1 tablet by | 30 | 0 | 08/0 | | Activ | | 50 MG tablet | mouth every 6 (six) | tablet | | 1/20 | | e | | | hours as needed for | | | 18 | | | | | Pain. | | | | | | + + +--------+---------+------+------+-------+ | hydrALAZINE | Take 1 tablet by | 120 | 3 | 08/0 | 08/0 | Activ | | (APRESOLINE) 25 MG | mouth 2 (two) times | tablet | | 07/08 | 20 | e | | tablet | daily. 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 | + + + + + | Depression | 03/03/2016 | + + + | Chronic nonintractable headache | 09/22/2015 | + + + | Transient cerebral ischemia | 08/27/2014 | + + + + + | Overview: Overview: | | Overview: | | CTA w/o hemodynamic sig stenosis | + + + + + | Benign essential hypertension | 07/20/2012 | + + + | ANITA (obstructive sleep apnea) | 12/29/2008 | + + + Encounters +--------+ + + + + | Date | Type | Specialty | Care Team | Description | +--------+ + + + + | 01/22/ | Documentati | | Mariann Hernadez | Other (Dr Vega | | 2018 | on Only | | NOVA Joel | chart note) | +--------+ + + + + | 01/17/ | Office | | Celestina Delgado, | Benign essential | | 2018 | Visit | | MD | hypertension | | | | | | (Primary Dx); ANITA | | | | | | (obstructive sleep | | | | | | apnea); Coronary | | | | | | artery disease | | | | | | involving [place] | | | | | | coronary artery of | | | | | | [place] heart without | | | | | | angina pectoris | +--------+ + + + + | 12/19/ | Telephone | | Mariann Hernadez | | | 2017 | | | N[place] Joel | | +--------+ + + + + from Last 3 Months Family History + + +------+ + | Medical History | Relation | Name | Comments | + + +------+ + | Heart defect | Maternal | | | | | Grandfath | | | | | er | | | + + +------+ + + +------+ + + | Relation | Name | Status | Comments | + +------+ + + | Maternal Grandfather | | | 11 heart attacks | + +------+ + + Social History + +-------+ +--------+------+ [...] + + + | Blood Pressure | 174/106 | 01/17/2018 9:08 AM PDT | + + + + | Pulse | 76 | 01/17/2018 9:08 AM PDT | + + + + | Temperature | - | - | + + + + | Respiratory Rate | - | - | + + + + | Oxygen Saturation | 98% | 01/17/2018 9:08 AM PDT | + + + + | Inhaled Oxygen | - | - | | Concentration | | | + + + + | Weight | 121.1 kg (267 lb) | 01/17/2018 9:08 AM PDT | + + + + | Height | 180.3 cm (5' 11") | 01/17/2018 9:08 AM PDT | + + + + | Body Mass Index | 37.24 | 01/17/2018 9:08 AM PDT | + + + + Plan of Treatment +--------+---------+ + + + | Date | Type | Specialty | Care Team | Description | +--------+---------+ + + + | 07/25/ | Office | | Celestina Delgado, | | | 2019 | Visit | | MD Martin Roberts | | | | | | Dr [address], | | | | | | [place] [address] | | | | | | [phone] | | | | | | | | +--------+---------+ + + + + + + + + | Health Maintenance | Due Date | Last Done | Comments | + + + + + | Vaccine: | | | | | Dtap/Tdap/Td (1 - | 2 | | | | Tdap) | | | | + + + + + | Vaccine: | | | | | Pneumococcal 19-64 | 2 | | | | (PPSV23 only) Medium | | | | | Risk (1 of 1 - | | | | | PPSV23) | | | | + + + + + | Colon Cancer | | | | | Screening | 3 | | | | (Colonoscopy) | | | | + + + + + | Vaccine: Influenza | | | | | (#1) | 8 | | | + + + + + Results Not on filefrom Last 3 Months Insurance + +--------+ +------+-------+ + | Payer | Benefi | Subscriber | Type | Phone | Address | | | t Plan | ID | | | | | | / | | | | | | | Group | | | | | + +--------+ +------+-------+ + | MEDICARE | MEDICA | [id number] | | | [address] | | | RE | | | | [place] [address] | | | IP-OP | | | | | + +--------+ +------+-------+ + + +--------+ +--------+ + + | Guarantor Name | Accoun | Relation to | Date | Phone | Billing Address | | | t Type | Patient | of | | | | | | | | | | + +--------+ +--------+ + + | DARIO WSET | Person | Self [birth year] | Home: | [address] | | | al/Fam | | 1961 | [phone] [place], [place] [address] | | | cesar | | | [phone] | | + +--------+ +--------+ + +
--- OUTSIDE RECORDS SUMMARY | 2018-02-12 16:11 | XMS | Encounter Summary ---
Demographics + + + | Address | [address] | | | [place] [address] | + + + | Home Phone | | + + + | Preferred Language | Unknown | + + + | Marital Status | Single | + + + | Hoahaoism Affiliation | Unknown | + + + | Race | Unknown | + + + | Ethnic Group | Unknown | + + + Author + + + | Author | [facility] | + + + | Organization | [facility] | + + + | Address | Unknown | + + + | Phone | Unavailable | + + + Support + + +---------+ + | Name | Relationship | Address | Phone | + + +---------+ + | Thi Garcia | ECON | Unknown | | + + +---------+ + Care Team Providers + +------+ + | Care Newswriter Name | Role | Phone | + [...] [place] | | | | | | [address] | | | | | | [phone] | | | +--------+ + + + [...] | | | | | | [place] [address] | | | | | | [phone] | | | | | | | | +--------+---------+ + + + as of this encounter Visit Diagnoses Not on filein this encounter"
--- OUTSIDE RECORDS SUMMARY | 2018-02-12 16:11 | XMS | Encounter Summary ---
Demographics + + + | Address | [address] | | | [place] [address] | + + + | Home Phone | | + + + | Preferred Language | Unknown | + + + | Marital Status | Single | + + + | Rastafari Affiliation | Unknown | + + + | Race | Unknown | + + + | Ethnic Group | Unknown | + + + Author + + + | Author | [facility] | + + + | Organization | [facility] | + + + | Address | Unknown | + + + | Phone | Unavailable | + + + Support + + +---------+ + | Name | Relationship | Address | Phone | + + +---------+ + | Thi Garcia | ECON | Unknown | | + + +---------+ + Care Team Providers + +------+ + | Care Health Professional Name | Role | Phone | + +------+ + | Mickey Cartwright MD | PCP | | + +------+ + Reason for Visit + + + | Reason | Comments | + + + | Follow-up | 4 month | + + + Encounter Details +--------+---------+ + + + | Date | Type | Department | Care Team | Description | +--------+---------+ + + + | 01/17/ | Office | [facility] | Celestina Zamudio, | Benign essential | | 2018 | Visit | Cardiology [facility] | [address] | hypertension | | | | [address] | [address], | (Primary Dx); ANITA | | | | [address] | [place] [address] | (obstructive sleep | | | | [place] [address] | [phone] | apnea); Coronary | | | | [phone] | | artery disease | | | | | | involving [place] | | | | | | coronary artery of | | | | | | [place] heart without | | | | | | angina pectoris | +--------+---------+ + + + Social History + +-------+ [...] + + + as of this encounter Last Filed Vital Signs + + + [...] AM PDT | + + + + in this encounter Progress Notes Celestina Zamudio MD - 01/17/2018 8:45 AM PDTFormatting of this note may be different fro m the original. Date of Visit: 01/17/18 Chief Complaint Patient presents with Follow-up 4 month Requesting Physician: MICKEY CARTWRIGHT, Internal Medicine HISTORY OF PRESENT ILLNESS: Patient is 57-year-old male with premature coronary artery disease. Currently denies any chest pain or shortness of breath however he has history of chronic pa in and myopathy. His pain is uncontrolled. Blood pressure also has been uncontrolled. Previously in August 2017 hospitalized in [facility] for non-ST elevation [place], that debora e patient felt neck and jaw pressure, found to have elevated cardiac enzymes. Left heart catheterization was performed and patient was found to have severe two-vessel co ronary artery disease, received PCI to left circumflex and RCA. Overall has Limited activity level. Continues to smoke however his cutting down. REVIEW OF SYSTEMS Constitutional: Positive for fatigue.. HENT: Negative for nosebleeds, no runny nose or sneezing. Eyes: Negative for visual disturbance, no double vision, tearing or itching. Respiratory: Negative for cough and shortness of breath, no hemoptysis Cardiovascular: As history of present illness. Gastrointestinal: Negative for nausea, vomiting, abdominal pain and blood in stool. Genitourinary: Negative for hematuria, no dysuria. Musculoskeletal: Generalized myalgia, arthritic pain. Skin: Negative for color change, no rash. Neurological: Negative for dizziness, syncope and numbness. Chronic pain. Hematological: Does not bruise/bleed easily. Psychiatric/Behavioral: Patient is mildly depressed. PAST MEDICAL & SURGICAL HISTORY. SOCIAL AND FAMILY HISTORY WERE REVIEWED Past Medical History Diagnosis Date Arthralgia Cardiac arrhythmia Cerebrovascular accident (CVA) (HCC) Coronary artery disease involving [place] coronary artery of [place] heart without angina pectoris 09/27/2017 Hypertension Old myocardial infarction Other chronic pain Sleep apnea cpap, waiting on sleep study Past Surgical History Procedure Laterality Date CHOLECYSTECTOMY MUSCLE BIOPSY MEDICATIONS Home Medications Current Outpatient Prescriptions: aspirin 81 MG tablet, Take 81 mg by mouth daily., Disp: , Rfl: atorvastatin (LIPITOR) 80 MG tablet, Take 1 tablet by mouth nightly., Disp: 90 tablet, Rfl: 3 carvedilol (COREG) 25 MG tablet, Take 1 tablet by mouth 2 (two) times daily with meals ., Disp: , Rfl: clopidogrel (PLAVIX) 75 MG tablet, Take 1 tablet by mouth daily., Disp: 90 tablet, Rfl : 3 hydrochlorothiazide (HYDRODIURIL) 25 MG tablet, Take 1 tablet by mouth daily., Disp: 3 0 tablet, Rfl: 3 lisinopril (ZESTRIL) 40 MG tablet, Take 1 tablet by mouth daily., Disp: 30 tablet, Rfl : 3 Allergies Allergies Allergen Reactions Penicillins Anaphylaxis PHYSICAL EXAM Vital Signs: BP (!) 174/106 (BP Location: Right upper arm, Patient Position: Sitting) | Pulse 76 | Ht 1.803 m (5' 11") | Wt 121.1 kg (267 lb) | SpO2 98% | BMI 37.24 kg/m Constitutional: Well-developed. Neck: No JVD present. No thyromegaly present. Cardiovascular: Regular rhythm, S1 normal and S2 normal. No murmur heard. Pulses: Carotid pulses are 2+ on the right side, and 2+ on the left side. Radial pulses are 2+ on the right side, and 2+ on the left side. Pulmonary/Chest: Effort normal and breath sounds normal. No wheezes. No rales. Abdominal: Soft. No tenderness. Musculoskeletal: No edema. Neurological: Alert. No cranial nerve deficit. Skin: Warm and dry. DATA 09/07/2017 WBC 12.9, hemoglobin 15.2, platelets 305, sodium 137, potassium 3.5, chloride 106, bicarbon ate 26, BUN 17, creatinine 0.81, GFR 99. AST 19, AST 21, alk phos 49, calcium 8.6. No results found for: NA, K, CL, CO2, BUN, CREATININE, GLUCOSE, CALCIUM No results found for: CKTOTAL, CKMB, CKMBINDEX, TROPONINI No results found for: WBC, HGB, HCT, MCV, PLT No results found for: CHOL, TRIG, HDL, LDL, LDL, GLUF, HGBA1C, TSH EK From [facility] showed normal sinus rhythm, left axis deviation, left ventricular hypertrophy by CRITERIA. Last Echo: 09/03/2017 Reported from [place], Dilated LV with normal systolic function, inferior and inferola teral hypokinesis. Mild MR. Last stress test: Last cath:09/03/2017 LAD distal 75% stenosis, LCX, 100% occluded, RCA 95% mid segment. S/P LCX PCI with 30 by 34 mm proximal overlapping with 2.5 x 18 mm distal drug-eluting sten t. States post PCI to RCA with 30 by 18 mm mid segment stent. Carotid US: AAA screening: Lower extremity US: OTHERS: ASSESSMENT & PLAN Patient is 57 y.o. with the following medical problems 1. Premature coronary artery disease, PCI to RCA and left circumflex. Distal LAD disease. N o clear anginal symptoms however he has chronic pain syndrome. 2. Mild ischemic cardiomyopathy. No signs of congestive heart failure 3. Chronic pain. Overall his pain is uncontrolled. 4. Obesity BMI 37. 5. Uncontrolled hypertension. 6. Tobacco abuse. Recommendations: Patient continued to have chronic pain, his blood pressure is uncontrolled. Continue with Carvedilol to 25 mg bid. Continue with lisinopril 40 mg po q day. Patient is also on hydrochlorothiazide 25 mg po q day. Given his mild ischemic cardiomyopathy with hydralazine 25 mg bid. We will continue monitoring his blood pressure. Continue with statin therapy. Continue with clopidogrel for 1 year and aspirin indefinitely. I will give the patient 30 tablets of tramadol today and will follow-up with his pain contr ol management and Dr. Cartwright for better pain control. Follow up in 6 months or earlier if needed. Will call with any change in symptoms. Thank you for allowing me to participate in the care of this patient. Primary Care Physician: MICKEY Zamudio MD 01/17/2018in this encounter Plan of Treatment +--------+---------+ + + + | Date | Type | Specialty | Care Team | Description | +--------+---------+ + + + | 07/25/ | Office | Cardiology | Celestina Zamudio, | | | 2019 | Visit | | MD Martin Roberts | | | | | | Dr [address], | | | | | | [place] [address] | | | | | | [phone] | | | | | | | | +--------+---------+ + + + as of this encounter Visit Diagnoses + + | Diagnosis | + + | Benign essential hypertension - Primary | + + | Essential hypertension, benign | + + | ANITA (obstructive sleep apnea) | + + | Obstructive sleep apnea (adult) (pediatric) | + + | Coronary artery disease involving [place] coronary artery of [place] heart without angina | | pectoris | + +
--- OUTSIDE RECORDS SUMMARY | 2018-02-12 16:11 | XMS | Encounter Summary ---
Demographics + + + | Address | [address] | | | [place] [address] | + + + | Home Phone | | + + + | Preferred Language | Unknown | + + + | Marital Status | Single | + + + | Adventism Affiliation | Unknown | + + + | Race | Unknown | + + + | Ethnic Group | Unknown | + + + Author + + + | Author | [facility] | + + + | Organization | [facility] | + + + | Address | Unknown | + + + | Phone | Unavailable | + + + Support + + +---------+ + | Name | Relationship | Address | Phone | + + +---------+ + | Thi Garcia | ECON | Unknown | | + + +---------+ + Care Team Providers + +------+ + | Care Saw Tailer Name | Role | Phone | + +------+ + | Mickey Vega MD | PCP | | + +------+ + Reason for Visit +--------+ + | Reason | Comments | +--------+ + | Other | Dr Vega chart note | +--------+ + Encounter Details +--------+ + + + + | Date | Type | Department | Care Team | Description | +--------+ + + + + | 01/22/ | Documentati | [facility] | Mariann Hernadez | Other (Dr Vega | | 2018 | on Only | Cardiology Chrissy Joel CMA | chart note) | | | | [address] | | | | | | [place] | | | | | | [address] | | | | | | [phone] | | | +--------+ + + + [...] Cardiology | Celestina Delgado, | | | 2018 | Visit | | MD Martin Roberts | | | | | | Dr [address], | | | | | | [place] [address] | | | | | | [phone] | | | | | | | | +--------+---------+ + + + as of this encounter Visit Diagnoses Not on filein this encounter"
--- OUTSIDE RECORDS SUMMARY | 2018-02-12 16:11 | XMS | Clinical Summary ---
Demographics + + + | Address | [address] | | | [place] [address] | + + + | Home Phone | | + + + | Preferred Language | Unknown | + + + | Marital Status | Single | + + + | Mormonism Affiliation | Unknown | + + + | Race | Unknown | + + + | Ethnic Group | Unknown | + + + Author + + + | Author | [facility] | + + + | Organization | [facility] | + + + | Address | Unknown | + + + | Phone | Unavailable | + + + Support + + +---------+ + | Name | Relationship | Address | Phone | + + +---------+ + | Thi Garcia | ECON | Unknown | | + + +---------+ + Care Team Providers + +------+ + | Care Sed [employer] Teacher Name | Role | Phone | + [...] + + | Coronary artery disease involving [place] coronary artery of | 09/27/2017 | | [place] heart without angina pectoris | | + [...] | | | | | | involving [place] | | | | | | coronary artery of | | | | | | [place] heart without | | | | | [...] | | | | | | [place] [address] | | | | | | [phone] | | | | | | | [...] +------+-------+ + | MEDICARE | MEDICA | [id number] | | | [address] | | | RE | | | | [place] [address] | | | IP-OP | | | | | + +--------+ +------+-------+ + + +--------+ +--------+ + + | Guarantor Name | Accoun | Relation to | Date | Phone | Billing Address | | | t Type | Patient | of | | | | | | | | | | + +--------+ +--------+ + + | DARIO WEST | Person | Self [birth year] | Home: | [address] | | | al/Fam | | 1961 | [phone] | [place], [place] [address] | | | cesar | | | [birth year] | | + +--------+ +--------+ + +
--- OUTSIDE RECORDS SUMMARY | 2018-02-12 16:11 | XMS | Encounter Summary ---
Demographics + + + | Address | [address] | | | [place] [address] | + + + | Home Phone | | + + + | Preferred Language | Unknown | + + + | Marital Status | Single | + + + | Samaritan Affiliation | Unknown | + + + | Race | Unknown | + + + | Ethnic Group | Unknown | + + + Author + + + | Author | [facility] | + + + | Organization | [facility] | + + + | Address | Unknown | + + + | Phone | Unavailable | + + + Support + + +---------+ + | Name | Relationship | Address | Phone | + + +---------+ + | Thi Garcia | ECON | Unknown | | + + +---------+ + Care Team Providers + +------+ + | Care Mechanical Assembly Technician Name | Role | Phone | [...] + | 01/17/ | Office | [facility] | Celestina Zamudio, | Benign essential | | 2018 | Visit | Cardiology [place] | [address] | hypertension | | | | [address] | Dr [address], | (Primary Dx); [place] | | | | [address] | [place] [address] | (obstructive sleep | | | | [place] [address] | [phone] | apnea); Coronary | | | | [phone] | | artery disease | | | | | | involving [place] | | | | | | coronary artery of | | | | | | [place] heart without | | | | | [...] uncontrolled. Previously in August 2017 hospitalized in [facility] for non-ST elevation [place], that debora e patient felt neck and [...] accident (CVA) (HCC) Coronary artery disease involving [place] coronary artery of [place] heart without angina pectoris 09/27/2017 Hypertension Old [...] LDL, LDL, GLUF, HGBA1C, TSH EK From [facility] showed normal sinus rhythm, left axis deviation, left ventricular hypertrophy by CRITERIA. Last Echo: 09/03/2017 Reported from [place], Dilated LV with normal systolic function, [...] | | | | | | [place] [address] | | | | | | [phone] | | | | | | | | +--------+---------+ + + + as of this encounter Visit Diagnoses + + | Diagnosis | + + | Benign essential hypertension - Primary | + + | Essential hypertension, benign | + + | ANITA (obstructive sleep apnea) | + + | Obstructive sleep apnea (adult) (pediatric) | + + | Coronary artery disease involving [place] coronary artery of [place] heart without angina | | pectoris | + +
--- OUTSIDE RECORDS SUMMARY | 2018-02-12 16:11 | XMS | Encounter Summary ---
Demographics + + + | Address | [address] | | | [place] [address] | + + + | Home Phone [...] + + + | Author | [facility] | + + + | Organization | [facility] | + + + | Address | Unknown | + + + | Phone | Unavailable | + + + Support + + +---------+ + | Name | Relationship | Address | Phone | + + +---------+ + | Thi Garcia | ECON | Unknown | | + + +---------+ + Care Team Providers + +------+ + | Care Outpatient Services Director Name | Role | Phone | + [...] [place] | | | | | | [address] | | | | | | [phone] | | | +--------+ + + + [...] | | | | | | [place] [address] | | | | | | [phone] | | | | | | | | +--------+---------+ + + + as of this encounter Visit Diagnoses Not on filein this encounter"
--- NOTE | 2018-02-13 15:24 | EKG ---
[facility] [address] [facility] [place] [address] Signed Normal sinus rhythm T wave abnormality, consider lateral ischemia Abnormal ECG When compared with ECG of 17-JAN-2018 16:43, premature ventricular complexes are no longer present Confirmed by ASIF KING MD ([id number]) on 02/13/2018 3:24:34 PM Electronically Signed By: SAIF KING MD 02/13/18 1524 PATIENT NAME: DARIO WEST Electrocardiogram DATE OF : 64 PHYSICIAN: ASIF KING MD REPORT #: [id number] REPORT IS CONFIDENTIAL AND NOT TO BE RELEASED WITHOUT AUTHORIZATION
== END 2018-02-12 16:50 | disposition home or self-care (01) ==
LOC: ED 15:31
DX: I10 Essential (primary) hypertension (principal); E66.9 Obesity, unspecified; I25.2 Old myocardial infarction; F17.200 Nicotine dependence, unspecified, uncomplicated; Z88.0 Allergy status to penicillin; Z79.899 Other long term (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 therapy; Z79.82 Long term (current) use of aspirin
CPT/HCPCS: 93005; 93010; 99283

== ENCOUNTER 2018-03-04 14:50 | Emergency (ER) | payer MEDICARE ==
[~2018-03-04] VITALS: Ht 180.3 cm; Wt 122.5 kg
--- OUTSIDE RECORDS SUMMARY | ~2018-03-04 | XMS | Clinical Summary ---
Demographics + + + | Address | [address] | | | [place] [address] | + + + | Home Phone | | + + + | Preferred Language | Unknown | + + + | Marital Status | Single | + + + | Sabianism Affiliation | Unknown | + + + | Race | Unknown | + + + | Ethnic Group | Unknown | + + + Author + + + | Author | [facility] | + + + | Organization | [facility] | + + + | Address | Unknown | + + + | Phone | Unavailable | + + + Support + + +---------+ + | Name | Relationship | Address | Phone | + + +---------+ + | Thi Garcia | ECON | Unknown | | + + +---------+ + Care Team Providers + +------+ + | Care Foreclosure Specialist Name | Role | Phone | + [...] + + | Coronary artery disease involving [place] coronary artery of | 09/27/2017 | | [place] heart without angina pectoris | | + [...] | +--------+ + + + + | 02/15/ | Documentati | | Mariann Hernadez | Other (Dr Vega | | 2017 | on Only | | [place] | chart note) | +--------+ + + + + | 01/22/ | Documentati | | Mariann Hernadez | Other (Dr Vega | | 2017 | on Only | | [place] [...] | | | | | | involving [place] | | | | | | coronary artery of | | | | | | [place] heart without | | | | | | angina pectoris | +--------+ + + + + | 12/19/ | Telephone | | Mariann Hernadez | | | 2018 | | | [place] | | [...] | | | | | | [place] [address] | | | | | | [phone] | | | | | | | [...] +------+-------+ + | MEDICARE | MEDICA | [id number] | | | [address] | | | RE | | | | [place] [address] | | | IP-OP | | | [...] | | al/Fam | | 1961 | [phone] | [place] [address] | | | cesar | | | [phone] | | + +--------+ +--------+ + +
--- OUTSIDE RECORDS SUMMARY | ~2018-03-04 | XMS | Encounter Summary ---
Demographics + + + | Address | [address] | | | [place] [address] | + + + | Home Phone | | + + + | Preferred Language | Unknown | + + + | Marital Status | Single | + + + | Sikhism Affiliation | Unknown | + + + | Race | Unknown | + + + | Ethnic Group | Unknown | + + + Author + + + | Author | [facility] | + + + | Organization | [facility] | + + + | Address | Unknown | + + + | Phone | Unavailable | + + + Support + + +---------+ + | Name | Relationship | Address | Phone | + + +---------+ + | Thi Garcia | ECON | Unknown | | + + +---------+ + Care Team Providers + +------+ + | Care Tank Calibrator Name | Role | Phone | + [...] [place] | | | | | | [address] | | | | | | [phone] | | | +--------+ + + + [...] | | | | | | [place] [address] | | | | | | [phone] | | | | | | | | +--------+---------+ + + + as of this encounter Visit Diagnoses Not on filein this encounter"
--- OUTSIDE RECORDS SUMMARY | ~2018-03-04 | XMS | Encounter Summary ---
Demographics + + + | Address | [address] | | | [place] [address] | + + + | Home Phone [...] + + + | Author | [facility] | + + + | Organization | [facility] | + + + | Address | Unknown | + + + | Phone | Unavailable | + + + Support + + +---------+ + | Name | Relationship | Address | Phone | + + +---------+ + | Thi Garcia | ECON | Unknown | | + + +---------+ + Care Team Providers + +------+ + | Care Supervisor Industrial Garment Name | Role | Phone | + [...] + + | 02/15/ | Documentati | [facility] [place] | Mariann Hernadez | Other (Dr Vega | | 2018 | on Only | Cardiology Chrissy Joel CMA | chart note) | | | | [address] | | | | | | [place] | | | | | | [address] | | | | | | [phone] | | | +--------+ + + + [...] | | | | | | [place] [address] | | | | | | [phone] | | | | | | | | +--------+---------+ + + + as of this encounter Visit Diagnoses Not on filein this encounter"
--- OUTSIDE RECORDS SUMMARY | ~2018-03-04 | XMS | Encounter Summary ---
Demographics + + + | Address | [address] | | | [place] [address] | + + + | Home Phone | | + + + | Preferred Language | Unknown | + + + | Marital Status | Single | + + + | Latter-Day Affiliation | Unknown | + + + | Race | Unknown | + + + | Ethnic Group | Unknown | + + + Author + + + | Author | [facility] | + + + | Organization | [facility] | + + + | Address | Unknown | + + + | Phone | Unavailable | + + + Support + + +---------+ + | Name | Relationship | Address | Phone | + + +---------+ + | Thi Garcia | ECON | Unknown | | + + +---------+ + Care Team Providers + +------+ + | Care Quality Head Name | Role | Phone | + [...] | | | | | | [place] | | | | | | [address] | | | | | | [phone] | | | +--------+ + + + [...] | | | | | | [place] [address] | | | | | | [phone] | | | | | | | | +--------+---------+ + + + as of this encounter Visit Diagnoses Not on filein this encounter"
--- OUTSIDE RECORDS SUMMARY | ~2018-03-04 | XMS | Encounter Summary ---
Demographics + + + | Address | [address] | | | [place] [address] | + + + | Home Phone [...] + + + | Author | [facility] | + + + | Organization | [facility] | + + + | Address | Unknown | + + + | Phone | Unavailable | + + + Support + + +---------+ + | Name | Relationship | Address | Phone | + + +---------+ + | Thi Garcia | ECON | Unknown | | + + +---------+ + Care Team Providers + +------+ + | Care Advertising Teacher Name | Role | Phone | [...] + | 01/17/ | Office | [facility] | Celestina Zamudio, | Benign essential | | 2018 | Visit | [facility] | [address] | hypertension | | | | [address] | [address], | (Primary Dx); [place] | | | | [address] | [place] [address] | (obstructive sleep | | | | [place] [address] | [phone] | apnea); Coronary | | | | [phone] | | artery disease | | | | | | involving [place] | | | | | | coronary artery of | | | | | | [place] heart without | | | | | [...] uncontrolled. Previously in August [address] [facility] for non-ST elevation [place], that debora e patient felt neck and [...] accident (CVA) (HCC) Coronary artery disease involving [place] coronary artery of [place] heart without angina pectoris 09/27/2017 Hypertension Old [...] LDL, LDL, GLUF, HGBA1C, TSH EK From [facility] showed normal sinus rhythm, left axis deviation, left ventricular hypertrophy by CRITERIA. Last Echo: 09/03/2017 Reported from [place], Dilated LV with normal systolic function, [...] | | | | | | [place] [address] | | | | | | [phone] | | | | | | | | +--------+---------+ + + + as of this encounter Visit Diagnoses + + | Diagnosis | + + | Benign essential hypertension - Primary | + + | Essential hypertension, benign | + + | ANITA (obstructive sleep apnea) | + + | Obstructive sleep apnea (adult) (pediatric) | + + | Coronary artery disease involving [place] coronary artery of [place] heart without angina | | pectoris | + +
--- OUTSIDE RECORDS SUMMARY | ~2018-03-04 | XMS | Encounter Summary ---
Demographics + + + | Address | [address] | | | [place] [address] | + + + | Home Phone | | + + + | Preferred Language | Unknown | + + + | Marital Status | Single | + + + | Pentecostal Affiliation | Unknown | + + + | Race | Unknown | + + + | Ethnic Group | Unknown | + + + Author + + + | Author | [facility] | + + + | Organization | [facility] | + + + | Address | Unknown | + + + | Phone | Unavailable | + + + Support + + +---------+ + | Name | Relationship | Address | Phone | + + +---------+ + | Thi Garcia | ECON | Unknown | | + + +---------+ + Care Team Providers + +------+ + | Care Rn Ent Name | Role | Phone | + [...] + | 01/17/ | Office | [facility] | Celestina Zamudio, | Benign essential | | 2018 | Visit | Card[facility] [place] | [address] | hypertension | | | | [address] | Dr [address], | (Primary Dx); [place] | | | | [address] | [place] [address] | (obstructive sleep | | | | [place] [address] | [phone] | apnea); Coronary | | | | [phone] | | artery disease | | | | | | involving [place] | | | | | | coronary artery of | | | | | | [place] heart without | | | | | [...] uncontrolled. Previously in August 2017 hospitalized in [facility] for non-ST elevation [place], that debora e patient felt neck and [...] accident (CVA) (HCC) Coronary artery disease involving [place] coronary artery of [place] heart without angina pectoris 09/27/2017 Hypertension Old [...] TSH EK From [facility] showed normal sinus rhythm, left axis deviation, left ventricular hypertrophy by CRITERIA. Last Echo: 09/03/2017 Reported from [place], Dilated LV with normal systolic function, [...] | | | | | | [place] [address] | | | | | | [phone] | | | | | | | | +--------+---------+ + + + as of this encounter Visit Diagnoses + + | Diagnosis | + + | Benign essential hypertension - Primary | + + | Essential hypertension, benign | + + | ANITA (obstructive sleep apnea) | + + | Obstructive sleep apnea (adult) (pediatric) | + + | Coronary artery disease involving [place] coronary artery of [place] heart without angina | | pectoris | + +
--- OUTSIDE RECORDS SUMMARY | ~2018-03-04 | XMS | Encounter Summary ---
Demographics + + + | Address | [address] | | | [place] [address] | + + + | Home Phone [...] + + + | Author | [facility] | + + + | Organization | [facility] | + + + | Address | Unknown | + + + | Phone | Unavailable | + + + Support + + +---------+ + | Name | Relationship | Address | Phone | + + +---------+ + | Thi Garcia | ECON | Unknown | | + + +---------+ + Care Team Providers + +------+ + | Care Auto Dealership Porter Name | Role | Phone | + [...] [place] | | | | | | [address] | | | | | | [phone] | | | +--------+ + + + [...] | | | | | | [place] [address] | | | | | | [phone] | | | | | | | | +--------+---------+ + + + as of this encounter Visit Diagnoses Not on filein this encounter"
--- OUTSIDE RECORDS SUMMARY | ~2018-03-04 | XMS | Encounter Summary ---
Demographics + + + | Address | [address] | | | [place] [address] | + + + | Home Phone | | + + + | Preferred Language | Unknown | + + + | Marital Status | Single | + + + | Anglican Affiliation | Unknown | + + + | Race | Unknown | + + + | Ethnic Group | Unknown | + + + Author + + + | Author | [facility] | + + + | Organization | [facility] | + + + | Address | Unknown | + + + | Phone | Unavailable | + + + Support + + +---------+ + | Name | Relationship | Address | Phone | + + +---------+ + | Thi Garcia | ECON | Unknown | | + + +---------+ + Care Team Providers + +------+ + | Care Embroiderer Hand Name | Role | Phone | + [...] [place] | | | | | | [address] | | | | | | [phone] | | | +--------+ + + + [...] | | | | | | [place] [address] | | | | | | [phone] | | | | | | | | +--------+---------+ + + + as of this encounter Visit Diagnoses Not on filein this encounter"
--- OUTSIDE RECORDS SUMMARY | ~2018-03-04 | XMS | Encounter Summary ---
Demographics + + + | Address | [address] | | | [place] [address] | + + + | Home Phone | | + + + | Preferred Language | Unknown | + + + | Marital Status | Single | + + + | Catholic Affiliation | Unknown | + + + | Race | Unknown | + + + | Ethnic Group | Unknown | + + + Author + + + | Author | [facility] | + + + | Organization | [facility] | + + + | Address | Unknown | + + + | Phone | Unavailable | + + + Support + + +---------+ + | Name | Relationship | Address | Phone | + + +---------+ + | Thi Garcia | ECON | Unknown | | + + +---------+ + Care Team Providers + +------+ + | Care Bilingual Medical Receptionist Name | Role | Phone | + [...] [place] | | | | | | [address] | | | | | | [phone] | | | +--------+ + + + [...] | | | | | | [place] [address] | | | | | | [phone] | | | | | | | | +--------+---------+ + + + as of this encounter Visit Diagnoses Not on filein this encounter"
--- OUTSIDE RECORDS SUMMARY | ~2018-03-04 | XMS | Clinical Summary ---
Demographics + + + | Address | [address] | | | [place] [address] | + + + | Home Phone [...] + + + | Author | [facility] | + + + | Organization | [facility] | + + + | Address | Unknown | + + + | Phone | Unavailable | + + + Support + + +---------+ + | Name | Relationship | Address | Phone | + + +---------+ + | Thi Garcia | ECON | Unknown | | + + +---------+ + Care Team Providers + +------+ + | Care Reimbursement Liaison Name | Role | Phone | + [...] + + | Coronary artery disease involving [place] coronary artery of | 09/27/2017 | | [place] heart without angina pectoris | | + [...] | | | | | | involving [place] | | | | | | coronary artery of | | | | | | [place] heart without | | | | | [...] | | | | | | [place] [address] | | | | | | [phone] | | | | | | | [...] +------+-------+ + | MEDICARE | MEDICA | [id number] | | | [address] | | | RE | | | | [place] [address] | | | IP-OP | | | [...] | | al/Fam | | 1961 | [phone] | [place] [address] | | | cesar | | | [birth year] | | + +--------+ +--------+ + +
--- OUTSIDE RECORDS SUMMARY | 2018-03-04 14:56 | XMS ---
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 - 2 Visits in 30 Days CARE PROVIDERS ELIANA CARTWRIGHTist 01/18/2018-Current PHONE: [phone] HANNY READ Primary Care Current PHONE: [phone] Care Guidelines exist for the following facilities: [facility] ( 11/20/2017 ) Care History Medical/Surgical 01/18/2018 [facility] - Patient is currently established with [facility]. If patient is seen in the ED during business hours. Please contact CHWs at [facility]. Care Recommendation: This patient has had 5 or more Emergency Department visits in the last 12 months.\T\nbsp; Patient requires education on the scope and purpose of the ED as an acute care provider not a Primary Care Provider and should not be utilized for chronic conditions.\T\nbsp; These are guidelines and the provider should exercise clinical judgment when providing care. 09/27/2017 [facility] - Patient is now seeing a fire extinguisher sprinkler inspector Celestina Delgado please contact if patient is seen in the ED [phone]. Care Recommendation: This patient has had 5 or more Emergency Department visits in the last 12 months. Patient requires education on the scope and purpose of the ED as an acute care provider not a Primary Care Provider and should not be utilized for chronic conditions. If patient returns to ED please contact Community Health WorkerDaisha at [phone].These are guidelines and the provider should exercise clinical judgment when providing care. E.D. VISIT COUNT ([address] 3 [facility] 1 Nellie Ruiz 11 [facility] TOTAL 15 NOTE: Visits indicate total known visits. ED/C VISIT TRACKING (12 MO.) 03/04/2018 14:51 [facility] [place] TYPE: Emergency COMPLAINT: - DIZZINESS 02/12/2018 15:31 [facility] [place] TYPE: Emergency COMPLAINT: - HIGH BP DIAGNOSES: - Essential (primary) hypertension - Other longwall foreman (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 therapy - Obesity, unspecified - Nicotine dependence, unspecified, uncomplicated - Old myocardial infarction - Allergy status to penicillin - bed bug exterminator (current) use of aspirin 02/01/2018 17:39 [facility] [place] TYPE: Emergency COMPLAINT: - BLOOD PRESSURE PROBLEM DIAGNOSES: - Anxiety disorder due to known physiological condition - Other longwall foreman (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 therapy - care home (current) use of aspirin - Nicotine dependence, unspecified, uncomplicated - Allergy status to penicillin - Old myocardial infarction - Essential (primary) hypertension 02/01/2018 11:06 [facility] TYPE: Emergency COMPLAINT: - HIGH BLOOD PRESSURE READING 01/17/2018 16:30 [facility] [place] TYPE: Emergency COMPLAINT: - PAINFUL BREATHING DIAGNOSES: - care home (current) use of aspirin - Chest pain, unspecified - Other nursing home (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 therapy - Nicotine dependence, unspecified, uncomplicated - Malingerer [conscious simulation] - Essential (primary) hypertension - Old myocardial infarction - Allergy status to penicillin 09/26/2017 15:56 [facility] [place] TYPE: Emergency COMPLAINT: - JAW TIGHTNESS DIAGNOSES: - Essential (primary) hypertension - Old myocardial infarction - Nicotine dependence, unspecified, uncomplicated - Allergy status to penicillin - Other longwall foreman (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 therapy - bed bug exterminator (current) use of aspirin - Chest pain, unspecified 09/07/2017 19:35 [facility] [place] TYPE: Emergency COMPLAINT: - BLOOD PRESSURE PROBLEM DIAGNOSES: - Nicotine dependence, unspecified, uncomplicated - Other nursing home (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 therapy - 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 - Chest pain, unspecified - bed bug exterminator (current) use of aspirin - Allergy status to penicillin - Essential (primary) hypertension - Presence of coronary angioplasty implant and graft 09/05/2017 22:30 [facility] [place] TYPE: Emergency COMPLAINT: - SOB/CHEST PRESSURE DIAGNOSES: - Essential (primary) hypertension - Other chest pain - Old myocardial infarction - Other longwall foreman (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 therapy - Presence of coronary angioplasty implant and graft - bed bug exterminator (current) use of aspirin - Nicotine dependence, unspecified, uncomplicated - 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 - Allergy status to penicillin 09/03/2017 14:54 [facility] TYPE: Emergency 09/03/2017 14:30 [facility] TYPE: Emergency 09/03/2017 13:50 [facility] TYPE: Emergency DIAGNOSES: - chest pain and sob - Urticaria - Non-ST elevation (NSTEMI) myocardial infarction - Jaw pain - Chest Pain - Hypertensive emergency 06/03/2017 19:32 [facility] [place] TYPE: Emergency COMPLAINT: - BLOOD PRESSURE PROBLEM DIAGNOSES: - Acquired absence of other specified parts of digestive tract - Other nursing home (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 therapy - Headache - Personal history of pneumonia (recurrent) - Old myocardial infarction - care home (current) use of aspirin - Essential (primary) hypertension - Nicotine dependence, unspecified, uncomplicated - Allergy status to penicillin 04/20/2017 14:42 [facility] [place] TYPE: Emergency COMPLAINT: - HEADACHE/DIZZINESS/HBP DIAGNOSES: - Acquired absence of other specified parts of digestive tract - Type 2 diabetes mellitus with diabetic neuropathy, unspecified - Nicotine dependence, unspecified, uncomplicated - Allergy status to penicillin - bed bug exterminator (current) use of aspirin - Old myocardial infarction - Headache - Hypertensive urgency - Other nursing home (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 therapy - HYPERTENSIVE URGENCY 04/04/2017 19:18 [facility] [place] TYPE: Emergency COMPLAINT: - HIGH BLOOD PRESSURE DIAGNOSES: - Tension-type headache, unspecified, not intractable - Type 2 diabetes mellitus with diabetic neuropathy, unspecified - Old myocardial infarction - Essential (primary) hypertension - Nicotine dependence, unspecified, uncomplicated - Other nursing home (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 therapy - Allergy status to penicillin - care home (current) use of aspirin 04/02/2017 20:32 [facility] [place] TYPE: Emergency COMPLAINT: - POSS HIGH BLOOD PRESSURE DIAGNOSES: - Allergy status to penicillin - Nicotine dependence, unspecified, uncomplicated - Old myocardial infarction - care home (current) use of aspirin - Personal history of pneumonia (recurrent) - Type 2 diabetes mellitus with diabetic neuropathy, unspecified - Other longwall foreman (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 therapy - Essential (primary) hypertension - Headache INPATIENT VISIT TRACKING (12 MO.) 09/03/2017 21:29 [facility] TYPE: Cardiac Catheterization DIAGNOSES: - NSTEMI 09/03/2017 20:27 [facility] TYPE: Cardiac Catheterization DIAGNOSES: - NSTEMI 09/03/2017 17:49 [facility] TYPE: Progressive Care DIAGNOSES: - Non-ST elevation (NSTEMI) myocardial infarction [email or web address]
== END 2018-03-04 16:57 | disposition home or self-care (01) ==
LOC: ED 14:50
DX: R53.1 Weakness (principal); I95.9 Hypotension, unspecified; I10 Essential (primary) hypertension; I25.2 Old myocardial infarction; Z87.891 Personal history of nicotine dependence; Z88.0 Allergy status to penicillin; Z79.899 Other long term (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 therapy; Z79.82 Long term (current) use of aspirin
CPT/HCPCS: 80053; 84484; 85025; 99284

== ENCOUNTER 2018-06-23 15:42 | Emergency (ER) | payer OTHER, MEDICARE ==
[~2018-06-23] VITALS: Ht 182.9 cm; Wt 122.5 kg
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
--- NOTE | 2018-06-24 14:21 | EKG ---
[facility] [address] [place], [place] [address] Signed Normal sinus rhythm Left axis deviation T wave abnormality, consider lateral ischemia Prolonged QT Abnormal ECG When compared with ECG of 12-FEB-2018 15:54, No significant change was found Confirmed by SHILPA GONZALEZ DO ([id number]) on 06/24/2018 2:21:43 PM Electronically Signed By: SHILPA GONZALEZ DO 06/24/18 1421 PATIENT NAME: DARIO WEST Electrocardiogram DATE OF : 64 PHYSICIAN: SHILPA GONZALEZ DO REPORT #: [id number] REPORT IS CONFIDENTIAL AND NOT TO BE RELEASED WITHOUT AUTHORIZATION
== END 2018-06-23 19:47 | disposition short-term general hospital (02) ==
LOC: ED 15:42
DX: G43.909 Migraine, unspecified, not intractable, without status migrainosus (principal); F41.9 Anxiety disorder, unspecified; I25.2 Old myocardial infarction; I10 Essential (primary) hypertension; Z87.01 Personal history of pneumonia (recurrent); Z95.5 Presence of coronary angioplasty implant and graft; F17.200 Nicotine dependence, unspecified, uncomplicated; Z88.0 Allergy status to penicillin; Z79.899 Other long term (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 therapy; Z79.82 Long term (current) use of aspirin
CPT/HCPCS: 70450; 71046; 80053; 83735; 84484; 85025; 93005; 93010; 96365; 96366; 96375; 99285-25; J0780; J1100; J1200; J1885; J3475

== ENCOUNTER 2018-08-02 22:54 | Emergency (ER) | payer MEDICARE ==
[~2018-08-02] VITALS: Ht 182.9 cm; Wt 122.5 kg
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
[2018-08-03] MEDS ORDERED: TRAMADOL HCL50 MG PO (00:41)
[2018-08-03] MEDS ORDERED: DOXYCYCLINE HY100 MG PO (00:41)
== END 2018-08-03 00:56 | disposition home or self-care (01) ==
LOC: ED 22:54
DX: J01.90 Acute sinusitis, unspecified (principal); I10 Essential (primary) hypertension; I25.2 Old myocardial infarction; G62.9 Polyneuropathy, unspecified; F17.200 Nicotine dependence, unspecified, uncomplicated; Z87.01 Personal history of pneumonia (recurrent); Z95.5 Presence of coronary angioplasty implant and graft; Z90.49 Acquired absence of other specified parts of digestive tract; Z88.0 Allergy status to penicillin; Z79.899 Other long term (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 therapy; Z79.82 Long term (current) use of aspirin
CPT/HCPCS: 99283

== ENCOUNTER 2019-02-08 13:29 | Emergency (ER) | payer MEDICARE ==
[~2019-02-08] VITALS: Ht 180.3 cm; Wt 122.5 kg
[~2019-02-08 13:29] MED LIST changes: +DOXYCYCLINE HY100 MG PO
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
[2019-02-08] MEDS ORDERED: REGLAN10 MG PO (16:35)
[2019-02-08] MEDS ORDERED: ONDANSETRON ODT8 MG PO (16:35)
== END 2019-02-08 16:40 | disposition home or self-care (01) ==
LOC: ED 13:29
DX: G43.909 Migraine, unspecified, not intractable, without status migrainosus (principal); I10 Essential (primary) hypertension; I25.2 Old myocardial infarction; F17.200 Nicotine dependence, unspecified, uncomplicated; Z95.5 Presence of coronary angioplasty implant and graft; Z86.73 Personal history of transient ischemic attack (TIA), and cerebral infarction without residual deficits; Z87.01 Personal history of pneumonia (recurrent); Z88.0 Allergy status to penicillin; Z79.82 Long term (current) use of aspirin; Z79.899 Other long term (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 therapy
CPT/HCPCS: 99283; 99406

== ENCOUNTER 2019-03-24 11:28 | Emergency (ER) | payer MEDICARE ==
[~2019-03-24] VITALS: Ht 180.3 cm; Wt 122.5 kg
--- OUTSIDE RECORDS SUMMARY | ~2019-03-24 | XMS | Clinical Summary ---
Demographics + + + | Address | [address] | | | [place] [address] | + + + | Home Phone | | + + + | Preferred Language | Unknown | + + + | Marital Status | Single | + + + | Moravian Affiliation | Unknown | + + + | Race | Unknown | + + + | Ethnic Group | Unknown | + + + Author + + + | Author | [facility] (Historical as of | | | 02-02-19) | + + + | Organization | [facility] (Historical as of | | | 02-02-19) [...] Team Providers + +------+ + | Care Prospecting Driller Name | Role | Phone | + [...] + + | Coronary artery disease involving northern [place] coronary artery of | 09/27/2017 | | northern [place] heart without angina pectoris | | + [...] 08/28/19 | | | | 19 | | + + + + Encounters +--------+---------+ + + + | Date | Type | Specialty | Care Team | Description | +--------+---------+ + + + | 12/26/ | Office | | Celestina Delgado, | Ischemic | | 2019 | Visit | | MD | cardiomyopathy | | | | | | (Primary Dx); ANITA | | | | | | (obstructive sleep | | | | | | apnea); Poor | | | | | | compliance with | | | | | | medication; S/P PTCA | | | | | | (percutaneous | | | | | | transluminal | | | | | | coronary | | | | | | angioplasty); Benign | | | | | | essential | | | | | | hypertension | +--------+---------+ + + + from Last 3 Months [...] + | 07/03/ | Office | | Stacey Delgadora, | | | 2019 | Visit | | MD Martin Roberts | | | | | | Dr [place], | | | | | | [place] [address] | | | | | | [phone] | | | | | | | [...] +------+-------+ + | MEDICARE | MEDICA | [id number] | | | [address] | | | RE | | | | [place] [address] | | | IP-OP | | | [...] | | al/Tono | | 1961 | [phone] | [place] [address] | | | cesar | | | [phone] | | + +--------+ +--------+ + +
--- OUTSIDE RECORDS SUMMARY | ~2019-03-24 | XMS | Clinical Summary ---
Demographics + + + | Address | [address] | | | [place] [address] | + + + | Home Phone | | + + + | Preferred Language | Unknown | + + + | Marital Status | Single | + + + | Sabianism Affiliation | Unknown | + + + | Race | Unknown | + + + | Ethnic Group | Unknown | + + + Author + + + | Author | [facility] (Historical as of | | | 02-02-19) | + + + | Organization | [facility] (Historical as of | | | 02-02-19) [...] Team Providers + +------+ + | Care Control Tower Radio Operator Name | Role | Phone | [...] + + | Coronary artery disease involving [place] coronary artery of | 09/27/2017 | | k[place] heart without angina pectoris | | + [...] [place], | | | | | | [place] [address] | | | | | | [phone] | | | | | | | [...] +------+-------+ + | MEDICARE | MEDICA | [id number] | | | [address] | | | RE | | | | [place] [address] | | | IP-OP | | | [...] | | al/Tono | | 1961 | [phone] | [place] [address] | | | cesar | | | [phone] | | + +--------+ +--------+ + +
--- OUTSIDE RECORDS SUMMARY | ~2019-03-24 | XMS | Encounter Summary ---
Demographics + + + | Address | [address] | | | [place] [address] | + + + | Home Phone | | + + + | Preferred Language | Unknown | + + + | Marital Status | Single | + + + | Mormon Affiliation | Unknown | + + + | Race | Unknown | + + + | Ethnic Group | Unknown | + + + Author + + + | Author | [facility] (Historical as of | | | 02-02-19) | + + + | Organization | [facility] (Historical as of | | | 02-02-19) [...] Team Providers + +------+ + | Care Trimmer Operator Name | Role | Phone | + +------+ + | Mickey Cartwright MD | PCP | | + +------+ + Reason for Visit + + + | Reason | Comments | + + + | Follow-up | 4 mo f/u | + + + Encounter Details +--------+---------+ + + + | Date | Type | Department | Care Team | Description | +--------+---------+ + + + | 12/26/ | Office | [facility] [place] | Danny, Celestina, | Ischemic | | 2019 | Visit | [facility] | [address] | cardiomyopathy | | | | [address] | [address], | (Primary Dx); ANITA | | | | [address] | [place] [address] | (obstructive sleep | | | | [place] [address] | [phone] | apnea); Poor | | | | [phone] | | compliance with | | | | | | medication; S/P PTCA | | | | | | (percutaneous | | | | | | transluminal | | | | | | coronary | | | | | | angioplasty); Benign | | | | | | essential | | | | | | hypertension | +--------+---------+ + + + Social History [...] | + +---+---+---+ + + | Comments: plans to quit by November [...] encounter Progress Notes Celestina Zamudio MD - 12/26/2018 9:15 AM PDTFormatting of this note may be different fro m the original. Date of Visit: 12/26/18 Chief Complaint Patient presents with Follow-up 4 mo f/u Requesting Physician: MICKEY CARTWRIGHT, Internal Medicine HISTORY OF PRESENT ILLNESS: Patient is 58 y.o. male with premature coronary artery disease. Since prior evaluation denies any chest pain however he continues to deal with his fibromya lgia and myopathy plus chronic pain. Unable to schedule and establish care with pain clinics, he has an appointment in 3 months in [facility]. Currently denies any chest pain or shortness of breath. His pain is uncontrolled. Blood pressure has been better controlled. Today he has not taken his medications yet. Previously in August 2017 hospitalized in [facility] for non-ST elevation [place], that debora e patient felt neck and jaw pressure, found to have elevated cardiac enzymes. Left heart catheterization was performed and patient was found to have severe two-vessel co ronary artery disease, received PCI to left circumflex and RCA. Overall has Limited activity level. Continues to smoke however his cutting down. REVIEW OF SYSTEMS Constitutional: Positive for chronic fatigue.. HENT: Negative for nosebleeds, no runny nose or sneezing. Eyes: Negative for visual disturbance, no double vision, tearing or itching. Respiratory: Negative for cough and shortness of breath, no hemoptysis Cardiovascular: As history of present illness. Gastrointestinal: Negative for nausea, vomiting, abdominal pain and blood in stool. Genitourinary: Negative for hematuria, no dysuria. Musculoskeletal: Generalized myalgia, chronic arthritic pain. Skin: Negative for color change, no rash. Neurological: Negative for dizziness, syncope and numbness. Chronic pain. Hematological: Does not bruise/bleed easily. Psychiatric/Behavioral: Patient is mildly depressed. PAST MEDICAL & SURGICAL HISTORY. SOCIAL AND FAMILY HISTORY WERE REVIEWED Past Medical History Diagnosis Date Arthralgia Cardiac arrhythmia Cerebrovascular accident (CVA) (HCC) Coronary artery disease involving chenega coronary artery of chenega heart without angina pectoris 09/27/2017 Elevated blood sugar Hypertension Mixed hyperlipidemia 08/27/2018 Murmur, cardiac 08/27/2018 Old myocardial infarction Other chronic pain Sleep apnea cpap, waiting on sleep study Past Surgical History Procedure Laterality Date CARDIAC CATHETERIZATION CHOLECYSTECTOMY CORONARY ANGIOPLASTY MUSCLE BIOPSY MEDICATIONS Home Medications Current Outpatient Prescriptions: acetaminophen (TYLENOL) 500 MG tablet, Take 500 mg by mouth every 6 (six) hours as nee ded for Pain., Disp: , Rfl: amLODIPine (NORVASC) 10 MG tablet, Take 1 tablet by mouth daily. (Patient taking diffe rently: Take 10 mg by mouth nightly.), Disp: 90 tablet, Rfl: 3 aspirin 81 MG tablet, Take 81 mg by mouth daily., Disp: , Rfl: atorvastatin (LIPITOR) 80 MG tablet, Take 1 tablet by mouth nightly., Disp: 90 tablet, Rfl: 3 carvedilol (COREG) 25 MG tablet, Take 1 tablet by mouth 2 (two) times daily with meals ., Disp: 180 tablet, Rfl: 3 clopidogrel (PLAVIX) 75 MG tablet, Take 1 tablet by mouth daily., Disp: 90 tablet, Rfl : 3 hydrALAZINE (APRESOLINE) 25 MG tablet, Take 1 tablet by mouth 2 (two) times daily., Di sp: 180 tablet, Rfl: 3 hydrochlorothiazide (HYDRODIURIL) 25 MG tablet, Take 1 tablet by mouth daily., Disp: 9 0 tablet, Rfl: 1 lisinopril (ZESTRIL) 40 MG tablet, Take 1 tablet by mouth daily., Disp: 30 tablet, Rfl : 3 Allergies Allergies Allergen Reactions Penicillins Anaphylaxis PHYSICAL EXAM Vital Signs: BP 154/86 (BP Location: Left upper arm, Patient Position: Sitting) | Pulse 77 | Ht 1.803 m (5' 11") | Wt 127.5 kg (281 lb 1.6 oz) | SpO2 98% | BMI 39.21 kg/m Constitutional: Well-developed. Neck: No JVD present. [...] nerve deficit. Skin: Warm and dry. DATA 10/10/2018 Sodium 139, potassium 3.8, chloride 103, bicarb 24. Calcium 9.5, BUN 23, creatinine 1.1. GFR 64. 09/07/2017 WBC 12.9, hemoglobin 15.2, platelets 305, [...] LDL, LDL, GLUF, HGBA1C, TSH EK From [facility] showed normal sinus rhythm, left axis deviation, left ventricular hypertrophy by CRITERIA. Last Echo: 11/02/2018 1. The left ventricle is normal in size, moderate concentric hypertrophy and normal systoli c function EF 55%. 2. The right ventricle is normal in size and function. 3. There is no pericardial effusion. 09/03/2017 Reported from [place], Dilated LV with normal systolic function, inferior and inferola teral hypokinesis. Mild MR. Last stress test: Last cath:09/03/2017 LAD distal 75% stenosis, LCX, 100% occluded, RCA 95% mid segment. S/P LCX PCI with 30 x 34 mm proximal overlapping with 2.5 x 18 mm distal drug-eluting stent . States post PCI to RCA with 30 by 18 mm mid segment stent. Carotid US: AAA screening: Lower extremity US: OTHERS: ASSESSMENT & PLAN Patient is 58 y.o. with the following medical problems: 1. Premature coronary artery disease, PCI to RCA and left circumflex. Distal LAD disease. N o clear anginal symptoms however he has chronic pain syndrome. 2. Mild ischemic cardiomyopathy. No signs of congestive heart failure 3. Chronic pain. Overall his pain is uncontrolled. 4. Borderline morbid obesity BMI 39. 5. Resistant hypertension. 6. Tobacco abuse. Recommendations: Reviewed echocardiogram findings with the patient recovered systolic function. Patient continued to have chronic pain, h blood pressure is better controlled however he ba s not taken his medication today. Continue with Carvedilol to 25 mg bid. Continue lisinopril 40 mg p.o. daily apparently patient has been taking 40 mg twice daily. Hydrochlorothiazide 25 mg once daily. Amlodipine 10 mg daily. After changing lisinopril to 40 mg once daily we will continue monitoring blood pressure an d consider increasing hydralazine dose if needed. We will continue monitoring his blood pressure. Continue with statin therapy. Continue with clopidogrel for 3 years given overlapping stents, aspirin indefinitely. Follow up in 6 months or earlier if needed. Will call with any change in symptoms. Thank you for allowing me to participate in the care of this patient. Primary Care Physician: MICKEY Zamudio MD 12/26/2018in this encounter Plan of Treatment +--------+---------+ + + + | Date | Type | Specialty | Care Team | Description | +--------+---------+ + + + | 07/03/ | Office | Cardiology | Celestina Zamudio, | | | 2019 | Visit | | MD Martin Roberts | | | | | | Dr [address], | | | | | | [place] [address] | | | | | | [phone] | | | | | | | | +--------+---------+ + + + as of this encounter Visit Diagnoses + + | Diagnosis | + + | Ischemic cardiomyopathy - Primary | + + | Other specified forms of chronic ischemic heart disease | + + | ANITA (obstructive sleep apnea) | + + | Obstructive sleep apnea (adult) (pediatric) | + + | Poor compliance with medication | + + | Personal history of noncompliance with medical treatment, presenting hazards to health | + + | S/P PTCA (percutaneous transluminal coronary angioplasty) | + + | Postsurgical percutaneous transluminal coronary angioplasty status | + + | Benign essential hypertension | + + | Essential hypertension, benign | + +
--- OUTSIDE RECORDS SUMMARY | ~2019-03-24 | XMS | Encounter Summary ---
Demographics + + + | Address | [address] | | | [place] [address] | + + + | Home Phone | | + + + | Preferred Language | Unknown | + + + | Marital Status | Single | + + + | Alevism Affiliation | Unknown | + + + | Race | Unknown | + + + | Ethnic Group | Unknown | + + + Author + + + | Author | [facility] (Historical as of | | | 02-02-19) | + + + | Organization | [facility] [employer] [facility] (Historical as of | | | 02-02-19) [...] Team Providers + +------+ + | Care Ostrich Farmer Name | Role | Phone | + [...] + | 12/26/ | Office | [facility] [place] | Danny, Celestina, | Ischemic | | 2019 | Visit | [facility] | [address] | cardiomyopathy | | | | [address] | [address], | (Primary Dx); [place] | | | | [address] | [place] [address] | (obstructive sleep | | | | [place] [address] | [phone] | apnea); Poor | | | | [phone] | | compliance with | | | [...] has an appointment in 3 months in [facility]. Currently denies any chest pain or shortness of breath. His pain is uncontrolled. Blood pressure has been better controlled. Today he has not taken his medications yet. Previously in August 2017 hospitalized in [facility] for non-ST elevation [place], that debora e patient felt neck and [...] accident (CVA) (HCC) Coronary artery disease involving [place] coronary artery of [place]aim[place] heart without angina pectoris 09/27/2017 Elevated blood [...] LDL, LDL, GLUF, HGBA1C, TSH EK From [facility] showed normal sinus rhythm, left axis deviation, left ventricular hypertrophy by CRITERIA. Last Echo: 11/02/2018 1. The left ventricle is normal in size, moderate concentric hypertrophy and normal systoli c function EF 55%. 2. The right ventricle is normal in size and function. 3. There is no pericardial effusion. 09/03/2017 Reported from [place], Dilated LV with normal systolic function, [...] | | | | | | [place] [address] | | | | | | [phone] | | | | | | | [...]
[~2019-03-24 11:28] MED LIST changes: +ONDANSETRON ODT8 MG PO; +REGLAN10 MG PO
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
--- NOTE | 2019-03-24 15:28 | EKG ---
[facility] [address] [place] [address] Signed Sinus rhythm with occasional premature ventricular complexes Left axis deviation Minimal voltage criteria for LVH, may be normal variant Prolonged QT Abnormal ECG When compared with ECG of 23-JUN-2018 15:56, premature ventricular complexes are now present QT has lengthened Confirmed by SHILPA GONZALEZ DO ([id number]) on 03/24/2019 3:28:32 PM Electronically Signed By: SHILPA GONZALEZ DO 03/24/19 1528 PATIENT NAME: JENNADARIO CHOI Electrocardiogram DATE OF : 64 PHYSICIAN: SHILPA GONZALEZ DO REPORT #: [id number] REPORT IS CONFIDENTIAL AND NOT TO BE RELEASED WITHOUT AUTHORIZATION
== END 2019-03-24 16:24 | disposition home or self-care (01) ==
LOC: ED 11:28
DX: I95.9 Hypotension, unspecified (principal); R55 Syncope and collapse; I10 Essential (primary) hypertension; Z86.73 Personal history of transient ischemic attack (TIA), and cerebral infarction without residual deficits; I25.2 Old myocardial infarction; F17.200 Nicotine dependence, unspecified, uncomplicated; Z88.0 Allergy status to penicillin; Z79.899 Other long term (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 therapy; Z79.82 Long term (current) use of aspirin
CPT/HCPCS: 71045; 80053; 83605; 84484; 85025; 85379; 93005; 93010; 96361; 96374; 99285-25; J1885; J7030

== ENCOUNTER 2019-04-04 12:22 | Day surgery (SDC) | payer MEDICARE ==
[~2019-04-04] VITALS: Ht 180.3 cm; Wt 122.5 kg
--- NOTE | ~2019-04-04 | OR ---
[facility] [address], [place] [address] Draft DATE OF OPERATION: 04/04/2019 SURGEON: Zayda Flood MD PREOPERATIVE DIAGNOSES: 1. Colon screening. 2. History of cardiovascular disease. 3. History of stenting. POSTOPERATIVE DIAGNOSIS: Normal colon to cecum. PROCEDURE PERFORMED: Total colonoscopy to cecum. ANESTHESIA: Intravenous sedation, fentanyl 100 mcg, Versed 8 mg. INDICATION: This 58-year-old white man is a patient of Dr. Vega. He is referred for colon screening. He has no symptoms of bleeding, diarrhea, constipation, and no family history of colon cancer. He does have prior history of cardiovascular disease requiring coronary stenting. He has been on Plavix for greater than a year following the procedure. He also has hypertension and self described congestive heart failure and myocardial infarction in the past requiring stenting as described. Unfortunately, he continues to smoke cigarettes. He is admitted to undergo colon screening. Understands the risks of bleeding, infection, and perforation. FINDINGS: The prep was good. Complete colonoscopy was undertaken of the cecum without question. There was no sign of polyps, diverticular formation, colitis, or cancer. DESCRIPTION OF PROCEDURE: The patient was brought to the endoscopy suite and placed in lateral decubitus position, given intravenous sedation to the point of slurred speech and nystagmus. Digital rectal examination was normal. An Olympus video colonoscope was passed in the rectum and manipulated throughout the colon ultimately intubating the cecum itself. The ileocecal valve and appendiceal orifice were normal. Scope was withdrawn from that point. Examination thoroughly PATIENT NAME: DARIO WEST OPERATIVE REPORT DATE OF : 64 REPORT #: [id number] PHYSICIAN: ZAYDA FLOOD MD PCP: MICKEY VEGA MD REPORT IS CONFIDENTIAL AND NOT TO BE RELEASED WITHOUT AUTHORIZATION [address] [address] [place] undertaken showed no sign of abnormality, specifically no polyps, diverticular formation, colitis, or cancer. Retroflex view was normal as well. The scope was removed and the patient was taken to recovery room in good condition. CONCLUDING DIAGNOSIS: Normal colon. PLAN: Recommend repeat colonoscopy in 10 years. Recommended also to discontinue smoking completely. MD PERFECTO Edwards/NATALYL /[id number] cc: Mickey Vega MD Copies: MICKEY VEGA MD ~ PATIENT NAME: DARIO WEST OPERATIVE REPORT DATE OF : 64 REPORT #: [id number] PHYSICIAN: ZAYDA FLOOD MD PCP: MICKEY VEGA MD REPORT IS CONFIDENTIAL AND NOT TO BE RELEASED WITHOUT AUTHORIZATION
[~2019-04-04 12:22] MED LIST changes: +B-121000 MC2 PO; +D-20002000 UNIT PO
--- NOTE | 2019-04-04 16:44 | NUR ---
04/04/19 1644 Nela Holley 1637- PT ARRIVES TO PACU AROUSABLE TO VOICE. RESP EVEN AND UNLABORED. OXYGEN SAT MID TO HIGH 90'S ON 3L VIA NC. PT FALLS RIGHT BACK TO SLEEP WHEN NOT BEING TALKED TO. PT HAS A HX OF HIGH BLOOD PRESSURE AND HAS NOT TAKEN HIS MEDICATIONS LAST NIGHT OR THIS MORNING.
== END 2019-04-04 18:15 | disposition home or self-care (01) ==
LOC: OPS 12:22 → DS 12:22 → OPS 14:00 → DS 14:00 → OPS 18:15
PROVIDERS: Surgery
PROC: 0DJD8ZZ Inspection of Lower Intestinal Tract, Via Natural or Artificial Opening Endoscopic (ICD-10-PCS; principal; 2019-04-04 14:00)
DX: Z12.11 Encounter for screening for malignant neoplasm of colon (principal); I11.0 Hypertensive heart disease with heart failure; I50.9 Heart failure, unspecified; I25.2 Old myocardial infarction; F17.210 Nicotine dependence, cigarettes, uncomplicated; E66.01 Morbid (severe) obesity due to excess calories; E11.9 Type 2 diabetes mellitus without complications; G47.30 Sleep apnea, unspecified; Z95.5 Presence of coronary angioplasty implant and graft; Z88.0 Allergy status to penicillin; Z68.37 Body mass index [BMI] 37.0-37.9, adult
CPT/HCPCS: J0360; J2250; J3010; J7120

== ENCOUNTER 2019-04-13 19:45 | Emergency (ER) | payer MEDICARE ==
[~2019-04-13] VITALS: Ht 182.9 cm; Wt 117.9 kg
--- OUTSIDE RECORDS SUMMARY | ~2019-04-13 | XMS | Clinical Summary ---
Demographics + + + | Address | [address] | | | [place] [address] | + + + | Home Phone | | + + + | Preferred Language | Unknown | + + + | Marital Status | Single | + + + | Buddhist Affiliation | Unknown | + + + | Race | Unknown | + + + | Ethnic Group | Unknown | + + + Author + + + | Author | [facility] (Historical as of | | | 02-02-19) | + + + | Organization | [facility] (Historical as of | | | 02-02-19) | + + + | Address | Unknown | + + + | Phone | Unavailable | + + + Support + + +---------+ + | Name | Relationship | Address | Phone | + + +---------+ + | Thi Garcia | ECON | Unknown | | + + +---------+ + Care Team Providers + +------+ + | Care Packing Machine Can Feeder Name | Role | Phone | + [...] | e | + + +--------+---------+------+------+-------+ | | Take 1 tablet by | 90 | 1 | 10/3 | 10/3 | Activ | | hydrochlorothiazide | mouth daily. | tablet | | 0/20 | 0/20 | e | | (HYDRODIURIL) 25 MG | | | | 18 | 19 | | | tablet | | | | | | | + + +--------+---------+------+------+-------+ | acetaminophen | Take 500 mg by mouth | | | | | Activ | | (TYLENOL) 500 MG | every 6 (six) hours | | | | | e | | tablet | as needed for Pain. | | | | | | + + +--------+---------+------+------+-------+ | carvedilol (COREG) | Take 1 tablet by | 180 | 3 | 03/1 | | Activ | | 25 MG tablet | mouth 2 (two) times | tablet | | 1/20 | | e | | | daily with meals. | | | 19 | | | + + +--------+---------+------+------+-------+ | atorvastatin | Take 1 tablet by | 90 | 3 | 03/1 | | Activ | | (LIPITOR) 80 MG | mouth nightly. | tablet | | 1/20 | | e | | tablet | | | | 19 | | | + + +--------+---------+------+------+-------+ | amLODIPine | Take 1 tablet by | 90 | 3 | 03/1 | | Activ | | (NORVASC) 10 MG | mouth daily. | tablet | | 1/20 | | e | | tablet | | | | 19 | | | + + +--------+---------+------+------+-------+ | clopidogrel | Take 1 tablet by | 90 | 3 | 03/1 | | Activ | | (PLAVIX) 75 MG | mouth daily. | tablet | | 1/20 | | e | | tablet | | | | 19 | | | + + +--------+---------+------+------+-------+ | hydrALAZINE | Take 1 tablet by | 180 | 3 | 05/2 | 05/2 | Activ | | (APRESOLINE) 25 MG | mouth 2 (two) times | tablet | | 3/20 | 2/20 | e | | tablet | daily. | | | 19 | 20 | | + + +--------+---------+------+------+-------+ | lisinopril | Take 1 tablet by | 30 | 3 | 07/1 | 07/0 | Activ | | (ZESTRIL) 40 MG | mouth daily. | tablet | | 0/20 | 9/20 | e | | tablet | | | | 19 | 20 | | + + +--------+---------+------+------+-------+ Active Problems + + + | Problem | Noted Date | + + + | Poor compliance with medication | 10/11/2018 | + + + | Mixed hyperlipidemia | 08/27/2018 | + + + | Hx of non-ST elevation myocardial infarction (NSTEMI) | 08/27/2018 | + + + | History of cardioembolic cerebrovascular accident (CVA) | 08/27/2018 | + + + | Current smoker | 08/27/2018 | + + + | Ischemic cardiomyopathy | 08/27/2018 | + + + | Pedal edema | 08/27/2018 | + + + | S/P PTCA (percutaneous transluminal coronary angioplasty) | 09/27/2017 | + + + | Coronary artery disease involving inup[place] coronary artery of | 09/27/2017 | | inupiat heart without angina pectoris | | + [...] apnea) | 12/29/2008 | + + + Resolved Problems + + + + | Problem | Noted | Resolved | | | Date | Date | + + + + | Murmur, cardiac | 08/28/19 | | | | 19 | 9 | + + + + Family History + + +------+ + | Medical History | Relation | Name | Comments | + + +------+ + | Heart defect | Maternal | | | | | Grandfath | | | | | er | | | + + +------+ + | Heart disease | Mother | | | + + +------+ + | Hypertension | Mother | | | + + +------+ + + +-------+ + + | Relation | Name | Status | Comments | + +-------+ + + | Brother | | Alive | drug addicted | + +-------+ + + | Father | | | drug overdose, heroin | | | | (Age | | | | | 40s) | | + +-------+ + + | Maternal Grandfather | | | 11 heart attacks | + +-------+ + + | Mother | | Alive | Htn, heart disease | + +-------+ + + | Sister | Ellen | Alive | no heart disease | + +-------+ + + | Sister | Braydon | Alive | alcoholic | + +-------+ + + Social History + +-------+ +--------+------+ | Tobacco Use | Types | Packs/Day | Years | Date | | | | | Used | | + +-------+ +--------+------+ | Current Every Day | | 0.5 | 29 | | | Smoker | | | | | + +-------+ +--------+------+ + +---+---+---+ | Smokeless Tobacco: | | | | | Never Used | | | | + +---+---+---+ + + | Tobacco Cessation: Ready to Quit: Yes; Counseling Given: Yes | | Comments: plans to quit by November | + + + + +---------+ + | Alcohol Use | Drinks/We | oz/Week | Comments | | | ek | | | + + +---------+ + | No | | | seldom, 2-3 x per year | + + +---------+ + + + + | Sex Assigned at | Date Recorded | | | | + + + | Not on file | | + + + Last Filed Vital Signs + + + + | Vital Sign | Reading | Time Taken | + + + + | Blood Pressure | 154/86 | 12/26/2018 8:48 AM PDT | + + + + | Pulse | 77 | 12/26/2018 8:48 AM PDT | + + + + | Temperature | - | - | + + + + | Respiratory Rate | 18 | 11/08/2018 9:45 AM PDT | + + + + | Oxygen Saturation | 98% | 12/26/2018 8:48 AM PDT | + + + + | Inhaled Oxygen | - | - | | Concentration | | | + + + + | Weight | 127.5 kg (281 lb 1.6 | 12/26/2018 8:48 AM PDT | | | oz) | | + + + + | Height | 180.3 cm (5' 11") | 12/26/2018 8:48 AM PDT | + + + + | Body Mass Index | 39.21 | 12/26/2018 8:48 AM PDT | + + + + Plan of Treatment +--------+---------+ + + + | Date | Type | Specialty | Care Team | Description | +--------+---------+ + + + | 07/03/ | Office | | Celestina Delgado, | | | 2019 | Visit | | MD Martin Roberts | | | | | | [address] [place], | | | | | | [place] [address] | | | | | | [phone] | | | | | | | [...] + + + + + | Vaccine: Zoster (1 | | | | | of 2) | 3 | | | + + + + + | Vaccine: Influenza | | | | | (#1) | 9 | | | + + + + [...] +------+-------+ + | MEDICARE | MEDICA | [id number] | | | [address] | | | RE | | | | [place] [address] | | | IP-OP | | | [...] [address] | | | al/Tono | | 1961 | [phone] | [place] [address] | | | cesar | | | [phone] | | + +--------+ +--------+ + +
--- OUTSIDE RECORDS SUMMARY | ~2019-04-13 | XMS | Clinical Summary ---
Demographics + + + | Address | [address] | | | [place] [address] | + + + | Home Phone | | + + + | Preferred Language | Unknown | + + + | Marital Status | Single | + + + | Shinto Affiliation | Unknown | + + + | Race | Unknown | + + + | Ethnic Group | Unknown | + + + Author + + + | Author | [facility] (Historical as of | | | 02-02-19) | + + + | Organization | [facility] (Historical as of | | | 02-02-19) [...] Providers + +------+ + | Care Supervisor Clam Bed Name | Role | Phone | + [...] + + | Coronary artery disease involving [place] coronary artery of | 09/27/2017 | | [place]etm[place] heart without angina pectoris | | + [...] | | | | | | [place] [address] | | | | | | [phone] | | | | | | | [...] +------+-------+ + | MEDICARE | MEDICA | [id number] | | | [address] | | | RE | | | | [place] [address] | | | IP-OP | | | [...] | | al/Tono | | 1961 | [phone] | [place] [address] | | | cesar | | | [phone] | | + +--------+ +--------+ + +
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
[2019-04-13] MEDS ORDERED: CIPRO500 MG PO (20:48)
[2019-04-13] MEDS ORDERED: TRAMADOL HCL50 MG PO (20:48)
== END 2019-04-13 20:59 | disposition home or self-care (01) ==
LOC: ED 19:45
DX: R31.9 Hematuria, unspecified (principal); R10.9 Unspecified abdominal pain; R93.89 Abnormal findings on diagnostic imaging of other specified body structures; I10 Essential (primary) hypertension; I25.2 Old myocardial infarction; F17.200 Nicotine dependence, unspecified, uncomplicated; Z95.5 Presence of coronary angioplasty implant and graft; Z87.01 Personal history of pneumonia (recurrent); Z88.0 Allergy status to penicillin; Z79.82 Long term (current) use of aspirin; Z79.899 Other long term (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 therapy; Z79.02 Long term (current) use of antithrombotics/antiplatelets
CPT/HCPCS: 74176; 80053; 81001; 85025; 96374; 96375; 99284-25; J1885; J2405

== ENCOUNTER 2019-05-07 16:51 | Emergency (ER) | payer OTHER, MEDICARE ==
[~2019-05-07] VITALS: Ht 182.9 cm; Wt 122.5 kg
--- OUTSIDE RECORDS SUMMARY | ~2019-05-07 | XMS | Clinical Summary ---
Demographics + + + | Address | [address] | | | [place] [address] | + + + | Home Phone | | + + + | Preferred Language | Unknown | + + + | Marital Status | Single | + + + | Restorationist Affiliation | Unknown | + + + | Race | Unknown | + + + | Ethnic Group | Unknown | + + + Author + + + | Author | [facility] (Historical as of | | | 02-02-19) | + + + | Organization | [facility] (Historical as of | | | 02-02-19) [...] Team Providers + +------+ + | Care Primary School Teacher Librarian Name | Role | Phone | + [...] | 90 | 1 | 10/3 | | Activ | | hydrochlorothiazide | mouth daily. | tablet | | 0/20 | | e | | (HYDRODIURIL) 25 MG | | | | 18 | | | | tablet | | | [...] + + | Coronary artery disease involving [place] coronary artery of | 09/27/2017 | | [place] heart without angina pectoris | | + [...] [place], | | | | | | [place] [address] | | | | | | [phone] | | | | | | | [...] +------+-------+ + | MEDICARE | MEDICA | [id number] | | | [address] | | | RE | | | | [place] [address] | | | IP-OP | | | [...] [birth year] | Home: | [address] | | | al/Fam | | 1961 | [phone] | [place] [address] | | | cesar | | | [phone] | | + +--------+ +--------+ + +
--- OUTSIDE RECORDS SUMMARY | ~2019-05-07 | XMS | Clinical Summary ---
Demographics + + + | Address | [address] | | | [place] [address] | + + + | Home Phone | | + + + | Preferred Language | Unknown | + + + | Marital Status | Single | + + + | Mosque Affiliation | Unknown | + + + | Race | Unknown | + + + | Ethnic Group | Unknown | + + + Author + + + | Author | [facility] (Historical as of | | | 02-02-19) | + + + | Organization | [facility] (Historical as of | | | 02-02-19) [...] Team Providers + +------+ + | Care Yard Supervisor Cotton Gin Name | Role | Phone | + [...] + + | Coronary artery disease involving [place] coronary artery of | 09/27/2017 | | morongo heart without angina pectoris | | + [...] [place], | | | | | | [place] [address] | | | | | | [phone] | | | | | | | [...] +------+-------+ + | MEDICARE | MEDICA | [id number] | | | [address] | | | RE | | | | [place] [address] | | | IP-OP | | | [...] | | al/Fam | | 1961 | [phone] | [place] [address] | | | cesar | | | [address] | | + +--------+ +--------+ + +
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
--- NOTE | 2019-05-07 19:05 | EKG ---
[facility] [address] [facility] [place] [address] Signed Normal sinus rhythm Left axis deviation Abnormal ECG When compared with ECG of 24-MAR-2019 11:40, premature ventricular complexes are no longer present QT has shortened Confirmed by SHILPA GONZALEZ DO ([id number]) on 05/07/2019 7:05:18 PM Electronically Signed By: SHILPA GONZALEZ DO 05/07/19 1905 PATIENT NAME: DARIO WEST Electrocardiogram DATE OF : 64 PHYSICIAN: SHILPA GONZALEZ DO REPORT #: [id number] REPORT IS CONFIDENTIAL AND NOT TO BE RELEASED WITHOUT AUTHORIZATION
== END 2019-05-07 20:52 | disposition home or self-care (01) ==
LOC: ED 16:51
DX: I10 Essential (primary) hypertension (principal); I25.2 Old myocardial infarction; Z86.73 Personal history of transient ischemic attack (TIA), and cerebral infarction without residual deficits; F17.200 Nicotine dependence, unspecified, uncomplicated; Z88.0 Allergy status to penicillin; Z79.899 Other long term (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 therapy; Z79.82 Long term (current) use of aspirin
CPT/HCPCS: 70450; 71045; 80053; 83735; 84484; 85025; 93005; 93010; 96374; 96375; 99284-25; 99406; J1200; J2765

== ENCOUNTER 2020-03-20 14:13 | Emergency (ER) | payer MEDICARE ==
[~2020-03-20] VITALS: Ht 182.9 cm; Wt 122.5 kg
--- OUTSIDE RECORDS SUMMARY | 2020-03-20 14:16 | XMS ---
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 If patient is seen in the ED during business hours. Please contact CHWs at [facility]. Care Recommendation: This patient [...] clinical judgment when providing care. 09/27/2017 [facility] - Patient is now seeing a waste cotton cleaner Celestina Delgado please contact if patient is seen in the ED [phone]. Care Recommendation: This patient has had 5 or more Emergency Department visits in the last 12 months. Patient requires education on the scope and purpose of the ED as an acute care provider not a Primary Care Provider and should not be utilized for chronic conditions. If patient returns to ED please contact Community Health WorkerDaisha at [phone].These are guidelines and the provider should exercise clinical judgment when providing care. Jacob VISIT COUNT (12 MO.) 4 [facility] TOTAL 4 NOTE: Visits indicate total known visits. ED/C VISIT TRACKING (12 MO.) 03/20/2020 14:14 [facility] [place] TYPE: Emergency COMPLAINT: - DIZZINESS 05/07/2019 16:52 [facility] [place] TYPE: Emergency COMPLAINT: - HIGH BP DIAGNOSES: - jail (current) use of aspirin - Other intermediate manager (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 therapy - Essential (primary) hypertension - Old myocardial infarction - Personal history of transient ischemic attack (TIA), and cere - Nicotine dependence, unspecified, uncomplicated - Allergy status to penicillin 04/13/2019 19:45 [facility] [place] TYPE: Emergency COMPLAINT: - LOWER RT BACK PAIN DIAGNOSES: - jail (current) use of aspirin - Personal history of pneumonia (recurrent) - Allergy status to penicillin - Hematuria, unspecified - Nicotine dependence, unspecified, uncomplicated - Abnormal findings on dx imaging of oth body structures - Essential (primary) hypertension - Old myocardial infarction - Other intermediate manager (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 therapy - Unspecified abdominal pain - Presence of coronary angioplasty implant and graft - ocean transportation intermediary (current) use of antithrombotics/antiplatelets 03/24/2019 11:29 [facility] [place] TYPE: Emergency COMPLAINT: - SYNCOPE, WEAKNESS DIAGNOSES: - Weakness - Syncope and collapse - Hypotension, unspecified - Other mcc (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 therapy - Personal history of transient ischemic attack (TIA), and cere - Old myocardial infarction - jail (current) use of aspirin - Allergy status to penicillin - Nicotine dependence, unspecified, uncomplicated - Essential (primary) hypertension INPATIENT VISIT TRACKING (12 MO.) No inpatient visits to display in this time frame [email or web address]
[2020-03-20] MEDS ORDERED: CLEOCIN HCL300 MG PO (18:07)
--- NOTE | 2020-03-21 16:58 | EKG ---
[facility] [address] [facility] [place] [address] Signed Normal sinus rhythm Left axis deviation Nonspecific T wave abnormality Prolonged QT Abnormal ECG When compared with ECG of 07-MAY-2019 18:05, T wave inversion more evident in Lateral leads Confirmed by ASIF KING MD ([id number]) on 03/21/2020 4:58:30 PM Electronically Signed By: ASIF KING MD 03/21/20 1658 PATIENT NAME: DARIO WEST Electrocardiogram DATE OF : 64 PHYSICIAN: ASIF KING MD REPORT #: [id number] REPORT IS CONFIDENTIAL AND NOT TO BE RELEASED WITHOUT AUTHORIZATION
== END 2020-03-20 18:16 | disposition home or self-care (01) ==
LOC: ED 14:13
DX: R55 Syncope and collapse (principal); E86.0 Dehydration; I10 Essential (primary) hypertension; I25.2 Old myocardial infarction; Z86.73 Personal history of transient ischemic attack (TIA), and cerebral infarction without residual deficits; F17.200 Nicotine dependence, unspecified, uncomplicated; Z88.0 Allergy status to penicillin; Z79.899 Other long term (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 therapy; Z79.82 Long term (current) use of aspirin
CPT/HCPCS: 80053; 81001; 83735; 84484; 85025; 93005; 93010; 99284-25; J7030

== ENCOUNTER 2022-02-16 18:06 | Emergency (ER) | payer MEDICARE ==
[~2022-02-16] VITALS: Ht 182.9 cm; Wt 125.6 kg
[~2022-02-16 18:06] MED LIST changes: +CARVEDILOL12.5 MG; +CARVEDILOL25 MG PO; +CLEOCIN HCL300 MG PO
--- OUTSIDE RECORDS SUMMARY | 2022-02-16 18:14 | XMS ---
PreManage Notification: DARIO WEST Security Hand Tufter Events No recent Security Events currently on file CRITERIA MET - [facility] - 2 Visits in 30 Days - Group Notification CARE PROVIDERS ELIANA CARTWRIGHT Internal Medicine 03/23/2020-Current PHONE: Unknown Care Guidelines exist for the following facilities: [facility] ( 11/20/2017 ) Care History Medical/Surgical 03/23/2020 [facility] Patient phone not able to take voice mail.\T\nbsp; Sent letter to advise to reach out to PCP, Dr. Cartwright as he has not seen him since 07/05/2019 and may need follow up or referral to specialist. 01/18/2018 [facility] - Patient is currently established with [facility]. If patient is seen in the ED during business hours. Please contact CHWs at [facility]. Care Recommendation: This patient has had 5 or more Emergency Department visits in the last 12 months.\T\nbsp; Patient requires education on the scope and purpose of the ED as an acute care provider not a Primary Care Provider and should not be utilized for chronic conditions.\T\nbsp; These are guidelines and the provider should exercise clinical judgment when providing care. 09/27/2017 [facility] - Patient\T\nbsp; case supervisor Celestina Delgado please contact if patient is seen in the ED [phone]. E.D. VISIT COUNT (12 MO.) 2 [facility] TOTAL 2 NOTE: Visits indicate total known visits. ED/C VISIT TRACKING (12 MO.) [facility] [place] [facility] COMPLAINT: - HIGH BLOOD PRESSURE 01/25/2022 10:56 [facility] [place] TYPE: Emergency COMPLAINT: - HIGH B/P DIAGNOSES: - Essential (primary) hypertension - Old myocardial infarction - Nicotine dependence, unspecified, uncomplicated - Allergy status to penicillin INPATIENT VISIT TRACKING (12 MO.) No inpatient visits to display in this time frame [email or web address]
[2022-02-16] MEDS ORDERED: HYDROCHLOROTHIA25 MG PO (18:41)
== END 2022-02-16 19:00 | disposition home or self-care (01) ==
LOC: ED 18:06
DX: I10 Essential (primary) hypertension (principal); I25.2 Old myocardial infarction; G62.9 Polyneuropathy, unspecified; Z86.73 Personal history of transient ischemic attack (TIA), and cerebral infarction without residual deficits; F17.200 Nicotine dependence, unspecified, uncomplicated; Z88.0 Allergy status to penicillin; Z79.899 Other long term (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 therapy; Z79.82 Long term (current) use of aspirin
CPT/HCPCS: 99283

== ENCOUNTER 2023-01-28 09:52 | Emergency (ER) | payer MEDICARE ==
[~2023-01-28] VITALS: Ht 182.9 cm; Wt 120.7 kg
--- OUTSIDE RECORDS SUMMARY | ~2023-01-28 | XMS | Continuity of Care Document ---
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 | (no reaction) | (no severity) | | [facility] | | | + + + + + + | (no date) | Penicillin | [facility] | (no reaction) | (no severity) | | [facility] | | | + + + + + + | (no date) | Penicillin | [facility] | (no reaction) | (no severity) | | | [facility] | | | + + + + + + | (no date) | Penicillins | [facility] | (no reaction) | (no severity) | + + + + + + | (no date) | Penicillin | [facility] | (no reaction) | (no severity) | | [facility] | | | + + + + + + | (no date) | Penicillins | [facility] | (no reaction) | (no severity) | | [facility] | | | + + + + + + | (no date) | Penicillin | [facility] | (no reaction) | (no severity) | | | [facility] | | | + + + + + + Encounters No information. Functional Status No information. Immunizations + + + + | date | description | facility | + + + + | 2017-02-22 00:00 | Influenza, Seasonal, | [facility] | | | Injectable, Preservative | | | | Free | | + + + + | 2017-02-22 00:00 | Influenza, Seasonal, | [facility] | | | Injectable, Preservative | | | | Free | | + + + + | 2017-02-22 00:00 | Influenza, Seasonal, | [facility] | | | Injectable, Preservative | | | | Free | | + + + + | 2022-01-25 00:00 | No vaccine administered | [facility] | + + + + | 2022-02-16 00:00 | No vaccine administered | [facility] | + + + + | 2023-01-06 00:00 | No vaccine administered | [facility] | + + + + | 2023-01-08 00:00 | No vaccine administered | [facility] | + + + + | 2023-01-21 00:00 | No vaccine administered | [facility] | + + + + Medications + + + + | date | description | facility | + + + + | 2017-02-26 00:00 | OXYCODONE | [facility] | | | HCL/ACETAMINOPHEN | | + + + + | 2017-02-26 00:00 | OXYCODONE | [facility] | | | HCL/ACETAMINOPHEN | | + + + + | 2017-02-26 00:00 | OXYCODONE | [facility] | | | HCL/ACETAMINOPHEN | | + + + + | 2017-02-26 00:00 | acetaminophen 325 MG / | [facility] | | | oxycodone hydrochloride 5 | | | | MG Oral Tab | | + + + + | 2023-01-06 00:00 | POTASSIUM CHLORIDE | [facility] | + + + + | 2023-01-06 00:00 | POTASSIUM CHLORIDE | [facility] | + + + + | 2023-01-08 00:00 | POTASSIUM CHLORIDE | [facility] | + + + + | 2023-01-08 00:00 | POTASSIUM CHLORIDE | [facility] | + + + + | 2023-01-06 00:00 | potassium chloride 20 MEQ | [facility] | | | Extended Release Oral | | | | Tablet [K-Ta | | + + + + | 2023-01-08 00:00 | potassium chloride 20 MEQ | [facility] | | | Extended Release Oral | | | | Tablet [K-Ta | | + + + + | 2023-01-08 00:00 | QUETIAPINE FUMARATE | [facility] | + + + + | 2023-01-08 00:00 | QUETIAPINE FUMARATE | [facility] | + + + + | 2023-01-08 00:00 | quetiapine 25 MG Oral | [facility] | | | Tablet [Seroquel] | | + + + + | 2018-08-03 00:00 | DOXYCYCLINE HYCLATE | [facility] | + + + + | 2018-08-03 00:00 | DOXYCYCLINE HYCLATE | [facility] | + + + + | 2018-08-03 00:00 | DOXYCYCLINE HYCLATE | [facility] | + + + + | 2018-08-03 00:00 | doxycycline hyclate 100 MG | [facility] | | | Oral Capsule | | + + + + | 2017-04-20 00:00 | CHLORTHALIDONE | [facility] | + + + + | 2017-04-20 00:00 | CHLORTHALIDONE | [facility] | + + + + | 2017-04-20 00:00 | CHLORTHALIDONE | [facility] | + + + + | 2022-01-31 00:00 | CHLORTHALIDONE | [facility] | + + + + | 2022-02-16 00:00 | CHLORTHALIDONE | [facility] | + + + + | 2023-01-06 00:00 | CHLORTHALIDONE | [facility] | + + + + | 2023-01-08 00:00 | CHLORTHALIDONE | [facility] | + + + + | 2023-01-21 00:00 | CHLORTHALIDONE | [facility] | + + + + | 2017-04-20 00:00 | chlorthalidone 25 MG Oral | [facility] | | | Tablet | | + + + + | 2022-01-25 00:00 | chlorthalidone 25 MG Oral | [facility] | | | Tablet | | + + + + | 2022-02-16 00:00 | chlorthalidone 25 MG Oral | [facility] | | | Tablet | | + + + + | 2023-01-06 00:00 | chlorthalidone 25 MG Oral | [facility] | | | Tablet | | + + + + | 2023-01-08 00:00 | chlorthalidone 25 MG Oral | [facility] | | | Tablet | | + + + + | 2023-01-21 00:00 | chlorthalidone 25 MG Oral | [facility] | | | Tablet | | + + + + | 2022-01-31 00:00 | DIAZEPAM | [facility] | + + + + | 2022-02-16 00:00 | DIAZEPAM | [facility] | + + + + | 2023-01-06 00:00 | DIAZEPAM | [facility] | + + + + | 2023-01-08 00:00 | DIAZEPAM | [facility] | + + + + | 2023-01-21 00:00 | DIAZEPAM | [facility] | + + + + | 2022-01-25 00:00 | diazepam 5 MG Oral Tablet | [facility] | + + + + | 2022-02-16 00:00 | diazepam 5 MG Oral Tablet | [facility] | + + + + | 2023-01-06 00:00 | diazepam 5 MG Oral Tablet | [facility] | + + + + | 2023-01-08 00:00 | diazepam 5 MG Oral Tablet | [facility] | + + + + | 2023-01-21 00:00 | diazepam 5 MG Oral Tablet | [facility] | + + + + | 2023-01-08 00:00 | INDAPAMIDE | [facility] | + + + + | 2023-01-21 00:00 | INDAPAMIDE | [facility] | + + + + | 2023-01-08 00:00 | indapamide 1.25 MG Oral | [facility] | | | Tablet | | + + + + | 2023-01-21 00:00 | indapamide 1.25 MG Oral | [facility] | | | Tablet | | + + + + | 2023-01-08 00:00 | LISINOPRIL | [facility] | + + + + | 2023-01-21 00:00 | LISINOPRIL | [facility] | + + + + | 2023-01-08 00:00 | lisinopril 40 MG Oral | [facility] | | | Tablet | | + + + + | 2023-01-21 00:00 | lisinopril 40 MG Oral | [facility] | | | Tablet | | + + + + | 2022-01-31 00:00 | LORAZEPAM | [facility] | + + + + | 2022-02-16 00:00 | LORAZEPAM | [facility] | + + + + | 2023-01-06 00:00 | LORAZEPAM | [facility] | + + + + | 2023-01-08 00:00 | LORAZEPAM | [facility] | + + + + | 2023-01-21 00:00 | LORAZEPAM | [facility] | + + + + | 2022-01-25 00:00 | lorazepam 0.5 MG Oral | [facility] | | | Tablet | | + + + + | 2022-02-16 00:00 | lorazepam 0.5 MG Oral | [facility] | | | Tablet | | + + + + | 2023-01-06 00:00 | lorazepam 0.5 MG Oral | [facility] | | | Tablet | | + + + + | 2023-01-08 00:00 | lorazepam 0.5 MG Oral | [facility] | | | Tablet | | + + + + | 2023-01-21 00:00 | lorazepam 0.5 MG Oral | [facility] | | | Tablet | | + + + + | 2017-02-26 00:00 | 24 HR nicotine 0.875 MG/HR | [facility] | | | Transdermal System | | + + + + | 2017-02-26 00:00 | NICOTINE 21MG | [facility] | + + + + | 2017-02-26 00:00 | NICOTINE 21MG | [facility] | + + + + | 2017-02-26 00:00 | NICOTINE 21MG | [facility] | + + + + | 2017-02-16 00:00 | OMEPRAZOLE | [facility] | + + + + | 2017-02-16 00:00 | OMEPRAZOLE | [facility] | + + + + | 2017-02-16 00:00 | OMEPRAZOLE | [facility] | + + + + | 2017-02-16 00:00 | omeprazole 20 MG Delayed | [facility] | | | Release Oral Capsule | | + + + + | 2023-01-08 00:00 | TOPIRAMATE | [facility] | + + + + | 2023-01-21 00:00 | TOPIRAMATE | [facility] | + + + + | 2023-01-08 00:00 | topiramate 25 MG Oral | [facility] | | | Tablet | | + + + + | 2023-01-21 00:00 | topiramate 25 MG Oral | [facility] | | | Tablet | | + + + + | 2022-01-31 00:00 | CARVEDILOL | [facility] | + + + + | 2022-01-25 00:00 | carvedilol 12.5 MG Oral | [facility] | | | Tablet | | + + + + | 2022-01-25 00:00 | CARVEDILOL | [facility] | + + + + | 2022-01-25 00:00 | CARVEDILOL | [facility] | + + + + | 2022-01-25 00:00 | CARVEDILOL | [facility] | + + + + | 2022-01-25 00:00 | carvedilol 25 MG Oral | [facility] | | | Tablet | | + + + + | 2023-01-08 00:00 | FUROSEMIDE | [facility] | + + + + | 2023-01-08 00:00 | FUROSEMIDE | [facility] | + + + + | 2023-01-08 00:00 | furosemide 40 MG Oral | [facility] | | | Tablet [Lasix] | | + + + + | 2019-04-13 00:00 | CIPROFLOXACIN HCL | [facility] | + + + + | 2019-04-13 00:00 | CIPROFLOXACIN HCL | [facility] | + + + + | 2019-04-13 00:00 | CIPROFLOXACIN HCL | [facility] | + + + + | 2019-04-13 00:00 | ciprofloxacin 500 MG Oral | [facility] | | | Tablet [Cipro] | | + + + + | 2019-02-08 00:00 | METOCLOPRAMIDE HCL | [facility] | + + + + | 2019-02-08 00:00 | METOCLOPRAMIDE HCL | [facility] | + + + + | 2019-02-08 00:00 | METOCLOPRAMIDE HCL | [facility] | + + + + | 2019-02-08 00:00 | metoclopramide 10 MG Oral | [facility] | | | Tablet [Reglan] | | + + + + | 2022-01-31 00:00 | NITROGLYCERIN | [facility] | + + + + | 2022-02-16 00:00 | NITROGLYCERIN | [facility] | + + + + | 2023-01-06 00:00 | NITROGLYCERIN | [facility] | + + + + | 2023-01-08 00:00 | NITROGLYCERIN | [facility] | + + + + | 2023-01-21 00:00 | NITROGLYCERIN | [facility] | + + + + | 2022-01-25 00:00 | nitroglycerin 0.4 MG | [facility] | | | Sublingual Tablet | | | | [Nitrostat] | | + + + + | 2022-02-16 00:00 | nitroglycerin 0.4 MG | [facility] | | | Sublingual Tablet | | | | [Nitrostat] | | + + + + | 2023-01-06 00:00 | nitroglycerin 0.4 MG | [facility] | | | Sublingual Tablet | | | | [Nitrostat] | | + + + + | 2023-01-08 00:00 | nitroglycerin 0.4 MG | [facility] | | | Sublingual Tablet | | | | [Nitrostat] | | + + + + | 2023-01-21 00:00 | nitroglycerin 0.4 MG | [facility] | | | Sublingual Tablet | | | | [Nitrostat] | | + + + + | 2022-01-31 00:00 | ASPIRIN | [facility] | + + + + | 2022-02-16 00:00 | ASPIRIN | [facility] | + + + + | 2023-01-06 00:00 | ASPIRIN | [facility] | + + + + | 2023-01-08 00:00 | ASPIRIN | [facility] | + + + + | 2023-01-21 00:00 | ASPIRIN | [facility] | + + + + | 2022-01-25 00:00 | aspirin 325 MG Oral Tablet | [facility] | | | | | + + + + | 2022-02-16 00:00 | aspirin 325 MG Oral Tablet | [facility] | | | | | + + + + | 2023-01-06 00:00 | aspirin 325 MG Oral Tablet | [facility] | | | | | + + + + | 2023-01-08 00:00 | aspirin 325 MG Oral Tablet | [facility] | | | | | + + + + | 2023-01-21 00:00 | aspirin 325 MG Oral Tablet | [facility] | | | | | + + + + | 2017-09-07 00:00 | CARVEDILOL | [facility] | + + + + | 2017-09-07 00:00 | CARVEDILOL | [facility] | + + + + | 2017-09-07 00:00 | CARVEDILOL | [facility] | + + + + | 2017-09-07 00:00 | carvedilol 12.5 MG Oral | [facility] | | | Tablet [Coreg] | | + + + + | 2022-01-31 00:00 | CARVEDILOL | [facility] | + + + + | 2022-02-16 00:00 | CARVEDILOL | [facility] | + + + + | 2023-01-06 00:00 | CARVEDILOL | [facility] | + + + + | 2023-01-08 00:00 | CARVEDILOL | [facility] | + + + + | 2023-01-21 00:00 | CARVEDILOL | [facility] | + + + + | 2022-01-25 00:00 | carvedilol 25 MG Oral | [facility] | | | Tablet [Coreg] | | + + + + | 2022-02-16 00:00 | carvedilol 25 MG Oral | [facility] | | | Tablet [Coreg] | | + + + + | 2023-01-06 00:00 | carvedilol 25 MG Oral | [facility] | | | Tablet [Coreg] | | + + + + | 2023-01-08 00:00 | carvedilol 25 MG Oral | [facility] | | | Tablet [Coreg] | | + + + + | 2023-01-21 00:00 | carvedilol 25 MG Oral | [facility] | | | Tablet [Coreg] | | + + + + | 2022-01-31 00:00 | CLOPIDOGREL BISULFATE | [facility] | + + + + | 2022-02-16 00:00 | CLOPIDOGREL BISULFATE | [facility] | + + + + | 2023-01-06 00:00 | CLOPIDOGREL BISULFATE | [facility] | + + + + | 2023-01-08 00:00 | CLOPIDOGREL BISULFATE | [facility] | + + + + | 2023-01-21 00:00 | CLOPIDOGREL BISULFATE | [facility] | + + + + | 2022-01-25 00:00 | clopidogrel 75 MG Oral | [facility] | | | Tablet [Plavix] | | + + + + | 2022-02-16 00:00 | clopidogrel 75 MG Oral | [facility] | | | Tablet [Plavix] | | + + + + | 2023-01-06 00:00 | clopidogrel 75 MG Oral | [facility] | | | Tablet [Plavix] | | + + + + | 2023-01-08 00:00 | clopidogrel 75 MG Oral | [facility] | | | Tablet [Plavix] | | + + + + | 2023-01-21 00:00 | clopidogrel 75 MG Oral | [facility] | | | Tablet [Plavix] | | + + + + | 2022-01-31 00:00 | ATORVASTATIN | [facility] | + + + + | 2022-02-16 00:00 | ATORVASTATIN | [facility] | + + + + | 2023-01-06 00:00 | ATORVASTATIN | [facility] | + + + + | 2023-01-08 00:00 | ATORVASTATIN | [facility] | + + + + | 2023-01-21 00:00 | ATORVASTATIN | [facility] | + + + + | 2022-01-25 00:00 | atorvastatin 80 MG Oral | [facility] | | | Tablet [Lipitor] | | + + + + | 2022-02-16 00:00 | atorvastatin 80 MG Oral | [facility] | | | Tablet [Lipitor] | | + + + + | 2023-01-06 00:00 | atorvastatin 80 MG Oral | [facility] | | | Tablet [Lipitor] | | + + + + | 2023-01-08 00:00 | atorvastatin 80 MG Oral | [facility] | | | Tablet [Lipitor] | | + + + + | 2023-01-21 00:00 | atorvastatin 80 MG Oral | [facility] | | | Tablet [Lipitor] | | + + + + | 2022-01-31 00:00 | CYANOCOBALAMIN (VITAMIN | [facility] | | | B-12) | | + + + + | 2022-02-16 00:00 | CYANOCOBALAMIN (VITAMIN | [facility] | | | B-12) | | + + + + | 2023-01-06 00:00 | CYANOCOBALAMIN (VITAMIN | [facility] | | | B-12) | | + + + + | 2023-01-08 00:00 | CYANOCOBALAMIN (VITAMIN | [facility] | | | B-12) | | + + + + | 2023-01-21 00:00 | CYANOCOBALAMIN (VITAMIN | [facility] | | | B-12) | | + + + + | 2022-01-25 00:00 | vitamin B12 1 MG Oral | [facility] | | | Tablet | | + + + + | 2022-02-16 00:00 | vitamin B12 1 MG Oral | [facility] | | | Tablet | | + + + + | 2023-01-06 00:00 | vitamin B12 1 MG Oral | [facility] | | | Tablet | | + + + + | 2023-01-08 00:00 | vitamin B12 1 MG Oral | [facility] | | | Tablet | | + + + + | 2023-01-21 00:00 | vitamin B12 1 MG Oral | [facility] | | | Tablet | | + + + + | 2022-01-31 00:00 | HYDROCHLOROTHIAZIDE | [facility] | + + + + | 2022-02-16 00:00 | HYDROCHLOROTHIAZIDE | [facility] | + + + + | 2022-02-16 00:00 | HYDROCHLOROTHIAZIDE | [facility] | + + + + | 2022-02-16 00:00 | HYDROCHLOROTHIAZIDE | [facility] | + + + + | 2023-01-06 00:00 | HYDROCHLOROTHIAZIDE | [facility] | + + + + | 2023-01-08 00:00 | HYDROCHLOROTHIAZIDE | [facility] | + + + + | 2023-01-21 00:00 | HYDROCHLOROTHIAZIDE | [facility] | + + + + | 2022-01-25 00:00 | hydrochlorothiazide 25 MG | [facility] | | | Oral Tablet | | + + + + | 2022-02-16 00:00 | hydrochlorothiazide 25 MG | [facility] | | | Oral Tablet | | + + + + | 2023-01-06 00:00 | hydrochlorothiazide 25 MG | [facility] | | | Oral Tablet | | + + + + | 2023-01-08 00:00 | hydrochlorothiazide 25 MG | [facility] | | | Oral Tablet | | + + + + | 2023-01-21 00:00 | hydrochlorothiazide 25 MG | [facility] | | | Oral Tablet | | + + + + | 2019-02-08 00:00 | ONDANSETRON | [facility] | + + + + | 2019-02-08 00:00 | ONDANSETRON | [facility] | + + + + | 2019-02-08 00:00 | ONDANSETRON | [facility] | + + + + | 2019-02-08 00:00 | ondansetron 8 MG | [facility] | | | Disintegrating Oral Tablet | | + + + + | 2017-04-20 00:00 | LISINOPRIL | [facility] | + + + + | 2017-04-20 00:00 | LISINOPRIL | [facility] | + + + + | 2017-04-20 00:00 | LISINOPRIL | [facility] | + + + + | 2022-01-31 00:00 | LISINOPRIL | [facility] | + + + + | 2022-02-16 00:00 | LISINOPRIL | [facility] | + + + + | 2023-01-06 00:00 | LISINOPRIL | [facility] | + + + + | 2023-01-08 00:00 | LISINOPRIL | [facility] | + + + + | 2023-01-21 00:00 | LISINOPRIL | [facility] | + + + + | 2017-04-20 00:00 | lisinopril 20 MG Oral | [facility] | | | Tablet | | + + + + | 2022-01-25 00:00 | lisinopril 20 MG Oral | [facility] | | | Tablet | | + + + + | 2022-02-16 00:00 | lisinopril 20 MG Oral | [facility] | | | Tablet | | + + + + | 2023-01-06 00:00 | lisinopril 20 MG Oral | [facility] | | | Tablet | | + + + + | 2023-01-08 00:00 | lisinopril 20 MG Oral | [facility] | | | Tablet | | + + + + | 2023-01-21 00:00 | lisinopril 20 MG Oral | [facility] | | | Tablet | | + + + + | 2017-09-07 00:00 | 24 HR isosorbide | [facility] | | | mononitrate 30 MG Extended | | | | Release Oral Tab | | + + + + | 2017-09-07 00:00 | ISOSORBIDE MONONITRATE | [facility] | + + + + | 2017-09-07 00:00 | ISOSORBIDE MONONITRATE | [facility] | + + + + | 2017-09-07 00:00 | ISOSORBIDE MONONITRATE | [facility] | + + + + | 2022-01-31 00:00 | ASPIRIN | [facility] | + + + + | 2022-02-16 00:00 | ASPIRIN | [facility] | + + + + | 2023-01-06 00:00 | ASPIRIN | [facility] | + + + + | 2023-01-08 00:00 | ASPIRIN | [facility] | + + + + | 2023-01-21 00:00 | ASPIRIN | [facility] | + + + + | 2022-01-25 00:00 | aspirin 81 MG Chewable | [facility] | | | Tablet | | + + + + | 2022-02-16 00:00 | aspirin 81 MG Chewable | [facility] | | | Tablet | | + + + + | 2023-01-06 00:00 | aspirin 81 MG Chewable | [facility] | | | Tablet | | + + + + | 2023-01-08 00:00 | aspirin 81 MG Chewable | [facility] | | | Tablet | | + + + + | 2023-01-21 00:00 | aspirin 81 MG Chewable | [facility] | | | Tablet | | + + + + | 2022-01-31 00:00 | VITAMIN E MIXED | [facility] | + + + + | 2022-02-16 00:00 | VITAMIN E MIXED | [facility] | + + + + | 2023-01-06 00:00 | VITAMIN E MIXED | [facility] | + + + + | 2023-01-08 00:00 | VITAMIN E MIXED | [facility] | + + + + | 2023-01-21 00:00 | VITAMIN E MIXED | [facility] | + + + + | 2022-01-25 00:00 | vitamin E 180 MG Oral | [facility] | | | Capsule | | + + + + | 2022-02-16 00:00 | vitamin E 180 MG Oral | [facility] | | | Capsule | | + + + + | 2023-01-06 00:00 | vitamin E 180 MG Oral | [facility] | | | Capsule | | + + + + | 2023-01-08 00:00 | vitamin E 180 MG Oral | [facility] | | | Capsule | | + + + + | 2023-01-21 00:00 | vitamin E 180 MG Oral | [facility] | | | Capsule | | + + + + | 2022-01-31 00:00 | CELECOXIB | [facility] | + + + + | 2022-02-16 00:00 | CELECOXIB | [facility] | + + + + | 2023-01-06 00:00 | CELECOXIB | [facility] | + + + + | 2023-01-08 00:00 | CELECOXIB | [facility] | + + + + | 2023-01-21 00:00 | CELECOXIB | [facility] | + + + + | 2022-01-25 00:00 | celecoxib 50 MG Oral | [facility] | | | Capsule | | + + + + | 2022-02-16 00:00 | celecoxib 50 MG Oral | [facility] | | | Capsule | | + + + + | 2023-01-06 00:00 | celecoxib 50 MG Oral | [facility] | | | Capsule | | + + + + | 2023-01-08 00:00 | celecoxib 50 MG Oral | [facility] | | | Capsule | | + + + + | 2023-01-21 00:00 | celecoxib 50 MG Oral | [facility] | | | Capsule | | + + + + | 2020-03-20 00:00 | CLINDAMYCIN HCL | [facility] | + + + + | 2020-03-20 00:00 | CLINDAMYCIN HCL | [facility] | + + + + | 2020-03-20 00:00 | CLINDAMYCIN HCL | [facility] | + + + + | 2023-01-21 00:00 | CLINDAMYCIN HCL | [facility] | + + + + | 2020-03-20 00:00 | clindamycin 300 MG Oral | [facility] | | | Capsule [Cleocin] | | + + + + | 2023-01-21 00:00 | clindamycin 300 MG Oral | [facility] | | | Capsule [Cleocin] | | + + + + | 2016-05-17 00:00 | AZITHROMYCIN | [facility] | + + + + | 2016-05-17 00:00 | AZITHROMYCIN | [facility] | + + + + | 2016-05-17 00:00 | AZITHROMYCIN | [facility] | + + + + | 2016-05-17 00:00 | {6 (azithromycin 250 MG | [facility] | | | Oral Tablet) } Pack | | + + + + | 2022-01-31 00:00 | CHOLECALCIFEROL (VITAMIN | [facility] | | | D3) | | + + + + | 2022-02-16 00:00 | CHOLECALCIFEROL (VITAMIN | [facility] | | | D3) | | + + + + | 2023-01-06 00:00 | CHOLECALCIFEROL (VITAMIN | [facility] | | | D3) | | + + + + | 2023-01-08 00:00 | CHOLECALCIFEROL (VITAMIN | [facility] | | | D3) | | + + + + | 2023-01-21 00:00 | CHOLECALCIFEROL (VITAMIN | [facility] | | | D3) | | + + + + | 2022-01-25 00:00 | cholecalciferol 0.05 MG | [facility] | | | Oral Tablet | | + + + + | 2022-02-16 00:00 | cholecalciferol 0.05 MG | [facility] | | | Oral Tablet | | + + + + | 2023-01-06 00:00 | cholecalciferol 0.05 MG | [facility] | | | Oral Tablet | | + + + + | 2023-01-08 00:00 | cholecalciferol 0.05 MG | [facility] | | | Oral Tablet | | + + + + | 2023-01-21 00:00 | cholecalciferol 0.05 MG | [facility] | | | Oral Tablet | | + + + + | 2022-01-31 00:00 | CHOLECALCIFEROL (VITAMIN | [facility] | | | D3) | | + + + + | 2022-02-16 00:00 | CHOLECALCIFEROL (VITAMIN | [facility] | | | D3) | | + + + + | 2023-01-06 00:00 | CHOLECALCIFEROL (VITAMIN | [facility] | | | D3) | | + + + + | 2022-01-25 00:00 | cholecalciferol 0.05 MG | [facility] | | | Oral Capsule | | + + + + | 2022-02-16 00:00 | cholecalciferol 0.05 MG | [facility] | | | Oral Capsule | | + + + + | 2023-01-06 00:00 | cholecalciferol 0.05 MG | [facility] | | | Oral Capsule | | + + + + | 2018-05-24 00:00 | TRAMADOL HCL | [facility] | + + + + | 2018-05-24 00:00 | TRAMADOL HCL | [facility] | + + + + | 2018-05-24 00:00 | TRAMADOL HCL | [facility] | + + + + | 2018-08-03 00:00 | TRAMADOL HCL | [facility] | + + + + | 2018-08-03 00:00 | TRAMADOL HCL | [facility] | + + + + | 2018-08-03 00:00 | TRAMADOL HCL | [facility] | + + + + | 2019-04-13 00:00 | TRAMADOL HCL | [facility] | + + + + | 2019-04-13 00:00 | TRAMADOL HCL | [facility] | + + + + | 2019-04-13 00:00 | TRAMADOL HCL | [facility] | + + + + | 2022-01-31 00:00 | TRAMADOL HCL | [facility] | + + + + | 2022-02-16 00:00 | TRAMADOL HCL | [facility] | + + + + | 2023-01-06 00:00 | TRAMADOL HCL | [facility] | + + + + | 2023-01-08 00:00 | TRAMADOL HCL | [facility] | + + + + | 2023-01-21 00:00 | TRAMADOL HCL | [facility] | + + + + | 2018-05-24 00:00 | tramadol hydrochloride 50 | [facility] | | | MG Oral Tablet | | + + + + | 2018-08-03 00:00 | tramadol hydrochloride 50 | [facility] | | | MG Oral Tablet | | + + + + | 2019-04-13 00:00 | tramadol hydrochloride 50 | [facility] | | | MG Oral Tablet | | + + + + | 2022-01-25 00:00 | tramadol hydrochloride 50 | [facility] | | | MG Oral Tablet | | + + + + | 2022-02-16 00:00 | tramadol hydrochloride 50 | [facility] | | | MG Oral Tablet | | + + + + | 2023-01-06 00:00 | tramadol hydrochloride 50 | [facility] | | | MG Oral Tablet | | + + + + | 2023-01-08 00:00 | tramadol hydrochloride 50 | [facility] | | | MG Oral Tablet | | + + + + | 2023-01-21 00:00 | tramadol hydrochloride 50 | [facility] | | | MG Oral Tablet | | + + + + | 2017-04-20 00:00 | TRAMADOL HCL | [facility] | + + + + | 2017-04-20 00:00 | TRAMADOL HCL | [facility] | + + + + | 2017-04-20 00:00 | TRAMADOL HCL | [facility] | + + + + | 2022-01-31 00:00 | TRAMADOL HCL | [facility] | + + + + | 2022-02-16 00:00 | TRAMADOL HCL | [facility] | + + + + | 2023-01-06 00:00 | TRAMADOL HCL | [facility] | + + + + | 2023-01-08 00:00 | TRAMADOL HCL | [facility] | + + + + | 2023-01-21 00:00 | TRAMADOL HCL | [facility] | + + + + | 2017-04-20 00:00 | tramadol hydrochloride 50 | [facility] | | | MG Oral Tablet [Ultram] | | + + + + | 2022-01-25 00:00 | tramadol hydrochloride 50 | [facility] | | | MG Oral Tablet [Ultram] | | + + + + | 2022-02-16 00:00 | tramadol hydrochloride 50 | [facility] | | | MG Oral Tablet [Ultram] | | + + + + | 2023-01-06 00:00 | tramadol hydrochloride 50 | [facility] | | | MG Oral Tablet [Ultram] | | + + + + | 2023-01-08 00:00 | tramadol hydrochloride 50 | [facility] | | | MG Oral Tablet [Ultram] | | + + + + | 2023-01-21 00:00 | tramadol hydrochloride 50 | [facility] | | | MG Oral Tablet [Ultram] | | + + + + | 2016-05-17 00:00 | HYDROCODONE | [facility] | | | BIT/ACETAMINOPHEN | | + + + + | 2016-05-17 00:00 | HYDROCODONE | [facility] | | | BIT/ACETAMINOPHEN | | + + + + | 2016-05-17 00:00 | HYDROCODONE | [facility] | | | BIT/ACETAMINOPHEN | | + + + + | 2016-05-17 00:00 | acetaminophen 325 MG / | [facility] | | | hydrocodone bitartrate 5 MG | | | | Oral Tabl | | + + + + | 2023-01-06 00:00 | ALBUTEROL SULFATE | [facility] | + + + + | 2023-01-06 00:00 | ALBUTEROL SULFATE | [facility] | + + + + | 2023-01-06 00:00 | [id number] 200 ACTUAT | [facility] | | | albuterol 0.09 MG/ACTUAT | | | | Metered Dose I | | + + + + | 2022-01-25 00:00 | 24 HR metoprolol succinate | [facility] | | | 200 MG Extended Release | | | | Oral Tabl | | + + + + | 2022-02-16 00:00 | 24 HR metoprolol succinate | [facility] | | | 200 MG Extended Release | | | | Oral Tabl | | + + + + | 2023-01-06 00:00 | 24 HR metoprolol succinate | [facility] | | | 200 MG Extended Release | | | | Oral Tabl | | + + + + | 2023-01-08 00:00 | 24 HR metoprolol succinate | [facility] | | | 200 MG Extended Release | | | | Oral Tabl | | + + + + | 2023-01-21 00:00 | 24 HR metoprolol succinate | [facility] | | | 200 MG Extended Release | | | | Oral Tabl | | + + + + | 2022-01-31 00:00 | METOPROLOL SUCCINATE | [facility] | + + + + | 2022-02-16 00:00 | METOPROLOL SUCCINATE | [facility] | + + + + | 2023-01-06 00:00 | METOPROLOL SUCCINATE | [facility] | + + + + | 2023-01-08 00:00 | METOPROLOL SUCCINATE |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 | | | | | + + + +-------+ + + + + | Result panel 47 | + + + + + +-------+ + + | Automated | 2022-01-25 | [facility] | 0.9 | (missing) | (missing) | | blood | 11:21 | [facility] | | | | basophil | | [facility] | | | | | count as | | | | | | | percentage | | | | | | | of total | | | | | | | leukocytes | | | | | | + + + +-------+ + + + + | Result panel 48 | + + + + + +-------+ + + | Serum or | 2022-01-25 | [facility] | 117 | (missing) | (missing) | | plasma | 11:21 | [facility] | | | | glucose | | [facility] | | | | | measurement | | | | | | | (mass/volume | | | | | | | ) | | | | | | + + + +-------+ + + + + | Result panel 49 | + + + + + +------+ + + | Serum or | 2022-01-25 | [facility] | 15 | (missing) | (missing) | | plasma urea | 11:21 | [facility] | | | | nitrogen | | [facility] | | | | | measurement | | | | | | | (mass/volume | | | | | | | ) | | | | | | + + + +------+ + + + + | Result panel 50 | + + + + + +--------+ + + | Serum or | 2022-01-25 | [facility] | 0.83 | (missing) | (missing) | | plasma | 11:21 | [facility] | | | | creatinine | | [facility] | | | | | measurement | | | | | | | (mass/volume | | | | | | | ) | | | | | | + + + +--------+ + + + + | Result panel 51 | + + + + + +-------+ + + | Glomerular | 2022-01-25 | [facility] | 101 | (missing) | (missing) | | filtration | 11:21 | [facility] | | | | | rate/1.73 sq | | Hospital | | | | | M.predicted | | | | | | | [Volume | | | | | | | Rate/Area] | | | | | | | inSerum, | | | | | | | Plasma or | | | | | | | Blood by | | | | | | | Creatinine-b | | | | | | | ased formula | | | | | | | (CKD-EPI | | | | | | | 2020) | | | | | | + + + +-------+ + + + + | Result panel 52 | + + + + + +---------+ + + | Serum or | 2022-01-25 | [facility] | 18.07 | (missing) | (missing) | | plasma urea | 11:21 | [facility] | | | | nitrogen/cre | | Hospital | | | | | atinine mass | | | | | | | ratio | | | | | | + + + +---------+ + + + + | Result panel 53 | + + + + + +-------+ + + | Serum or | 2022-01-25 | [facility] | 138 | (missing) | (missing) | | plasma | 11:21 | [facility] | | | | sodium | | [facility] | | | | | measurement | | | | | | | (moles/volum | | | | | | | e) | | | | | | + + + +-------+ + + + + | Result panel 54 | + + + + + +-------+ + + | Serum or | 2022-01-25 | [facility] | 3.8 | (missing) | (missing) | | plasma | 11:21 | [facility] | | | | potassium | | [facility] | | | | | measurement | | | | | | | (moles/volum | | | | | | | e) | | | | | | + + + +-------+ + + + + | Result panel 55 | + + + + + +-------+ + + | Serum or | 2022-01-25 | [facility] | 103 | (missing) | (missing) | | plasma | 11:21 | [facility] | | | | chloride | | [facility] | | | | | measurement | | | | | | | (moles/volum | | | | | | | e) | | | | | | + + + +-------+ + + + + | Result panel 56 | + + + + + +------+ + + | Serum or | 2022-01-25 | [facility] | 25 | (missing) | (missing) | | plasma | 11:21 | [facility] | | | | carbon | | Hospital | | | | | dioxide, | | | | | | | total | | | | | | | measurement | | | | | | | (moles/volum | | | | | | | e) | | | | | | + + + +------+ + + + + | Result panel 57 | + + + + + +--------+ + + | Serum or | 2022-01-25 | [facility] | 13.8 | (missing) | (missing) | | plasma anion | 11:21 | [facility] | | | | gap 4 | | [facility] | | | | + + + +--------+ + + + + | Result panel 58 | + + + + + +-------+ + + | Serum or | 2022-01-25 | [facility] | 8.5 | (missing) | (missing) | | plasma | 11:21 | [facility] | | | | calcium | | [facility] | | | | | measurement | | | | | | | (mass/volume | | | | | | | ) | | | | | | + + + +-------+ + + + + | Result panel 59 | + + + + + +-------+ + + | Serum or | 2022-01-25 | [facility] | 6.9 | (missing) | (missing) | | plasma | 11:21 | [facility] | | | | protein | | [facility] | | | | | measurement | | | | | | | (mass/volume | | | | | | | ) | | | | | | + + + +-------+ + + + + | Result panel 60 | + + + + + +-------+ + + | Serum or | 2022-01-25 | [facility] | 3.5 | (missing) | (missing) | | plasma | 11:21 | [facility] | | | | albumin | | [facility] | | | | | measurement | | | | | | | (mass/volume | | | | | | | ) | | | | | | + + + +-------+ + + + + | Result panel 61 | + + + + + +-------+ + + | Serum | 2022-01-25 | [facility] | 3.4 | (missing) | (missing) | | globulin | 11:21 | [facility] | | | | measurement | | [facility] | | | | | (mass/volume | | | | | | | ) | | | | | | + + + +-------+ + + + + | Result panel 62 | + + + + + +--------+ + + | Serum or | 2022-01-25 | [facility] | 1.03 | (missing) | (missing) | | plasma | 11:21 | [facility] | | | | albumin/glob | | [facility] | | | | | ulin mass | | | | | | | ratio | | | | | | + + + +--------+ + + + + | Result panel 63 | + + + + + +-------+ + + | Serum or | 2022-01-25 | [facility] | 0.3 | (missing) | (missing) | | plasma total | 11:21 | [facility] | | | | bilirubin | | [facility] | | | | | measurement | | | | | | | (mass/volume | | | | | | | ) | | | | | | + + + +-------+ + + + + | Result panel 64 | + + + + + +------+ + + | Serum or | 2022-01-25 | [facility] | 15 | (missing) | (missing) | | plasma | 11:21 | [facility] | | | | | aspartate | | Hospital | | | | | aminotransfe | | | | | | | rase | | | | | | | measurement | | | | | | | (enzymatic | | | | | | | activity/vol | | | | | | | ume) | | | | | | + + + +------+ + + + + | Result panel 65 | + + + + + +------+ + + | Serum or | 2022-01-25 | [facility] | 25 | (missing) | (missing) | | plasma | 11:21 | [facility] | | | | alanine | | Hospital | | | | | aminotransfe | | | | | | | rase | | | | | | | measurement | | | | | | | (enzymatic | | | | | | | activity/vol | | | | | | | ume) | | | | | | + + + +------+ + + + + | Result panel 66 | + + + + + +-------+ + + | Serum or | 2022-01-25 | [facility] | <10 | (missing) | (missing) | | plasma | 11:21 | [facility] | | | | alkaline | | [facility] | | | | | phosphatase | | | | | | | measurement | | | | | | | (enzymatic | | | | | | | activity/vol | | | | | | | ume) | | | | | | + + + +-------+ + + + + | Result panel 67 | + + + + + +--------+ + + | | 2022-01-25 | [facility] | 10.4 | (missing) | (missing) | | (unavailable | 11:21 | [facility] | | | | + + + +--------+ + + + + | Result panel 68 | + + + + + +--------+ + + | | 2022-01-25 | [facility] | 4.83 | (missing) | (missing) | | (unavailable | 11:21 | [facility] | | | | + + + +--------+ + + + + | Result panel 69 | + + + + + +--------+ + + | | 2022-01-25 | [facility] | 15.5 | (missing) | (missing) | | (unavailable | 11:21 | [facility] | | | | + + + +--------+ + + + + | Result panel 70 | + + + + + +--------+ + + | | 2022-01-25 | [facility] | 46.0 | (missing) | (missing) | | (unavailable | 11:21 | [facility] | | | | + + + +--------+ + + + + | Result panel 71 | + + + + + +--------+ + + | | 2022-01-25 | [facility] | 95.2 | (missing) | (missing) | | (unavailable | 11:21 | [facility] | | | | + + + +--------+ + + + + | Result panel 72 | + + + + + +--------+ + + | | 2022-01-25 | [facility] | 32.1 | (missing) | (missing) | | (unavailable | 11:21 | [facility] | | | | + + + +--------+ + + + + | Result panel 73 | + + + + + +--------+ + + | | 2022-01-25 | [facility] | 33.8 | (missing) | (missing) | | (unavailable | 11:21 | [facility] | | | | + + + +--------+ + + + + | Result panel 74 | + + + + + +--------+ + + | | 2022-01-25 | [facility] | 14.1 | (missing) | (missing) | | (unavailable | 11:21 | [facility] | | | | + + + +--------+ + + + + | Result panel 75 | + + + + + +-------+ + + | | 2022-01-25 | [facility] | 254 | (missing) | (missing) | | (unavailable | 11:21 | [facility] | | | | + + + +-------+ + + + + | Result panel 76 | + + + + + +--------+ + + | | 2022-01-25 | [facility] | 72.7 | (missing) | (missing) | | (unavailable | 11:21 [facility] | | | | + + + +--------+ + + + + | Result panel 77 | + + + + + +--------+ + + | | 2022-01-25 | [facility] | 16.3 | (missing) | (missing) | | (unavailable | 11:21 [facility] | | | | + + + +--------+ + + + + | Result panel 78 | + + + + + +-------+ + + | | 2022-01-25 | [facility] | 8.6 | (missing) | (missing) | | (unavailable | 11:21 [facility] | | | | + + + +-------+ + + + + | Result panel 79 | + + + + + +-------+ + + | | 2022-01-25 | [facility] | 1.5 | (missing) | (missing) | | (unavailable | 11:21 [facility] | | | | + + + +-------+ + + + + | Result panel 80 | + + + + + +-------+ + + | | 2022-01-25 | [facility] | 0.9 | (missing) | (missing) | | (unavailable | 11:21 | [facility] | | | | + + + +-------+ + + + + | Result panel 81 | + + + + + +-------+---------+ + | | 2022-01-25 | [facility] | 117 | mg/dL | (missing) | | (unavailable | 11:21 [facility] | | | | + + + +-------+---------+ + + + | Result panel 82 | + + + + + +------+---------+ + | | 2022-01-25 | [facility] | 15 | mg/dL | (missing) | | (unavailable | 11:21 [facility] | | | | + + + +------+---------+ + + + | Result panel 83 | + + + + + +--------+---------+ + | | 2022-01-25 | [facility] | 0.83 | mg/dL | (missing) | | (unavailable | 11:21 [facility] | | | | + + + +--------+---------+ + + + | Result panel 84 | + + + + + +-------+ + + | | 2022-01-25 | [facility] | 101 | (missing) | (missing) | | (unavailable | 11:21 [facility] | | | | + + + +-------+ + + + + | Result panel 85 | + + + + + +---------+ + + | | 2022-01-25 | [facility] | 18.07 | (missing) | (missing) | | (unavailable | 11:21 [facility] | | | | + + + +---------+ + + + + | Result panel 86 | + + + + + +-------+ + + | | 2022-01-25 | [facility] | 138 | (missing) | (missing) | | (unavailable | 11:21 [facility] | | | | + + + +-------+ + + + + | Result panel 87 | + + + + + +-------+ + + | | 2022-01-25 | [facility] | 3.8 | (missing) | (missing) | | (unavailable | 11:21 [facility] | | | | + + + +-------+ + + + + | Result panel 88 | + + + + + +-------+ + + | | 2022-01-25 | [facility] | 103 | (missing) | (missing) | | (unavailable | 11:21 [facility] | | | | + + + +-------+ + + + + | Result panel 89 | + + + + + +------+ + + | | 2022-01-25 | [facility] | 25 | (missing) | (missing) | | (unavailable | 11:21 [facility] | | | | + + + +------+ + + + + | Result panel 90 | + + + + + +--------+ + + | | 2022-01-25 | [facility] | 13.8 | (missing) | (missing) | | (unavailable | 11:21 [facility] | | | | + + + +--------+ + + + + | Result panel 91 | + + + + + +-------+---------+ + | | 2022-01-25 | [facility] | 8.5 | mg/dL | (missing) | | (unavailable | 11:21 | [facility] | | | | + + + +-------+---------+ + + + | Result panel 92 | + + + + + +-------+ + + | | 2022-01-25 | [facility] | 6.9 | (missing) | (missing) | | (unavailable | 11:21 | [facility] | | | | + + + +-------+ + + + + | Result panel 93 | + + + + + +-------+ + + | | 2022-01-25 | [facility] | 3.5 | (missing) | (missing) | | (unavailable | 11:21 | [facility] | | | | + + + +-------+ + + + + | Result panel 94 | + + + + + +-------+ + + | | 2022-01-25 | [facility] | 3.4 | (missing) | (missing) | | (unavailable | 11:21 | [facility] | | | | + + + +-------+ + + + + | Result panel 95 | + + + + + +--------+ + + | | 2022-01-25 | [facility] | 1.03 | (missing) | (missing) | | (unavailable | 11:21 | [facility] | | | | + + + +--------+ + + + + | Result panel 96 | + + + + + +-------+ + + | | 2022-01-25 | [facility] | 0.3 | (missing) | (missing) | | (unavailable | 11:21 | [facility] | | | | + + + +-------+ + + + + | Result panel 97 | + + + + + +------+ + + | | 2022-01-25 | [facility] | 15 | (missing) | (missing) | | (unavailable | 11:21 | [facility] | | | | + + + +------+ + + + + | Result panel 98 | + + + + + +------+ + + | | 2022-01-25 | [facility] | 25 | (missing) | (missing) | | (unavailable | 11:21 | [facility] | | | | + + + +------+ + + + + | Result panel 99 | + + + + + +-------+ + + | | 2022-01-25 | [facility] | <10 | (missing) | (missing) | | (unavailable | 11:21 | [facility] | | | | + + + +-------+ + + + + | Result panel 100 | + + + + + +-------+ + + | Serum or | 2023-01-06 | [facility] | 6.7 | (missing) | (missing) | | plasma | 11:35 | [facility] | | | | protein | | [facility] | | | | | measurement | | | | | | | (mass/volume | | | | | | | ) | | | | | | + + + +-------+ + + + + | Result panel 101 | + + + + + +-------+ + + | Serum or | 2023-01-06 | [facility] | 3.2 | (missing) | (missing) | | plasma | 11:35 | [facility] | | | | albumin | | [facility] | | | | | measurement | | | | | | | (mass/volume | | | | | | | ) | | | | | | + + + +-------+ + + + + | Result panel 102 | + + + + + +-------+ + + | Serum | 2023-01-06 | [facility] | 3.5 | (missing) | (missing) | | globulin | 11:35 | [facility] | | | | | measurement | | [facility] | | | | | (mass/volume | | | | | | | ) | | | | | | + + + +-------+ + + + + | Result panel 103 | + + + + + +--------+ + + | Serum or | 2023-01-06 | [facility] | 0.91 | (missing) | (missing) | | plasma | 11:35 | [facility] | | | | | albumin/glob | | Hospital | | | | | ulin mass | | | | | | | ratio | | | | | | + + + +--------+ + + + + | Result panel 104 | + + + + + +-------+ + + | Serum or | 2023-01-06 | [facility] | 0.4 | (missing) | (missing) | | plasma total | 11:35 | [facility] | | | | bilirubin | | [facility] | | | | | measurement | | | | | | | (mass/volume | | | | | | | ) | | | | | | + + + +-------+ + + + + | Result panel 105 | + + + + + +------+ + + | Serum or | 2023-01-06 | [facility] | 41 | (missing) | (missing) | | plasma | 11:35 | [facility] | | | | | aspartate | | Hospital | | | | | aminotransfe | | | | | | | rase | | | | | | | measurement | | | | | | | (enzymatic | | | | | | | activity/vol | | | | | | | ume) | | | | | | + + + +------+ + + + + | Result panel 106 | + + + + + +------+ + + | Serum or | 2023-01-06 | [facility] | 70 | (missing) | (missing) | | plasma | 11:35 | [facility] | | | | alanine | | [facility] | | | | | aminotransfe | | | | | | | rase | | | | | | | measurement | | | | | | | (enzymatic | | | | | | | activity/vol | | | | | | | ume) | | | | | | + + + +------+ + + + + | Result panel 107 | + + + + + +------+ + + | Serum or | 2023-01-06 | [facility] | 69 | (missing) | (missing) | | plasma | 11:35 | [facility] | | [facility] alkaline | | [facility] | | | | | phosphatase | | | | | | | measurement | | | | | | | (enzymatic | | | | | | | activity/vol | | | | | | | ume) | | | | | | + + + +------+ + + + + | Result panel 108 | + + + + + +-------+ + + | Serum or | 2023-01-06 | [facility] | 6.7 | (missing) | (missing) | | plasma | 11:35 | [facility] | | | protein | | [facility] | | | | | measurement | | | | | | | (mass/volume | | | | | | | ) | | | | | | + + + +-------+ + + + + | Result panel 109 | + + + + + +-------+ + + | Serum or | 2023-01-06 | [facility] | 3.2 | (missing) | (missing) | | plasma | 11:35 | [facility] | | | | albumin | | [facility] | | | | | measurement | | | | | | | (mass/volume | | | | | | | ) | | | | | | + + + +-------+ + + + + | Result panel 110 | + + + + + +-------+ + + | Serum | 2023-01-06 | [facility] | 3.5 | (missing) | (missing) | | globulin | 11:35 | [facility] | | | | measurement | | [facility] | | | | | (mass/volume | | | | | | | ) | | | | | | + + + +-------+ + + + + | Result panel 111 | + + + + + +--------+ + + | Serum or | 2023-01-06 | [facility] | 0.91 | (missing) | (missing) | | plasma | 11:35 | [facility] | | | | albumin/glob | | [facility] | | | | | ulin mass | | | | | | | ratio | | | | | | + + + +--------+ + + + + | Result panel 112 | + + + + + +-------+ + + | Serum or | 2023-01-06 | [facility] | 0.4 | (missing) | (missing) | | plasma total | 11:35 | [facility] | | | | bilirubin | | [facility] | | | | | measurement | | | | | | | (mass/volume | | | | | | | ) | | | | | | + + + +-------+ + + + + | Result panel 113 | + + + + + +------+ + + | Serum or | 2023-01-06 | [facility] | 41 | (missing) | (missing) | | plasma | 11:35 | [facility] | | | | aspartate | | [facility] | | | | | aminotransfe | | | | | | | rase | | | | | | | measurement | | | | | | | (enzymatic | | | | | | | activity/vol | | | | | | | ume) | | | | | | + + + +------+ + + + + | Result panel 114 | + + + + + +------+ + + | Serum or | 2023-01-06 | [facility] | 70 | (missing) | (missing) | | plasma | 11:35 | [facility] | | | | alanine | | [facility] | | | | | aminotransfe | | | | | | | rase | | | | | | | measurement | | | | | | | (enzymatic | | | | | | | activity/vol | | | | | | | ume) | | | | | | + + + +------+ + + + + | Result panel 115 | + + + + + +------+ + + | Serum or | 2023-01-06 | [facility] | 69 | (missing) | (missing) | | plasma | 11:35 | [facility] | | | | alkaline | | [facility] | | | | | phosphatase | | | | | | | measurement | | | | | | | (enzymatic | | | | | | | activity/vol | | | | | | | ume) | | | | | | + + + +------+ + + + + | Result panel 116 | + + + + + +-------+ + + | | 2023-01-06 | [facility] | 3.2 | (missing) | (missing) | | (unavailable | 11:35:07 | [facility] | | | | + + + +-------+ + + + + | Result panel 117 | + + + + + +-------+ + + | | 2023-01-06 | [facility] | 3.5 | (missing) | (missing) | | (unavailable | 11:35:07 [facility] | | | | + + + +-------+ + + + + | Result panel 118 | + + + + + +--------+ + + | | 2023-01-06 | [facility] | 0.91 | (missing) | (missing) | | (unavailable | 11:35:07 [facility] | | | | + + + +--------+ + + + + | Result panel 119 | + + + + + +-------+ + + | | 2023-01-06 | [facility] | 0.4 | (missing) | (missing) | | (unavailable | 11:35:07 [facility] | | | | + + + +-------+ + + + + | Result panel 120 | + + + + + +------+ + + | | 2023-01-06 | [facility] | 41 | (missing) | (missing) | | (unavailable | 11:35:07 [facility] | | | | + + + +------+ + + + + | Result panel 121 | + + + + + +------+ + + | | 2023-01-06 | [facility] | 70 | (missing) | (missing) | | (unavailable | 11:35:07 [facility] | | | | + + + +------+ + + + + | Result panel 122 | + + + + + +------+ + + | | 2023-01-06 | [facility] | 69 | (missing) | (missing) | | (unavailable | 11:35:07 [facility] | | | | + + + +------+ + + + + | Result panel 123 | + + + + + +--------+ + + | | 2023-01-06 | [facility] | 38.7 | (missing) | (missing) | | (unavailable | 11:35:07 [facility] | | | | + + + +--------+ + + + + | Result panel 124 | + + + + + +-------+ + + | | 2023-01-06 | [facility] | 6.7 | (missing) | (missing) | | (unavailable | 11:35:07 [facility] | | | | + + + +-------+ + + + + | Result panel 125 | + + + + + +-------+ + + | | 2023-01-06 | [facility] | 3.2 | (missing) | (missing) | | (unavailable | 11:35:07 [facility] | | | | + + + +-------+ + + + + | Result panel 126 | + + + + + +-------+ + + | | 2023-01-06 | [facility] | 3.5 | (missing) | (missing) | | (unavailable | 11:35:07 [facility] | | | | + + + +-------+ + + + + | Result panel 127 | + + + + + +--------+ + + | | 2023-01-06 | [facility] | 0.91 | (missing) | (missing) | | (unavailable | 11:35:07 [facility] | | | | + + + +--------+ + + + + | Result panel 128 | + + + + + +-------+ + + | | 2023-01-06 | [facility] | 0.4 | (missing) | (missing) | | (unavailable | 11:35:07 [facility] | | | | + + + +-------+ + + + + | Result panel 129 | + + + + + +------+ + + | | 2023-01-06 | [facility] | 41 | (missing) | (missing) | | (unavailable | 11:35:07 [facility] | | | | + + + +------+ + + + + | Result panel 130 | + + + + + +------+ + + | | 2023-01-06 | [facility] | 70 | (missing) | (missing) | | (unavailable | 11:35:07 [facility] | | | | + + + +------+ + + + + | Result panel 131 | + + + + + +------+ + + | | 2023-01-06 | [facility] | 69 | (missing) | (missing) | | (unavailable | 11:35:07 [facility] | | | | + + + +------+ + + + + | Result panel 132 | + + + + + +-------+ + + | | 2023-01-06 | [facility] | 6.7 | (missing) | (missing) | | (unavailable | 11:35:07 [facility] | | | | + + + +-------+ + + + + | Result panel 133 | + + + + + +-------+ + + | | 2023-01-06 | [facility] | 3.2 | (missing) | (missing) | | (unavailable | 11:35:07 [facility] | | | | + + + +-------+ + + + + | Result panel 134 | + + + + + +-------+ + + | | 2023-01-06 | [facility] | 3.5 | (missing) | (missing) | | (unavailable | 11:35:07 [facility] | | | | + + + +-------+ + + + + | Result panel 135 | + + + + + +--------+ + + | | 2023-01-06 | [facility] | 0.91 | (missing) | (missing) | | (unavailable | 11:35:07 [facility] | | | | + + + +--------+ + + + + | Result panel 136 | + + + + + +-------+ + + | | 2023-01-06 | [facility] | 0.4 | (missing) | (missing) | | (unavailable | 11:35:07 [facility] | | | | + + + +-------+ + + + + | Result panel 137 | + + + + + +------+ + + | | 2023-01-06 | [facility] | 41 | (missing) | (missing) | | (unavailable | 11:35:07 [facility] | | | | + + + +------+ + + + + | Result panel 138 | + + + + + +------+ + + | | 2023-01-06 | [facility] | 70 | (missing) | (missing) | | (unavailable | 11:35:07 [facility] | | | | + + + +------+ + + + + | Result panel 139 | + + + + + +------+ + + | | 2023-01-06 | [facility] | 69 | (missing) | (missing) | | (unavailable | 11:35:07 [facility] | | | | + + + +------+ + + + + | Result panel 140 | + + + + + +--------+ + + | | 2023-01-06 | [facility] | 10.7 | (missing) | (missing) | | (unavailable | 11:35:07 [facility] | | | | + + + +--------+ + + + + | Result panel 141 | + + + + + +--------+ + + | | 2023-01-06 | [facility] | 4.39 | (missing) | (missing) | | (unavailable | 11:35:07 [facility] | | | | + + + +--------+ + + + + | Result panel 142 | + + + + + +--------+ + + | | 2023-01-06 | [facility] | 13.9 | (missing) | (missing) | | (unavailable | 11:35:07 [facility] | | | | + + + +--------+ + + + + | Result panel 143 | + + + + + +--------+ + + | | 2023-01-06 | [facility] | 41.3 | (missing) | (missing) | | (unavailable | 11:35:07 [facility] | | | | + + + +--------+ + + + + | Result panel 144 | + + + + + +--------+ + + | | 2023-01-06 | [facility] | 94.1 | (missing) | (missing) | | (unavailable | 11:35:07 [facility] | | | | + + + +--------+ + + + + | Result panel 145 | + + + + + +--------+ + + | | 2023-01-06 | [facility] | 31.6 | (missing) | (missing) | | (unavailable | 11:35:07 [facility] | | | | + + + +--------+ + + + + | Result panel 146 | + + + + + +--------+ + + | | 2023-01-06 | [facility] | 33.6 | (missing) | (missing) | | (unavailable | 11:35:07 [facility] | | | | + + + +--------+ + + + + | Result panel 147 | + + + + + +--------+ + + | | 2023-01-06 | [facility] | 13.5 | (missing) | (missing) | | (unavailable | 11:35:07 [facility] | | | | + + + +--------+ + + + + | Result panel 148 | + + + + + +-------+ + + | | 2023-01-06 | [facility] | 278 | (missing) | (missing) | | (unavailable | 11:35:07 [facility] | | | | + + + +-------+ + + + + | Result panel 149 | + + + + + +--------+ + + | | 2023-01-06 | [facility] | 77.9 | (missing) | (missing) | | (unavailable | 11:35:07 [facility] | | | | + + + +--------+ + + + + | Result panel 150 | + + + + + +--------+ + + | | 2023-01-06 | [facility] | 14.0 | (missing) | (missing) | | (unavailable | 11:35:07 [facility] | | | | + + + +--------+ + + + + | Result panel 151 | + + + + + +-------+ + + | | 2023-01-06 | [facility] | 5.7 | (missing) | (missing) | | (unavailable | 11:35:07 [facility] | | | | + + + +-------+ + + + + | Result panel 152 | + + + + + +-------+ + + | | 2023-01-06 | [facility] | 0.9 | (missing) | (missing) | | (unavailable | 11:35:07 [facility] | | | | + + + +-------+ + + + + | Result panel 153 | + + + + + +-------+ + + | | 2023-01-06 | [facility] | 1.5 | (missing) | (missing) | | (unavailable | 11:35:07 [facility] | | | | + + + +-------+ + + + + | Result panel 154 | + + + + + +-------+---------+ + | | 2023-01-06 | [facility] | 166 | mg/dL | (missing) | | (unavailable | 11:35:07 [facility] | | | | + + + +-------+---------+ + + + | Result panel 155 | + + + + + +------+---------+ + | | 2023-01-06 | [facility] | 21 | mg/dL | (missing) | | (unavailable | 11:35:07 [facility] | | | | + + + +------+---------+ + + + | Result panel 156 | + + + + + +--------+---------+ + | | 2023-01-06 | [facility] | 0.92 | mg/dL | (missing) | | (unavailable | 11:35:07 [facility] | | | | + + + +--------+---------+ + + + | Result panel 157 | + + + + + +------+ + + | | 2023-01-06 | [facility] | 95 | (missing) | (missing) | | (unavailable | 11:35:07 [facility] | | | | + + + +------+ + + + + | Result panel 158 | + + + + + +---------+ + + | | 2023-01-06 | [facility] | 22.82 | (missing) | (missing) | | (unavailable | 11:35:07 [facility] | | | | + + + +---------+ + + + + | Result panel 159 | + + + + + +-------+ + + | | 2023-01-06 | [facility] | 143 | (missing) | (missing) | | (unavailable | 11:35:07 [facility] | | | | + + + +-------+ + + + + | Result panel 160 | + + + + + +-------+ + + | | 2023-01-06 | [facility] | 3.9 | (missing) | (missing) | | (unavailable | 11:35:07 [facility] | | | | + + + +-------+ + + + + | Result panel 161 | + + + + + +-------+ + + | | 2023-01-06 | [facility] | 108 | (missing) | (missing) | | (unavailable | 11:35:07 [facility] | | | | + + + +-------+ + + + + | Result panel 162 | + + + + + +------+ + + | | 2023-01-06 | [facility] | 27 | (missing) | (missing) | | (unavailable | 11:35:07 [facility] | | | | + + + +------+ + + + + | Result panel 163 | + + + + + +--------+ + + | | 2023-01-06 | [facility] | 11.9 | (missing) | (missing) | | (unavailable | 11:35:07 [facility] | | | | + + + +--------+ + + + + | Result panel 164 | + + + + + +-------+---------+ + | | 2023-01-06 | [facility] | 8.8 | mg/dL | (missing) | | (unavailable | 11:35:07 [facility] | | | | + + + +-------+---------+ + + + | Result panel 165 | + + + + + +-------+---------+ + | | 2023-01-06 | [facility] | 1.9 | mg/dL | (missing) | | (unavailable | 11:35:07 [facility] | | | | + + + +-------+---------+ + + + | Result panel 166 | + + + + + +-------+ + + | | 2023-01-06 | [facility] | 6.7 | (missing) | (missing) | | (unavailable | 11:35:07 [facility] | | | | + + + +-------+ + + + + | Result panel 167 | + + + + + + + + + | Respiratory | 2023-01-06 | [facility] | NEGATIVE | (missing) | (missing) | | specimen | 11:50 | [facility] | | | | 2018 novel | | Hospital | | | | | coronavirus | | | | | | | RNA | | | | | | | detection | | | | | | + + + + + + + + + | Result panel 168 | + + + + + + + + + | Respiratory | 2023-01-06 | [facility] | NEGATIVE | (missing) | (missing) | | specimen | 11:50 | [facility] | | | | | 2018 novel | | [facility] | | | | | coronavirus | | | | | | | RNA | | | | | | | detection | | | | | | + + + + + + + + + | Result panel 169 | + + + + + + + + + | | 2023-01-06 | [facility] | NEGATIVE | (missing) | (missing) | | (unavailable | 11:50:07 | [facility] | | | | + + + + + + + + + | Result panel 170 | + + + + + + + + + | | 2023-01-06 | [facility] | NEGATIVE | (missing) | (missing) | | (unavailable | 11:50:07 | [facility] | | | | + + + + + + + + + | Result panel 171 | + + + + + + + + + | | 2023-01-06 | [facility] | NEGATIVE | (missing) | (missing) | | (unavailable | 11:50:07 | [facility] | | | | + + + + + + + + + | Result panel 172 | + + + + + +-------+ + + | Serum or | 2023-01-07 | [facility] | 1.9 | (missing) | (missing) | | plasma | 14:25 | [facility] | | | | | magnesium | | [facility] | | | | | measurement | | | | | | | (mass/volume | | | | | | | ) | | | | | | + + + +-------+ + + + + | Result panel 173 | + + + + + +-------+ + + | Serum or | 2023-01-07 | [facility] | 1.9 | (missing) | (missing) | | plasma | 14:25 | [facility] | | | | magnesium | | [facility] | | | | | measurement | | | | | | | (mass/volume | | | | | | | ) | | | | | | + + + +-------+ + + + + | Result panel 174 | + + + + + +--------+ + + | Serum or | 2023-01-07 | [facility] | 36.1 | (missing) | (missing) | | plasma | 14:25 | [facility] | | | | cardiac | | [facility] | | | | | troponin I | | | | | | | measurement | | | | | | | by high | | | | | | | senstivity | | | | | | | method | | | | | | | (mass/volume | | | | | | | ) | | | | | | + + + +--------+ + + + + | Result panel 175 | + + + + + +--------+ + + | Serum or | 2023-01-07 | [facility] | 36.1 | (missing) | (missing) | | plasma | 14:25 | [facility] | | | cardiac | | [facility] | | | | | troponin I | | | | | | | measurement | | | | | | | by high | | | | | | | senstivity | | | | | | | method | | | | | | | (mass/volume | | | | | | | ) | | | | | | + + + +--------+ + + + + | Result panel 176 | + + + + + +-------+---------+ + | | 2023-01-07 | [facility] | 1.9 | mg/dL | (missing) | | (unavailable | 14::07 | [facility] | | | | + + + +-------+---------+ + + + | Result panel 177 | + + + + + +--------+ + + | | 2023-01-07 | [facility] | 36.1 | (missing) | (missing) | | (unavailable | ::07 | [facility] | | | | + + + +--------+ + + + + | Result panel 178 | + + + + + +-------+---------+ + | | 2023-01-07 | [facility] | 1.9 | mg/dL | (missing) | | (unavailable | 14:: | [facility] | | | | + + + +-------+---------+ + + + | Result panel 179 | + + + + + +--------+ + + | | 2023-01-07 | [facility] | 36.1 | (missing) | (missing) | | (unavailable | 14::07 | [facility] | | | | + + + +--------+ + + + + | Result panel 180 | + + + + + +--------+ + + | Blood | 2023-01-08 | [facility] | 10.8 | (missing) | (missing) | | leukocytes | 05:15 | [facility] | | | | automated | | [facility] | | | | | count | | | | | | | (number/volu | | | | | | | me) | | | | | | + + + +--------+ + + + + | Result panel 181 | + + + + + +--------+ + + | Blood | 2023-01-08 | [facility] | 4.41 | (missing) | (missing) | | erythrocytes | 05:15 | [facility] | | | | automated | | [facility] | | | | | count | | | | | | | (number/volu | | | | | | | me) | | | | | | + + + +--------+ + + + + | Result panel 182 | + + + + + +--------+ + + | Blood | 2023-01-08 | [facility] | 14.1 | (missing) | (missing) | | hemoglobin | 05:15 | [facility] | | | | measurement | | [facility] | | | | | (mass/volume | | | | | | | ) | | | | | | + + + +--------+ + + + + | Result panel 183 | + + + + + +--------+ + + | Automated | 2023-01-08 | [facility] | 41.6 | (missing) | (missing) | | blood | 05:15 | [facility] | | | | hematocrit | | [facility] | | | | + + + +--------+ + + + + | Result panel 184 | + + + + + +--------+ + + | Automated | 2023-01-08 | [facility] | 94.3 | (missing) | (missing) | | erythrocyte | 05:15 | [facility] | | | | mean | | Hospital | | | | | corpuscular | | | | | | | volume | | | | | | + + + +--------+ + + + + | Result panel 185 | + + + + + +--------+ + + | Automated | 2023-01-08 | [facility] | 32.0 | (missing) | (missing) | | erythrocyte | 05:15 | [facility] | | | | mean | | Hospital | | | | | corpuscular | | | | | | | hemoglobin | | | | | | | (mass per | | | | | | | erythrocyte) | | | | | | | | | | | | | + + + +--------+ + + + + | Result panel 186 | + + + + + +--------+ + + | Automated | 2023-01-08 | [facility] | 34.0 | (missing) | (missing) | | erythrocyte | 05:15 | [facility] | | | | mean | | Hospital | | | | | corpuscular | | | | | | | hemoglobin | | | | | | | concentratio | | | | | | | n | | | | | | | measurement | | | | | | | (mass/volume | | | | | | | ) | | | | | | + + + +--------+ + + + + | Result panel 187 | + + + + + +--------+ + + | Automated | 2023-01-08 | [facility] | 13.5 | (missing) | (missing) | | erythrocyte | 05:15 | [facility] | | | | | distribution | | Hospital | | | | | width | | | | | | + + + +--------+ + + + + | Result panel 188 | + + + + + +-------+ + + | Automated | 2023-01-08 | [facility] | 289 | (missing) | (missing) | | blood | 05:15 | [facility] | | | | platelet | | [facility] | | | | | count | | | | | | | (count/volum | | | | | | | e) | | | | | | + + + +-------+ + + + + | Result panel 189 | + + + + + +--------+ + + | Automated | 2023-01-08 | [facility] | 74.1 | (missing) | (missing) | | blood | 05:15 | [facility] | | | | neutrophil | | [facility] | | | | | count as | | | | | | | percentage | | | | | | | of total | | | | | | | leukocytes | | | | | | + + + +--------+ + + + + | Result panel 190 | + + + + + +--------+ + + | Automated | 2023-01-08 | [facility] | 16.4 | (missing) | (missing) | | blood | 05:15 | [facility] | | | | lymphocyte | | Hospital | | | | | count as | | | | | | | percentage | | | | | | | ot total | | | | | | | leukocytes | | | | | | + + + +--------+ + + + + | Result panel 191 | + + + + + +-------+ + + | Automated | 2023-01-08 | [facility] | 6.9 | (missing) | (missing) | | blood | 05:15 | [facility] | | | | monocyte | | Hospital | | | | | count as | | | | | | | percentage | | | | | | | of total | | | | | | | leukocytes | | | | | | + + + +-------+ + + + + | Result panel 192 | + + + + + +-------+ + + | Automated | 2023-01-08 | [facility] | 1.7 | (missing) | (missing) | | blood | 05:15 | [facility] | | | | eosinophil | | Hospital | | | | | count as | | | | | | | percentage | | | | | | | of total | | | | | | | leukocytes | | | | | | + + + +-------+ + + + + | Result panel 193 | + + + + + +-------+ + + | Automated | 2023-01-08 | [facility] | 0.9 | (missing) | (missing) | | blood | 05:15 | [facility] | | | | basophil | | Hospital | | | | | count as | | | | | | | percentage | | | | | | | of total | | | | | | | leukocytes | | | | | | + + + +-------+ + + + + | Result panel 194 | + + + + + +-------+ + + | Serum or | 2023-01-08 | [facility] | 150 | (missing) | (missing) | | plasma | 05:15 | [facility] | | | | glucose | | Hospital | | | | | measurement | | | | | | | (mass/volume | | | | | | | ) | | | | | | + + + +-------+ + + + + | Result panel 195 | + + + + + +------+ + + | Serum or | 2023-01-08 | [facility] | 26 | (missing) | (missing) | | plasma urea | 05:15 | [facility] | | | | nitrogen | | Hospital | | | | | measurement | | | | | | | (mass/volume | | | | | | | ) | | | | | | + + + +------+ + + + + | Result panel 196 | + + + + + +--------+ + + | Serum or | 2023-01-08 | [facility] | 1.24 | (missing) | (missing) | | plasma | 05:15 | [facility] | | | | creatinine | | [facility] | | | | | measurement | | | | | | | (mass/volume | | | | | | | ) | | | | | | + + + +--------+ + + + + | Result panel 197 | + + + + + +------+ + + | Glomerular | 2023-01-08 | [facility] | 67 | (missing) | (missing) | | filtration | 05:15 | [facility] | | | | | rate/1.73 sq | | Hospital | | | | | M.predicted | | | | | | | [Volume | | | | | | | Rate/Area] | | | | | | | inSerum, | | | | | | | Plasma or | | | | | | | Blood by | | | | | | | Creatinine-b | | | | | | | ased formula | | | | | | | (CKD-EPI | | | | | | | 2020) | | | | | | + + + +------+ + + + + | Result panel 198 | + + + + + +---------+ + + | Serum or | 2023-01-08 | [facility] | 20.96 | (missing) | (missing) | | plasma urea | 05:15 | [facility] | | | | | nitrogen/cre | | [facility] | | | | | atinine mass | | | | | | | ratio | | | | | | + + + +---------+ + + + + | Result panel 199 | + + + + + +-------+ + + | Serum or | 2023-01-08 | [facility] | 140 | (missing) | (missing) | | plasma | 05:15 | [facility] | | | | sodium | | [facility] | | | | | measurement | | | | | | | (moles/volum | | | | | | | e) | | | | | | + + + +-------+ + + + + | Result panel 200 | + + + + + +-------+ + + | Serum or | 2023-01-08 | [facility] | 3.7 | (missing) | (missing) | | plasma | 05:15 | [facility] | | | | potassium | | [facility] | | | | | measurement | | | | | | | (moles/volum | | | | | | | e) | | | | | | + + + +-------+ + + + + | Result panel 201 | + + + + + +-------+ + + | Serum or | 2023-01-08 | [facility] | 103 | (missing) | (missing) | | plasma | 05:15 | [facility] | | | | chloride | | [facility] | | | | | measurement | | | | | | | (moles/volum | | | | | | | e) | | | | | | + + + +-------+ + + + + | Result panel 202 | + + + + + +------+ + + | Serum or | 2023-01-08 | [facility] | 27 | (missing) | (missing) | | plasma | 05:15 | [facility] | | | | carbon | | [facility] | | | | | dioxide, | | | | | | | total | | | | | | | measurement | | | | | | | (moles/volum | | | | | | | e) | | | | | | + + + +------+ + + + + | Result panel 203 | + + + + + +--------+ + + | Serum or | 2023-01-08 | [facility] | 13.7 | (missing) | (missing) | | plasma anion | 05:15 | [facility] | | | | gap 4 | | [facility] | | | | + + + +--------+ + + + + | Result panel 204 | + + + + + +-------+ + + | Serum or | 2023-01-08 | [facility] | 8.7 | (missing) | (missing) | | plasma | 05:15 | [facility] | | | | calcium | | [facility] | | | | | measurement | | | | | | | (mass/volume | | | | | | | ) | | | | | | + + + +-------+ + + + + | Result panel 205 | + + + + + +--------+ + + | | 2023-01-08 | [facility] | 13.5 | (missing) | (missing) | | (unavailable | 05:15:07 | [facility] | | | | + + + +--------+ + + + + | Result panel 206 | + + + + + +-------+ + + | | 2023-01-08 | [facility] | 289 | (missing) | (missing) | | (unavailable | 05:15:07 | [facility] | | | | + + + +-------+ + + + + | Result panel 207 | + + + + + +--------+ + + | | 2023-01-08 | [facility] | 74.1 | (missing) | (missing) | | (unavailable | 05:15:07 | [facility] | | | | + + + +--------+ + + + + | Result panel 208 | + + + + + +--------+ + + | | 2023-01-08 | [facility] | 16.4 | (missing) | (missing) | | (unavailable | 05:15:07 | [facility] | | | | + + + +--------+ + + + + | Result panel 209 | + + + + + +--------+ + + | | 2023-01-08 | [facility] | 10.8 | (missing) | (missing) | | (unavailable | 05:15:07 | [facility] | | | | + + + +--------+ + + + + | Result panel 210 | + + + + + +--------+ + + | | 2023-01-08 | [facility] | 4.41 | (missing) | (missing) | | (unavailable | 05:15:07 | [facility] | | | | + + + +--------+ + + + + | Result panel 211 | + + + + + +--------+ + + | | 2023-01-08 | [facility] | 14.1 | (missing) | (missing) | | (unavailable | 05:15:07 | [facility] | | | | + + + +--------+ + + + + | Result panel 212 | + + + + + +--------+ + + | | 2023-01-08 | [facility] | 41.6 | (missing) | (missing) | | (unavailable | 05:15:07 | [facility] | | | + + + +--------+ + + + + | Result panel 213 | + + + + + +--------+ + + | | 2023-01-08 | [facility] | 94.3 | (missing) | (missing) | | (unavailable | 05:15:07 | [facility] | | | + + + +--------+ + + + + | Result panel 214 | + + + + + +--------+ + + | | 2023-01-08 | [facility] | 32.0 | (missing) | (missing) | | (unavailable | 05:15:07 | [facility] | | | + + + +--------+ + + + + | Result panel 215 | + + + + + +--------+ + + | | 2023-01-08 | [facility] | 34.0 | (missing) | (missing) | | (unavailable | 05:15:07 [facility] | | | + + + +--------+ + + + + | Result panel 216 | + + + + + +--------+ + + | | 2023-01-08 | [facility] | 13.5 | (missing) | (missing) | | (unavailable | 05:15:07 | [facility] | | | + + + +--------+ + + + + | Result panel 217 | + + + + + +-------+ + + | | 2023-01-08 | [facility] | 289 | (missing) | (missing) | | (unavailable | 05:15:07 | [facility] | | | + + + +-------+ + + + + | Result panel 218 | + + + + + +-------+ + + | | 2023-01-08 | [facility] | 6.9 | (missing) | (missing) | | (unavailable | 05:15:07 [facility] | | | + + + +-------+ + + + + | Result panel 219 | + + + + + +--------+ + + | | 2023-01-08 | [facility] | 74.1 | (missing) | (missing) | | (unavailable | 05:15:07 [facility] | | | + + + +--------+ + + + + | Result panel 220 | + + + + + +--------+ + + | | 2023-01-08 | [facility] | 16.4 | (missing) | (missing) | | (unavailable | 05:15:07 [facility] | | | + + + +--------+ + + + + | Result panel 221 | + + + + + +-------+ + + | | 2023-01-08 | [facility] | 6.9 | (missing) | (missing) | | (unavailable | 05:15:07 [facility] | | | + + + +-------+ + + + + | Result panel 222 | + + + + + +-------+ + + | | 2023-01-08 | [facility] | 1.7 | (missing) | (missing) | | (unavailable | 05:15:07 [facility] | | | + + + +-------+ + + + + | Result panel 223 | + + + + + +-------+ + + | | 2023-01-08 | [facility] | 0.9 | (missing) | (missing) | | (unavailable | 05:15:07 [facility] | | | + + + +-------+ + + + + | Result panel 224 | + + + + + +-------+---------+ + | | 2023-01-08 | [facility] | 150 | mg/dL | (missing) | | (unavailable | 05:15:07 [facility] | | | | + + + +-------+---------+ + + + | Result panel 225 | + + + + + +------+---------+ + | | 2023-01-08 | [facility] | 26 | mg/dL | (missing) | | (unavailable | 05:15:07 | [facility] | | | | + + + +------+---------+ + + + | Result panel 226 | + + + + + +--------+---------+ + | | 2023-01-08 | [facility] | 1.24 | mg/dL | (missing) | | (unavailable | 05:15:07 [facility] | | | + + + +--------+---------+ + + + | Result panel 227 | + + + + + +------+ + + | | 2023-01-08 | [facility] | 67 | (missing) | (missing) | | (unavailable | 05:15:07 [facility] | | | + + + +------+ + + + + | Result panel 228 | + + + + + +---------+ + + | | 2023-01-08 | [facility] | 20.96 | (missing) | (missing) | | (unavailable | 05:15:07 [facility] | | | | + + + +---------+ + + + + | Result panel 229 | + + + + + +-------+ + + | | 2023-01-08 | [facility] | 1.7 | (missing) | (missing) | | (unavailable | 05:15:07 [facility] | | | + + + +-------+ + + + + | Result panel 230 | + + + + + +-------+ + + | | 2023-01-08 | [facility] | 140 | (missing) | (missing) | | (unavailable | 05:15:07 [facility] | | | | + + + +-------+ + + + + | Result panel 231 | + + + + + +-------+ + + | | 2023-01-08 | [facility] | 3.7 | (missing) | (missing) | | (unavailable | 05:15:07 [facility] | | | | + + + +-------+ + + + + | Result panel 232 | + + + + + +-------+ + + | | 2023-01-08 | [facility] | 103 | (missing) | (missing) | | (unavailable | 05:15:07 [facility] | | | + + + +-------+ + + + + | Result panel 233 | + + + + + +------+ + + | | 2023-01-08 | [facility] | 27 | (missing) | (missing) | | (unavailable | 05:15:07 [facility] | | | + + + +------+ + + + + | Result panel 234 | + + + + + +--------+ + + | | 2023-01-08 | [facility] | 13.7 | (missing) | (missing) | | (unavailable | 05:15:07 [facility] | | | + + + +--------+ + + + + | Result panel 235 | + + + + + +-------+---------+ + | | 2023-01-08 | [facility] | 8.7 | mg/dL | (missing) | | (unavailable | 05:15:07 [facility] | | | + + + +-------+---------+ + + + | Result panel 236 | + + + + + +-------+ + + | | 2023-01-08 | [facility] | 0.9 | (missing) | (missing) | | (unavailable | 05:15:07 [facility] | | | + + + +-------+ + + + + | Result panel 237 | + + + + + +-------+---------+ + | | 2023-01-08 | [facility] | 150 | mg/dL | (missing) | | (unavailable | 05:15:07 [facility] | | | | + + + +-------+---------+ + + + | Result panel 238 | + + + + + +------+---------+ + | | 2023-01-08 | [facility] | 26 | mg/dL | (missing) | | (unavailable | 05:15:07 [facility] | | | | + + + +------+---------+ + + + | Result panel 239 | + + + + + +--------+---------+ + | | 2023-01-08 | [facility] | 1.24 | mg/dL | (missing) | | (unavailable | 05:15:07 [facility] | | | | + + + +--------+---------+ + + + | Result panel 240 | + + + + + +------+ + + | | 2023-01-08 | [facility] | 67 | (missing) | (missing) | | (unavailable | 05:15:07 [facility] | | | | + + + +------+ + + + + | Result panel 241 | + + + + + +---------+ + + | | 2023-01-08 | [facility] | 20.96 | (missing) | (missing) | | (unavailable | 05:15:07 [facility] | | | | + + + +---------+ + + + + | Result panel 242 | + + + + + +-------+ + + | | 2023-01-08 | [facility] | 140 | (missing) | (missing) | | (unavailable | 05:15:07 [facility] | | | | + + + +-------+ + + + + | Result panel 243 | + + + + + +-------+ + + | | 2023-01-08 | [facility] | 3.7 | (missing) | (missing) | | (unavailable | 05:15:07 | [facility] | | | | + + + +-------+ + + + + | Result panel 244 | + + + + + +-------+ + + | | 2023-01-08 | [facility] | 103 | (missing) | (missing) | | (unavailable | 05:15:07 [facility] | | | | + + + +-------+ + + + + | Result panel 245 | + + + + + +------+ + + | | 2023-01-08 | [facility] | 27 | (missing) | (missing) | | (unavailable | 05:15:07 [facility] | | | | + + + +------+ + + + + | Result panel 246 | + + + + + +--------+ + + | | 2023-01-08 | [facility] | 13.7 | (missing) | (missing) | | (unavailable | 05:15:07 [facility] | | | | + + + +--------+ + + + + | Result panel 247 | + + + + + +-------+---------+ + | | 2023-01-08 | [facility] | 8.7 | mg/dL | (missing) | | (unavailable | 05:15:07 [facility] | | | | + + + +-------+---------+ + + + | Result panel 248 | + + + + + +--------+ + + | | 2023-01-08 | [facility] | 10.8 | (missing) | (missing) | | (unavailable | 05:15:07 [facility] | | | | + + + +--------+ + + + + | Result panel 249 | + + + + + +--------+ + + | | 2023-01-08 | [facility] | 4.41 | (missing) | (missing) | | (unavailable | 05:15: | [facility] | | | | + + + +--------+ + + + + | Result panel 250 | + + + + + +--------+ + + | | 2023-01-08 | [facility] | 14.1 | (missing) | (missing) | | (unavailable | 05:15:07 [facility] | | | | + + + +--------+ + + + + | Result panel 251 | + + + + + +--------+ + + | | 2023-01-08 | [facility] | 41.6 | (missing) | (missing) | | (unavailable | 05:15:07 [facility] | | | | + + + +--------+ + + + + | Result panel 252 | + + + + + +--------+ + + | | 2023-01-08 | [facility] | 94.3 | (missing) | (missing) | | (unavailable | 05:15:07 [facility] | | | | + + + +--------+ + + + + | Result panel 253 | + + + + + +--------+ + + | | 2023-01-08 | [facility] | 32.0 | (missing) | (missing) | | (unavailable | 05:15:07 [facility] | | | | + + + +--------+ + + + + | Result panel 254 | + + + + + +--------+ + + | | 2023-01-08 | [facility] | 34.0 | (missing) | (missing) | | (unavailable | 05:15:07 | [facility] | | | | + + + +--------+ + + + + | Serum or plasma alanine aminotransferase measurement (enzymatic activity/volume) | + + + + + +------+ + + | Serum or | 2022-01-25 | [facility] | 25 | (missing) | (missing) | | plasma | 11:21 | [facility] | | | | alanine | | [facility] | | | | | aminotransfe | | | | | | | rase | | | | | | | measurement | | | | | | | (enzymatic | | | | | | | activity/vol | | | | | | | ume) | | | | | | + + + +------+ + + + + | Serum or plasma alanine aminotransferase measurement (enzymatic activity/volume) | + + + + + +------+ + + | Serum or | 2023-01-06 | [facility] | 70 | (missing) | (missing) | | plasma | 11:35 | [facility] | | | | alanine | | [facility] | | | | | aminotransfe | | | | | | | rase | | | | | | | measurement | | | | | | | (enzymatic | | | | | | | activity/vol | | | | | | | ume) | | | | | | + + + +------+ + + + + | Serum or plasma albumin measurement (mass/volume) | + + + + + +-------+ + + | Serum or | 2022-01-25 | [facility] | 3.5 | (missing) | (missing) | | plasma | 11:21 | [facility] | | | | albumin | | [facility] | | | | | measurement | | | | | | | (mass/volume | | | | | | | ) | | | | | | + + + +-------+ + + + + | Serum or plasma albumin measurement (mass/volume) | + + + + + +-------+ + + | Serum or | 2023-01-06 | [facility] | 3.2 | (missing) | (missing) | | plasma | 11:35 | [facility] | | | | albumin | | [facility] | | | | | measurement | | | | | | | (mass/volume | | | | | | | ) | | | | | | + + + +-------+ + + + + | Serum or plasma albumin/globulin mass ratio | + + + + + +--------+ + + | Serum or | 2022-01-25 | [facility] | 1.03 | (missing) | (missing) | | plasma | 11:21 | [facility] | | | | albumin/glob | | [facility] | | | | | ulin mass | | | | | | | ratio | | | | | | + + + +--------+ + + + + | Serum or plasma albumin/globulin mass ratio | + + + + + +--------+ + + | Serum or | 2023-01-06 | [facility] | 0.91 | (missing) | (missing) | | plasma | 11:35 | [facility] | | | | albumin/glob | | [facility] | | | | | ulin mass | | | | | | | ratio | | | | | | + + + +--------+ + + + + | Serum or plasma calcium measurement (mass/volume) | + + + + + +-------+ + + | Serum or | 2022-01-25 | [facility] | 8.5 | (missing) | (missing) | | plasma | 11:21 | [facility] | | | | calcium | | [facility] | | | | | measurement | | | | | | | (mass/volume | | | | | | | ) | | | | | | + + + +-------+ + + | Serum or | 2023-01-08 | [facility] | 8.7 | (missing) | (missing) | | plasma | 05:15 | [facility] | | | | calcium | | [facility] | | | | | measurement | | | | | | | (mass/volume | | | | | | | ) | | | | | | + + + +-------+ + + + + | Serum or plasma calcium measurement (mass/volume) | + + + + + +-------+ + + | Serum or | 2023-01-06 | [facility] | 8.8 | (missing) | (missing) | | plasma | 11:35 | [facility] | | | | calcium | | [facility] | | | | | measurement | | | | | | | (mass/volume | | | | | | | ) | | | | | | + + + +-------+ + + + + | Serum or plasma anion gap 4 | + + + + + +--------+ + + | Serum or | 2022-01-25 | [facility] | 13.8 | (missing) | (missing) | | plasma anion | 11:21 | [facility] | | | | gap 4 | | [facility] | | | | + + + +--------+ + + | Serum or | 2023-01-08 | [facility] | 13.7 | (missing) | (missing) | | plasma anion | 05:15 | [facility] | | | | gap 4 | | [facility] | | | | + + + +--------+ + + + + | Serum or plasma anion gap 4 | + + + + + +--------+ + + | Serum or | 2023-01-06 | [facility] | 11.9 | (missing) | (missing) | | plasma anion | 11:35 | [facility] | | | | gap 4 | | [facility] | | | | + + + +--------+ + + + + | Serum or plasma magnesium measurement (mass/volume) | + + + + + +-------+ + + | Serum or | 2023-01-06 | [facility] | 1.9 | (missing) | (missing) | | plasma | 11:35 | [facility] | | | | magnesium | | [facility] | | | | | measurement | | | | | | | (mass/volume | | | | | | | ) | | | | | | + + + +-------+ + + + + | Serum or plasma aspartate aminotransferase measurement (enzymatic activity/volume) | + + + + + +------+ + + | Serum or | 2022-01-25 | [facility] | 15 | (missing) | (missing) | | plasma | 11:21 | [facility] | | | | aspartate | | [facility] | | | | | aminotransfe | | | | | | | rase | | | | | | | measurement | | | | | | | (enzymatic | | | | | | | activity/vol | | | | | | | ume) | | | | | | + + + +------+ + + + + | Serum or plasma aspartate aminotransferase measurement (enzymatic activity/volume) | + + + + + +------+ + + | Serum or | 2023-01-06 | [facility] | 41 | (missing) | (missing) | | plasma | 11:35 | [facility] | | | | aspartate | | [facility] | | | | | aminotransfe | | | | | | | rase | | | | | | | measurement | | | | | | | (enzymatic | | | | | | | activity/vol | | | | | | | ume) | | | | | | + + + +------+ + + + + | Serum or plasma total bilirubin measurement (mass/volume) | + + + + + +-------+ + + | Serum or | 2022-01-25 | [facility] | 0.3 | (missing) | (missing) | | plasma total | 11:21 | [facility] | | | | bilirubin | | [facility] | | | | | measurement | | | | | | | (mass/volume | | | | | | | ) | | | | | | + + + +-------+ + + + + | Serum or plasma total bilirubin measurement (mass/volume) | + + + + + +-------+ + + | Serum or | 2023-01-06 | [facility] | 0.4 | (missing) | (missing) | | plasma total | 11:35 | [facility] | | | | bilirubin | | [facility] | | | | | measurement | | | | | | | (mass/volume | | | | | | | ) | | | | | | + + + +-------+ + + + + | Serum or plasma carbon dioxide, total measurement (moles/volume) | + + + + + +------+ + + | Serum or | 2022-01-25 | [facility] | 25 | (missing) | (missing) | | plasma | 11:21 | [facility] | | | | carbon | | [facility] | | | | | dioxide, | | | | | | | total | | | | | | | measurement | | | | | | | (moles/volum | | | | | | | e) | | | | | | + + + +------+ + + | Serum or | 2023-01-08 | [facility] | 27 | (missing) | (missing) | | plasma | 05:15 | [facility] | | | | | carbon | | [facility] | | | | | dioxide, | | | | | | | total | | | | | | | measurement | | | | | | | (moles/volum | | | | | | | e) | | | | | | + + + +------+ + + + + | Serum or plasma carbon dioxide, total measurement (moles/volume) | + + + + + +------+ + + | Serum or | 2023-01-06 | [facility] | 27 | (missing) | (missing) | | plasma | 11:35 | [facility] | | | | carbon | | [facility] | | | | | dioxide, | | | | | | | total | | | | | | | measurement | | | | | | | (moles/volum | | | | | | | e) | | | | | | + + + +------+ + + + + | Serum or plasma chloride measurement (moles/volume) | + + + + + +-------+ + + | Serum or | 2022-01-25 | [facility] | 103 | (missing) | (missing) | | plasma | 11:21 | [facility] | | | | chloride | | [facility] | | | | | measurement | | | | | | | (moles/volum | | | | | | | e) | | | | | | + + + +-------+ + + | Serum or | 2023-01-08 | [facility] | 103 | (missing) | (missing) | | plasma | 05:15 | [facility] | | | | chloride | | [facility] | | | | | measurement | | | | | | | (moles/volum | | | | | | | e) | | | | | | + + + +-------+ + + + + | Serum or plasma chloride measurement (moles/volume) | + + + + + +-------+ + + | Serum or | 2023-01-06 | [facility] | 108 | (missing) | (missing) | | plasma | 11:35 | [facility] | | | | chloride | | [facility] | | | | | measurement | | | | | | | (moles/volum | | | | | | | e) | | | | | | + + + +-------+ + + + + | Automated erythrocyte distribution width | + + + + + +--------+ + + | Automated | 2022-01-25 | [facility] | 14.1 | (missing) | (missing) | | erythrocyte | 11:21 | [facility] | | | | distribution | | [facility] | | | | | width | | | | | | + + + +--------+ + + | Automated | 2023-01-08 | [facility] | 13.5 | (missing) | (missing) | | erythrocyte | 05:15 | [facility] | | | | distribution | | [facility] | | | | | width | | | | | | + + + +--------+ + + + + | Automated erythrocyte distribution width | + + + + + +--------+ + + | Automated | 2023-01-06 | [facility] | 13.5 | (missing) | (missing) | | erythrocyte | 11:35 | [facility] | | | | distribution | | [facility] | | | | | width | | | | | | + + + +--------+ + + + + | Serum or plasma creatinine measurement (mass/volume) | + + + + + +--------+ + + | Serum or | 2022-01-25 | [facility] | 0.83 | (missing) | (missing) | | plasma | 11:21 | [facility] | | | | creatinine | | [facility] | | | | | measurement | | | | | | | (mass/volume | | | | | | | ) | | | | | | + + + +--------+ + + | Serum or | 2023-01-08 | [facility] | 1.24 | (missing) | (missing) | | plasma | 05:15 | [facility] | | | | creatinine | | [facility] | | | | | measurement | | | | | | | (mass/volume | | | | | | | ) | | | | | | + + + +--------+ + + + + | Serum or plasma creatinine measurement (mass/volume) | + + + + + +--------+ + + | Serum or | 2023-01-06 | [facility] | 0.92 | (missing) | (missing) | | plasma | 11:35 | [facility] | | | | creatinine | | [facility] | | | | | measurement | | | | | | | (mass/volume | | | | | | | ) | | | | | | + + + +--------+ + + + + | Serum globulin measurement (mass/volume) | + + + + + +-------+ + + | Serum | 2022-01-25 | [facility] | 3.4 | (missing) | (missing) | | globulin | 11:21 | [facility] | [facility] | [facility] | | [facility] | | | | | (mass/volume | | | | | | | ) | | | | | | + + + +-------+ + + + + | Serum globulin measurement (mass/volume) | + + + + + +-------+ + + | Serum | 2023-01-06 | [facility] | 3.5 | (missing) | (missing) | | globulin | 11:35 | [facility] | [facility] | | [facility] | | | | | (mass/volume | | | | | | | ) | | | | | | + + + +-------+ + + + + | Serum or plasma glucose measurement (mass/volume) | + + + + + +-------+ + + | Serum or | 2022-01-25 | [facility] | 117 | (missing) | (missing) | | plasma | 11:21 | [facility] | | | | glucose | | [facility] | | | | | measurement | | | | | | | (mass/volume | | | | | | | ) | | | | | | + + + +-------+ + + | Serum or | 2023-01-08 | [facility] | 150 | (missing) | (missing) | | plasma | 05:15 | [facility] | | | | glucose | | [facility] | | | | | measurement | | | | | | | (mass/volume | | | | | | | ) | | | | | | + + + +-------+ + + + + | Serum or plasma glucose measurement (mass/volume) | + + + + + +-------+ + + | Serum or | 2023-01-06 | [facility] | 166 | (missing) | (missing) | | plasma | 11:35 | [facility] | | | | glucose | | [facility] | | | | | measurement | | | | | | | (mass/volume | | | | | | | ) | | | | | | + + + +-------+ + + + + | Serum or plasma potassium measurement (moles/volume) | + + + + + +-------+ + + | Serum or | 2022-01-25 | [facility] | 3.8 | (missing) | (missing) | | plasma | 11:21 | [facility] | | | | potassium | | [facility] | | | | | measurement | | | | | | | (moles/volum | | | | | | | e) | | | | | | + + + +-------+ + + | Serum or | 2023-01-08 | [facility] | 3.7 | (missing) | (missing) | | plasma | 05:15 | [facility] | | | | potassium | | [facility] | | | | | measurement | | | | | | | (moles/volum | | | | | | | e) | | | | | | + + + +-------+ + + + + | Serum or plasma potassium measurement (moles/volume) | + + + + + +-------+ + + | Serum or | 2023-01-06 | [facility] | 3.9 | (missing) | (missing) | | plasma | 11:35 | [facility] | | | | potassium | | [facility] | | | | | measurement | | | | | | | (moles/volum | | | | | | | e) | | | | | | + + + +-------+ + + + + | Serum or plasma protein measurement (mass/volume) | + + + + + +-------+ + + | Serum or | 2022-01-25 | [facility] | 6.9 | (missing) | (missing) | | plasma | 11:21 | [facility] | | | | protein | | [facility] | | | | | measurement | | | | | | | (mass/volume | | | | | | | ) | | | | | | + + + +-------+ + + + + | Serum or plasma protein measurement (mass/volume) | + + + + + +-------+ + + | Serum or | 2023-01-06 | [facility] | 6.7 | (missing) | (missing) | | plasma | 11:35 | [facility] | | | | protein | | [facility] | | | | | measurement | | | | | | | (mass/volume | | | | | | | ) | | | | | | + + + +-------+ + + + + | Serum or plasma sodium measurement (moles/volume) | + + + + + +-------+ + + | Serum or | 2022-01-25 | [facility] | 138 | (missing) | (missing) | | plasma | 11:21 | [facility] | | | | sodium | | [facility] | | | | | measurement | | | | | | | (moles/volum | | | | | | | e) | | | | | | + + + +-------+ + + | Serum or | 2023-01-08 | [facility] | 140 | (missing) | (missing) | | plasma | 05:15 | [facility] | | | | sodium | | [facility] | | | | | measurement | | | | | | | (moles/volum | | | | | | | e) | | | | | | + + + +-------+ + + + + | Serum or plasma sodium measurement (moles/volume) | + + + + + +-------+ + + | Serum or | 2023-01-06 | [facility] | 143 | (missing) | (missing) | | plasma | 11:35 | [facility] | | | | sodium | | [facility] | | | | | measurement | | | | | | | (moles/volum | | | | | | | e) | | | | | | + + + +-------+ + + + + | Serum or plasma urea nitrogen measurement (mass/volume) | + + + + + +------+ + + | Serum or | 2022-01-25 | [facility] | 15 | (missing) | (missing) | | plasma urea | 11:21 | [facility] | | | | nitrogen | | [facility] | | | | | measurement | | | | | | | (mass/volume | | | | | | | ) | | | | | | + + + +------+ + + | Serum or | 2023-01-08 | [facility] | 26 | (missing) | (missing) | | plasma urea | 05:15 | [facility] | | | | nitrogen | | [facility] | | | | | measurement | | | | | | | (mass/volume | | | | | | | ) | | | | | | + + + +------+ + + + + | Serum or plasma urea nitrogen measurement (mass/volume) | + + + + + +------+ + + | Serum or | 2023-01-06 | [facility] | 21 | (missing) | (missing) | | plasma urea | 11:35 | [facility] | | | | nitrogen | | [facility] | | | | | measurement | | | | | | | (mass/volume | | | | | | | ) | | | | | | + + + +------+ + + + + | Serum or plasma urea nitrogen/creatinine mass ratio | + + + + + +---------+ + + | Serum or | 2022-01-25 | [facility] | 18.07 | (missing) | (missing) | | plasma urea | 11:21 | [facility] | | | | | nitrogen/cre | | Hospital | | | | | atinine mass | | | | | | | ratio | | | | | | + + + +---------+ + + | Serum or | 2023-01-08 | [facility] | 20.96 | (missing) | (missing) | | plasma urea | 05:15 | [facility] | | | | | nitrogen/cre | | [facility] | | | | | atinine mass | | | | | | | ratio | | | | | | + + + +---------+ + + + + | Serum or plasma urea nitrogen/creatinine mass ratio | + + + + + +---------+ + + | Serum or | 2023-01-06 | [facility] | 22.82 | (missing) | (missing) | | plasma urea | 11:35 | [facility] | | | | | nitrogen/cre | | [facility] | | | | | atinine mass | | | | | | | ratio | | | | | | + + + +---------+ + + + + | Automated blood monocyte count as percentage of total leukocytes | + + + + + +-------+ + + | Automated | 2022-01-25 | [facility] | 8.6 | (missing) | (missing) | | blood | 11:21 | [facility] | | | | | monocyte | | [facility] | | | | | count as | | | | | | | percentage | | | | | | | of total | | | | | | | leukocytes | | | | | | + + + +-------+ + + | Automated | 2023-01-08 | [facility] | 6.9 | (missing) | (missing) | | blood | 05:15 | [facility] | | | | | monocyte | | Hospital | | | | | count as | | | | | | | percentage | | | | | | | of total | | | | | | | leukocytes | | | | | | + + + +-------+ + + + + | Automated blood monocyte count as percentage of total leukocytes | + + + + + +-------+ + + | Automated | 2023-01-06 | [facility] | 5.7 | (missing) | (missing) | | blood | 11:35 | [facility] | | | | monocyte | | [facility] | | | | | count as | | | | | | | percentage | | | | | | | of total | | | | | | | leukocytes | | | | | | + + + +-------+ + + + + | Blood leukocytes automated count (number/volume) | + + + + + +--------+ + + | Blood | 2022-01-25 | [facility] | 10.4 | (missing) | (missing) | | leukocytes | 11:21 | [facility] | | | | | automated | | Hospital | | | | | count | | | | | | | (number/volu | | | | | | | me) | | | | | | + + + +--------+ + + | Blood | 2023-01-08 | [facility] | 10.8 | (missing) | (missing) | | leukocytes | 05:15 | [facility] | | | | | automated | | [facility] | | | | | count | | | | | | | (number/volu | | | | | | | me) | | | | | | + + + +--------+ + + + + | Blood leukocytes automated count (number/volume) | + + + + + +--------+ + + | Blood | 2023-01-06 | [facility] | 10.7 | (missing) | (missing) | | leukocytes | 11:35 | [facility] | | | | | count | | | | | | | (number/volu | | | | | | | me) | | | | | | + + + +--------+ + + + + | Serum or plasma alkaline phosphatase measurement (enzymatic activity/volume) | + + + + + +-------+ + + | Serum or | 2022-01-25 | [facility] | <10 | (missing) | (missing) | | plasma | 11:21 | [facility] | | | alkaline | | [facility] | | | | | phosphatase | | | | | | | measurement | | | | | | | (enzymatic | | | | | | | activity/vol | | | | | | | ume) | | | | | | + + + +-------+ + + + + | Serum or plasma alkaline phosphatase measurement (enzymatic activity/volume) | + + + + + +------+ + + | Serum or | 2023-01-06 | [facility] | 69 | (missing) | (missing) | | plasma | 11:35 | [facility] | | [facility] alkaline | | [facility] | | | | | phosphatase | | | | | | | measurement | | | | | | | (enzymatic | | | | | | | activity/vol | | | | | | | ume) | | | | | | + + + +------+ + + + + | Automated blood basophil count as percentage of total leukocytes | + + + + + +-------+ + + | Automated | 2022-01-25 | [facility] | 0.9 | (missing) | (missing) | | blood | 11:21 | [facility] | | | | basophil | | [facility] | | | | | count as | | | | | | | percentage | | | | | | | of total | | | | | | | leukocytes | | | | | | + + + +-------+ + + | Automated | 2023-01-08 | [facility] | 0.9 | (missing) | (missing) | | blood | 05:15 | [facility] | | | | basophil | | [facility] | | | | | count as | | | | | | | percentage | | | | | | | of total | | | | | | | leukocytes | | | | | | + + + +-------+ + + + + | Automated blood basophil count as percentage of total leukocytes | + + + + + +-------+ + + | Automated | 2023-01-06 | [facility] | 1.5 | (missing) | (missing) | | blood | 11:35 | [facility] | | | | basophil | | [facility] | | | | | count as | | | | | | | percentage | | | | | | | of total | | | | | | | leukocytes | | | | | | + + + +-------+ + + + + | Automated blood eosinophil count as percentage of total leukocytes | + + + + + +-------+ + + | Automated | 2022-01-25 | [facility] | 1.5 | (missing) | (missing) | | blood | 11:21 | [facility] | | | | eosinophil | | [facility] | | | | | count as | | | | | | | percentage | | | | | | | of total | | | | | | | leukocytes | | | | | | + + + +-------+ + + | Automated | 2023-01-08 | [facility] | 1.7 | (missing) | (missing) | | blood | 05:15 | [facility] | | | | eosinophil | | [facility] | | | | | count as | | | | | | | percentage | | | | | | | of total | | | | | | | leukocytes | | | | | | + + + +-------+ + + + + | Automated blood eosinophil count as percentage of total leukocytes | + + + + + +-------+ + + | Automated | 2023-01-06 | [facility] | 0.9 | (missing) | (missing) | | blood | 11:35 | [facility] | | | | eosinophil | | [facility] | | | | | count as | | | | | | | percentage | | | | | | | of total | | | | | | | leukocytes | | | | | | + + + +-------+ + + + + | Blood hemoglobin measurement (mass/volume) | + + + + + +--------+ + + | Blood | 2022-01-25 | [facility] | 15.5 | (missing) | (missing) | | hemoglobin | 11:21 | [facility] | | | | measurement | | [facility] | | | | | (mass/volume | | | | | | | ) | | | | | | + + + +--------+ + + | Blood | 2023-01-08 | [facility] | 14.1 | (missing) | (missing) | | hemoglobin | 05:15 | [facility] | | | | measurement | | [facility] | | | | | (mass/volume | | | | | | | ) | | | | | | + + + +--------+ + + + + | Blood hemoglobin measurement (mass/volume) | + + + + + +--------+ + + | Blood | 2023-01-06 | [facility] | 13.9 | (missing) | (missing) | | hemoglobin | 11:35 | [facility] | | | | measurement | | [facility] | | | | | (mass/volume | | | | | | | ) | | | | | | + + + +--------+ + + + + | Automated blood hematocrit | + + + + + +--------+ + + | Automated | 2022-01-25 | [facility] | 46.0 | (missing) | (missing) | | blood | 11:21 | [facility] | | | | hematocrit | | [facility] | | | | + + + +--------+ + + | Automated | 2023-01-08 | [facility] | 41.6 | (missing) | (missing) | | blood | 05:15 | [facility] | | | | hematocrit | | [facility] | | | | + + + +--------+ + + + + | Automated blood hematocrit | + + + + + +--------+ + + | Automated | 2023-01-06 | [facility] | 41.3 | (missing) | (missing) | | blood | 11:35 | [facility] | | | | hematocrit | | [facility] | | | | + + + +--------+ + + + + | Automated blood lymphocyte count as percentage ot total leukocytes | + + + + + +--------+ + + | Automated | 2022-01-25 | [facility] | 16.3 | (missing) | (missing) | | blood | 11:21 | [facility] | | | | lymphocyte | | [facility] | | | | | count as | | | | | | | percentage | | | | | | | ot total | | | | | | | leukocytes | | | | | | + + + +--------+ + + | Automated | 2023-01-08 | [facility] | 16.4 | (missing) | (missing) | | blood | 05:15 | [facility] | | | | lymphocyte | | [facility] | | | | | count as | | | | | | | percentage | | | | | | | ot total | | | | | | | leukocytes | | | | | | + + + +--------+ + + + + | Automated blood lymphocyte count as percentage ot total leukocytes | + + + + + +--------+ + + | Automated | 2023-01-06 | [facility] | 14.0 | (missing) | (missing) | | blood | 11:35 | [facility] | | | | lymphocyte | | [facility] | | | | | count as | | | | | | | percentage | | | | | | | ot total | | | | | | | leukocytes | | | | | | + + + +--------+ + + + + | Automated blood neutrophil count as percentage of total leukocytes | + + + + + +--------+ + + | Automated | 2022-01-25 | [facility] | 72.7 | (missing) | (missing) | | blood | 11:21 | [facility] | | | | neutrophil | | [facility] | | | | | count as | | | | | | | percentage | | | | | | | of total | | | | | | | leukocytes | | | | | | + + + +--------+ + + | Automated | 2023-01-08 | [facility] | 74.1 | (missing) | (missing) | | blood | 05:15 | [facility] | | | | neutrophil | | [facility] | | | | | count as | | | | | | | percentage | | | | | | | of total | | | | | | | leukocytes | | | | | | + + + +--------+ + + + + | Automated blood neutrophil count as percentage of total leukocytes | + + + + + +--------+ + + | Automated | 2023-01-06 | [facility] | 77.9 | (missing) | (missing) | | blood | 11:35 | [facility] | | | | neutrophil | | [facility] | | | | | count as | | | | | | | percentage | | | | | | | of total | | | | | | | leukocytes | | | | | | + + + +--------+ + + + + | Automated blood platelet count (count/volume) | + + + + + +-------+ + + | Automated | 2023-01-06 | [facility] | 278 | (missing) | (missing) | | blood | 11:35 | [facility] | | | | platelet | | [facility] | | | | | count | | | | | | | (count/volum | | | | | | | e) | | | | | | + + + +-------+ + + + + | Automated blood platelet count (count/volume) | + + + + + +-------+ + + | Automated | 2022-01-25 | [facility] | 254 | (missing) | (missing) | | blood | 11:21 | [facility] | | | | platelet | | [facility] | | | | | count | | | | | | | (count/volum | | | | | | | e) | | | | | | + + + +-------+ + + | Automated | 2023-01-08 | [facility] | 289 | (missing) | (missing) | | blood | 05:15 | [facility] | | | | | platelet | | [facility] | | | | | count | | | | | | | (count/volum | | | | | | | e) | | | | | | + + + +-------+ + + + + | Automated erythrocyte mean corpuscular hemoglobin (mass per erythrocyte) | + + + + + +--------+ + + | Automated | 2022-01-25 | [facility] | 32.1 | (missing) | (missing) | | erythrocyte | 11:21 | [facility] | | | | mean | | [facility] | | | | | corpuscular | | | | | | | hemoglobin | | | | | | | (mass per | | | | | | | erythrocyte) | | | | | | | | | | | | | + + + +--------+ + + | Automated | 2023-01-08 | [facility] | 32.0 | (missing) | (missing) | | erythrocyte | 05:15 | [facility] | | | | mean | | [facility] | | | | | corpuscular | | | | | | | hemoglobin | | | | | | | (mass per | | | | | | | erythrocyte) | | | | | | | | | | | | | + + + +--------+ + + + + | Automated erythrocyte mean corpuscular hemoglobin (mass per erythrocyte) | + + + + + +--------+ + + | Automated | 2023-01-06 | [facility] | 31.6 | (missing) | (missing) | | erythrocyte | 11:35 | [facility] | | | | mean | | [facility] | | | | | corpuscular | | | | | | | hemoglobin | | | | | | | (mass per | | | | | | | erythrocyte) | | | | | | | | | | | | | + + + +--------+ + + + + | Automated erythrocyte mean corpuscular hemoglobin concentration measurement | | (mass/volume) | + + + + + +--------+ + + | Automated | 2022-01-25 | [facility] | 33.8 | (missing) | (missing) | | erythrocyte | 11:21 | [facility] | | | | mean | | [facility] | | | | | corpuscular | | | | | | | hemoglobin | | | | | | | concentratio | | | | | | | n | | | | | | | measurement | | | | | | | (mass/volume | | | | | | | ) | | | | | | + + + +--------+ + + | Automated | 2023-01-08 | [facility] | 34.0 | (missing) | (missing) | | erythrocyte | 05:15 | [facility] | | | | mean | | [facility] | | | | | corpuscular | | | | | | | hemoglobin | | | | | | | concentratio | | | | | | | n | | | | | | | measurement | | | | | | | (mass/volume | | | | | | | ) | | | | | | + + + +--------+ + + + + | Automated erythrocyte mean corpuscular hemoglobin concentration measurement | | (mass/volume) | + + + + + +--------+ + + | Automated | 2023-01-06 | [facility] | 33.6 | (missing) | (missing) | | erythrocyte | 11:35 | [facility] | | | | mean | | [facility] | | | | | corpuscular | | | | | | | hemoglobin | | | | | | | concentratio | | | | | | | n | | | | | | | measurement | | | | | | | (mass/volume | | | | | | | ) | | | | | | + + + +--------+ + + + + | Automated erythrocyte mean corpuscular volume | + + + + + +--------+ + + | Automated | 2022-01-25 | [facility] | 95.2 | (missing) | (missing) | | erythrocyte | 11:21 | [facility] | [facility] mean | | [facility] | | | | | corpuscular | | | | | | | volume | | | | | | + + + +--------+ + + | Automated | 2023-01-08 | [facility] | 94.3 | (missing) | (missing) | | erythrocyte | 05:15 | [facility] | | | | mean | | [facility] | | | | | corpuscular | | | | | | | volume | | | | | | + + + +--------+ + + + + | Automated erythrocyte mean corpuscular volume | + + + + + +--------+ + + | Automated | 2023-01-06 | [facility] | 94.1 | (missing) | (missing) | | erythrocyte | 11:35 | [facility] | | | | mean | | [facility] | | | | | corpuscular | | | | | | | volume | | | | | | + + + +--------+ + + + + | Blood erythrocytes automated count (number/volume) | + + + + + +--------+ + + | Blood | 2022-01-25 | [facility] | 4.83 | (missing) | (missing) | | erythrocytes | 11:21 | [facility] | [facility] | | [facility] | | | | | count | | | | | | | (number/volu | | | | | | | me) | | | | | | + + + +--------+ + + | Blood | 2023-01-08 | [facility] | 4.41 | (missing) | (missing) | | erythrocytes | 05:15 | [facility] | | [facility] | | | | | count | | | | | | | (number/volu | | | | | | | me) | | | | | | + + + +--------+ + + + + | Blood erythrocytes automated count (number/volume) | + + + + + +--------+ + + | Blood | 2023-01-06 | [facility] | 4.39 | (missing) | (missing) | | erythrocytes | 11:35 | [facility] | [facility] | | | | | count | | | | | | | (number/volu | | | | | | | me) | | | | | | + + + +--------+ + + + + | Serum or plasma cardiac troponin I measurement by high senstivity method (mass/volume) | + + + + + +--------+ + + | Serum or | 2023-01-06 | [facility] | 38.7 | (missing) | (missing) | | plasma | 11:35 | [facility] | | | | cardiac | | [facility] | | | | | troponin I | | | | | | | measurement | | | | | | | by high | | | | | | | senstivity | | | | | | | method | | | | | | | (mass/volume | | | | | | | ) | | | | | | + + + +--------+ + + + + | Respiratory specimen 2019 novel coronavirus RNA detection | + + + + + + + + + | Respiratory | 2023-01-06 | [facility] | NEGATIVE | (missing) | (missing) | | specimen | 11:50 | [facility] | | | | | 2019 novel | | Hospital | | | | | coronavirus | | | | | | | RNA | | | | | | | detection | | | | | | + + + + + + + + + | Glomerular filtration rate/1.73 sq M.predicted [Volume Rate/Area] inSerum, Plasma or | | Blood by Creatinine-based formula (CKD-EPI 2020) | + + + + + +-------+ + + | Glomerular | 2022-01-25 | [facility] | 101 | (missing) | (missing) | | filtration | 11:21 | [facility] | | | | | rate/1.73 sq | | Hospital | | | | | M.predicted | | | | | | | [Volume | | | | | | | Rate/Area] | | | | | | | inSerum, | | | | | | | Plasma or | | | | | | | Blood by | | | | | | | Creatinine-b | | | | | | | ased formula | | | | | | | (CKD-EPI | | | | | | | 2020) | | | | | | + + + +-------+ + + | Glomerular | 2023-01-08 | [facility] | 67 | (missing) | (missing) | | filtration | 05:15 | [facility] | | | | | rate/1.73 sq | | Hospital | | | | | M.predicted | | | | | | | [Volume | | | | | | | Rate/Area] | | | | | | | inSerum, | | | | | | | Plasma or | | | | | | | Blood by | | | | | | | Creatinine-b | | | | | | | ased formula | | | | | | | (CKD-EPI | | | | | | | 2020) | | | | | | + + + +-------+ + + + + | Glomerular filtration rate/1.73 sq M.predicted [Volume Rate/Area] inSerum, Plasma or | | Blood by Creatinine-based formula (CKD-EPI 2020) | + + + + + +------+ + + | Glomerular | 2023-01-06 | [facility] | 95 | (missing) | (missing) | | filtration | 11:35 | [facility] | | | | | rate/1.73 sq | | Hospital | | | | | M.predicted | | | | | | | [Volume | | | | | | | Rate/Area] | | | | | | | inSerum, | | | | | | | Plasma or | | | | | | | Blood by | | | | | | | Creatinine-b | | | | | | | ased formula | | | | | | | (CKD-EPI | | | | | | | 2020) | | | | | | + + + +------+ + + Social History + + + + | date | description | facility | + + + + | 2022-01-25 00:00 | [facility] | + + + + | 2022-02-16 00:00 | Current every day smoker | [facility] | + + + + | 2023-01-06 00:00 | Current every day smoker | [facility] | + + + + | 2023-01-08 00:00 | Current every day smoker | [facility] | + + + + | 2023-01-21 00:00 | Current every day smoker | [facility] | + + + + Vital Signs + + + +---------+ | date | measurement | value | units | + + + +---------+ | 2022-01-25 00:00 | BMI | 37.8 | kg/m2 | + + + +---------+ | 2022-01-25 00:00 | BP_diastolic | 95 | mmHg | + + + +---------+ | 2022-01-25 00:00 | BP_systolic | 159 | mmHg | + + + +---------+ | 2022-01-25 00:00 | heart_rate | 71 | /min | + + + +---------+ | 2022-01-25 00:00 | height_metric | 182.88 | cm | + + + +---------+ | 2022-01-25 00:00 | height_standard | 72 | in | + + + +---------+ | 2022-01-25 00:00 | o2_saturation | 96 | % | + + + +---------+ | 2022-01-25 00:00 | respiration_rate | 16 | /min | + + + +---------+ | 2022-01-25 00:00 | temperature_metric | 36.44 | C | | | | | | + + + +---------+ | 2022-01-25 00:00 | | 97.6 | F | | | temperature_standar | | | | | d | | | + + + +---------+ | 2022-01-25 00:00 | weight_metric | 126.51 | kg | + + + +---------+ | 2022-01-25 00:00 | weight_standard | 278.9 | lb | + + + +---------+ | 2022-01-25 00:00 | weight_standard | 278.91 | lb | + + + +---------+ | 2022-02-16 00:00 | BMI | 37.6 | kg/m2 | + + + +---------+ | 2022-02-16 00:00 | BP_diastolic | 59 | mmHg | + + + +---------+ | 2022-02-16 00:00 | BP_systolic | 160 | mmHg | + + + +---------+ | 2022-02-16 00:00 | heart_rate | 72 | /min | + + + +---------+ | 2022-02-16 00:00 | height_metric | 182.88 | cm | + + + +---------+ | 2022-02-16 00:00 | height_standard | 72 | in | + + + +---------+ | 2022-02-16 00:00 | o2_saturation | 99 | % | + + + +---------+ | 2022-02-16 00:00 | respiration_rate | 16 | /min | + + + +---------+ | 2022-02-16 00:00 | temperature_metric | 36.78 | C | | | | | | + + + +---------+ | 2022-02-16 00:00 | | 98.2 | F | | | temperature_standar | | | | | d | | | + + + +---------+ | 2022-02-16 00:00 | weight_metric | 125.64 | kg | + + + +---------+ | 2022-02-16 00:00 | weight_metric | 125.65 | kg | + + + +---------+ | 2022-02-16 00:00 | weight_standard | 277 | lb | + + + +---------+ | 2023-01-06 00:00 | BMI | 37.6 | kg/m2 | + + + +---------+ | 2023-01-06 00:00 | BP_diastolic | 110 | mmHg | + + + +---------+ | 2023-01-06 00:00 | BP_systolic | 180 | mmHg | + + + +---------+ | 2023-01-06 00:00 | heart_rate | 72 | /min | + + + +---------+ | 2023-01-06 00:00 | height_metric | 182.88 | cm | + + + +---------+ | 2023-01-06 00:00 | height_standard | 72 | in | + + + +---------+ | 2023-01-06 00:00 | o2_saturation | 96 | % | + + + +---------+ | 2023-01-06 00:00 | respiration_rate | 27 | /min | + + + +---------+ | 2023-01-06 00:00 | temperature_metric | 36.72 | C | | | | | | + + + +---------+ | 2023-01-06 00:00 | | 98.1 | F | | | temperature_standar | | | | | d | | | + + + +---------+ | 2023-01-06 00:00 | weight_metric | 125.9 | kg | + + + +---------+ | 2023-01-06 00:00 | weight_standard | 277.56 | lb | + + + +---------+ | 2023-01-08 00:00 | BMI | 35.3 | kg/m2 | + + + +---------+ | 2023-01-08 00:00 | BP_diastolic | 68 | mmHg | + + + +---------+ | 2023-01-08 00:00 | BP_systolic | 118 | mmHg | + + + +---------+ | 2023-01-08 00:00 | heart_rate | 77 | /min | + + + +---------+ | 2023-01-08 00:00 | height_metric | 182.88 | cm | + + + +---------+ | 2023-01-08 00:00 | height_standard | 72 | in | + + + +---------+ | 2023-01-08 00:00 | o2_saturation | 95 | % | + + + +---------+ | 2023-01-08 00:00 | respiration_rate | 16 | /min | + + + +---------+ | 2023-01-08 00:00 | temperature_metric | 36.17 | C | | | | | | + + + +---------+ | 2023-01-08 00:00 | | 97.1 | F | | | temperature_standar | | | | | d | | | + + + +---------+ | 2023-01-08 00:00 | weight_metric | 117.9 | kg | + + + +---------+ | 2023-01-08 00:00 | weight_standard | 259.93 | lb | + + + +---------+ | 2023-01-21 00:00 | BMI | 36.8 | kg/m2 | + + + +---------+ | 2023-01-21 00:00 | BP_diastolic | 110 | mmHg | + + + +---------+ | 2023-01-21 00:00 | BP_systolic | 164 | mmHg | + + + +---------+ | 2023-01-21 00:00 | heart_rate | 85 | /min | + + + +---------+ | 2023-01-21 00:00 | height_metric | 182.88 | cm | + + + +---------+ | 2023-01-21 00:00 | height_standard | 72 | in | + + + +---------+ | 2023-01-21 00:00 | o2_saturation | 95 | % | + + + +---------+ | 2023-01-21 00:00 | respiration_rate | 20 | /min | + + + +---------+ | 2023-01-21 00:00 | temperature_metric | 36.5 | C | | | | | | + + + +---------+ | 2023-01-21 00:00 | | 97.7 | F | | | temperature_standar | | | | | d | | | + + + +---------+ | 2023-01-21 00:00 | weight_metric | 123.1 | kg | + + + +---------+ | 2023-01-21 00:00 | weight_standard | 271.39 | lb | + + + +---------+"
--- OUTSIDE RECORDS SUMMARY | ~2023-01-28 | XMS | Continuity of Care Document ---
Demographics + + + | Address | [address] | | | [place] [address] | + + + | Preferred Language | Unknown | + + + | Marital Status | Never | + + + | Islam Affiliation | Unknown | + + + | Race | White | + + + | Ethnic Group | Not or | + + + Author + + + | Author | [facility] | + + + | Organization | [facility] | + + + | Address | [address] | | | [place] [address] | + + + | Phone | | + + + Care Team Providers + + + + | Care Managed Services Sales Consultant Name | Role | Phone | + [...] | (no severity) | | | | [facility] | | | | | | Hospital [...] | 2017-02-22 00:00 | Influenza, Seasonal, | [facility] | | | Injectable, Preservative | | | | Free | | + + + + | 2017-02-22 00:00 | Influenza, Seasonal, | [facility] | | | Injectable, Preservative | | | | Free | | + + + + | 2017-02-22 00:00 | Influenza, Seasonal, | [facility] | | | Injectable, Preservative | | | | Free | | + + + + | 2022-01-25 00:00 | No vaccine administered | [facility] | + + + + | 2022-02-16 00:00 | No vaccine administered | [facility] | + + + + | 2023-01-06 00:00 | No vaccine administered | [facility] | + + + + | 2023-01-08 00:00 | No vaccine administered | [facility] | + + + + | 2023-01-21 00:00 | No vaccine administered | [facility] | + + + + Medications + + + + | date | description | facility | + + + + | 2017-02-26 00:00 | OXYCODONE | [facility] | | | HCL/ACETAMINOPHEN | | + + + + | 2017-02-26 00:00 | OXYCODONE | [facility] | | | HCL/ACETAMINOPHEN | | + + + + | 2017-02-26 00:00 | OXYCODONE | [facility] | | | HCL/ACETAMINOPHEN | | + + + + | 2017-02-26 00:00 | acetaminophen 325 MG / | [facility] | | | oxycodone hydrochloride 5 | | | | MG Oral Tab | | + + + + | 2023-01-06 00:00 | POTASSIUM CHLORIDE | [facility] | + + + + | 2023-01-06 00:00 | POTASSIUM CHLORIDE | [facility] | + + + + | 2023-01-08 00:00 | POTASSIUM CHLORIDE | [facility] | + + + + | 2023-01-08 00:00 | POTASSIUM CHLORIDE | [facility] | + + + + | 2023-01-06 00:00 | potassium chloride 20 MEQ | [facility] | | | Extended Release Oral | | | | Tablet [K-Ta | | + + + + | 2023-01-08 00:00 | potassium chloride 20 MEQ | [facility] | | | Extended Release Oral | | | | Tablet [K-Ta | | + + + + | 2023-01-08 00:00 | QUETIAPINE FUMARATE | [facility] | + + + + | 2023-01-08 00:00 | QUETIAPINE FUMARATE | [facility] | + + + + | 2023-01-08 00:00 | quetiapine 25 MG Oral | [facility] | | | Tablet [Seroquel] | | + + + + | 2018-08-03 00:00 | DOXYCYCLINE HYCLATE | [facility] | + + + + | 2018-08-03 00:00 | DOXYCYCLINE HYCLATE | [facility] | + + + + | 2018-08-03 00:00 | DOXYCYCLINE HYCLATE | [facility] | + + + + | 2018-08-03 00:00 | doxycycline hyclate 100 MG | [facility] | | | Oral Capsule | | + + + + | 2017-04-20 00:00 | CHLORTHALIDONE | [facility] | + + + + | 2017-04-20 00:00 | CHLORTHALIDONE | [facility] | + + + + | 2017-04-20 00:00 | CHLORTHALIDONE | [facility] | + + + + | 2022-01-31 00:00 | CHLORTHALIDONE | [facility] | + + + + | 2022-02-16 00:00 | CHLORTHALIDONE | [facility] | + + + + | 2023-01-06 00:00 | CHLORTHALIDONE | [facility] | + + + + | 2023-01-08 00:00 | CHLORTHALIDONE | [facility] | + + + + | 2023-01-21 00:00 | CHLORTHALIDONE | [facility] | + + + + | 2017-04-20 00:00 | chlorthalidone 25 MG Oral | [facility] | | | Tablet | | + + + + | 2022-01-25 00:00 | chlorthalidone 25 MG Oral | [facility] | | | Tablet | | + + + + | 2022-02-16 00:00 | chlorthalidone 25 MG Oral | [facility] | | | Tablet | | + + + + | 2023-01-06 00:00 | chlorthalidone 25 MG Oral | [facility] | | | Tablet | | + + + + | 2023-01-08 00:00 | chlorthalidone 25 MG Oral | [facility] | | | Tablet | | + + + + | 2023-01-21 00:00 | chlorthalidone 25 MG Oral | [facility] | | | Tablet | | + + + + | 2022-01-31 00:00 | DIAZEPAM | [facility] | + + + + | 2022-02-16 00:00 | DIAZEPAM | [facility] | + + + + | 2023-01-06 00:00 | DIAZEPAM | [facility] | + + + + | 2023-01-08 00:00 | DIAZEPAM | [facility] | + + + + | 2023-01-21 00:00 | DIAZEPAM | [facility] | + + + + | 2022-01-25 00:00 | diazepam 5 MG Oral Tablet | [facility] | + + + + | 2022-02-16 00:00 | diazepam 5 MG Oral Tablet | [facility] | + + + + | 2023-01-06 00:00 | diazepam 5 MG Oral Tablet | [facility] | + + + + | 2023-01-08 00:00 | diazepam 5 MG Oral Tablet | [facility] | + + + + | 2023-01-21 00:00 | diazepam 5 MG Oral Tablet | [facility] | + + + + | 2023-01-08 00:00 | INDAPAMIDE | [facility] | + + + + | 2023-01-21 00:00 | INDAPAMIDE | [facility] | + + + + | 2023-01-08 00:00 | indapamide 1.25 MG Oral | [facility] | | | Tablet | | + + + + | 2023-01-21 00:00 | indapamide 1.25 MG Oral | [facility] | | | Tablet | | + + + + | 2023-01-08 00:00 | LISINOPRIL | [facility] | + + + + | 2023-01-21 00:00 | LISINOPRIL | [facility] | + + + + | 2023-01-08 00:00 | lisinopril 40 MG Oral | [facility] | | | Tablet | | + + + + | 2023-01-21 00:00 | lisinopril 40 MG Oral | [facility] | | | Tablet | | + + + + | 2022-01-31 00:00 | LORAZEPAM | [facility] | + + + + | 2022-02-16 00:00 | LORAZEPAM | [facility] | + + + + | 2023-01-06 00:00 | LORAZEPAM | [facility] | + + + + | 2023-01-08 00:00 | LORAZEPAM | [facility] | + + + + | 2023-01-21 00:00 | LORAZEPAM | [facility] | + + + + | 2022-01-25 00:00 | lorazepam 0.5 MG Oral | [facility] | | | Tablet | | + + + + | 2022-02-16 00:00 | lorazepam 0.5 MG Oral | [facility] | | | Tablet | | + + + + | 2023-01-06 00:00 | lorazepam 0.5 MG Oral | [facility] | | | Tablet | | + + + + | 2023-01-08 00:00 | lorazepam 0.5 MG Oral | [facility] | | | Tablet | | + + + + | 2023-01-21 00:00 | lorazepam 0.5 MG Oral | [facility] | | | Tablet | | + + + + | 2017-02-26 00:00 | 24 HR nicotine 0.875 MG/HR | [facility] | | | Transdermal System | | + + + + | 2017-02-26 00:00 | NICOTINE 21MG | [facility] | + + + + | 2017-02-26 00:00 | NICOTINE 21MG | [facility] | + + + + | 2017-02-26 00:00 | NICOTINE 21MG | [facility] | + + + + | 2017-02-16 00:00 | OMEPRAZOLE | [facility] | + + + + | 2017-02-16 00:00 | OMEPRAZOLE | [facility] | + + + + | 2017-02-16 00:00 | OMEPRAZOLE | [facility] | + + + + | 2017-02-16 00:00 | omeprazole 20 MG Delayed | [facility] | | | Release Oral Capsule | | + + + + | 2023-01-08 00:00 | TOPIRAMATE | [facility] | + + + + | 2023-01-21 00:00 | TOPIRAMATE | [facility] | + + + + | 2023-01-08 00:00 | topiramate 25 MG Oral | [facility] | | | Tablet | | + + + + | 2023-01-21 00:00 | topiramate 25 MG Oral | [facility] | | | Tablet | | + + + + | 2022-01-31 00:00 | CARVEDILOL | [facility] | + + + + | 2022-01-25 00:00 | carvedilol 12.5 MG Oral | [facility] | | | Tablet | | + + + + | 2022-01-25 00:00 | CARVEDILOL | [facility] | + + + + | 2022-01-25 00:00 | CARVEDILOL | [facility] | + + + + | 2022-01-25 00:00 | CARVEDILOL | [facility] | + + + + | 2022-01-25 00:00 | carvedilol 25 MG Oral | [facility] | | | Tablet | | + + + + | 2023-01-08 00:00 | FUROSEMIDE | [facility] | + + + + | 2023-01-08 00:00 | FUROSEMIDE | [facility] | + + + + | 2023-01-08 00:00 | furosemide 40 MG Oral | [facility] | | | Tablet [Lasix] | | + + + + | 2019-04-13 00:00 | CIPROFLOXACIN HCL | [facility] | + + + + | 2019-04-13 00:00 | CIPROFLOXACIN HCL | [facility] | + + + + | 2019-04-13 00:00 | CIPROFLOXACIN HCL | [facility] | + + + + | 2019-04-13 00:00 | ciprofloxacin 500 MG Oral | [facility] | | | Tablet [Cipro] | | + + + + | 2019-02-08 00:00 | METOCLOPRAMIDE HCL | [facility] | + + + + | 2019-02-08 00:00 | METOCLOPRAMIDE HCL | [facility] | + + + + | 2019-02-08 00:00 | METOCLOPRAMIDE HCL | [facility] | + + + + | 2019-02-08 00:00 | metoclopramide 10 MG Oral | [facility] | | | Tablet [Reglan] | | + + + + | 2022-01-31 00:00 | NITROGLYCERIN | [facility] | + + + + | 2022-02-16 00:00 | NITROGLYCERIN | [facility] | + + + + | 2023-01-06 00:00 | NITROGLYCERIN | [facility] | + + + + | 2023-01-08 00:00 | NITROGLYCERIN | [facility] | + + + + | 2023-01-21 00:00 | NITROGLYCERIN | [facility] | + + + + | 2022-01-25 00:00 | nitroglycerin 0.4 MG | [facility] | | | Sublingual Tablet | | | | [Nitrostat] | | + + + + | 2022-02-16 00:00 | nitroglycerin 0.4 MG | [facility] | | | Sublingual Tablet | | | | [Nitrostat] | | + + + + | 2023-01-06 00:00 | nitroglycerin 0.4 MG | [facility] | | | Sublingual Tablet | | | | [Nitrostat] | | + + + + | 2023-01-08 00:00 | nitroglycerin 0.4 MG | [facility] | | | Sublingual Tablet | | | | [Nitrostat] | | + + + + | 2023-01-21 00:00 | nitroglycerin 0.4 MG | [facility] | | | Sublingual Tablet | | | | [Nitrostat] | | + + + + | 2022-01-31 00:00 | ASPIRIN | [facility] | + + + + | 2022-02-16 00:00 | ASPIRIN | [facility] | + + + + | 2023-01-06 00:00 | ASPIRIN | [facility] | + + + + | 2023-01-08 00:00 | ASPIRIN | [facility] | + + + + | 2023-01-21 00:00 | ASPIRIN | [facility] | + + + + | 2022-01-25 00:00 | aspirin 325 MG Oral Tablet | [facility] | | | | | + + + + | 2022-02-16 00:00 | aspirin 325 MG Oral Tablet | [facility] | | | | | + + + + | 2023-01-06 00:00 | aspirin 325 MG Oral Tablet | [facility] | | | | | + + + + | 2023-01-08 00:00 | aspirin 325 MG Oral Tablet | [facility] | | | | | + + + + | 2023-01-21 00:00 | aspirin 325 MG Oral Tablet | [facility] | | | | | + + + + | 2017-09-07 00:00 | CARVEDILOL | [facility] | + + + + | 2017-09-07 00:00 | CARVEDILOL | [facility] | + + + + | 2017-09-07 00:00 | CARVEDILOL | [facility] | + + + + | 2017-09-07 00:00 | carvedilol 12.5 MG Oral | [facility] | | | Tablet [Coreg] | | + + + + | 2022-01-31 00:00 | CARVEDILOL | [facility] | + + + + | 2022-02-16 00:00 | CARVEDILOL | [facility] | + + + + | 2023-01-06 00:00 | CARVEDILOL | [facility] | + + + + | 2023-01-08 00:00 | CARVEDILOL | [facility] | + + + + | 2023-01-21 00:00 | CARVEDILOL | [facility] | + + + + | 2022-01-25 00:00 | carvedilol 25 MG Oral | [facility] | | | Tablet [Coreg] | | + + + + | 2022-02-16 00:00 | carvedilol 25 MG Oral | [facility] | | | Tablet [Coreg] | | + + + + | 2023-01-06 00:00 | carvedilol 25 MG Oral | [facility] | | | Tablet [Coreg] | | + + + + | 2023-01-08 00:00 | carvedilol 25 MG Oral | [facility] | | | Tablet [Coreg] | | + + + + | 2023-01-21 00:00 | carvedilol 25 MG Oral | [facility] | | | Tablet [Coreg] | | + + + + | 2022-01-31 00:00 | CLOPIDOGREL BISULFATE | [facility] | + + + + | 2022-02-16 00:00 | CLOPIDOGREL BISULFATE | [facility] | + + + + | 2023-01-06 00:00 | CLOPIDOGREL BISULFATE | [facility] | + + + + | 2023-01-08 00:00 | CLOPIDOGREL BISULFATE | [facility] | + + + + | 2023-01-21 00:00 | CLOPIDOGREL BISULFATE | [facility] | + + + + | 2022-01-25 00:00 | clopidogrel 75 MG Oral | [facility] | | | Tablet [Plavix] | | + + + + | 2022-02-16 00:00 | clopidogrel 75 MG Oral | [facility] | | | Tablet [Plavix] | | + + + + | 2023-01-06 00:00 | clopidogrel 75 MG Oral | [facility] | | | Tablet [Plavix] | | + + + + | 2023-01-08 00:00 | clopidogrel 75 MG Oral | [facility] | | | Tablet [Plavix] | | + + + + | 2023-01-21 00:00 | clopidogrel 75 MG Oral | [facility] | | | Tablet [Plavix] | | + + + + | 2022-01-31 00:00 | ATORVASTATIN | [facility] | + + + + | 2022-02-16 00:00 | ATORVASTATIN | [facility] | + + + + | 2023-01-06 00:00 | ATORVASTATIN | [facility] | + + + + | 2023-01-08 00:00 | ATORVASTATIN | [facility] | + + + + | 2023-01-21 00:00 | ATORVASTATIN | [facility] | + + + + | 2022-01-25 00:00 | atorvastatin 80 MG Oral | [facility] | | | Tablet [Lipitor] | | + + + + | 2022-02-16 00:00 | atorvastatin 80 MG Oral | [facility] | | | Tablet [Lipitor] | | + + + + | 2023-01-06 00:00 | atorvastatin 80 MG Oral | [facility] | | | Tablet [Lipitor] | | + + + + | 2023-01-08 00:00 | atorvastatin 80 MG Oral | [facility] | | | Tablet [Lipitor] | | + + + + | 2023-01-21 00:00 | atorvastatin 80 MG Oral | [facility] | | | Tablet [Lipitor] | | + + + + | 2022-01-31 00:00 | CYANOCOBALAMIN (VITAMIN | [facility] | | | B-12) | | + + + + | 2022-02-16 00:00 | CYANOCOBALAMIN (VITAMIN | [facility] | | | B-12) | | + + + + | 2023-01-06 00:00 | CYANOCOBALAMIN (VITAMIN | [facility] | | | B-12) | | + + + + | 2023-01-08 00:00 | CYANOCOBALAMIN (VITAMIN | [facility] | | | B-12) | | + + + + | 2023-01-21 00:00 | CYANOCOBALAMIN (VITAMIN | [facility] | | | B-12) | | + + + + | 2022-01-25 00:00 | vitamin B12 1 MG Oral | [facility] | | | Tablet | | + + + + | 2022-02-16 00:00 | vitamin B12 1 MG Oral | [facility] | | | Tablet | | + + + + | 2023-01-06 00:00 | vitamin B12 1 MG Oral | [facility] | | | Tablet | | + + + + | 2023-01-08 00:00 | vitamin B12 1 MG Oral | [facility] | | | Tablet | | + + + + | 2023-01-21 00:00 | vitamin B12 1 MG Oral | [facility] | | | Tablet | | + + + + | 2022-01-31 00:00 | HYDROCHLOROTHIAZIDE | [facility] | + + + + | 2022-02-16 00:00 | HYDROCHLOROTHIAZIDE | [facility] | + + + + | 2022-02-16 00:00 | HYDROCHLOROTHIAZIDE | [facility] | + + + + | 2022-02-16 00:00 | HYDROCHLOROTHIAZIDE | [facility] | + + + + | 2023-01-06 00:00 | HYDROCHLOROTHIAZIDE | [facility] | + + + + | 2023-01-08 00:00 | HYDROCHLOROTHIAZIDE | [facility] | + + + + | 2023-01-21 00:00 | HYDROCHLOROTHIAZIDE | [facility] | + + + + | 2022-01-25 00:00 | hydrochlorothiazide 25 MG | [facility] | | | Oral Tablet | | + + + + | 2022-02-16 00:00 | hydrochlorothiazide 25 MG | [facility] | | | Oral Tablet | | + + + + | 2023-01-06 00:00 | hydrochlorothiazide 25 MG | [facility] | | | Oral Tablet | | + + + + | 2023-01-08 00:00 | hydrochlorothiazide 25 MG | [facility] | | | Oral Tablet | | + + + + | 2023-01-21 00:00 | hydrochlorothiazide 25 MG | [facility] | | | Oral Tablet | | + + + + | 2019-02-08 00:00 | ONDANSETRON | [facility] | + + + + | 2019-02-08 00:00 | ONDANSETRON | [facility] | + + + + | 2019-02-08 00:00 | ONDANSETRON | [facility] | + + + + | 2019-02-08 00:00 | ondansetron 8 MG | [facility] | | | Disintegrating Oral Tablet | | + + + + | 2017-04-20 00:00 | LISINOPRIL | [facility] | + + + + | 2017-04-20 00:00 | LISINOPRIL | [facility] | + + + + | 2017-04-20 00:00 | LISINOPRIL | [facility] | + + + + | 2022-01-31 00:00 | LISINOPRIL | [facility] | + + + + | 2022-02-16 00:00 | LISINOPRIL | [facility] | + + + + | 2023-01-06 00:00 | LISINOPRIL | [facility] | + + + + | 2023-01-08 00:00 | LISINOPRIL | [facility] | + + + + | 2023-01-21 00:00 | LISINOPRIL | [facility] | + + + + | 2017-04-20 00:00 | lisinopril 20 MG Oral | [facility] | | | Tablet | | + + + + | 2022-01-25 00:00 | lisinopril 20 MG Oral | [facility] | | | Tablet | | + + + + | 2022-02-16 00:00 | lisinopril 20 MG Oral | [facility] | | | Tablet | | + + + + | 2023-01-06 00:00 | lisinopril 20 MG Oral | [facility] | | | Tablet | | + + + + | 2023-01-08 00:00 | lisinopril 20 MG Oral | [facility] | | | Tablet | | + + + + | 2023-01-21 00:00 | lisinopril 20 MG Oral | [facility] | | | Tablet | | + + + + | 2017-09-07 00:00 | 24 HR isosorbide | [facility] | | | mononitrate 30 MG Extended | | | | Release Oral Tab | | + + + + | 2017-09-07 00:00 | ISOSORBIDE MONONITRATE | [facility] | + + + + | 2017-09-07 00:00 | ISOSORBIDE MONONITRATE | [facility] | + + + + | 2017-09-07 00:00 | ISOSORBIDE MONONITRATE | [facility] | + + + + | 2022-01-31 00:00 | ASPIRIN | [facility] | + + + + | 2022-02-16 00:00 | ASPIRIN | [facility] | + + + + | 2023-01-06 00:00 | ASPIRIN | [facility] | + + + + | 2023-01-08 00:00 | ASPIRIN | [facility] | + + + + | 2023-01-21 00:00 | ASPIRIN | [facility] | + + + + | 2022-01-25 00:00 | aspirin 81 MG Chewable | [facility] | | | Tablet | | + + + + | 2022-02-16 00:00 | aspirin 81 MG Chewable | [facility] | | | Tablet | | + + + + | 2023-01-06 00:00 | aspirin 81 MG Chewable | [facility] | | | Tablet | | + + + + | 2023-01-08 00:00 | aspirin 81 MG Chewable | [facility] | | | Tablet | | + + + + | 2023-01-21 00:00 | aspirin 81 MG Chewable | [facility] | | | Tablet | | + + + + | 2022-01-31 00:00 | VITAMIN E MIXED | [facility] | + + + + | 2022-02-16 00:00 | VITAMIN E MIXED | [facility] | + + + + | 2023-01-06 00:00 | VITAMIN E MIXED | [facility] | + + + + | 2023-01-08 00:00 | VITAMIN E MIXED | [facility] | + + + + | 2023-01-21 00:00 | VITAMIN E MIXED | [facility] | + + + + | 2022-01-25 00:00 | vitamin E 180 MG Oral | [facility] | | | Capsule | | + + + + | 2022-02-16 00:00 | vitamin E 180 MG Oral | [facility] | | | Capsule | | + + + + | 2023-01-06 00:00 | vitamin E 180 MG Oral | [facility] | | | Capsule | | + + + + | 2023-01-08 00:00 | vitamin E 180 MG Oral | [facility] | | | Capsule | | + + + + | 2023-01-21 00:00 | vitamin E 180 MG Oral | [facility] | | | Capsule | | + + + + | 2022-01-31 00:00 | CELECOXIB | [facility] | + + + + | 2022-02-16 00:00 | CELECOXIB | [facility] | + + + + | 2023-01-06 00:00 | CELECOXIB | [facility] | + + + + | 2023-01-08 00:00 | CELECOXIB | [facility] | + + + + | 2023-01-21 00:00 | CELECOXIB | [facility] | + + + + | 2022-01-25 00:00 | celecoxib 50 MG Oral | [facility] | | | Capsule | | + + + + | 2022-02-16 00:00 | celecoxib 50 MG Oral | [facility] | | | Capsule | | + + + + | 2023-01-06 00:00 | celecoxib 50 MG Oral | [facility] | | | Capsule | | + + + + | 2023-01-08 00:00 | celecoxib 50 MG Oral | [facility] | | | Capsule | | + + + + | 2023-01-21 00:00 | celecoxib 50 MG Oral | [facility] | | | Capsule | | + + + + | 2020-03-20 00:00 | CLINDAMYCIN HCL | [facility] | + + + + | 2020-03-20 00:00 | CLINDAMYCIN HCL | [facility] | + + + + | 2020-03-20 00:00 | CLINDAMYCIN HCL | [facility] | + + + + | 2023-01-21 00:00 | CLINDAMYCIN HCL | [facility] | + + + + | 2020-03-20 00:00 | clindamycin 300 MG Oral | [facility] | | | Capsule [Cleocin] | | + + + + | 2023-01-21 00:00 | clindamycin 300 MG Oral | [facility] | | | Capsule [Cleocin] | | + + + + | 2016-05-17 00:00 | AZITHROMYCIN | [facility] | + + + + | 2016-05-17 00:00 | AZITHROMYCIN | [facility] | + + + + | 2016-05-17 00:00 | AZITHROMYCIN | [facility] | + + + + | 2016-05-17 00:00 | {6 (azithromycin 250 MG | [facility] | | | Oral Tablet) } Pack | | + + + + | 2022-01-31 00:00 | CHOLECALCIFEROL (VITAMIN | [facility] | | | D3) | | + + + + | 2022-02-16 00:00 | CHOLECALCIFEROL (VITAMIN | [facility] | | | D3) | | + + + + | 2023-01-06 00:00 | CHOLECALCIFEROL (VITAMIN | [facility] | | | D3) | | + + + + | 2023-01-08 00:00 | CHOLECALCIFEROL (VITAMIN | [facility] | | | D3) | | + + + + | 2023-01-21 00:00 | CHOLECALCIFEROL (VITAMIN | [facility] | | | D3) | | + + + + | 2022-01-25 00:00 | cholecalciferol 0.05 MG | [facility] | | | Oral Tablet | | + + + + | 2022-02-16 00:00 | cholecalciferol 0.05 MG | [facility] | | | Oral Tablet | | + + + + | 2023-01-06 00:00 | cholecalciferol 0.05 MG | [facility] | | | Oral Tablet | | + + + + | 2023-01-08 00:00 | cholecalciferol 0.05 MG | [facility] | | | Oral Tablet | | + + + + | 2023-01-21 00:00 | cholecalciferol 0.05 MG | [facility] | | | Oral Tablet | | + + + + | 2022-01-31 00:00 | CHOLECALCIFEROL (VITAMIN | [facility] | | | D3) | | + + + + | 2022-02-16 00:00 | CHOLECALCIFEROL (VITAMIN | [facility] | | | D3) | | + + + + | 2023-01-06 00:00 | CHOLECALCIFEROL (VITAMIN | [facility] | | | D3) | | + + + + | 2022-01-25 00:00 | cholecalciferol 0.05 MG | [facility] | | | Oral Capsule | | + + + + | 2022-02-16 00:00 | cholecalciferol 0.05 MG | [facility] | | | Oral Capsule | | + + + + | 2023-01-06 00:00 | cholecalciferol 0.05 MG | [facility] | | | Oral Capsule | | + + + + | 2018-05-24 00:00 | TRAMADOL HCL | [facility] | + + + + | 2018-05-24 00:00 | TRAMADOL HCL | [facility] | + + + + | 2018-05-24 00:00 | TRAMADOL HCL | [facility] | + + + + | 2018-08-03 00:00 | TRAMADOL HCL | [facility] | + + + + | 2018-08-03 00:00 | TRAMADOL HCL | [facility] | + + + + | 2018-08-03 00:00 | TRAMADOL HCL | [facility] | + + + + | 2019-04-13 00:00 | TRAMADOL HCL | [facility] | + + + + | 2019-04-13 00:00 | TRAMADOL HCL | [facility] | + + + + | 2019-04-13 00:00 | TRAMADOL HCL | [facility] | + + + + | 2022-01-31 00:00 | TRAMADOL HCL | [facility] | + + + + | 2022-02-16 00:00 | TRAMADOL HCL | [facility] | + + + + | 2023-01-06 00:00 | TRAMADOL HCL | [facility] | + + + + | 2023-01-08 00:00 | TRAMADOL HCL | [facility] | + + + + | 2023-01-21 00:00 | TRAMADOL HCL | [facility] | + + + + | 2018-05-24 00:00 | tramadol hydrochloride 50 | [facility] | | | MG Oral Tablet | | + + + + | 2018-08-03 00:00 | tramadol hydrochloride 50 | [facility] | | | MG Oral Tablet | | + + + + | 2019-04-13 00:00 | tramadol hydrochloride 50 | [facility] | | | MG Oral Tablet | | + + + + | 2022-01-25 00:00 | tramadol hydrochloride 50 | [facility] | | | MG Oral Tablet | | + + + + | 2022-02-16 00:00 | tramadol hydrochloride 50 | [facility] | | | MG Oral Tablet | | + + + + | 2023-01-06 00:00 | tramadol hydrochloride 50 | [facility] | | | MG Oral Tablet | | + + + + | 2023-01-08 00:00 | tramadol hydrochloride 50 | [facility] | | | MG Oral Tablet | | + + + + | 2023-01-21 00:00 | tramadol hydrochloride 50 | [facility] | | | MG Oral Tablet | | + + + + | 2017-04-20 00:00 | TRAMADOL HCL | [facility] | + + + + | 2017-04-20 00:00 | TRAMADOL HCL | [facility] | + + + + | 2017-04-20 00:00 | TRAMADOL HCL | [facility] | + + + + | 2022-01-31 00:00 | TRAMADOL HCL | [facility] | + + + + | 2022-02-16 00:00 | TRAMADOL HCL | [facility] | + + + + | 2023-01-06 00:00 | TRAMADOL HCL | [facility] | + + + + | 2023-01-08 00:00 | TRAMADOL HCL | [facility] | + + + + | 2023-01-21 00:00 | TRAMADOL HCL | [facility] | + + + + | 2017-04-20 00:00 | tramadol hydrochloride 50 | [facility] | | | MG Oral Tablet [Ultram] | | + + + + | 2022-01-25 00:00 | tramadol hydrochloride 50 | [facility] | | | MG Oral Tablet [Ultram] | | + + + + | 2022-02-16 00:00 | tramadol hydrochloride 50 | [facility] | | | MG Oral Tablet [Ultram] | | + + + + | 2023-01-06 00:00 | tramadol hydrochloride 50 | [facility] | | | MG Oral Tablet [Ultram] | | + + + + | 2023-01-08 00:00 | tramadol hydrochloride 50 | [facility] | | | MG Oral Tablet [Ultram] | | + + + + | 2023-01-21 00:00 | tramadol hydrochloride 50 | [facility] | | | MG Oral Tablet [Ultram] | | + + + + | 2016-05-17 00:00 | HYDROCODONE | [facility] | | | BIT/ACETAMINOPHEN | | + + + + | 2016-05-17 00:00 | HYDROCODONE | [facility] | | | BIT/ACETAMINOPHEN | | + + + + | 2016-05-17 00:00 | HY[facility]OCODONE | [facility] | | | BIT/ACETAMINOPHEN | | + + + + | 2016-05-17 00:00 | acetaminophen 325 MG / | [facility] | | | hydrocodone bitartrate 5 MG | | | | Oral Tabl | | + + + + | 2023-01-06 00:00 | ALBUTEROL SULFATE | [facility] | + + + + | 2023-01-06 00:00 | ALBUTEROL SULFATE | [facility] | + + + + | 2023-01-06 00:00 | [id number] 200 ACTUAT | [facility] | | | albuterol 0.09 MG/ACTUAT | | | | Metered Dose I | | + + + + | 2022-01-25 00:00 | 24 HR metoprolol succinate | [facility] | | | 200 MG Extended Release | | | | Oral Tabl | | + + + + | 2022-02-16 00:00 | 24 HR metoprolol succinate | [facility] | | | 200 MG Extended Release | | | | Oral Tabl | | + + + + | 2023-01-06 00:00 | 24 HR metoprolol succinate | [facility] | | | 200 MG Extended Release | | | | Oral Tabl | | + + + + | 2023-01-08 00:00 | 24 HR metoprolol succinate | [facility] | | | 200 MG Extended Release | | | | Oral Tabl | | + + + + | 2023-01-21 00:00 | 24 HR metoprolol succinate | [facility] | | | 200 MG Extended Release | | | | Oral Tabl | | + + + + | 2022-01-31 00:00 | METOPROLOL SUCCINATE | [facility] | + + + + | 2022-02-16 00:00 | METOPROLOL SUCCINATE | [facility] | + + + + | 2023-01-06 00:00 | METOPROLOL SUCCINATE | [facility] | + + + + | 2023-01-08 00:00 | METOPROLOL SUCCINATE | [facility] | + + + + | 2023-01-21 00:00 | METOPROLOL SUCCINATE | [facility] | + + + + | 2022-01-31 00:00 | METOPROLOL TARTRATE | [facility] | + + + + | 2022-02-16 00:00 | METOPROLOL TARTRATE | [facility] | + + + + | 2023-01-06 00:00 | METOPROLOL TARTRATE | [facility] | + + + + | 2023-01-08 00:00 | METOPROLOL TARTRATE | [facility] | + + + + | 2023-01-21 00:00 | METOPROLOL TARTRATE | [facility] | + + + + | 2022-01-25 00:00 | metoprolol tartrate 50 MG | [facility] | | | Oral Tablet | | + + + + | 2022-02-16 00:00 | metoprolol tartrate 50 MG | [facility] | | | Oral Tablet | | + + + + | 2023-01-06 00:00 | metoprolol tartrate 50 MG | [facility] | | | Oral Tablet | | + + + + | 2023-01-08 00:00 | metoprolol tartrate 50 MG | [facility] | | | Oral Tablet | | + + + + | 2023-01-21 00:00 | metoprolol tartrate 50 MG | [facility] | | | Oral Tablet | | + + + + | 2023-01-08 00:00 | 24 HR nitroglycerin 0.2 | [facility] | | | MG/HR Transdermal System | | | | [Nitro-Dur] | | + + + + | 2023-01-08 00:00 | NITROGLYCERIN | [facility] | + + + + | 2023-01-08 00:00 | NITROGLYCERIN | [facility]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
[~2023-01-28 09:52] MED LIST changes: +BUPROPION HCL75 MG PO; +INDAPAMIDE1.25 MG PO; +K-TAB ER20 MEQ PO; +LASIX40 MG PO; +LISINOPRIL40 MG PO; +NITRO-DUR1 EAC3 TD; +POTASSIUM CHLO20 ME1 PO; +SEROQUEL25 MG PO; +TOPIRAMATE25 MG PO; +VENTOLIN HFA18 GM INH
--- OUTSIDE RECORDS SUMMARY | 2023-01-28 10:00 | XMS ---
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 Patient phone not able to take voice mail.\T\nbsp; Sent letter to advise to reach out to PCP, Dr. Cartwright as he has not seen him since 07/05/2019 and may need follow up or referral to specialist. 01/18/2018 [facility] - Patient is currently established with [facility]. If patient is seen in the ED during business hours. Please contact [facility] at [facility]. Care Recommendation: This patient has had 5 or more Emergency Department visits in the last 12 months.\T\nbsp; Patient requires education on the scope and purpose of the ED as an acute care provider not a Primary Care Provider and should not be utilized for chronic conditions.\T\nbsp; These are guidelines and the provider should exercise clinical judgment when providing care. 09/27/2017 [facility] - Patient\T\nbsp; website designer Celestina Delgado please contact if patient is seen in the ED [phone]. [facility] MO[facility] NOTE: Visits indicate total known visits. ED/C VISIT TRACKING (12 MO.) [facility] 09[facility] [place] [facility] COMPLAINT: - TOOTHACHE 01/21/2023 08:36 [facility] [place] TYPE: Emergency COMPLAINT: - FACIAL SWELLING DIAGNOSES: - Allergy status to penicillin - Heart failure, unspecified - Hypertensive heart disease with heart failure - predatory animal exterminator (current) use of aspirin - Nicotine dependence, unspecified, uncomplicated - Old myocardial infarction - Other fpc (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 therapy - Other specified disorders of teeth and supporting structures - Periapical abscess without sinus - Presence of coronary angioplasty implant and graft 01/07/2023 11:41 [facility] [place] TYPE: Emergency COMPLAINT: - CHEST PAIN,SOB 01/06/2023 11:14 [facility] [place] TYPE: Emergency COMPLAINT: - CHEST PAIN DIAGNOSES: - Allergy status to penicillin - Chronic pulmonary edema - Contact with and (suspected) exposure to COVID-19 - Essential (primary) hypertension - prison (current) use of aspirin - Nicotine dependence, unspecified, uncomplicated - Old myocardial infarction - Other chest pain - Other terminologist (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 therapy - Personal history of transient ischemic attack (TIA), and cerebral infarction without residual deficits - Presence of coronary angioplasty implant and graft 02/16/2022 18:07 [facility] [place] TYPE: Emergency COMPLAINT: - HIGH BLOOD PRESSURE DIAGNOSES: - Allergy status to penicillin - Essential (primary) hypertension - prison (current) use of aspirin - Nicotine dependence, unspecified, uncomplicated - Old myocardial infarction - Other terminologist (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 therapy - Personal history of transient ischemic attack (TIA), and cerebral infarction without residual deficits - Polyneuropathy, unspecified INPATIENT VISIT TRACKING (12 MO.) 01/07/2023 11:42 [facility] [place] TYPE: Observation COMPLAINT: - CHF DIAGNOSES: - Allergy status to penicillin - Body mass index [BMI] 37.0-37.9, adult - Chest pain, unspecified - Heart failure, unspecified - Hypertensive heart disease with heart failure - predatory animal exterminator (current) use of aspirin - Nicotine dependence, unspecified, uncomplicated - Obesity, unspecified - Other terminologist (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 therapy - Patient's noncompliance with other medical treatment and regimen due to unspecified reason [email or web address]
[2023-01-28] MEDS ORDERED: PERCOCET 5-3251 EACH PO (12:34)
[2023-01-28] MEDS ORDERED: MELOXICAM15 MG PO (12:34)
[2023-01-28 13:15] VITALS: BP 172/100
[2023-01-30] MEDS ORDERED: METRONIDAZOLE500 MG PO (01:49)
[2023-01-30] MEDS ORDERED: ZITHROMAX250 MG PO (01:49)
== END 2023-01-28 13:15 | disposition home or self-care (01) ==
LOC: ED 09:52
DX: K02.9 Dental caries, unspecified (principal); I10 Essential (primary) hypertension; I25.2 Old myocardial infarction; F17.200 Nicotine dependence, unspecified, uncomplicated; Z80.0 Family history of malignant neoplasm of digestive organs; Z79.899 Other long term (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 therapy; Z79.82 Long term (current) use of aspirin
CPT/HCPCS: 96372; 99282; J1885

== ENCOUNTER 2023-01-28 21:11 | Emergency (ER) | payer MEDICARE | END 2023-01-28 22:22 | disposition home or self-care (01) | LOC: ED 21:11 | DX: K02.9 Dental caries, unspecified (principal); F17.200 Nicotine dependence, unspecified, uncomplicated; I10 Essential (primary) hypertension; I25.2 Old myocardial infarction; Z86.73 Personal history of transient ischemic attack (TIA), and cerebral infarction without residual deficits; Z95.5 Presence of coronary angioplasty implant and graft; Z88.0 Allergy status to penicillin; Z79.899 Other long term (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 therapy; Z79.82 Long term (current) use of aspirin ==

== ENCOUNTER 2023-01-30 01:11 | Emergency (ER) | payer MEDICARE | END 2023-01-30 02:01 | disposition home or self-care (01) | LOC: ED 01:11 | DX: K04.7 Periapical abscess without sinus (principal); I25.2 Old myocardial infarction; I10 Essential (primary) hypertension; F17.200 Nicotine dependence, unspecified, uncomplicated; Z86.73 Personal history of transient ischemic attack (TIA), and cerebral infarction without residual deficits; Z95.5 Presence of coronary angioplasty implant and graft; Z80.0 Family history of malignant neoplasm of digestive organs; Z79.899 Other long term (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 therapy ==

== ENCOUNTER 2023-05-02 17:09 | Inpatient (IN) | payer MEDICARE ==
[~2023-05-02] VITALS: Ht 180.3 cm; Wt 124.1 kg
[~2023-05-02 17:09] MED LIST changes: -ASPIRIN81 MG PO; +ECOTRIN325 MG PO; +MECLIZINE HCL25 MG PO; +MELOXICAM15 MG PO; +METRONIDAZOLE500 MG PO; +ONDANSETRON HCL4 MG PO; +ZITHROMAX250 MG PO
--- OUTSIDE RECORDS SUMMARY | 2023-05-02 17:10 | XMS ---
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 - Patient with suicidal and/or homicidal ideations eloped. - Patient eloped with IV in place. Details: Patient LWBS CRITERIA MET - 6 ED Visits in 6 Months - Group Notification - [facility] - 2 Visits in 30 Days CARE PROVIDERS ELIANA CARTWRIGHT Internal Medicine 03/23/2020-Current PHONE: Unknown Care Guidelines exist for the following facilities: [facility] ( 11/20/2017 ) Care History Medical/Surgical 03/23/2020 [facility] Patient phone not able to take voice mail.\T\nbsp; Sent letter to advise to reach out to PCP, Dr. Cartwright as he has not seen him since 07/05/2019 and may need follow up or referral to specialist. 01/18/2018 [facility] - Patient is currently established with [facility]. If patient is seen in the ED during business hours. Please contact CHWs at [facility]. Care Recommendation: This patient has had 5 or more Emergency Department visits in the last 12 months.\T\nbsp; Patient requires education on the scope and purpose of the ED as an acute care provider not a Primary Care Provider and should not be utilized for chronic conditions.\T\nbsp; These are guidelines and the provider should exercise clinical judgment when providing care. 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 E.D. VISIT COUNT ([address] [facility]. TOTAL 10 NOTE: Visits indicate total known visits. ED/C VISIT TRACKING (12 MO.) 05/02/2023 17:09 [facility] [place] TYPE: Emergency COMPLAINT: - LT ARM NUMBNESS 04/15/2023 12:29 [facility] [place] TYPE: Emergency COMPLAINT: - DIZZINESS, NAUSEA DIAGNOSES: - Allergy status to penicillin - Dizziness and giddiness - Essential (primary) hypertension - senior living (current) use of aspirin - Nicotine dependence, unspecified, uncomplicated - Old myocardial infarction - Other supervisor intermediates (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 therapy - Presence of coronary angioplasty implant and graft 04/14/2023 13:18 [facility] [place] TYPE: Emergency COMPLAINT: - FATIGUE, WEAK 02/01/2023 19:20 [facility] [place] TYPE: Emergency COMPLAINT: - JAW PAIN DIAGNOSES: - Allergy status to penicillin - Essential (primary) hypertension - 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 - Nicotine dependence, unspecified, uncomplicated - Old myocardial infarction - Other supervisor intermediates (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 therapy - Periapical abscess without sinus - Presence of coronary angioplasty implant and graft 01/30/2023 01:11 [facility] [place] TYPE: Emergency COMPLAINT: - DENTAL PAIN DIAGNOSES: - Dental caries, unspecified - Essential (primary) hypertension - Family history of malignant neoplasm of digestive organs - Nicotine dependence, unspecified, uncomplicated - Old myocardial infarction - Other mcfp (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 therapy - Periapical abscess without sinus - Personal history of transient ischemic attack (TIA), and cerebral infarction without residual deficits - Presence of coronary angioplasty implant and graft 01/28/2023 21:11 [facility] [place] TYPE: Emergency COMPLAINT: - DENTAL PAIN WAS HERE IN THE AM MEDS NOT WORKING DIAGNOSES: - Allergy status to penicillin - Dental caries, unspecified - Essential (primary) hypertension - senior living (current) use of aspirin - Nicotine dependence, unspecified, uncomplicated - Old myocardial infarction - Other mcfp (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 therapy - Personal history of transient ischemic attack (TIA), and cerebral infarction without residual deficits - Presence of coronary angioplasty implant and graft 01/28/2023 09:52 [facility] [place] TYPE: Emergency COMPLAINT: - TOOTHACHE DIAGNOSES: - Dental caries, unspecified - Essential (primary) hypertension - Family history of malignant neoplasm of digestive organs - senior living (current) use of aspirin - Nicotine dependence, unspecified, uncomplicated - Old myocardial infarction - Other supervisor intermediates (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 therapy - Other specified disorders of teeth and supporting structures 01/21/2023 08:36 [facility] [place] TYPE: Emergency COMPLAINT: - FACIAL SWELLING DIAGNOSES: - Allergy status to penicillin - Heart failure, unspecified - Hypertensive heart disease with heart failure - senior living (current) use of aspirin - Nicotine dependence, unspecified, uncomplicated - Old myocardial infarction - Other supervisor intermediates (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 therapy - Other specified disorders [...] to COVID-19 - Essential (primary) hypertension - 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 - Nicotine dependence, unspecified, uncomplicated - Old myocardial infarction - Other chest pain - Other supervisor intermediates (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 therapy - Personal history of transient ischemic attack (TIA), and cerebral infarction without residual deficits - Presence of coronary angioplasty implant and graft INPATIENT VISIT TRACKING (12 MO.) 01/07/2023 11:42 [facility] [place] TYPE: Observation COMPLAINT: - CHF DIAGNOSES: - Allergy status to penicillin - Body mass index [BMI] 37.0-37.9, adult - Chest pain, unspecified - Heart failure, unspecified - Hypertensive heart disease with heart failure - senior living (current) use of aspirin - Nicotine dependence, unspecified, uncomplicated - Obesity, unspecified - Other supervisor intermediates (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 therapy - Patient's noncompliance with other medical treatment and regimen due to unspecified reason [email or web address]
[2023-05-02 17:37] LABS: BASOPHILS 0.9 % (0-2); EOSINOPHILS 1.3 % (0-6); HEMATOCRIT 50.1 % (35.0-50.0); HEMOGLOBIN 16.7 g/dL (12.0-18.0); MCH 31.6 (27-36); MCHC 33.4 g/dl (30-36); MCV 94.6 fl (81-99); MONOCYTES 7.7 % (0-12); NEUTROPHILS 71.1 % (39-80); PLATELET COUNT 256 K/uL (140-440); RBC 5.29 M/ul (4.3-5.7); RDW 14.6 (10.5-15.0)
[2023-05-02 17:48] LABS: PARTIAL THROMBOPLASTIN TIME 25.3 Sec (22.9-41.3)
[2023-05-02 17:49] LABS: INR 0.94 (0.80-1.30); PROTIME 12.1 Sec (11.2-14.2)
[2023-05-02 17:54] LABS: ALBUMIN 3.9 g/dL (3.4-5.0); ALBUMIN/GLOBULIN RATIO 1.11 (1.1-2.4); ANION GAP 12.9 (7-21); BILIRUBIN, TOTAL 0.4 ng/dL (0.2-1.0); BUN/CREATININE RATIO 11.57 (6.0-28.6); CALCIUM 9.1 mg/dL (8.5-10.1); CREATININE, SERUM 0.95 mg/dL (0.70-1.30); POTASSIUM 3.9 mmol/L (3.5-5.1); PROTEIN, TOTAL 7.4 g/dL (6.4-8.2)
--- NOTE | 2023-05-02 20:03 | NUR ---
pt ARRIVED TO [place] FLOOR, BROUGHT TO FLOOR BY RD. TELE#[address], SINUS RHYTHM NOTED, HR 60'S. pt A/O TO ALL BUT BUT UNSURE OF DATE, VS COLLECTED. pt DENEIS PAIN AND NAUSEA. ELEVATED BP, RESULT OF 209/111, MAP OF 132. pt PASSED BEDSIDE SWALLOW EVAL, TOLERATING REGULAR DIET. STROKE NIH COMPLETED. NO ADDITIONAL NEEDS OR CONCERNS VERBALIZED, CALL LIGHT IN REACH. TAXI DRIVER REMAINS IN ROOM TO COMPLETE ADMISSION.
[2023-05-02 20:10] VITALS: BP 209/111
--- NOTE | 2023-05-02 20:43 | NUR ---
DR DON MADE AWARE OF ELEVATED BP RESULT OF 209/111, MAP OF 132. TELEPHONE ORDERS TO ALLOW PERMISSIVE HTN AND TO CALL MD OF SBP >220 AND/OR DBP>120, READ BACK TO CONFIRM.
[2023-05-02 21:36] LABS: AMPHETAMINES, URINE NEGATIVE (NEGATIVE); BARBITURATES, URINE NEGATIVE (NEGATIVE); BENZODIAZEPINE, URINE NEGATIVE (NEGATIVE); BUPRENORPHINE, URINE NEGATIVE (NEGATIVE); CANNABINOID, URINE NEGATIVE (NEGATIVE); COCAINE, URINE NEGATIVE (NEGATIVE); ECSTASY, URINE NEGATIVE (NEGATIVE); FENTANYL, URINE NEGATIVE (NEGATIVE); METHADONE, URINE NEGATIVE (NEGATIVE); OPIATES, URINE NEGATIVE (NEGATIVE); OXYCODONE, URINE NEGATIVE (NEGATIVE); PHENCYCLIDINE, URINE NEGATIVE (NEGATIVE)
--- NOTE | 2023-05-02 21:55 | EKG ---
[facility] [address] [place] [address] Signed Sinus rhythm with occasional premature ventricular complexes Left axis deviation Left ventricular hypertrophy with repolarization abnormality ( R in aVL , [place] product ) Abnormal ECG When compared with ECG of 15-APR-2023 13:02, premature ventricular complexes are now present Confirmed by Anoop Don MD () on 05/02/2023 9:55:20 PM Electronically Signed By: ANOOP DON MD 05/02/23 2155 PATIENT NAME: DARIO WEST Electrocardiogram DATE OF : 64 PHYSICIAN: ANOOP DON MD REPORT #: [id number] REPORT IS CONFIDENTIAL AND NOT TO BE RELEASED WITHOUT AUTHORIZATION
--- NOTE | 2023-05-02 22:40 | NUR ---
INFORMED BY LOCKSTITCH TUNNEL ELASTIC OPERATORLYN HOYT THAT pt IS BEING MOVED FROM [place] TO THE CCU FOR CLOSER MONITORING AFTER pt HAD A "RHYTHM CHANGE" PER CCU RN. CALL THEN RECEIVED FROM DR DON WHO RECENTLY SPOKE WITH CCU RN, PER MD pt HAD A "WIDE COMPLEX" AND WAS TACHY. MD PLACED ORDERS TO TRANSFER pt TO UNIT AND TO OBTAIN EKG, RT AGUS AWARE AND TO OBTAIN AFTER pt TRANSFER. pt SOMEWHAT RESTLESS IN BED, REPORTS INABILITY TO GET COMFORTABLE AND REPORTS NUMBNESS IN LEFT HAND IS CLIMBING UP ARM NEAR AC AREA AND pt ALSO REPORTS SOME NUMBNESS TO LLE-DR DON MADE AWARE VIA PHONE, NO NEW ORDERS RECEIVED REGARDING THIS. CCU RN GEORGINA IN ROOM AND ASSISTED pt VIA WHEEL CHAIR TO UNIT AT APPROX 2253 AND BEDSIDE REPORT WAS GIVEN-CCU STAFF OBTAINING NEW SET OF VS AND HOOKING pt UP TO HEART MONITOR. DR DON TO BEDSIDE AND IS ASSESSING pt AT THIS TIME.
--- NOTE | 2023-05-02 23:24 | NUR ---
1050- RECEIVED PATIENT JENNA FROM MED/SURG UNIT. BEDSIDE SBAR HANDOFF CONDUCTED IN CCU FLOOR. CONCERN FOR CARDIAC RHYTHM CHANGE NOTICED BY THIS RN AND LYN MONTERO. PATIENT MOVED TO CCU RM 128 FOR CLOSER OBSERVATION. PATIENT JENNA IS ALERT AND ORIENTED X 4. HE IS ABLE TO MOVE ALL EXTREMITIES WITH MINIMAL DIFFICULTY. COMPLAINTS OF NUMBNESS AND TINGLING IN LEFT ARM. BP CUFF MOVED TO RIGHT ARM FOR COMFORT. ABLE TO STAND AN DPIVOT WITH MINIMAL ASSISTANCE. DENIES ANY NEEDS OTHER THAN A HOT BEVERAGE. NIHSS SCORE OF ONE FOR NUMBNESS AND TINGLING IN LEFT ARM AND LEG. MD DON AT BEDSIDE. NEW CCU ORDERS RECEIVED. EKG PERFORMED AT BEDSIDE, WILL ADMINISTERED ORDERED MAGNESIUM AND CONTINUE TO MONITOR CLOSELY.
[2023-05-03] VITALS (32 sets, daily range): BP systolic 159–217; BP diastolic 75–138
--- NOTE | 2023-05-03 00:22 | NUR ---
PATIENT JENNA IS ATTEMPTING TO REST IN ROOM. HYPERSENSITIVITY NOTED IN LEFT ARM AND LEG
--- NOTE | 2023-05-03 05:16 | NUR ---
NIHSS PERFORMED DURING DOWNTIME. PATIENT JENNA CONTINUES TO HAVE COMPLAINTS OF NUMBNESS, TINGLING, AND "PINPRICK' SENSATION IN HIS LEFT ARM AND LEG. HOWEVER, HE STATES THAT THE PINPRICK SENSATION IN IMPROVEMENT. HE IS NOTED TO BE ALERT AND ORIENTED X 4 AND REQUESTED PUDDING AND HOT TEA FOR A SNACK. BED ALARM SET, CALL LIGHT WITHIN REACH, AND LIGHTS WERE DIMMED. VSS WITH PERMISSIVE HYPERTENSION.
[2023-05-03 05:23] LABS: BASOPHILS 0.9 % (0-2); EOSINOPHILS 1.9 % (0-6); HEMATOCRIT 44.8 % (35.0-50.0); HEMOGLOBIN 15.4 g/dL (12.0-18.0); LYMPHOCYTES 18.8 % (24-44); MCH 32.3 (27-36); MCHC 34.5 g/dl (30-36); MCV 93.6 fl (81-99); MONOCYTES 7.6 % (0-12); NEUTROPHILS 70.8 % (39-80); PLATELET COUNT 204 K/uL (140-440); RBC 4.79 M/ul (4.3-5.7); RDW 14.3 (10.5-15.0)
--- NOTE | 2023-05-03 05:32 | NUR ---
PATIENT WEST IS RESTING WITH EYES CLOSED. VSS WITH PERMISSIVE HYPERTENSION. WARM BLANKETS PROVIDED. NO OTHER NEEDS AT THIS TIME
--- NOTE | 2023-05-03 05:35 | NUR ---
PATIENT JENNA CONTINUES TO ENDORSE COMFORT OTHER THAN C/O LEFT SIDED NUMBNESS AND TINGLING. HE HAS TURNED THE TELEVISION ON AND IS CURRENTLY ENJOYING THE MUSIC CHANNEL. URINAL, BEDSIDE REMOTE, AND PERSONAL BELONGINGS AT BEDSIDE
[2023-05-03 05:40] LABS: ALBUMIN 3.4 g/dL (3.4-5.0); ALBUMIN/GLOBULIN RATIO 1.13 (1.1-2.4); ANION GAP 11.4 (7-21); BILIRUBIN, TOTAL 0.5 ng/dL (0.2-1.0); BUN/CREATININE RATIO 8.33 (6.0-28.6); CALCIUM 8.6 mg/dL (8.5-10.1); CHOLESTEROL/HDL RATIO 6.5; CREATININE, SERUM 0.84 mg/dL (0.70-1.30); PHOSPHORUS, INORGANIC 3.3 mg/dL (2.5-4.9); POTASSIUM 3.4 mmol/L (3.5-5.1); PROTEIN, TOTAL 6.4 g/dL (6.4-8.2)
--- NOTE | 2023-05-03 08:42 | NUR ---
IN PATIENT'S ROOM FOR ASSESSMENT, VITALS AND BREAKFAST. PT AWAKE, ALERT, ORIENTED AND CONVERSIVE. PT STATES HE IS HUNGRY AND READY FOR BREAKFAST. PT REPORTS THAT HIS LEFT ARM TINGLING/PINPRICK FEELS HAVE GONE AWAY SINCE 0430. PT REPORTS THAT HE DID NOT SLEEP WELL OVERALL. NO FURTHER ECTOPY HAS BEEN NOTED SINCE PATIENT WAS BROUGHT OVER FROM MED/SURG.
--- NOTE | 2023-05-03 08:54 | NUR ---
DR. DON IN ROOM TO SEE PATIENT AT THIS TIME, DISCUSSING PLAN OF CARE AND LAB VALUES. PT INFORMED BY DR. DON THAT HE IS DIABETIC PER HIS LAB RESULTS.
--- NOTE | 2023-05-03 09:41 | NUR ---
PATIENT RETURNS FROM WORKING WITH PT/OT AND THEY REPORTED TO THIS RN THAT WHILE PATIENT WAS WORKING WITH HIM, HE "BLACKED OUT" FOR A SMALL AMOUNT OF TIME. PT REPORTS SOME NUMBNESS LIKE FEELING ON THE LEFT SIDE OF HIS FACE WHICH IS RESOLVED NOW, BUT THIS IS THE FIRST TIME HE HAS NOTICED IT. INITIALS NEURO EXAM SHOWS THE LEFT SIDE SLIGHLY LESS STRONG THAN THE RIGHT SIDE. NIH TO BE DONE.
--- NOTE | 2023-05-03 10:12 | NUR ---
DR. DON CALLED AT 0959 TO UPDATE THAT PATIENT HAD THAT EPISODE OF FEELING MORE NUMBNESS IN HIS FACE WHILE WORKING WITH PT/OT AND THE NEAR SYNCOPE. ALSO REPORTED EXTREMELY ELEVATED BPs, OF 210/135, 214/135, AND 214/133. DR. DON THEN CAME TO BEDSIDE TO BETO KAMARA HIMSELF. PT REPORTS THAT THIS NUMBNESS IN FACE IS RESOLVING. PT IS SPEAKING CLEARLY, MOVING ALL EXT, AND SCORED A 1 ON HIS NIH SCALE THIS AM AFTER RETURNING FROM PT/OT. NO ECTOPY NOTED ON BATCH OPERATOR. PENDING FURTHER ORDERS FROM DR. DON. PT TO HAVE ECHO AND MRI TODAY.
--- NOTE | 2023-05-03 10:40 | NUR ---
PATIENT ALERT AND ORIENTED, SITTING ON EDGE OF BED. DEMOGRAPHICS VERIFIED WITH PATIENT. LIVES IN A TRAILER, ALONE. HAS 3 STEPS TO GET IN, NO ISSUES WITH STEPS PRIOR TO ADMISSION. STATES HE HAS NO DME, IS SUPPOSED TO USE CPAP, BUT DOES NOT USE IT BECAUSE "IT DOESN'T WORK." DIFFICULTY OBTAINING FOOD DUE TO COST. STATES HE HAS PREVIOUSLY USED PANTRIES IN TOWN. LIST OF FOOD PANTRIES PROVIDED WELL INFORMATION FOR [facility] [employer] AND THEIR FOOD PROGRAM. DENIES ANY FURTHER NEEDS AT THIS TIME. INSTRUCTED TO NOTIFY STAFF IF NEEDS ARISE. VERBALIZES UNDERSTANDING.
--- NOTE | 2023-05-03 11:30 | NUR ---
NURSING STAFF IN ROOM. DID NOT INTERRUPT. PRAYED FOR [facility] AND ABIDING PEACE.
--- NOTE | 2023-05-03 12:37 | NUR ---
UR NOTE MCG STROKE: ISCHEMIC: OBSERVATION CARE (ISC) 05/02/23 MET OBSERVATION CARE ADMISSION CRITERIA
--- NOTE | 2023-05-03 12:40 | NUR ---
PATIENT WANTING TO WALK TO BATHROOM TO VOID. PT ABLE TO DO THIS. PATIENT ONCE BACK IN BED AND SITTING UP ON EDGE, STARTING TO EAT LUNCH, C/O DIZZYNESS AND BLURRY VISION. PT HELPED BACK TO BED AND VITALS TAKEN. LABETALOL GIVEN 10 MG IV PRIOR TO PT GOING TO THE BATHROOM. BP AFTER IS 218/119. PT ASKED TO MINIMIZE MOVING AROUND AT THIS TIME. MRI AROUND 1300.
--- NOTE | 2023-05-03 13:06 | NUR ---
LE 1250 INTO PATIENT ROOM, PATIENT APPEARED TO BE EATING LUNCH IN BED WITH HOB ELEVATED TO 80 DEGREES, SUPPORTED WITH PILLOWS. PATIENT RUBBING LEFT HAND AND REPORTED NUMBNESS. APPEARS RESTLESS AND STATES " I AM SO TIRED OF ALL OF THIS" PATIENT THEN REQUESTED TO HAVE BLOOD PRESSURE CHECKED AGAIN. INSTRUCTED PATIENT TO TAKE CALM DEEP BREATHS. AFTER CONVERSING FOR A FEW MORE MINUTES THE PATIENT STATED " MY SYMPTOMS ARE GETTING WORSE, AND I AM SCARED" PATIENT APPEARED TEARFUL. NOTIFIED PATIENT STATEMENT TO PRIMARY NURSE. REASSURED PATIENT THAT PRIMARY NURSE WAS ON THE WAY TO THE ROOM.
--- NOTE | 2023-05-03 13:08 | NUR ---
INTO PATIENT'S TO EVAL. PT HAS REPORTED THAT HIS SYMPTOMS OF HIS LEFT ARM NUMBNESS/TINGLING SEEM TO BE WORSENING. PT DENIES VISION CHANGES CURRENTLY, BUT STILL C/O HIS LEFT LEG FEELING "CLUMSY" AND IS NOT ABLE TO MOVE WELL NORMAL. PT IS VERY FRUSTARTED BY THIS FEELING. BPs REMAIN ELEVATED. DR. DON CALLED TO UPDATE AND CODE STROKE CALLED.
--- NOTE | 2023-05-03 13:19 | NUR ---
CALL PLACED TO TELE STROKE. DR POOL TO CALL BACK
--- NOTE | 2023-05-03 13:29 | NUR ---
THIS RN IN MRI WITH PATIENT. PT TAKEN TO CT FIRST AFTER A CODE STROKE WAS CALLED. CBG UPON CALLING CODE STROKE WAS 219. DR. DON AT BEDSIDE. TELEROBOT FOR NEUROLOGIST BROUGHT INTO ROOM. WHEN PATIENT WAS IN CT, HE WAS ABLE TO STAND TO PIVOT ONTO CT TABLE, BUT WHEN GETTING BACK FROM CT TABLE ONTO BED, PT C/O FEELING DIZZY AND HIS EYES ROLLED BACK, BUT PT DID NOT LOSE CONSCIOUSNESS. 2 PERSON ASSIST TO AND FROM CT/MRI TABLE.
--- NOTE | 2023-05-03 15:56 | NUR ---
PATIENT BECOMING MORE AGITATED AND FRUSTRATED BECAUSE HIS LEFT LEG IS BECOMING HARDER TO MOVE, AND MORE NUMB. NIH STROKE SCALE COMPLETED AGAIN AND IS NOW NOTED TO BE A 5. PT'S LEFT ARM IS ALSO SHOWING INCREASED WEAKNESS. DR. DON TO BE NOTIFIED. NICARDIPINE GTT REMAINS AT 5 MG/HR. LAST BP 187/125 (141).
--- NOTE | 2023-05-03 17:29 | NUR ---
DR. DON BACK IN TO SEE PATIENT. PT STILL STRUGGLING WITH ANXIETY AND MOVING HIS LEFT LEG AROUND AT TIMES, NUMBNESS AND TINGLING ON THE LEFT SIDE. PRN ORDER FOR ATIVAN REC'D. PT REMAINS ON NICARDIPINE AT 2.5 MG/HR.
--- NOTE | 2023-05-03 18:19 | NUR ---
PATIENT AWAKENS FROM A NAP. PT WAS RESTING FOR PROBABLY 45 MINUTES AND APPEARED RESTFUL. PT AWAKENS AND STATES, "I FEEL A LITTLE BETTER. STILL HAVING SOME NUMBNESS IN THE LEFT ARM, BUT MOVING MY LEFT LEG A LITTLE BETTER." PT STANDS TO VOID AT BEDSIDE AND APPEARS STABLE AFTER A MOMENT OF STANDING. PT REQUESTING THE NEEDED MEDICATION THAT THE DOCTOR TOLD HIM HE WOULD BE ABLE TO RECEIVE. PRN ATIVAN GIVEN PER EMAR. NICARDIPINE GTT INFUSING AT 2.5 MG/HR. WILL CONTINUE TO MONITOR CLOSELY.
--- NOTE | 2023-05-03 19:57 | NUR ---
NIHSS SCORED AT 5. PLEASE SEE ASSESSMENT FOR FURTHER DETAILS. PATIENT JENNA NEEDED ASSISTANCE GETTING BACK INTO BED DUE TO IMMOBILITY OF LEFT LEG, DRIFT OF LEFT ARM AND LEG, AND PINPRICK SENSATION. HE DENIES PAIN. ALERT AND ORIENTED X 4. ABLE TO ANSWER ALL ORIENTATION QUESTIONS.
--- NOTE | 2023-05-03 22:21 | EKG ---
[facility] [address] [facility] [place] [address] Signed Sinus rhythm with occasional premature ventricular complexes Left axis deviation ST \T\ T wave abnormality, consider lateral ischemia Prolonged QT Abnormal ECG When compared with ECG of 02-MAY-2023 18:12, No significant change was found Confirmed by Anoop Don MD () on 05/03/2023 10:21:10 PM Electronically Signed By: ANOOP DON MD 05/03/232220 PATIENT NAME: DARIO WEST Electrocardiogram DATE OF : 64 PHYSICIAN: ANOOP DON MD REPORT #: [id number] REPORT IS CONFIDENTIAL AND NOT TO BE RELEASED WITHOUT AUTHORIZATION
[2023-05-04] VITALS (51 sets, daily range): BP systolic 157–229; BP diastolic 86–169
--- NOTE | 2023-05-04 00:58 | NUR ---
PATIENT JENNA IS STILL NOTED TO HAVE A DRIFT IN LEFT LEG AMD ARM. COMPLAINTS OF "PINPRICKS" AND "FIRE" CONTINUE TO BE REPORTED. PLEASE SEE ASSESSMENT.
[2023-05-04 05:22] LABS: BASOPHILS 0.8 % (0-2); EOSINOPHILS 1.2 % (0-6); HEMATOCRIT 47.1 % (35.0-50.0); LYMPHOCYTES 10.6 % (24-44); MCH 31.7 (27-36); MCHC 34.1 g/dl (30-36); MCV 93.1 fl (81-99); MONOCYTES 7.3 % (0-12); NEUTROPHILS 80.1 % (39-80); PLATELET COUNT 229 K/uL (140-440); RBC 5.06 M/ul (4.3-5.7); RDW 14.3 (10.5-15.0)
--- NOTE | 2023-05-04 05:27 | NUR ---
PATIENT JENNA WAS ABLE TO REST A FEW HOURS TONIGHT. HE REQUESTED MELATONIN AT 9PM. 3MG ADMINISTERED IN THE EFFORT TO PROVIDE A RESTFUL EVENING. NIHSS CONSISTENTLY SCORED 5 FOR LEFT SIDED NUMBNESS, TINGLING, AND SENSATION OF PINS AND NEEDLES. PATIENT IS NOTED TO BE RESTLESS. MULTIPLE INTERVENTIONS PERFORMED SUCH WARM BLANKETS, THERAPEUTIC MASSAGE, PILLOWS, AND DIMINISHED ROOM LIGHTING. NEURO- ORIENTED X 3. ABLE TO MOVE RIGHT SIDE WITH MINIMAL DIFFICULTIES. PERRLA RESP- RA- 2LNC FOR SLEEP APNEA NOTED AT NIGHT. ABLE TO CLEAR SECRETIONS, COUGH, AND DEEP BREATH CARDIAC- SR, NICARDIPINE GTT REQUIRED TO KEEP BP PARAMETERS IN ORDERED PARAMETER, NO EDEMA NOTED, AFEBRILE GI/- ABLE TO VOID IN URINAL, GOOD APPETITE, 3U SUB Q INSULIN AT HS INT- DRY FEET NOTED LDA- BILATERAL IVS NICARDIPINE GTT AT 2.5
[2023-05-04 05:35] LABS: ALBUMIN 3.7 g/dL (3.4-5.0); ALBUMIN/GLOBULIN RATIO 1.09 (1.1-2.4); ANION GAP 14.8 (7-21); BILIRUBIN, TOTAL 0.7 ng/dL (0.2-1.0); BUN/CREATININE RATIO 14.13 (6.0-28.6); CALCIUM 8.7 mg/dL (8.5-10.1); CREATININE, SERUM 0.92 mg/dL (0.70-1.30); POTASSIUM 3.8 mmol/L (3.5-5.1); PROTEIN, TOTAL 7.1 g/dL (6.4-8.2)
--- NOTE | 2023-05-04 07:45 | NUR ---
in to reposition pt up in bed, speech slurred and slow, knows date and day, birthday and place, nih testing r side both falls to bed and left side is no movement,diaphoretic, temp 97.1 new findings - pt keeps repeating "shit", falls asleep and snores with resp 17, and when awake is frusterated with situation - trying to get comfortable. 96% oxy on 2L nc. increase bp 225/129 - increase nicardipine drip and checked with conveyor line battery charger to confirm pump. rn charts in room while pt falls asleep and is more comfortable appearing, heels floated,
--- NOTE | 2023-05-04 08:15 | NUR ---
dr alvarez called and updated by rn, here - assessed pt 8:21 called code stroke,
--- NOTE | 2023-05-04 08:21 | NUR ---
CODE STROKE CALLED - DR FIELDS HERE AND AWARE OF THIS RN NEW FINDINGS OF LEFT SIDE NO MOVEMENT, RN AND TEAM TRSF PT TO CT AND BS WAS 233, LINEN CHANGED WHILE IN SCANNER - PT TOLLERATED CT WELL - NICARDIPINE DRIP AT 2.5, AND TEAM IN ROOM, [address]
--- NOTE | 2023-05-04 09:00 | NUR ---
tele stroke center called asked for MRI from yesterday to be sent again for Dr. Turner. RN called Michael and had resent. pt resp rate 18 eyes closed on right side resting with nicardipine drip at 2.5. 0910 - po meds given with water and hob up by rn - cautious of swallow and risk for aspiration - did well with pills, when rn attempted scrambled eggs pt did not tollerate, pocket sm bite - was unable to swallow or spit our, rn assisted pt to remove pocket food and cleared mouth, swallow of water to clean mouth and opt for no more breakfast at this time, head lowerd flat with rn in room and pt falls asleep resp 25. call light in right hand.
--- NOTE | 2023-05-04 10:30 | NUR ---
CONDOM CATH PLACED TO ESTIMATE URINE OUTPUT AND KEEP SKIN CLEAN/DRY - PT INC OF URINE. CALL LIGHT IN RIGHT HAND, PT ACROSS FROM RN STATION WITH DOOR OPEN.
--- NOTE | 2023-05-04 11:01 | NUR ---
UR NOTE MCG STROKE: ISCHEMIC (ISC) INPATIENT 05/03/23 MET CLINICAL INDICATIONS FOR ADMISSION TO INPATIENT CARE
--- NOTE | 2023-05-04 11:05 | NUR ---
PT DTG VALERYSTEVEN CORDOBA [phone] [place]IV[place] SPOKESPERSON FOR FAMILY MOTHER OLE - PT EX , AND BROTHER Kunal, AND SISTER Hailey, PT AGREED TO ALLOW FAMILY INFORMATION FROM STAFF - DR FIELDS HERE AND PHONE CALL TRANSFERED TO FOR UPDATE TO VALERY ON PT STATUS.
--- NOTE | 2023-05-04 11:17 | NUR ---
Amina Monte, RN in CCU, calls to discuss potential need for inpatient rehab for continued decline since admission. Patient verbalizes he is ok to go to inpatient rehab at [facility] to be safe for home. Dr. Cuello states patient will likely need to stay in facility through the weekend and plan for potential DC next week to inpatient rehab.
--- NOTE | 2023-05-04 11:43 | NUR ---
DR AND RN IN ROOM WITH PT WHO IS RESTING IN BED, NIH SCALE PREFORMED SEE NONTES/ASSESSMENT, PT NOW NOT MOVING R LEG. AND RIGHT HAND WEAKER. LEFT LEG AND ARM ARE NEGLECTED. PT ATTENDS ON, AND IS TURNED TO LEFT SIDE FOR COMFORT WITH HOB DOWN. PT DIAPHORETIC, COOL CLOTH TO HEAD TO WIPE BROW FROM RN, PT FAMILY ADI CALLED AND RN TOOK NUMBER TO CALL BACK. [facility] MED LIST OBTAINED BY THIS RN AND PROVIDED TO DR FIELDS TO REVIEW - PT REPORTED THAT HE ONLY TOOK 4 MEDS AND FOR BP, NOT ANY OTHERS ON THE LIST. FAXED TO PHARMACY
--- NOTE | 2023-05-04 11:52 | NUR ---
DR DON HERE ON UNIT AND AWARE OF VITALS AND DRIP STOPPED. PERMISSIVE HTN OK, HOB LOW, CALL LIGHT IN R HAND.
--- NOTE | 2023-05-04 12:28 | NUR ---
BLADDER SCAN PT FOR >400 ML URINE. PT RESTING HOB DOWN 193/104 BP RESP RATE 22, ATTENDS CDI WITH CONDOM CATH - NO URINE OUT.
--- NOTE | 2023-05-04 12:30 | NUR ---
sood cath placed without difficulty greater than 400 ml immediate return - pt legs unable to move or position on own - reports feeling sensation of touch but pt can not bed at knee or ankles and is very stiff. rom performed and floated heels - after sood - bed bath given and careful attention to vinny area cleaning up iodine from sood placement and arm pit care as pt has very strong body odor - warm wash cloths with shaving cream/soap combo used, repositioned pt, skin to backside wnl intact no redness noted. left hand cleaned and rom to hand and fingers - with clean sock roll placed to calibration specialist and elevated on pillow. pt speech continues to be garbled and rn can understand with repitition. call light near r hand and visible to rn.
--- NOTE | 2023-05-04 12:41 | NUR ---
PATIENT CHART FAXED TO JEFFRY AT [facility] IN [place], [place]. STATES SHE WILL REVIEW CHART. INFORMED JEFFRY PATIENT WAS DISCUSSED WITH DR. DON AND LIKELY NOT READY FOR DC FROM THIS FACILITY UNTIL BEGINNING OF NEXT WEEK.
--- NOTE | 2023-05-04 13:28 | NUR ---
in room with pt and this rn, exam lower extrimity, rn pointed out pt has goose bumps on arms occasionally, pt unable to bend legs or purpousful move, no movement in left arm, vauge movement in right arm. hr 101, 99% 2l nc, rr22 bp 203/98 map 122. call light in right hand.
--- NOTE | 2023-05-04 13:49 | NUR ---
PT EXPRESSED WORRY AND CONCERN. CONSENTED TO PRAYER. PRAYED FOR COMFORT AND CLARITY OF DIAGNOSIS.
--- NOTE | 2023-05-04 13:57 | NUR ---
ST EVALUATION DEFERRED UNTIL PATIENT IS ABLE TO SUCCESSFULLY PARTICIPATE; PT IS CURRENTLY UNABLE TO SIT UP PER NEUROLOGIST ORDERS. NSG CONSULTED AND RECOMMENDED WAITING UNTIL PATIENT IS ABLE TO PARTICIPATE.
--- NOTE | 2023-05-04 14:00 | NUR ---
dr flores here - notified staff of plan to trsf. pt to higher level of care with neuro/spine. wilfredo zone supervisor firearms working on trsf and packet, pt has visitor eliseo and tirso at bedside, rn in to give oral care - confirmed with dr de oliveira. pt head down resting.
--- NOTE | 2023-05-04 14:41 | NUR ---
CALL TO [facility] FOR POSSIBLE TRANSFER. WILL CALL BACK. FACE SHEET FAXED
--- NOTE | 2023-05-04 15:08 | NUR ---
CALL TO [facility] FOR POSSIBLE TRANSFER, NO ANSWER AT TRANSFER CENTER
--- NOTE | 2023-05-04 15:10 | NUR ---
CALL TO [facility] CALL FOR POSSIBLE TRANSFER.
--- NOTE | 2023-05-04 15:52 | NUR ---
RECEIVED DIABETES EDUCATION CONSULT. NSG RECOMMENDED NOT TO COMPLETE CONSULT AT THIS TIME DUE TO TRANSFER TO HIGHER LEVEL OF CARE.
--- NOTE | 2023-05-04 16:21 | NUR ---
CALLED JEFFRY AT [facility]. LEFT MESSAGE THAT PATIENT IS BEING TRANSFERRED AND WE NO LONGER NEED HER TO REVIEW CHART.
--- NOTE | 2023-05-04 16:34 | NUR ---
in room with family and pt to discuss plan of care, nicardipine 2.5 gtt on pump running, 187/100 (122) hr 113, pt continues to non mobile, npo, dr aware of sl iv, no fluids - continue this. rn attempting to find transfer facility to neuro. pt sood with yellow urine to gravity. pt easily falls asleep. questions and answers about trsf process and that it is still uncertain at this point. oral care was done with swab kit, moisture save to lips and mouth. pt tollerated well but only swab no fluids to swallow. pt turned to r side with pillow -
--- NOTE | 2023-05-04 17:50 | NUR ---
in room for bs check - pt asked with garbled speech to be repositioned to his back, heels floated with pillow, sood draining dark urine, hr 112, nicardipine drip is off, bp 187/120 - family in room.
--- NOTE | 2023-05-04 18:37 | NUR ---
dr colt carrion [facility] orders and papers for [facility] - [facility] planned for legacy - accepting confirm. wilfredo linen room supervisor here assisting. family aware in room.
--- NOTE | 2023-05-04 19:27 | NUR ---
luis from [facility] called, pt to trsf to room 303 this rn gave phone report to luis she requested when pt leaves that staff call [phone], dr name is ashlyn orozco md, update to form and jerel stevens.
--- NOTE | 2023-05-04 20:32 | NUR ---
RECEIVED SBAR HANDOFF FROM LYN DAVEY. ALL EVENTS AND INTERVENTIONS OF THE DAY WERE DISCUSSED. ALL QUESTIONS AND CONCERNS WERE ANSWERED. PATIENT JENNA IS FOUND TO HAVE SLURRED SPEECH, LEFT SIDED FLACCID, RIGHT SIDED WEAKNESS. ABLE TO EXPRESS NEEDS AND DESIRES. FAMILY AT BEDSIDE. WAITING FOR [facility] TO RECEIVE PATIENT JENNA.
--- NOTE | 2023-05-04 21:12 | NUR ---
NICARDIPINE GTT AT 2.5MG FOR BP 198/144 (156).
--- NOTE | 2023-05-04 23:02 | EKG ---
[facility] [address] [facility] [address] [place] [address] Signed Normal sinus rhythm Left axis deviation Left ventricular hypertrophy with repolarization abnormality Abnormal ECG When compared with ECG of 02-MAY-2023 22:53, premature ventricular complexes are no longer present Confirmed by Anoop Don MD () on 05/04/2023 11:02:04 PM Electronically Signed By: ANOOP DON MD 05/04/232301 PATIENT NAME: WESTDARIO CHOI Electrocardiogram DATE OF : 64 PHYSICIAN: ANOOP DON MD REPORT #: [id number] REPORT IS CONFIDENTIAL AND NOT TO BE RELEASED WITHOUT AUTHORIZATION
--- NOTE | 2023-05-04 23:20 | NUR ---
[facility] TRANSFER HERE FOR TRANSPORT TO [facility] FOR HIGHER LEVEL OF CARE. . PATIENT JENNA UNDERSTANDS THAT HE WILL BE TRANSFERRED. VSS WITHIN ORDERED PARAMETERS OF SBP 180-200 AND DBP OF 100-120. NICARDIPINE GTT CURRENTLY NOT REQUIRED HOWEVER [facility] WILL TAKE REMAINING MEDICATION SHOULD THE PATIENT REQUIRE MEDICATION. 2 LNC IN USE TO MAINTAIN PATIENT'S O2 SAT ABOVE 94% BELONGINGS INCLUDING CELL PHONE, GLASSES, AND CLOTHING WITH PATIENT ATTEMPTED TO GET JACLYN OF [facility] TO GIVE AN UPDATE HOWEVER SHE DID NOT GLOBAL CLINICAL LEADER PHONE. SEE NIHSS AND ASSESSMENT
--- NOTE | 2023-05-05 00:57 | NUR ---
TRANSFER NOTES: 1929: [facility] CONTACTED TO TRANSPORT PATIENT. UNABLE TO GO HELICOPTER; PLAN TO GO FIXED WING IF WEATHER PERMITS. 1999: NO [facility] AVIABLE UNTIL 2199. [facility] WILL CALL BACK. 2019: DISCUSSED WITH ARIAN; PATIENT ABLE TO GO GROUND IF TRANSPORT AVAILABLE. 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 WILL DO HOURLY WEATHER CHECKS. 2119: [facility] UNABLE TO PROVIDE TRANSPORT 2129: CALLED [facility] AND SPOKE TO [facility]. TRANSPORT AVAILABLE VIA GROUND. ARRIVAL ESTIMATED 2229. DISCUSSED PATIENT'S TRANSPORT NEEDS AND BRIEF REPORT. 2199: [facility] REPORTS CONTINUED WEATHER CONCERNS, UNABLE TO FLY 2300: [facility] ARRIVED TO TRANSPORT PATIENT. REPORT PER GEORGINA NICHOLSON.
== END 2023-05-04 23:45 | disposition short-term general hospital (02) | DRG 65 ==
LOC: ED 17:09 → MS 17:10 → CCU 22:50
PROVIDERS: Emergency Medicine; ADMIT Family Medicine; ATTEND Family Medicine
DX: I63.9 Cerebral infarction, unspecified (principal); G81.94 Hemiplegia, unspecified affecting left nondominant side; M79.7 Fibromyalgia; I50.9 Heart failure, unspecified; I11.0 Hypertensive heart disease with heart failure; F17.210 Nicotine dependence, cigarettes, uncomplicated; E11.40 Type 2 diabetes mellitus with diabetic neuropathy, unspecified; E11.65 Type 2 diabetes mellitus with hyperglycemia; E78.00 Pure hypercholesterolemia, unspecified; Z90.49 Acquired absence of other specified parts of digestive tract; Z95.5 Presence of coronary angioplasty implant and graft; Z98.890 Other specified postprocedural states; Z86.73 Personal history of transient ischemic attack (TIA), and cerebral infarction without residual deficits; I25.2 Old myocardial infarction; Z88.0 Allergy status to penicillin; Z79.82 Long term (current) use of aspirin; Z79.01 Long term (current) use of anticoagulants; Z11.52 Encounter for screening for COVID-19; Z79.899 Other long term (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 therapy
CPT/HCPCS: 36415; 70450; 70496; 70498; 70551; 71045; 80053; 80061; 80307; 83036; 83735; 84100; 84484; 85025; 85610; 85730; 93005; 93010; 93306; 96365; 96375; 97162; 97166; 99285-25; A9270; C9803; G0378; J1815; J2405; J3475; J7060; Q9967; U0002